=== PATIENT | female | born 1980 | race Caucasian/White ===

== ENCOUNTER 2017-08-16 12:07 | Emergency (ER) | payer BC, SELFPAY ==
[2017-08-16 12:08] VITALS: BP 121/74; PULSE 84; RESP 16; TEMP 36.6; O2SAT 98; BMI 29.9
--- NOTE | 2017-08-16 12:51 | CT_ITS ---
STUDY: CT BRAIN WITHOUT CONTRAST REASON FOR EXAM: Female, 37 years old. Recent head injury. Nausea. RADIATION DOSAGE (If Supplied By Facility): CTDIvol = ( 44.99 ) mGy, DLP = ( 745.49 ) mGycm TECHNIQUE: Transaxial CT imaging of the brain was performed without administration of intravenous contrast material. Individualized dose optimization techniques were used for this CT. COMPARISON: Comparison is made with prior examination dated February 23, 2008. FINDINGS: Normal soft tissue structures. Normal calvarium. Normal size ventricles and extra-axial spaces for the patient's age. Normal white matter tracts of the cerebral hemispheres. Normal basal ganglia and thalami. Normal brainstem. Normal cerebellum. There is no intracranial hemorrhage. There are no findings of an acute ischemic infarction. Normal visualized paranasal sinuses. CT/Brain/Head without Contrast IMPRESSION: Normal unenhanced CT scan of the brain. Electronically Signed: Liang Lucas MD at 13:16 EDT Tel [phone], Service support ,
--- NOTE | 2017-08-16 14:42 | ED.VISSUMM ---
- ER Visit Summary Date of Service: 08/16/17 Chief Complaint: Head injury History of Present Illness: The patient is a 37 F who presents with a closed head injury that occurred yesterday. Patient was at home and was hit in the head with a seat of her mower. Patient denies any loss of consciousness. Patient denies any paresthesias or weakness. Patient did feel nauseated today but denies any vomiting. Patient also admits to some blurred vision. Patient states her pain is over the left frontal area. Patient states she has a history of migraine headaches but states this headache is different. Physical Examination: Vital signs are stable. Patient is afebrile. Patient is in no acute distress. Cranial nerves II through XII are intact. Strength is 5/5 bilateral in the upper and lower extremities. There are no sensory deficits noted. Pupils are equal, round, and reactive to light bilateral. Extraocular muscles are intact. Heart was regular rate and rhythm. Lungs are clear and equal bilaterally. There is good respiratory effort noted. The remaining physical exam is within normal limits. Test Results: CT scan of the brain was obtained. There is no acute intracranial abnormality noted. Emergency Department Course and Treatment: Patient was instructed to rest in a dark quiet room. Patient was instructed to follow-up with her primary care physician in 5-7 days. Patient understood and was agreeable with the plan. All questions were answered. Disposition: Discharged home Impression: Head contusion This note was generated with [employer] dictation software. It may contain incorrect words, spelling, and punctuation that were not noted in review of the chart prior to signing ED Disposition - Plan for ED Patient: Disposition: Home or Assisted Living Chief Complaint: Head Injury Diagnosis: Contusion of head Instructions: ED Head Injury Closed Referrals: Xochilt Cortes MD [Primary Care Provider] -
--- NOTE | 2017-08-16 14:45 | ED.DCSUM_ITS ---
- ER Visit Summary Date of Service: 08/16/17 Chief Complaint: Head injury History of Present Illness: The patient is a 37 F who presents with a closed head injury that occurred yesterday. Patient was at home and was hit in the head with a seat of her mower. Patient denies any loss of consciousness. Patient denies any paresthesias or weakness. Patient did feel nauseated today but denies any vomiting. Patient also admits to some blurred vision. Patient states her pain is over the left frontal area. Patient states she has a history of migraine headaches but states this headache is different. Physical Examination: Vital signs are stable. Patient is afebrile. Patient is in no acute distress. Cranial nerves II through XII are intact. Strength is 5/ 5 bilateral in the upper and lower extremities. There are no sensory deficits noted. Pupils are equal, round, and reactive to light bilateral. Extraocular muscles are intact. Heart was regular rate and rhythm. Lungs are clear and equal bilaterally. There is good respiratory effort noted. The remaining physical exam is within normal limits. Test Results: CT scan of the brain was obtained. There is no acute intracranial abnormality noted. Emergency Department Course and Treatment: Patient was instructed to rest in a dark quiet room. Patient was instructed to follow-up with her primary care physician in 5-7 days. Patient understood and was agreeable with the plan. All questions were answered. Disposition: Discharged home Impression: Head contusion This note was generated with [employer] dictation software. It may contain incorrect words, spelling, and punctuation that were not noted in review of the chart prior to signing ED Disposition - Plan for ED Patient: Disposition: Home or Assisted Living Chief Complaint: Head Injury Diagnosis: Contusion of head Instructions: ED Head Injury Closed Referrals: Xochilt Cortes MD [Primary Care Provider] -
[2017-08-16 14:48] VITALS: BP 115/70; PULSE 80; RESP 14; O2SAT 99
== END 2017-08-16 14:52 | disposition home or self-care (01) ==
PROVIDERS: Emergency Provider Emergency Medicine; Family Provider Internal Medicine; PCP Internal Medicine
DX: S00.93XA Contusion of unspecified part of head, initial encounter (principal); W22.8XXA Striking against or struck by other objects, initial encounter; Y93.89 Activity, other specified; Y92.009 Unspecified place in unspecified non-institutional (private) residence as the place of occurrence of the external cause; Z72.0 Tobacco use
CPT/HCPCS: 70450; 99282

== ENCOUNTER 2020-02-05 18:08 | Emergency (ER) | payer MEDICAID, SELFPAY ==
[2020-02-05 18:10] VITALS: BP 133/78; PULSE 100; RESP 17; TEMP 36.3; O2SAT 97; BMI 21.4
--- NOTE | 2020-02-05 18:25 | ED.VIS.GEN ---
History of Present Illness Chief Complaint: Flank Pain Informant: Patient Narrative: 39-year-old female states that on Juany Carmelita (5 days ago) developed urinary frequency and dysuria. She developed pain across her low back. No fevers chills vomiting or diarrhea. No rashes. No obvious blood in the urine. She tried some Azo over the weekend which did help but her pain worsened today. Past Medical History - Allergies and Home Meds Allergies/Adverse Reactions: Allergies Penicillins Allergy (Verified 02/05/20 18:09) Rash cefuroxime axetil [From Ceftin] Adverse Reaction (Verified 02/05/20 18:09) Nausea/Vom/Diarrhea hydrocodone bitartrate [From Vicodin] Adverse Reaction (Verified 02/05/20 18:09) Nausea/Vom/Diarrhea meperidine HCl [From Demerol] Adverse Reaction (Verified 02/05/20 18:09) Swelling tramadol Adverse Reaction (Verified 02/05/20 18:09) Vomiting Primary Care Physician: Xochilt Cortes MD [Primary Care Provider] - As Needed Surgical History: noncontributory Smoking Status: Heavy Smoker (>10/day) Drugs: None Review of Systems General: Denies: Chills, Fever, Sweats Eyes: Denies: Visual changes - bilaterally, Diplopia ENT: Denies: Rhinorrhea, Sore throat Cardiovascular: Denies: Chest pain, Palpitations Respiratory: Denies: Dyspnea, Cough, Dyspnea on exertion Gastrointestinal: Denies: Abdominal pain, Nausea, Vomiting, Diarrhea, Melena, Hematochezia Genitourinary: Reports: Dysuria, Frequency - .. Denies: Hematuria Musculoskeletal: Reports: Back pain - Frequent. Denies: Extremity Pain Skin: Denies: Rash, Wounds Neurological: Denies: Headache, Weakness, Numbness Physical Exam Vital Signs/Narrative: Vital Signs Temp Pulse Resp BP Pulse Ox 02/05/20 18:10 97.3 F L 100 17 133/78 H 97 Inital Vital Signs reviewed: Yes General: Well nourished, Well developed, No Acute Distress Head: Normocephalic, Atraumatic Eyes: Perrl, EOMI ENT: Moist mucous membranes, No rhinorrhea Neck: Supple, Nontender Cardiovascular: Regular rate, Regular rhythm, No murmurs Respiratory: No distress, CTA bilaterally, Chest nontender Abdomen: Soft, Nontender, Nondistended, Normal bowel sounds Back: CVA tenderness, - - Diffuse pain in the low back keep with the ordering Extremities: Nontender, No edema Skin: Normal color, No rash Neurological: Alert, Oriented x3, Cranial nerves II-XII grossly intact, Normal Strength, Normal Sensation Psychological: Normal affect, Normal Mood Diagnostic/Tx/Re-eval Laboratory Last Values Urine Color Yellow (Yellow) 02/05/20 18:36 Urine Clarity Cloudy (Clear) 02/05/20 18:36 Urine pH 5.0 (5.0 - 8.0) 02/05/20 18:36 Ur Specific [place] 1.025 (1.002-1.030) 02/05/20 18:36 Urine Protein 100 mg/dl (Negative) H 02/05/20 18:36 Urine Glucose (UA) Normal mg/dl (Normal) 02/05/20 18:36 Urine Ketones 5 mg/dl (Negative) H 02/05/20 18:36 Urine Occult Blood 250 /ul (Negative) H 02/05/20 18:36 Urine Nitrite Positive (Negative) H 02/05/20 18:36 Urine Bilirubin Negative mg/dL (Negative) 02/05/20 18:36 Urine Urobilinogen 1 mg/dl (Normal) H 02/05/20 18:36 Ur Leukocyte Esterase 500 /ul (Negative) H 02/05/20 18:36 Urine RBC 0 SEEN /hpf (0-5) 02/05/20 18:36 Urine WBC >100 SEEN /hpf (0-5) 02/05/20 18:36 Ur Squamous Epith Cells 0-5 SEEN /hpf (5-10) 02/05/20 18:36 Urine Bacteria 1+ /hpf (None Seen) 02/05/20 18:36 Urine Mucus 0 SEEN /hpf (<or=2+) 02/05/20 18:36 Urine Test Negative Negative 02/05/20 18:36 - Medical Decision Making Urine shows obvious infection. Patient not . Urine culture will be sent. Patient will be started on Bactrim. As she has pain in the back we will treat her pyelonephritis. We will also write some Percocet for pain and Zofran for nausea. Patient understands return instructions. At discharge the patient states she does not wish the Percocet prescription as she is had a history of opioid abuse. Prescription was shredded. ED Disposition - Plan for ED Patient: Disposition: Home or Assisted Living Diagnosis: Pyelonephritis Instructions: ED Pyelonephritis, Female (Adult) Prescriptions: Smz/Tmp Ds [Bactrim Ds] 1 tab PO BID #28 tab Prescription Printed Ondansetron [Zofran Odt] 4 mg PO Q8H PRN PRN #10 tab PRN Reason: Nausea Prescription Printed Referrals: Xochilt Cortes MD [Primary Care Provider] - As Needed
[2020-02-05 18:54] LABS: Internal QC Validated? YES +Cl - CLEAR BKGD; Pregnancy, Urine Negative Negative
[2020-02-05 19:05] LABS: Mucous, Urine 0 SEEN /hpf (<or=2+); Red Blood Cells-Urine 0 SEEN /hpf (0-5)
[2020-02-05 19:31] LABS: Color, Urine Yellow (Yellow); Glucose, Dipstick Normal (Normal); Ketone-Dipstick 5 mg/dl (Negative); Leukocyte Esterase-Dipstick 500 /ul (Negative); Nitrite-Dipstick Positive (Negative); Occult Blood-Urine 250 /ul (Negative); Protein-Dipstick 100 mg/dl (Negative); Specific Gravity, Urine 1.025 (1.002-1.030); Urine Bilirubin Dipstick Negative (Negative); Urine Clarity Cloudy (Clear); Urine Urobilinogen 1 mg/dl (Normal)
[2020-02-05 19:32] LABS: Bacteria 1+ /hpf (None Seen); Squamous Epithelial Cells - UA 0-5 SEEN /hpf (5-10); White Blood Cells >100 SEEN /hpf (0-5)
[2020-02-05 20:04] VITALS: BP 135/71; PULSE 87; PULSE 90; RESP 17; TEMP 36.4; O2SAT 98
--- NOTE | 2020-02-05 20:07 | ED.RN ---
Pt refused prescription for pain medication. States she has a history of using pain meds and does not want the prescription in her possession. Script threw in shred box. notified. Pt state she will take tylenol and ibuprofen for pain.
== END 2020-02-05 20:09 | disposition home or self-care (01) ==
PROVIDERS: Emergency Provider Emergency Medicine; PCP Internal Medicine
DX: N12 Tubulo-interstitial nephritis, not specified as acute or chronic (principal); F17.200 Nicotine dependence, unspecified, uncomplicated
CPT/HCPCS: 81001; 81025; 87086; 87088; 87186; 99282

== ENCOUNTER 2021-11-18 19:44 | Emergency (ER) | payer BC, MEDICAID, SELFPAY ==
[2021-11-18 19:45] VITALS: PULSE 58; RESP 16; TEMP 36.8; O2SAT 99; BMI 25.3
[2021-11-18 20:02] VITALS: BP 116/62; PULSE 57; RESP 16; O2SAT 98
--- NOTE | 2021-11-18 20:36 | EKG12_ITS ---
Test Reason : DYSRHYTHMIA Blood Pressure : / mmHG Vent. Rate : 070 BPM Atrial Rate : 070 BPM P-R Int : 132 ms QRS Dur : 110 ms QT Int : 432 ms P-R-T Axes : 073 -12 -15 degrees QTc Int : 466 ms Normal sinus rhythm Incomplete right bundle branch block Nonspecific ST abnormality Abnormal ECG Reconfirmed by JORGE OLIVO, CHAVEZ ([id number]), associate entertainment editor [employer] ([id number]) on 11/20/2021 1:00:55 PM Referred By: SVITLANA Confirmed By:CHAVEZ PATEL MD
--- NOTE | 2021-11-18 20:37 | EX.ED.DYSGE1 ---
HPI History of Present Illness Chief Complaint: Back Detail of Chief Complaint: Right hip injury and near syncope Informant: patient Narrative Narrative: Patient presents secondary to right hip injury and near syncope x2. Patient states she was at work this morning and hit her right hip on a shopping cart. When she got home from work around 4:00 she had a brief near syncopal episode after getting out of the car. She states that she believes it was secondary to pain. Tonight she went to the urgent care. While there she again felt lightheaded and as if she is going to pass out. EMS was called and patient brought to the emergency room. [facility] Medical History Anxiety Depression Home Medications naproxen 500 mg tablet (Naprosyn) 500 mg PO BID PRN pain #20 tabs 11/18/21 [Rx Last Taken Unknown] Allergy/AdvReac Type Severity Reaction Status Date / Time Penicillins Allergy Rash Verified 11/18/21 19:49 cefuroxime axetil AdvReac Nausea/Vom/ Verified 11/18/21 19:49 [From Ceftin] Diarrhea hydrocodone bitartrate AdvReac Nausea/Vom/ Verified 11/18/21 19:49 [From Vicodin] Diarrhea meperidine HCl [From Demerol] AdvReac Swelling Verified 11/18/21 19:49 tramadol AdvReac Vomiting Verified 11/18/21 19:49 Social History Smoking Status: Current every day smoker tobacco type: cigarettes ROS ROS ED Constitutional Constitutional ED: Denies chills or fever(s) Eyes Eyes: Denies change in vision or discharge from eye(s) ENT ENT ED: Denies discharge from eye(s), rhinorrhea or sore throat Cardiovascular Cardiovascular: Denies chest pain or palpitations Respiratory/Chest Respiratory/Chest: Denies cough or dyspnea Gastrointestinal Gastrointestinal: Denies abdominal pain, diarrhea, nausea or vomiting Genitourinary Genitourinary ED: Denies difficulty urinating or dysuria Musculoskeletal Musculoskeletal: Reports extremity pain; Denies back pain Integumentary Denies Abrasions or rash Neurologic Neurologic: Denies headache(s) or weakness Psychiatric Psychiatric: Denies anxiety or depression Allergic/Immunologic Allergic/Immunologic ED: Denies lip swelling or urticaria EXAM Physical Exam Const Vital Signs: 11/18/21 19:45 11/18/21 19:53 11/18/21 20:02 Temperature 98.2 F Temperature Source Oral Pulse Rate 58 L 57 L Respiratory Rate 16 16 Respiratory Effort Normal Non-Labored Respiratory Pattern Normal Blood Pressure 116/62 Blood Pressure Mean 80 Pulse Ox 99 98 Oxygen Delivery Method Room Air Room Air 11/18/21 21:21 Temperature Temperature Source Pulse Rate 68 Respiratory Rate 16 Respiratory Effort Respiratory Pattern Blood Pressure Blood Pressure Mean Pulse Ox 98 Oxygen Delivery Method Room Air Positive well nourished and well developed General Appearance ED: well developed HEENT Reports normocephalic and head/scalp atraumatic Eyes PERRL and EOMs intact bilaterally Neck supple Chest Wall inspection of chest normal and palpation of chest normal Resp normal respiratory effort and clear to auscultation bilaterally Cardio regular rate and regular rhythm GI normal to inspection, nondistended, normoactive bowel sounds Palpation: soft Back/Spine no CVA tenderness Extremity Extremity Narrative: Reproducible tenderness of the right iliac crest. No overlying skin changes. Neuro oriented x3 and no sensory deficits noted Neuro Narrative: Decreased range of motion right lower extremity secondary to pain. Sensorium / Orientation: alert Psych mental status grossly normal Skin no rashes or lesions noted MDM MDM MDM Narrative Medical decision making narrative: Patient was given Toradol and IV fluids. EKG obtained along with lab work. Pelvis and right hip x-rays ordered. Lab Data Attestation: I reviewed the patient's lab results. Labs: Laboratory Results - last 24 hr 11/18/21 11/18/21 20:49 20:49 WBC 10.3 RBC 4.12 L Hgb 12.7 Hct 38.5 MCV 93.4 MCH 30.8 MCHC 33.0 RDW Std Deviation 44.1 H RDW Coeff of Dalila 12.8 Plt Count 160 MPV 10.1 Immature Gran % (Auto) 0.500 Neut % (Auto) 74.7 H Lymph % (Auto) 17.3 L [place] % (Auto) 6.0 Eos % (Auto) 1.2 Baso % (Auto) 0.3 Absolute Neuts (auto) 7.7 Absolute Lymphs (auto) 1.78 Nucleated RBC % 0 Sodium 140 Potassium 3.5 Chloride 107 Carbon Dioxide 26.0 Anion Gap 7 BUN 10 Creatinine 0.82 Estim Creat Clear Calc 86.23 Est GFR (MDRD) Af Amer 99 Est GFR (MDRD) Non-Af 82 BUN/Creatinine Ratio 12.2 Glucose 128 H Calcium 8.8 Radiography Diagnostic Testing: Clinical Impression(s) from Imaging Studies Hip/Pelvis X-Ray 11/18/21 21:07 IMPRESSION: No acute findings. Electronically Signed: Jony Spivey MD at 21:26 EDT Reading Location ID and State: [facility] / [place] , Service support , EKG Initial EKG: Attestation: I personally reviewed and interpreted this EKG as follows: Interpretation: Sinus Rhythm (Sinus at 70. No acute ischemia.) Treatment and Re-Evaluation Narrative: Repeat evaluation patient resting more comfortably. She was able to get up and ambulate to the restroom and back without difficulty. I will write a prescription for naproxen. Return instructions are provided. Discharge Plan Triage Chief Complaint: Back ED Provider: Kayla Fu Dx/Rx/DC Orders Clinical Impression: Contusion of hip, Vasovagal episode, Near syncope Instructions: ED Hip Contusion, ED Near-Fainting- Vagal Reaction Prescriptions: New naproxen [Naprosyn] 500 mg tablet 500 mg PO BID PRN (Reason: pain) Qty: 20 0RF Primary Care Provider: Xochilt Cortes Referrals: Xochilt Cortes MD [Primary Care Provider] - 1 Week if not improving Disposition Disposition: Home, Self Care
[2021-11-18] MEDS: Ketorolac 30 MG/ML Syringe IV (20:55)
[2021-11-18] MEDS: 0.9% Normal Saline 1,000 ML 1000 ML IV (20:56)
[2021-11-18 20:57] LABS: Absolute Lymphocyte Count 1.78 X10^3/uL (0.83-4.51); Absolute Neutrophil Count 7.7 X10^3/uL (2.0-7.7); Basophil# 0.03 X10^3/uL; Basophil% 0.3 % (0-1); Eosinophil# 0.12 X10^3/uL; Eosinophils% 1.2 % (0-5); Hematocrit 38.5 % (37-47); Hemoglobin 12.7 g/dL (12.0-15.0); Lymphocyte # 1.78 X10^3/ul (0.83-4.51); Lymphocyte % 17.3 % (19-41); Mean Corpuscular Hgb 30.8 pg (27.0-32.0); Mean Corpuscular Volume 93.4 fL (81-99); Mean Platelet Vol. 10.1 fl (6.2-12.0); Monocyte# 0.62 X10^3/uL; NRBC Flagged by Analyzer 0 % (0-5); Neutrophil # 7.69 X10^3/uL (2.7-7.7); Neutrophil % 74.7 % (47-70); Platelet Count 160 K/mm3 (150-450); RBC Distribution Width CV 12.8 % (11.6-14.6); RBC Distribution Width SD 44.1 fl (35.1-43.9); Red Blood Count 4.12 M/mm3 (4.2-5.4); White Blood Count 10.3 K/mm3 (4.4-11.0)
--- NOTE | 2021-11-18 21:07 | RAD_ITS ---
STUDY: X-RAY - PELVIS AND RIGHT HIP REASON FOR EXAM: Female, 41 years old. injury TECHNIQUE: XR Hip Unilateral with Pelvis when performed; 2-3 Views COMPARISON: None. FINDINGS: There is a non-specific bowel gas pattern. Normal visualized soft tissue structures. Normal bilateral iliac wings, sacroiliac joints and visualized sacrum. Normal bilateral superior and inferior pubic rami. Normal pubic symphysis. Normal bilateral ischial tuberosities. Normal visualized femoral head. Normal acetabulum. Normal hip joint. RAD/HIP, UNI W/ Pelvis 2-3 Views IMPRESSION: No acute findings. Electronically Signed: Jony Spivey MD at 21:26 EDT ,
[2021-11-18 21:21] VITALS: PULSE 68; RESP 16; O2SAT 98
[2021-11-18 21:22] LABS: Anion Gap 7 (5-15); BUN 10 mg/dL (7-18); BUN/Creat Ratio 12.2 RATIO (10-20); Calcium,Total 8.8 mg/dL (8.5-10.1); Chloride 107 mmol/L (98-107); Creatinine, Serum 0.82 mg/dL (0.55-1.02); EST Glomerular Filtration Rate 82 mL/min (>60); Est Glom Filt Rate - Afr Amer 99 mL/min (>60); Estimated Creatinine Clearance 86.23 ml/min; Glucose 128 mg/dL (74-106); Potassium 3.5 mmol/L (3.5-5.1); Sodium Level 140 mmol/L (136-145)
[2021-11-18 22:30] VITALS: BP 112/70; PULSE 82; RESP 16; O2SAT 98
== END 2021-11-18 22:32 | disposition home or self-care (01) ==
PROVIDERS: Emergency Provider Emergency Medicine; PCP Internal Medicine; Visit Provider Emergency Medicine
DX: R55 Syncope and collapse (principal); S70.00XA Contusion of unspecified hip, initial encounter; F17.210 Nicotine dependence, cigarettes, uncomplicated; W22.09XA Striking against other stationary object, initial encounter; Y99.0 Civilian activity done for income or pay
CPT/HCPCS: 73502; 80048; 85025; 93005; 96361; 96374; 99285; J7030

== ENCOUNTER 2023-05-30 15:31 | Emergency (ER) | payer MEDICAID, SELFPAY ==
[2023-05-30 15:32] VITALS: BP 128/86; PULSE 66; RESP 18; TEMP 35.8; O2SAT 100; BMI 31.4
[2023-05-30] MEDS: 0.9% Normal Saline (1000mL) 1,000 ML 999 ML IV (16:11)
[2023-05-30] MEDS: Metoclopramide 10 MG/2 ML Vial IV (16:11)
[2023-05-30] MEDS: SUMAtriptan 6 MG/0.5 ML Vial SC (16:11)
[2023-05-30] MEDS: DiphenhydrAMINE 50 MG/ML Syringe 25 MG IV (16:12)
--- NOTE | 2023-05-30 16:18 | EDS_ITS ---
HPI History of Present Illness Chief Complaint: Headache Informant: patient and spouse/S.O. Onset/Context/Timing Onset: Today Context: Activity (Woke up with headache earlier this morning) Timing: Continuous Quality -Headache: Positive for Similar Prior Headaches Location: Generalized Worsened by: Nothing Relieved by: Nothing Associated Symptoms/Injury Associated Symptoms: Positive for Nausea, Vomiting, Visual Changes, Blurred Vision and Photophobia; Negative for Fever, Sore Throat, Sinus Pressure, Numbness, Tingling, Preceding Aura or Visual Loss Narrative Narrative: Patient presents with a headache that began today. Patient woke up earlier this morning with a headache. Patient took a dose of Imitrex and then vomited immediately. Patient has been unable to keep anything down. Patient states her headaches feel similar to prior migraine headaches. Patient denies any sore throat or sinus pressure. Patient denies any fevers or chills. Patient admits to some blurry vision as well as some scotoma. Patient states the light makes her headache worse. Patient states nothing seems to help with it. Patient denies any paresthesias or weakness. [facility] Medical History (Updated 05/30/23 @ 17:[address] Dex Cohen DO) Anxiety Depression Migraine Home Medications naproxen 500 mg tablet (Naprosyn) 500 mg PO BID PRN pain #20 tabs 11/18/21 [Rx Last Taken Unknown] Allergy/AdvReac Type Severity Reaction Status Date / Time Penicillins Allergy Rash Verified 05/30/23 15:32 cefuroxime axetil AdvReac Nausea/Vom/ Verified 05/30/23 15:32 [From Ceftin] Diarrhea hydrocodone bitartrate AdvReac Nausea/Vom/ Verified 05/30/23 15:32 [From Vicodin] Diarrhea meperidine HCl [From Demerol] AdvReac Swelling Verified 05/30/23 15:32 tramadol AdvReac Vomiting Verified 05/30/23 15:32 Surgical History (Updated 05/30/23 @ 16:[address] Dex Cohen DO) History of surgical removal of ganglion cyst Social History Smoking Status: Current every day smoker tobacco type: e-cigarettes ROS ROS ED Constitutional Constitutional ED: Denies chills or fever(s) Eyes Eyes: Reports blurry vision; Denies diplopia ENT ENT ED: Denies rhinorrhea or sore throat Cardiovascular Cardiovascular: Denies chest pain or palpitations Respiratory/Chest Respiratory/Chest: Denies cough or dyspnea Gastrointestinal Gastrointestinal: Reports nausea and vomiting Genitourinary Genitourinary ED: Denies dysuria or hematuria Musculoskeletal Musculoskeletal: Denies back pain or neck pain Integumentary Denies abscess or rash Neurologic Neurologic: Reports headache(s); Denies weakness Allergic/Immunologic Allergic/Immunologic ED: Denies mouth swelling or urticaria EXAM Physical Exam Const Vital Signs: 05/30/23 15:32 Temperature 96.4 F L Temperature Source Temporal Pulse Rate 66 Respiratory Rate 18 Blood Pressure 128/86 H Blood Pressure Mean 100 Pulse Ox 100 Oxygen Delivery Method Room Air Positive well nourished and well developed General Appearance ED: well developed and NAD HEENT Reports moist mucous membranes atraumatic Neck supple, no meningeal signs and no JVD Resp normal respiratory effort and clear to auscultation bilaterally Cardio regular rate and regular rhythm GI non-tender and non-distended Palpation: soft Neuro oriented x3, CN's II-XII intact bilaterally and no sensory deficits noted Owen Coma Scale: document GCS findings Spontaneous Obeys Commands Oriented 15 Sensorium / Orientation: awake and alert Motor Exam: strength 5/5 throughout Psych mental status grossly normal MDM MDM MDM Narrative Medical decision making narrative: Differential diagnosis includes migraine headache, tension headache, and cluster headache. Patient was given IV fluids, Reglan, and Benadryl. Patient was also given a dose of Imitrex. Treatment and Re-Evaluation Narrative: Patient is feeling better on reevaluation. Patient was instructed to rest in a dark quiet room. Patient was instructed to drink plenty of fluids. Patient was instructed to follow-up with her primary care physician in 5 to 7 days. Patient was instructed return if worse in any way. Patient understood and was agreeable with the plan. All questions were answered. Discharge Plan Triage Chief Complaint: Headache ED Provider: Dex Cohen Dx/Rx/DC Orders Clinical Impression: Nicotine-filled electronic cigarette user, Migraine headache Instructions: ED, Migraine (Classical) Prescriptions: No Action naproxen [Naprosyn] 500 mg tablet 500 mg PO BID PRN (Reason: pain) Qty: 20 0RF Primary Care Provider: Xochilt Cortes Referrals: Xochilt Cortes MD [Primary Care Provider] - 5-7 Days Disposition Disposition: Home, Self Care
[2023-05-30 17:32] VITALS: BP 104/59; PULSE 55; RESP 18; O2SAT 98
[2023-05-30 17:42] VITALS: BP 119/68; PULSE 78; RESP 16; TEMP 36.9; O2SAT 98
== END 2023-05-30 17:43 | disposition home or self-care (01) ==
PROVIDERS: Emergency Provider Emergency Medicine; PCP Internal Medicine; Visit Provider Emergency Medicine
DX: G43.909 Migraine, unspecified, not intractable, without status migrainosus (principal); F17.290 Nicotine dependence, other tobacco product, uncomplicated
CPT/HCPCS: 96361; 96372; 96374; 96375; 99283; J7030; J3030

== ENCOUNTER 2023-11-04 14:54 | Emergency (ER) | payer OTHER, SELFPAY ==
[2023-11-04 14:54] VITALS: BP 122/83; PULSE 63; RESP 14; TEMP 36.3; O2SAT 98; BMI 32.5
--- NOTE | 2023-11-04 15:29 | EX.ED.DYSGE1 ---
HPI <WHITNEY Coello - Last Filed: 11/04/23 16:30> History of Present Illness Chief Complaint: Headache Narrative Narrative: Patient is a 43-year-old female with history of migraine headaches, fibromyalgia presents to the [facility] from with 2 days of worsening migraine headache. Patient states she does use Imitrex, she currently does not see a neurologist because they never find anything wrong with me. Patient states that this headache is more to the right side, causing her to have some nausea. She does state to have some photophobia. PFSH <WHITNEY Coello - Last Filed: 11/04/23 16:30> [facility] Medical History (Updated 11/04/23 @ 16:29 by WHITNEY Coello) Anxiety Depression Migraine Home Medications ?Medication ?Instructions ?Recorded ?Last Taken ?Type naproxen 500 mg tablet (Naprosyn) 500 mg PO BID PRN pain #20 tabs 11/18/21 Unknown Rx Allergy/AdvReac Type Severity Reaction Status Date / Time Penicillins Allergy Rash Verified 11/04/23 14:55 cefuroxime axetil (From AdvReac Nausea/Vom/ Verified 11/04/23 14:55 Ceftin) Diarrhea hydrocodone bitartrate (From AdvReac Nausea/Vom/ Verified 11/04/23 14:55 Vicodin) Diarrhea meperidine HCl (From Demerol) AdvReac Swelling Verified 11/04/23 14:55 tramadol AdvReac Vomiting Verified 11/04/23 14:55 Surgical History (Updated 05/30/23 @ 16:[address] Dex Cohen, ) History of surgical removal of ganglion cyst Social History Smoking Status: Current every day smoker tobacco type: e-cigarettes ROS <WHITNEY Coello - Last Filed: 11/04/23 16:30> ROS ED ROS Narrative Constitutional: Negative for fever, chills, weight loss, weakness Eyes: Negative for vision loss, vision change, double vision ENT: Negative for any sore throat, ear pain, congestion Cardiovascular: Negative for any chest pain, tightness, palpitations Respiratory: Negative for any cough, sputum production, hemoptysis, dyspnea, dyspnea on exertion, orthopnea Gastrointestinal: Negative for any abdominal pain, vomiting, diarrhea, constipation, blood in stool, blood in vomit. Positive for nausea : Negative for any urinary frequency, dysuria, retention, blood in urine Muscle skeletal: Negative for any neck pain, back pain Neurological: Negative for any syncope, dizziness. Positive for headache Skin: Negative for any rashes, itching, abrasions, lacerations Psychiatric: Negative for any depression, anxiety, stress, suicidal ideation, homicidal ideation Hematologic: Negative for any excessive bruising, easy bleeding EXAM <WHITNEY Coello - Last Filed: 11/04/23 16:30> Physical Exam Narrative Exam Narrative: Vital signs reviewed. HEET: Head normocephalic atraumatic, TMs clear bilaterally. Posterior pharynx is clear, moist mucous membranes. Nares clear bilaterally. Pupils are equal round reactive to light. Negative for any photophobia Neck: Supple with no lymphadenopathy or tenderness. No signs of meningismus. Cardiac: Regular rate and rhythm no murmurs gallops or rubs, equal peripheral pulses bilaterally. Respiratory: Lungs clear to auscultation bilaterally. No chest tenderness. Abdomen: Soft, nontender, nondistended. No abdominal bruit or pulsatile masses. No hepatosplenomegaly Extremities: No peripheral edema, no signs of gross trauma or deformity. Active full range of motion of all extremities. Neuro: Cranial nerves II through XII intact, no focal neurological deficits. NIH stroke scale 0. Skin: Clean dry and intact with no rash, purpura, petechiae, vesicles or pustules. Backs/flank: No CVA tenderness, no midline spinal tenderness, no deformity. Psych: Normal mood and affect. No SI, HI or acute psychosis. Const Vital Signs: 11/04/23 14:54 Temperature 97.3 F L Temperature Source Temporal Pulse Rate 63 Respiratory Rate 14 Blood Pressure 122/83 H Blood Pressure Mean 96 Pulse Ox 98 Oxygen Delivery Method Room Air <Dr. Lon Solares DO - Last Filed: 11/04/23 16:48> Physical Exam Const Vital Signs: 11/04/23 14:54 Temperature 97.3 F L Temperature Source Temporal Pulse Rate 63 Respiratory Rate 14 Blood Pressure 122/83 H Blood Pressure Mean 96 Pulse Ox 98 Oxygen Delivery Method Room Air MDM <WHITNEY Coello - Last Filed: 11/04/23 16:30> MDM Treatment and Re-Evaluation :: Differential diagnosis includes however is not limited to: Thunderclap headache, sequelae of migraine headache, electrode abnormality, viral syndrome Patient appears generally well, vital signs are stable, patient is nontoxic-appearing. Presenting to the emergency department with complaints of headache for 2 days. Patient's physical examination is consistent with a migraine-like headache. Patient's physical examination yields no red flag signs, no neurological focal deficit. Patient will receive IV fluids, Toradol, Benadryl, Reglan. Patient will need to be reevaluated. On reevaluation, the patient was feeling better, the patient's headache is now 4 out of 10. Patient that she has slight epigastric pain, however she states that she does get this and would like a Bentyl for this. Patient at this time will go home, she will continue take her medications as prescribed. She will follow-up with her PCP. Patient is agreeable with the plan, instructed return for any worsening symptoms. Stable for discharge <Dr. Lon Solares, DO - Last Filed: 11/04/23 16:48> [facility] Treatment and Re-Evaluation :: Differential diagnosis includes however is not limited to: Thunderclap headache, sequelae of migraine headache, electrode abnormality, viral syndrome Patient appears generally well, vital signs are stable, patient is nontoxic-appearing. Presenting to the emergency department with complaints of headache for 2 days. Patient's physical examination is consistent with a migraine-like headache. Patient's physical examination yields no red flag signs, no neurological focal deficit. Patient will receive IV fluids, Toradol, Benadryl, Reglan. Patient will need to be reevaluated. On reevaluation, the patient was feeling better, the patient's headache is now 4 out of 10. Patient that she has slight epigastric pain, however she states that she does get this and would like a Bentyl for this. Patient at this time will go home, she will continue take her medications as prescribed. She will follow-up with her PCP. Patient is agreeable with the plan, instructed return for any worsening symptoms. Stable for discharge I have personally performed a face to face assessment of the patient and have reviewed the ESSIE Note. I performed a substantive portion of the visit including all aspects of the following. My [place] findings include: History is 43-year-old female presenting to the emergency room with migraine headache. Patient states she has a history of migraines typically will get relief when she takes home Imitrex. States she woke yesterday with retro-orbital headache on the right with associated nausea and light sensitivity. She states she has seen neurology in the past for this. She states that it has been several months since she has had a migraine this severe. She denies any arm leg or speech symptoms. No recent fevers illnesses or insect/animal bites. Exam is patient lying in a darkened room. She has normal neurologic exam. No meningeal signs. ANO x 3 Medical Decison Making patient received migraine cocktail and is feeling improvement. She will be discharged home with supportive care follow-up primary care as needed return if worsening Discharge Plan Triage Chief Complaint: Headache ED Midlevel Provider: Pablito Garnett ED Provider: Lon Solares Dx/Rx/DC Orders Clinical Impression: Migraine Instructions: ED, Migraine (Classical) Prescriptions: No Action naproxen [Naprosyn] 500 mg tablet 500 mg PO BID PRN (Reason: pain) Qty: 20 0RF Primary Care Provider: Xochilt Cortes Referrals: Xochilt Cortes MD [Primary Care Provider] - Activity Restrictions/Additional Instructions: Please continue your daily medications. Follow-up out patient. Print Language: Czech Disposition Disposition: Home, Self Care
[2023-11-04] MEDS: Metoclopramide 10 MG/2 ML Vial IV (15:37)
[2023-11-04] MEDS: Ketorolac 15 MG/ML Vial IV (15:38)
[2023-11-04] MEDS: DiphenhydrAMINE 50 MG/ML Syringe 25 MG IV (15:38)
[2023-11-04] MEDS: 0.9% Normal Saline (1000mL) 1,000 ML 999 ML IV (15:38)
[2023-11-04 16:57] VITALS: BP 119/71; PULSE 81; RESP 14; TEMP 36.6; O2SAT 98
== END 2023-11-04 16:59 | disposition home or self-care (01) ==
PROVIDERS: Emergency Provider Emergency Medicine; PCP Internal Medicine; Visit Provider Emergency Medicine
DX: G43.909 Migraine, unspecified, not intractable, without status migrainosus (principal); F17.210 Nicotine dependence, cigarettes, uncomplicated
CPT/HCPCS: 96361; 96374; 96375; 99283; J7030; A4216

== ENCOUNTER 2023-12-04 15:32 | Emergency (ER) | payer OTHER, SELFPAY ==
[2023-12-04 15:33] VITALS: BP 133/84; PULSE 74; RESP 18; TEMP 36.4; O2SAT 100; BMI 34.3
--- NOTE | 2023-12-04 15:50 | EDS_ITS ---
HPI <WHITNEY Coello - Last Filed: 12/04/23 17:01> History of Present Illness Chief Complaint: Headache Narrative Narrative: Patient is a 43-year-old female with history of migraine headaches, patient states she has had these for several years. Last time she was in the emergency department was at the end of October 2023. She currently takes Imitrex, took it this morning however did not help. Patient states the pain is most on the right side, some photophobia, nausea and vomiting. She has not seen a neurologist in some time, she states she sees them they do not find what is wrong and then she stops going. Here for evaluation. Denies any fever or chills. PFSH <WHITNEY Coello - Last Filed: 12/04/23 17:01> PFSH Medical History (Updated 12/04/23 @ 17:01 by WHITNEY Coello) Anxiety Depression Migraine Home Medications ?Medication ?Instructions ?Recorded ?Last Taken ?Type naproxen 500 mg tablet (Naprosyn) 500 mg PO BID PRN pain #20 tabs 11/18/21 Unknown Rx Allergy/AdvReac Type Severity Reaction Status Date / Time Penicillins Allergy Rash Verified 12/04/23 15:33 cefuroxime axetil (From AdvReac Nausea/Vom/ Verified 12/04/23 15:33 Ceftin) Diarrhea hydrocodone bitartrate (From AdvReac Nausea/Vom/ Verified 12/04/23 15:33 Vicodin) Diarrhea meperidine HCl (From Demerol) AdvReac Swelling Verified 12/04/23 15:33 tramadol AdvReac Vomiting Verified 12/04/23 15:33 Surgical History (Updated 05/30/23 @ 16:[address] Dex Cohen, ) History of surgical removal of ganglion cyst Social History Smoking Status: Current every day smoker tobacco type: e-cigarettes ROS <WHITNEY Coello - Last Filed: 12/04/23 17:01> ROS ED ROS Narrative Constitutional: Negative for fever, chills, weight loss, weakness Eyes: Negative for vision loss, vision change, double vision ENT: Negative for any sore throat, ear pain, congestion Cardiovascular: Negative for any chest pain, tightness, palpitations Respiratory: Negative for any cough, sputum production, hemoptysis, dyspnea, dyspnea on exertion, orthopnea Gastrointestinal: Negative for any abdominal pain, diarrhea, constipation, blood in stool, blood in vomit. Positive for nausea and vomiting : Negative for any urinary frequency, dysuria, retention, blood in urine Muscle skeletal: Negative for any neck pain, back pain Neurological: Negative for any syncope, dizziness. Positive for headache Skin: Negative for any rashes, itching, abrasions, lacerations Psychiatric: Negative for any depression, anxiety, stress, suicidal ideation, homicidal ideation Hematologic: Negative for any excessive bruising, easy bleeding EXAM <WHITNEY Coello - Last Filed: 12/04/23 17:01> Physical Exam Const Vital Signs: 12/04/23 15:33 Temperature 97.5 F L Temperature Source Temporal Pulse Rate 74 Respiratory Rate 18 Blood Pressure 133/84 H Blood Pressure Mean 100 Pulse Ox 100 Oxygen Delivery Method Room Air <Dr. Dex Cohen DO - Last Filed: 12/04/23 17:05> Physical Exam Const Vital Signs: 12/04/23 15:33 Temperature 97.5 F L Temperature Source Temporal Pulse Rate 74 Respiratory Rate 18 Blood Pressure 133/84 H Blood Pressure Mean 100 Pulse Ox 100 Oxygen Delivery Method Room Air MDM <WHITNEY Coello - Last Filed: 12/04/23 17:01> [facility] Treatment and Re-Evaluation :: Differential diagnosis includes however is not limited to: Migraine headache, tension headache, cluster headache, acute on chronic migraines, thunderclap headache Patient appears generally well, vital signs are stable, patient is nontoxic- appearing. Patient on my initial evaluation was in a dark room, patient complains of headache, nausea and vomiting. Patient will receive a migraine cocktail she has had in the past. She states last time the Reglan gave her epigastric pain. Patient received IV fluids, Toradol Compazine and Benadryl. Patient will be reevaluated. Patient has had history of these migraines, do not believe that any imaging is necessary at this time. Patient will be reevaluated. On reevaluation, the patient was improved. Pay states that her pain is now a 3. At this time, I do believe the patient is stable for discharge. She will continue following up outpatient with her PCP. All questions were answered, patient stable for discharge. <Dr. Dex Cohen, DO - Last Filed: 12/04/23 17:05> [facility] Narrative Medical decision making narrative: I have personally performed a face to face assessment of the patient and have reviewed the ESSIE Note. I performed a substantive portion of the visit including all aspects of the following. My [place] findings include: History: Patient presents with migraine headache that began today. Patient states this feels similar to prior migraine headaches. Patient describes her pain as sharp and stabbing. Patient states it is mainly over the right side of her head. Patient states it is worse with light and sound. Patient admits to some nausea and vomiting. Patient denies any fevers or chills. Patient admits to some photophobia and phonophobia. Patient also admits to some floaters but denies any other visual changes. Exam: Vital signs are stable. Patient is afebrile. Patient is in no acute distress. Oral mucosa is pink and moist. Neck is supple. Trachea is midline. There is no JVD. Heart with regular rate and rhythm. Lungs are clear and equal bilaterally. Abdomen is soft and nontender. Cranial nerves II through XII are grossly intact. There are no focal motor or sensory deficits. Medical Decision Making: Since the patient states this is similar to prior migraine headaches, patient will be given IV fluids, Compazine, Benadryl, and Toradol. Since the patient does not have any new neurologic deficits, I do not feel CT scan is necessary at this time. Patient is feeling better on reevaluation. Patient was instructed to rest in a dark quiet room. Patient was instructed to follow-up with her primary care physician in 5 to 7 days. Patient understood and was agreeable with plan. All questions were answered. Discharge Plan Triage Chief Complaint: Headache ED Midlevel Provider: Pablito Garnett ED Provider: Dex Cohen Dx/Rx/DC Orders Clinical Impression: Headache, migraine Instructions: ED, Migraine (Classical) Prescriptions: No Action naproxen [Naprosyn] 500 mg tablet 500 mg PO BID PRN (Reason: pain) Qty: 20 0RF Primary Care Provider: Xochilt Cortes Referrals: Xochilt Cortes MD [Primary Care Provider] - Activity Restrictions/Additional Instructions: Please follow-up outpatient. Print Language: Citizen Of [place] Disposition Disposition: Home, Self Care
[2023-12-04] MEDS: DiphenhydrAMINE 50 MG/ML Syringe 25 MG IV (15:57)
[2023-12-04] MEDS: Ketorolac 15 MG/ML Vial IV (15:58)
--- OUTSIDE RECORDS SUMMARY | 2023-12-04 15:58 | XMS RPT_ITS | CCD ---
Author Organization [facility] Care Team Providers Care Platform Inspector Name Role Phone Sebastian OLIVO, Saúl Primary Care Provider MATTHIAS OLIVO, DR CHAVEZ Sharma Primary Care Unavailsam RANDHAWA MD, DR SILVIA Orozco Attending Unavailable Saúl Andrade MD Primary Care Provider Saúl Andrade MD Primary Care Provider GANTA, SAÚL Primary Care Unavailable KALA VILLEGAS Referring Unavailab le GANTA, SAÚL Primary Care Unavailable CULLEN DRUMMOND Attending Unavailable CULLEN DRUMMOND Admitting Unavailable Sebsatian OLIVO, Saúl Primary Care Provider [phone] GANTA, SAÚL Primary Care Unavailable KALA VILLEGAS Attending Unavailab le GANTA, SAÚL Primary Care Unavailable GANTA, SAÚL Primary Care Unavailable KALA VILLEGAS Referring Unavailab le GANTA, SAÚL Primary Care Unavailable OLDER, DONA Referring Unavailable GANTA, SAÚL Primary Care Unavailable GANTA, SAÚL Primary Care Unavailable GANTA, SAÚL Primary Care Unavailable GANTA, SAÚL Primary Care Unavailable GANTA, SAÚL Primary Care Unavailable GANTA, SAÚL Primary Care Unavailable OLDER, DONA Referring Unavailable GANTA, SAÚL Primary Care Unavailable GANTA, SAÚL Primary Care Unavailable GANTA, SAÚL Primary Care Unavailable LORETTA HARRIS R Referring Unavailable GANTA, SAÚL Primary Care Unavailable CULLEN DRUMMOND Attending Unavailable GANTA, SAÚL Primary Care Unavailable GANTA, SAÚL Primary Care Unavailable GANTA, SAÚL Primary Care Unavailable MICHELLE STERN Attending Unavailable GANTA, SAÚL Primary Care Unavailable GANTA, SAÚL Primary Care Unavailable GANTA, SAÚL Primary Care Unavailable GANTA, SAÚL Attending Unavailable GANTA, SAÚL Primary Care Unavailable KALA VILLEGAS Referring Unavailab belkis [facility] Primary Care Unavailable [facility] SAÚL Primary [facility] Unavailable [facility] [place] Unavailable Allergies Allergy Classification Reported Allergen(s) Allergy Type Date of Onset Reaction(s) Facility (20 sources) Acetaminophen / HYDROcodone; Translations: [HYDROCODONE-ACETA MINOPHEN] Drug Allergy 8 [facility] (20 sources) Adhesive agent; Translations: [ADHESIVE] Propensity to adverse reactions to drug 9 [facility] Work Phone: (20 sources) Meperidine; Translations: [MEPERIDINE (PF)] Drug Allergy 8 [facility] (20 sources) Penicillins; Translations: [PENICILLINS] Propensity to adverse reactions 5 [facility] Work Phone: Medications Current Medications Medication Drug Class(es) Dates Sig (Normalized) Sig (Original) acetaminophen 500 mg oral tablet (13 sources) acetaminophen (TYLENOL 8 HOUR ORAL) Take 500 mg by mouth as needed. Active Comment on above: Take 500 mg by mouth as needed. [id number] 200 actuat albuterol 0.09 mg/actuat metered dose inhaler (20 sources) beta2-Adrenergic Agonist Start: 01-27-2022 End: 02-26-2022 take 2 puff(s) by inhalation every four hours as needed albuterol HFA (PROAIR HFA) 90 mcg/actuation inhaler Inhale 2 Puffs as instructed every 4 hours as needed. 1 Each 02/26/2022 Active Start: 09-08-2018 take 2 puff(s) by in halation every four hours as needed albuterol HFA (PROAIR HFA) 90 mcg/actuation inhaler Indications: Asthmatic bronchitis without complication, unspecified asthma severity, unspecified whether persistent Inhale 2 Puffs as instructed every 4 hours as needed. 1 Inhaler 1 09/08/2018 Active Comment on above: Inhale 2 Puffs as in structed every 4 hours as needed. dicyclomine hydrochloride 10 mg oral capsule (20 sources) Anticholinergic Start: 023 take 1 capsule by mouth three times daily as needed for pain dicyclomine (BENTYL) 10 mg capsule Indications: Altered bowel habits , Lower abdominal pain Take 1 capsule by mouth three times daily as needed (for abdominal pain). 60 capsule 2 04/02/2022 Active Comment on above: Take 1 capsule by mo [facility] three times daily as needed (for abdominal pain). ondansetron 4 mg disintegrating oral tablet (20 sources) Serotonin-3 Receptor Antagonist Start: End: take 1 tablet by mouth every six hours as needed ondansetron orally disintegrating (ZOFRAN ODT) 4 mg disintegrating tablet Take 1 tablet by mouth every 6 hours as needed for nausea/vomiting. 8 tablet 3 12/09/2022 Active Comment on above: Take [facility] 6 hours as needed for nausea/vomiting. polyethylene glycol 3350 88841 mg powder for oral solution (20 sources) Osmotic Laxative Start: polyethylene glycol 3350 (MIRALAX) 17 gram/dose powder Indications: Altered bowel habits Take 17 g by mouth once daily. Dissolve dose in 4 - 8 ounces of liquid and take as directed. 595 g 2 04/02/2022 Active Comment on above: Take 17 g by mouth o nce daily. Dissolve dose in 4 - 8 ounces of liquid and take as directed. predniSONE 20 mg oral tablet (2 sources) Start: End: take 2 tablets by mouth once daily predniSONE (DELTASONE) 20 mg tablet Indications: Sore throat Take 2 tablets by mouth once daily for 5 days. 10 tablet 0 12/22/2022 12/27/2022 Active Start: 12-01-2022 End: 12-06-2022 take 2 tablets by mouth once daily predniSONE (DELTASONE) 20 mg tablet Take 2 tablets by mouth once daily for 5 days. 10 tablet 0 12/01/2022 12/06/2022 Active Comment on above: Take 2 tablets by mo [facility] once daily for 5 days. SUMAtriptan 50 mg oral tablet (20 sources) Serotonin-1b and Serotonin-1d Receptor Agonist Start: 01-27-2022 End: 10-26-2023 SUMAtriptan (IMITREX) 50 mg tablet Indications: Migraine with aura and without status migrainosus, not intractable Take one tablet by mouth at the onset of the headache. If no improvement in 2 hours take one more tablet. No more than 2 tablets in 24 hours 8 tablet 5 10/26/2023 Active Comment on above: Take one tablet by m outh at the onset of the headache. If no improvement in 2 hours take one more tablet. No more than 2 tablets in 24 hours 1 ml triamcinolone acetonide 40 mg/ml injection (2 sources) Corticosteroid Start: 10-26-2023 End: 10-27-2023 triamcinolone acetonide 40 mg injection (KeNALog 40) Start: 03-09-2022 End: 03-10-2022 triamcinolone acetonide 40 m g injection (KeNALog 40) vitamin b12 1 mg/ml injectable solution (20 sources) Vitamin B12 Start: 03-02-2023 End: 01-31-2024 1,000 mcg, INTRAMUSCULAR, EVERY 4 WEEKS, 12 doses, First dose on 03/02/23 at 0000, Last dose on 01/04/24 at 0000 Start: 03-02-2023 End: 01-31-2024 cyanocobalamin 1,000 mcg inj ection Start: 03-09-2022 End: 02-08-2023 cyanocobalamin 1,000 mcg inj ection Start: 05-03-2019 cyanocobalamin 1,000 mcg/mL Inject 1mL once weekly for 3 weeks then inject 1mL once monthly 4 mL 3 05/03/2019 Active Comment on above: Inject 1mL once week ly for 3 weeks then inject 1mL once monthly Completed/Discontinued Medications Medication Drug Class(es) Dates Sig (Normalized) Sig (Original) aspirin 81 mg chewable tablet (2 sources) Platelet Aggregation Inhibitor, Nonsteroidal Anti-inflammatory Drug Start: 11-18-2021 End: 11-18-2021 aspirin 81 mg chewable tab(s) Start: 11-18-2021 End: 11-18-2021 aspirin 162 mg chewable tab( s) cholecalciferol 1.25 mg oral capsule (1 source) Vitamin D Start: 05-04-2019 take 1 capsule by mouth every week cholecalciferol, Vitamin D3, (VITAMIN D3) 1,250 mcg (50,000 unit) cap capsule Take 1 capsule by mouth one time a week. 12 capsule 0 05/04/2019 Active Comment on above: Take 1 capsule by mo ut one time a week. cyclobenzaprine hydrochloride 10 mg oral tablet (1 source) Muscle Relaxant Start: 09-20-2019 take 1 tablet by mouth once daily at bedtime cyclobenzaprine (FLEXERIL) 10 mg tablet Take 1 tablet by mouth daily at bedtime. 30 tablet 2 09/20/2019 Active Comment on above: Take 1 tablet by [facility] daily at bedtime. diphenhydrAMINE hydrochloride 50 mg oral capsule (1 source) Histamine-1 Receptor Antagonist Start: 10-18-2022 End: 10-18-2022 diphenhydrAMINE 50 mg (BENADRYL) Start: 10-18-2022 End: 10-18-2022 diphenhydrAMINE 50 mg (BENAD RYL) 21 day ethinyl estradiol 0.996268 mg/hr / etonogestrel 0.005 mg/hr vaginal system (1 source) Progestin, Estrogen Start: 09-08-2016 NUVARING 0.12-0.015 mg/24 hr vaginal ring ibuprofen 200 mg oral tablet (20 sources) Nonsteroidal Anti-inflammatory Drug Start: 08-05-2016 End: 04-02-2022 take 200-400 mg by mouth every six hours as needed ibuprofen (MOTRIN) 200 mg tablet Take 1-2 tablets by mouth every 6 hours as needed for Pain (Take with food.). 0 08/05/2016 04/02/2022 Discontinued IBUPROFEN ORAL T [place] by mouth. Active IBUPROFEN ORAL T [place] by mouth. 0 Active Comment on above: Take 1-2 tablets by mouth every 6 hours as needed for Pain (Take with food.). Take by mouth. 2 ml ketorolac tromethamine 30 mg/ml injection (2 sources) Nonsteroidal Anti-inflammatory Drug, Cyclooxygenase Inhibitor Start: 12-09-2022 End: 12-09-2022 keTORolac 60 mg injection (Toradol) Start: 10-18-2022 End: 10-18-2022 keTORolac 60 mg injection (T oradol) omeprazole 20 mg delayed release oral capsule (1 source) Proton Pump Inhibitor Start: 03-08-2019 take 1 capsule by mouth once daily before breakfast omeprazole (PRILOSEC) 20 mg capsule Indications: gastroesophageal reflux disease , heartburn Take 1 capsule by mouth daily before breakfast. 30 capsule 2 03/08/2019 Active Comment on above: Take 1 capsule by mo uth daily before breakfast. pantoprazole 20 mg delayed release oral tablet (20 sources) Proton Pump Inhibitor Start: 02-26-2022 End: 12-09-2022 take 1 tablet by mouth once daily before breakfast pantoprazole DR (PROTONIX) 20 mg tablet Take 1 tablet by mouth daily before breakfast. Take on empty stomach, 1/2 hr before meal. 30 tablet 2 02/26/2022 12/09/2022 Discontinued (Course of therapy completed) Comment on above: Take 1 tablet by john th daily before breakfast. Take on empty stomach, 1/2 hr before meal. topiramate 25 mg oral tablet (20 sources) Start: 02-26-2022 End: 03-19-2023 topiramate (TOPAMAX) 25 mg tablet Take one pill daily for seven days and then increase to one pill two times a day. 60 tablet 3 02/26/2022 12/09/2022 Discontinued (Course of therapy completed) Comment on above: Take one pill daily for seven days and then increase to one pill two times a day. Take 1 tablet by john th daily at bedtime. Problems Active Problems Problem Classification Problem Date Documented Da te Episodic/Chronic Abdominal pain (2 sources) Lower abdominal pain; Translations: [Lower abdominal pain, unspecified] Episodic Asthma (20 sources) Mild intermittent asthma; Translations: [Mild intermittent asthma, uncomplicated] Onset: 03-19-2023 03-19-2023 Chronic Headache; including migraine (20 sources) Migraine with aura; Translations: [Migraine with aura, not intractable, without status migrainosus] Onset: 09-12-2019 09-12-2019 Chronic Headache; including migraine (1 source) Headache; Translations: [Headache, unspecified headache type] 10-18-2022 Episodic Immunizations and screening for infectious disease (1 source) Viral screening status; Translations: [Encounter for screening for other viral diseases] Episodic Nausea and vomiting (1 source) Nausea; Translations: [Nausea] 10-18-2022 Episodic Nutritional deficiencies (1 source) Vitamin D deficiency; Translations: [Vitamin D deficiency, unspecified] Chronic Nutritional deficiencies (14 sources) Cobalamin deficiency; Translations: [Deficiency of other specified B group vitamins] Episodic Other connective tissue disease (2 sources) Trochanteric bursitis of left hip; Translations: [Trochanteric bursitis, left hip] Episodic Other connective tissue disease (2 sources) Ganglion, unspecified site; Translations: [Ganglion cyst] Onset: 10-15-2022 Episodic Other connective tissue disease (1 source) Lateral epicondylitis of left humerus; Translations: [Lateral epicondylitis, left elbow] 12-09-2022 Episodic Other connective tissue disease (1 source) Ganglion cyst; Translations: [Ganglion, unspecified site] 05-17-2023 Episodic Other gastrointestinal disorders (3 sources) Altered bowel function; Translations: [Other specified symptoms and signs involving the digestive system and abdomen] Episodic Other gastrointestinal disorders (1 source) Abdominal bloating; Translations: [Abdominal distension (gaseous)] Episodic Other gastrointestinal disorders (2 sources) Heartburn; Translations: [Heartburn] Episodic Other nervous system disorders (2 sources) Carpal tunnel syndrome of right wrist; Translations: [Carpal tunnel syndrome, right upper limb] 11-06-2022 Chronic Other nervous system disorders (1 source) Carpal tunnel syndrome, right upper limb; Translations: [Carpal tunnel syndrome of right wrist] Onset: 11-20-2022 Chronic Other nervous system disorders (1 source) Paresthesia; Translations: [Paresthesia of skin] 11-20-2022 Episodic Other non-traumatic joint disorders (2 sources) Pain of right wrist; Translations: [Pain in right wrist] 08-17-2022 Episodic Other non-traumatic joint disorders (1 source) Pain in right wrist; Translations: [Right wrist pain] Onset: 10-15-2022 Episodic Other non-traumatic joint disorders (2 sources) Pain in elbow; Translations: [Pain in left elbow] 12-01-2022 Episodic Other upper respiratory infections (1 source) Sore throat symptom; Translations: [Acute pharyngitis, unspecified] 12-22-2022 Episodic Residual codes; unclassified (1 source) Procedure not done; Translations: [Procedure and treatment not carried out, unspecified reason] 11-04-2023 Episodic Spondylosis; intervertebral disc disorders; other back problems (1 source) Backache; Translations: [Dorsalgia, unspecified] Episodic Past or Other Problems Problem Classification Problem Date Documented Date Episodic/Chronic Biliary tract disease (13 sources) Calculus of gallbladder and bile duct with acute cholecystitis; Translations: [Calculus of gallbladder and bile duct with acute cholecystitis without obstruction] Onset: 11-22-2007 Resolved: 09-08-2018 09-08-2018 Episodic Other connective tissue disease (20 sources) Fibromyalgia; Translations: [Fibromyalgia] Onset: 09-20-2019 09-20-2019 Episodic Other connective tissue disease (1 source) Fibromyalgia; Translations: [Fibromyalgia] Onset: 09-20-2019 Episodic Other non-traumatic joint disorders (5 sources) Hip pain; Translations: [Pain in unspecified hip] Onset: 08-05-2016 Episodic Other non-traumatic joint disorders (20 sources) Pain in right hip joint; Translations: [Pain in right hip] Onset: 08-05-2016 08-05-2016 Episodic Other non-traumatic joint disorders (1 source) Pain in left elbow; Translations: [Elbow pain, left] Onset: 12-01-2022 Episodic Other screening for suspected conditions (not mental disorders or infectious disease) (12 sources) Patient encounter status; Translations: [Encounter for screening mammogram for malignant neoplasm of breast] Onset: 03-24-2023 Episodic Residual codes; unclassified (20 sources) Total body pain syndrome; Translations: [Pain, unspecified] Onset: 08-05-2016 08-05-2016 Episodic Residual codes; unclassified (20 sources) Tobacco user; Translations: [Tobacco use] Onset: 08-05-2016 08-05-2016 Episodic Residual codes; unclassified (1 source) Tobacco use; Translations: [Tobacco abuse disorder] Onset: 08-05-2016 Episodic Results Test Name Value Interpretation Reference Range Facility [facility] 11-09-2023 CNNURSE Nurse Visit (FAMPWS) LEOLA ISABEL ([id number]) 1980 F Date Time Provider Department 11/09/23 3:00 PM [place] NURSE FAMPWS During your visit today, we recorded the following information about you: Rosie Chapman LPN 11/09/2023 3:14 PM Signed Patient presents for B-12 injection. Denies any problems at this time. Patient instructed on any SE of medication, verbalized understanding and agreed to proceed with treatment. Tolerated injection well. Rosie Chapman LPN Allergies As of Date: 11/09/2023 Noted Allergy Reaction ADHESIVE 09/11/2008 2 - Rash DEMEROL (MEPERIDINE (PF)) 11/22/2007 2 - Rash PENICILLINS 05/20/2004 2 - Rash VICODIN (HYDROCODONE-ACETAMIN OPHE*11/22/2007 4 - Hives Date Reviewed: 11/04/2023 Reviewed by: Pedrito Glasgow APRN.[employer]ICER [employer] - Fully Assessed Reason for Visit: B-12 Injection [247] Primary Visit Diagnosis:Vitamin B 12 deficiency [E53.8] Prescriptions as of 11/09/2023 - SUMAtriptan (IMITREX) 50 mg tablet Take one tablet by mouth at the onset of the headache. If no improvement in 2 hours take one more tablet. No more than 2 tablets in 24 hours - acetaminophen (TYLENOL 8 HOUR ORAL) Take 500 mg by mouth as needed. - IBUPROFEN ORAL Take by mouth. - ondansetron orally disintegrating (ZOFRAN ODT) 4 mg disintegrating tablet Take 1 tablet by mouth every 6 hours as needed for nausea/vomiting. - polyethylene glycol 3350 (MIRALAX) 17 gram/dose powder Take 17 g by mouth once daily. Dissolve dose in 4 - 8 ounces of liquid and take as directed. - dicyclomine (BENTYL) 10 mg capsule Take 1 capsule by mouth three times daily as needed (for abdominal pain). - albuterol HFA (PROAIR HFA) 90 mcg/actuation inhaler Inhale 2 Puffs as instructed every 4 hours as needed. Facility-Administered Medications as of 11/09/2023 - cyanocobalamin 1,000 mcg injection Problem List As Of Date 11/09/2023 Noted Resolved CHOLECYSTITIS SEE ALSO GALLBLADDER ACUTE,GB S*11/22/2007 09/08/2018 Whole body pain [R52] 08/05/2016 Right hip pain [M25.551] 08/05/2016 Tobacco abuse disorder [Z72.0] 08/05/2016 Migraine with aura and without status migrainos*09/12/2019 Fibromyalgia [M79.7] 09/20/2019 Asthma [J45.909] 03/19/2023 Encounter Status:Closed by ROSIE CHAPMAN on 11/09/23 Normal [facility] CNOVon 11-04-2023 CNOV Office Visit (UCWSTR ) LEOLA ISABEL ([id number]) 1980 F Date Time Provider Department 11/04/23 2:45 PM PEDRITO GLASGOW UCTR During your visit today, we recorded the following information about you: Temperature Pulse Respiration Blood pressure 97.5 degrees 63/minute 18/minute 116/79 Weight 88.8 kg Pedrito Glasgow APRN.CNP 11/04/2023 3:08 PM Signed Nontoxic-appearing female presents urgent care accompanied by family member. Chief complaint headache. Duration of symptoms 2 days. Associated symptoms send 8 out of 10 headache. States history of migraines. Was unable to break this cycle. Has taken Imitrex 3 times. Has tried Aleve Motrin Tylenol Benadryl. This has not helped. Headache is worsening. With presenting symptoms recommend patient be seen ED for IV medications to break headache cycle. Will be seen at [facility]. Pedrito Glasgow APRN.CNP Allergies As of Date: 11/04/2023 Noted Allergy Reaction ADHESIVE 09/11/2008 2 - Rash DEMEROL (MEPERIDINE (PF)) 11/22/2007 2 - Rash PENICILLINS 05/20/2004 2 - Rash VICODIN (HYDROCODONE-ACETAMIN OPHE*11/22/2007 4 - Hives Date Reviewed: 11/04/2023 Reviewed by: Pedrito Glsagow APRN.CNP - Fully Assessed Reason for Visit: Headache [52] Cmt: Nausea x2 days, no relief with Sumatriptan Primary Visit Diagnosis:Procedure not carried out [Z53.9] Prescriptions as of 11/04/2023 - SUMAtriptan (IMITREX) 50 mg tablet Take one tablet by mouth at the onset of the headache. If no improvement in 2 hours take one more tablet. No more than 2 tablets in 24 hours - acetaminophen (TYLENOL 8 HOUR ORAL) Take 500 mg by mouth as needed. - IBUPROFEN ORAL Take by mouth. - ondansetron orally disintegrating (ZOFRAN ODT) 4 mg disintegrating tablet Take 1 tablet by mouth every 6 hours as needed for nausea/vomiting. - polyethylene glycol 3350 (MIRALAX) 17 gram/dose powder Take 17 g by mouth once daily. Dissolve dose in 4 - 8 ounces of liquid and take as directed. - dicyclomine (BENTYL) 10 mg capsule Take 1 capsule by mouth three times daily as needed (for abdominal pain). - albuterol HFA (PROAIR HFA) 90 mcg/actuation inhaler Inhale 2 Puffs as instructed every 4 hours as needed. Facility-Administered Medications as of 11/04/2023 - cyanocobalamin 1,000 mcg injection Problem List As Of Date 11/04/2023 Noted Resolved CHOLECYSTITIS SEE ALSO GALLBLADDER ACUTE,GB S*11/22/2007 09/08/2018 Whole body pain [R52] 08/05/2016 Right hip pain [M25.551] 08/05/2016 Tobacco abuse disorder [Z72.0] 08/05/2016 Migraine with aura and without status migrainos*09/12/2019 Fibromyalgia [M79.7] 09/20/2019 Asthma [J45.909] 03/19/2023 Encounter Status:Closed by PEDRITO GLASGOW on 11/04/23 [facility] CNOVflorinda 10-26-2023 CNOV Office Visit (INTMWS ) LEOLA ISABEL ([id number]) 1980 F Date Time Provider Department 10/26/23 1:20 PM SAÚL ANDRADE INTJERROD During your visit today, we recorded the following information about you: Pulse Respiration Blood pressure Weight 78/minute 16/minute 116/74 90 kg Height 1.651 m Saúl Andrade MD 10/26/2023 6:39 PM Signed Reason for Visit Patient presents with: bilateral hip pain Leola Isabel is a 43 year old female who presents here today for Above Complaints.. Health Maintenance Spirometry Depression Screening Anxiety Screening Hepatitis B Vaccine(1 of 19+ 3-dose series) Mammogram Screening Covid-19 Vaccine( season) Influenza Vaccine(1) HPI Has been having b/l hip pain for the past 2/3 months. Started gradually over the past couple months. They are stiff anytime she rests and when she has to get up there is stiffness and pain, and takes a while to lumber up, these symptoms are progressively getting worse. 6/10 pain, sharp stabbing, pulling pain b/l , no injuries. It hurts her to lie down on the left side. Today she notes mostly has issues with pain in the left side hip. She would also like a refill of imitrex. Gets migraines once or twice a month. Takes motrin first but if that does not work then she takes the imitrex which does help her each time she takes the medication. Procedure note: The risk, benefits and alternatives of injection and no injection therapy were discussed. The patient consented for an injection. Time out was conducted. The injection site was prepped with a Chlorhexadine swab. The right trochanteric bursa a the tenderest Point was injected with a 22 gauge needle with 1 cc (40 mg) kenalog, 1 cc of lidocaine . The injection site was then dressed with a bandaid. The patient tolerated the injection well. The patient was instructed to call the office if any adverse local effects occurred or any if any questions or concerns arise. No problem-specific Assessment AND Plan notes found for this encounter. PAST MEDICAL HISTORY Diagnosis Date Abnormal glandular Papanicolaou smear of cervix 04/09/2003 Abn. Pap smear (cervix) Adjustment disorder with depressed mood Asthma Esophageal reflux Migraine with aura, without mention of intractable migraine without mention of status migrainosus Unspecified asthma, with status asthmaticus PAST SURGICAL HISTORY Procedure Laterality Date BILIARY NDSC INTRAOPERATIVE 11/12/2007 COLONOSCOPY 05/12/2022 EGD W/O BRSH SPEC VARICIES INJ 05/12/2022 IANDD OF BARTHOLINS GLAND ABSCESS 09/07/2008 LAPS SURG CHOLECSTC W/EXPL COMMON DUCT 11/12/2007 FAMILY HISTORY Problem Relation Age of Onset Alcohol/Drug Mother other (lupus) Mother Alcohol/Drug Father Asthma Sister Seizures Sister other (diverticulosis) Maternal Grandmother Social History Tobacco Use Smoking status: Former Current packs/day: 1.00 Types: Cigarettes Smokeless tobacco: Never Vaping Use Vaping status: current everyday user Substances: Nicotine, THC Devices: Disposable Substance Use Topics Alcohol use: No Drug use: No Past medical history, appointments, medications, allergies reviewed. Pertinent Lab/Diagnostic Studies are reviewed and discussed today Current Outpatient Medications: IBUPROFEN ORAL SUMAtriptan (IMITREX) 50 mg tablet dicyclomine (BENTYL) 10 mg capsule acetaminophen (TYLENOL 8 HOUR ORAL) ondansetron orally disintegrating (ZOFRAN ODT) 4 mg disintegrating tablet polyethylene glycol 3350 (MIRALAX) 17 gram/dose powder albuterol HFA (PROAIR HFA) 90 mcg/actuation inhaler Current Facility-Administered Medications: cyanocobalamin 1,000 mcg injection Facility-Administered Medications Ordered in Other Visits: lidocaine (PF) 10 mg/mL (1 %) 1-2 mg injection (XYLOCAINE) lactated ringers iv infusion Review of Systems CONSTITUTIONAL: No fevers, chills night sweats, unintended weight loss CARDIOVASCULAR: No chest pain, dyspnea, palpitations, orthopnea, PND, ankle edema. PULM: No dyspnea, unexplained cough. GI: No dysphagia/odynophagia , problematic reflux, constipation, diarrhea, changes in stool habits, hematochezia, melena. : No new urinary complaints, including dysuria, gross hematuria or pyuria. NEURO: No new balance problems, peripheral weakness/paresthesias or numbness of concern. Physical Exam BP 116/74 Pulse 78 Resp 16 Ht 165.1 cm (5' 5 ) Wt 90 kg (198 lb 6.6 oz) LMP 08/13/2008 BMI 33.02 kg/m? General appearance: Well appearing, alert, in no acute distress, well nourished. Skin: Skin color, texture, turgor normal, no suspicious rashes or lesions Head: Normocephalic, no masses, lesions, tenderness or abnormalities Eyes: Anicteric sclera. Pupils are equally round and reactive to light. Extraocular movements are intact. Lungs: Lungs clear to auscultation. No wheezing (more content not included)... Normal [facility] CNNURSEon 10-12-2023 [facility] Nurse Visit (FAMPWS) LEOLA ISABEL ([id number]) 1980 F Date Time Provider Department 10/12/23 3:00 PM [place] [facility] During your visit today, we recorded the following information about you: Rosie Chapman LPN 10/12/2023 3:29 PM Signed Patient presents for B-12 injection. Denies any problems at this time. Patient instructed on any SE of medication, verbalized understanding and agreed to proceed with treatment. Tolerated injection well. Rosie Chapman LPN Allergies As of Date: 10/12/2023 Noted Allergy Reaction ADHESIVE 09/11/2008 2 - Rash DEMEROL (MEPERIDINE (PF)) 11/22/2007 2 - Rash PENICILLINS 05/20/2004 2 - Rash VICODIN (HYDROCODONE-ACETAMIN OPHE*11/22/2007 4 - Hives Date Reviewed: 04/23/2023 Reviewed by: Breanna Roque OCCA - Fully Assessed Reason for Visit: B-12 Injection [247] Primary Visit Diagnosis:Vitamin B 12 deficiency [E53.8] Prescriptions as of 10/12/2023 - acetaminophen (TYLENOL 8 HOUR ORAL) Take 500 mg by mouth as needed. - IBUPROFEN ORAL Take by mouth. - SUMAtriptan (IMITREX) 50 mg tablet Take one tablet by mouth at the onset of the headache. If no improvement in 2 hours take one more tablet. No more than 2 tablets in 24 hours - ondansetron orally disintegrating (ZOFRAN ODT) 4 mg disintegrating tablet Take 1 tablet by mouth every 6 hours as needed for nausea/vomiting. - polyethylene glycol 3350 (MIRALAX) 17 gram/dose powder Take 17 g by mouth once daily. Dissolve dose in 4 - 8 ounces of liquid and take as directed. - dicyclomine (BENTYL) 10 mg capsule Take 1 capsule by mouth three times daily as needed (for abdominal pain). - albuterol HFA (PROAIR HFA) 90 mcg/actuation inhaler Inhale 2 Puffs as instructed every 4 hours as needed. Facility-Administered Medications as of 10/12/2023 - cyanocobalamin 1,000 mcg injection - lidocaine (PF) 10 mg/mL (1 %) 1-2 mg injection (XYLOCAINE) - lactated ringers iv infusion Problem List As Of Date 10/12/2023 Noted Resolved CHOLECYSTITIS SEE ALSO GALLBLADDER ACUTE,GB S*11/22/2007 09/08/2018 Whole body pain [R52] 08/05/2016 Right hip pain [M25.551] 08/05/2016 Tobacco abuse disorder [Z72.0] 08/05/2016 Migraine with aura and without status migrainos*09/12/2019 Fibromyalgia [M79.7] 09/20/2019 Asthma [J45.909] 03/19/2023 Encounter Status:Closed by ROSIE CHAPMAN on 10/12/23 [facility] 09-14-2023 [facility] Nurse Visit (FAMPWS) LEOLA ISABEL ([id number]) 1980 F Date Time Provider Department 09/14/23 3:00 PM [place] [facility] During your visit today, we recorded the following information about you: Rosie Chapman LPN 09/14/2023 3:24 PM Signed Patient presents for B-12 injection. Denies any problems at this time. Patient instructed on any SE of medication, verbalized understanding and agreed to proceed with treatment. Tolerated injection well. Rosie Chapman LPN Allergies As of Date: 09/14/2023 Noted Allergy Reaction ADHESIVE 09/11/2008 2 - Rash DEMEROL (MEPERIDINE (PF)) 11/22/2007 2 - Rash PENICILLINS 05/20/2004 2 - Rash VICODIN (HYDROCODONE-ACETAMIN OPHE*11/22/2007 4 - Hives Date Reviewed: 04/23/2023 Reviewed by: Breanna Roque OCCA - Fully Assessed Reason for Visit: B-12 Injection [247] Primary Visit Diagnosis:Vitamin B 12 deficiency [E53.8] Prescriptions as of 09/14/2023 - acetaminophen (TYLENOL 8 HOUR ORAL) Take 500 mg by mouth as needed. - IBUPROFEN ORAL Take by mouth. - SUMAtriptan (IMITREX) 50 mg tablet Take one tablet by mouth at the onset of the headache. If no improvement in 2 hours take one more tablet. No more than 2 tablets in 24 hours - ondansetron orally disintegrating (ZOFRAN ODT) 4 mg disintegrating tablet Take 1 tablet by mouth every 6 hours as needed for nausea/vomiting. - polyethylene glycol 3350 (MIRALAX) 17 gram/dose powder Take 17 g by mouth once daily. Dissolve dose in 4 - 8 ounces of liquid and take as directed. - dicyclomine (BENTYL) 10 mg capsule Take 1 capsule by mouth three times daily as needed (for abdominal pain). - albuterol HFA (PROAIR HFA) 90 mcg/actuation inhaler Inhale 2 Puffs as instructed every 4 hours as needed. Facility-Administered Medications as of 09/14/2023 - cyanocobalamin 1,000 mcg injection - lidocaine (PF) 10 mg/mL (1 %) 1-2 mg injection (XYLOCAINE) - lactated ringers iv infusion Problem List As Of Date 09/14/2023 Noted Resolved CHOLECYSTITIS SEE ALSO GALLBLADDER ACUTE,GB S*11/22/2007 09/08/2018 Whole body pain [R52] 08/05/2016 Right hip pain [M25.551] 08/05/2016 Tobacco abuse disorder [Z72.0] 08/05/2016 Migraine with aura and without status migrainos*09/12/2019 Fibromyalgia [M79.7] 09/20/2019 Asthma [J45.909] 03/19/2023 Encounter Status:Closed by [facility]IE [facility]APMAN [facility]14[facility]ON[facility] (RDXWS) CHALOLEOLA ([id number]) 1980 F Date Time Provider Department 08/25/23 DONA RANDHAWA During your visit today, we recorded the following information about you: Patience Garcia, Mammo Tech 08/25/2023 4:[address] bilateral diagnostic MG orders. (6 month follow up for right side, but due for bilat). Thank you. Dona Randhawa APRN.CNP 08/25/2023 5:55 PM Signed Order placed. Dona Randhawa APRN.[facility] Allergies As of Date: 08/25/2023 Noted Allergy Reaction ADHESIVE 09/11/2008 2 - Rash DEMEROL (MEPERIDINE (PF)) 11/22/2007 2 - Rash PENICILLINS 05/20/2004 2 - Rash VICODIN (HYDROCODONE-ACETAMIN OPHE*11/22/2007 4 - Hives Date Reviewed: 04/23/2023 Reviewed by: Breanna Roque OCCA - Fully Assessed Reason for Visit: Orders [681] Primary Visit Diagnosis:Abnormal mammogram [R92.8] Other Visit Diagnosis:Breast cancer screening by mammogram [Z12.31] Order(s):[facility] DIAGNOSTIC BILATERAL [[id number]] Order #: [id number] FUTURE Prescriptions as of 09/27/2023 - acetaminophen (TYLENOL 8 HOUR ORAL) Take 500 mg by mouth as needed. - IBUPROFEN ORAL Take by mouth. - SUMAtriptan (IMITREX) 50 mg tablet Take one tablet by mouth at the onset of the headache. If no improvement in 2 hours take one more tablet. No more than 2 tablets in 24 hours - ondansetron orally disintegrating (ZOFRAN ODT) 4 mg disintegrating tablet Take 1 tablet by mouth every 6 hours as needed for nausea/vomiting. - polyethylene glycol 3350 (MIRALAX) 17 gram/dose powder Take 17 g by mouth once daily. Dissolve dose in 4 - 8 ounces of liquid and take as directed. - dicyclomine (BENTYL) 10 mg capsule Take 1 capsule by mouth three times daily as needed (for abdominal pain). - albuterol HFA (PROAIR HFA) 90 mcg/actuation inhaler Inhale 2 Puffs as instructed every 4 hours as needed. Facility-Administered Medications as of 09/27/2023 - cyanocobalamin 1,000 mcg injection - lidocaine (PF) 10 mg/mL (1 %) 1-2 mg injection (XYLOCAINE) - lactated ringers iv infusion Problem List As Of Date 08/25/2023 Noted Resolved CHOLECYSTITIS SEE ALSO GALLBLADDER ACUTE,GB S*11/22/2007 09/08/2018 Whole body pain [R52] 08/05/2016 Right hip pain [M25.551] 08/05/2016 Tobacco abuse disorder [Z72.0] 08/05/2016 Migraine with aura and without status migrainos*09/12/2019 Fibromyalgia [M79.7] 09/20/2019 Asthma [J45.909] 03/19/2023 Encounter Status:Closed by PATIENCE GARCIA on 09/27/23 [facility] 08-17-2023 [facility] Nurse Visit (FAMPWS) LEOLA ISABEL ([id number]) 1980 F Date Time Provider Department 08/17/23 3:00 PM [place] NURSE [facility]AMP[facility] During your visit today, we recorded the following information about you: Rosie Chapman LPN 08/17/2023 3:04 PM Signed Patient presents for B-12 injection. Denies any problems at this time. Patient instructed on any SE of medication, verbalized understanding and agreed to proceed with treatment. Tolerated injection well. Rosie Chapman LPN Allergies As of Date: 08/17/2023 Noted Allergy Reaction ADHESIVE 09/11/2008 2 - Rash DEMEROL (MEPERIDINE (PF)) 11/22/2007 2 - Rash PENICILLINS 05/20/2004 2 - Rash VICODIN (HYDROCODONE-ACETAMIN OPHE*11/22/2007 4 - Hives Date Reviewed: 04/23/2023 Reviewed by: Breanna Roque OCCA - Fully Assessed Reason for Visit: B-12 Injection [247] Primary Visit Diagnosis:Vitamin B 12 deficiency [E53.8] Prescriptions as of 08/17/2023 - acetaminophen (TYLENOL 8 HOUR ORAL) Take 500 mg by mouth as needed. - IBUPROFEN ORAL Take by mouth. - SUMAtriptan (IMITREX) 50 mg tablet Take one tablet by mouth at the onset of the headache. If no improvement in 2 hours take one more tablet. No more than 2 tablets in 24 hours - ondansetron orally disintegrating (ZOFRAN ODT) 4 mg disintegrating tablet Take 1 tablet by mouth every 6 hours as needed for nausea/vomiting. - polyethylene glycol 3350 (MIRALAX) 17 gram/dose powder Take 17 g by mouth once daily. Dissolve dose in 4 - 8 ounces of liquid and take as directed. - dicyclomine (BENTYL) 10 mg capsule Take 1 capsule by mouth three times daily as needed (for abdominal pain). - albuterol HFA (PROAIR HFA) 90 mcg/actuation inhaler Inhale 2 Puffs as instructed every 4 hours as needed. Facility-Administered Medications as of 08/17/2023 - cyanocobalamin 1,000 mcg injection - lidocaine (PF) 10 mg/mL (1 %) 1-2 mg injection (XYLOCAINE) - lactated ringers iv infusion Problem List As Of Date 08/17/2023 Noted Resolved CHOLECYSTITIS SEE ALSO GALLBLADDER ACUTE,GB S*11/22/2007 09/08/2018 Whole body pain [R52] 08/05/2016 Right hip pain [M25.551] 08/05/2016 Tobacco abuse disorder [Z72.0] 08/05/2016 Migraine with aura and without status migrainos*09/12/2019 Fibromyalgia [M79.7] 09/20/2019 Asthma [J45.909] 03/19/2023 Encounter Status:Closed by ROSIE [facility]MAN on [facility]17[facility] Nurse Visit (FAMPWS) LEOLA ISABEL ([id number]) 1980 F Date Time Provider Department 06/02/23 2:15 PM [place] [facility] During your visit today, we recorded the following information about you: Rosie Chapman LPN 06/02/2023 2:35 PM Signed Patient presents for B-12 injection. Denies any problems at this time. Patient instructed on any SE of medication, verbalized understanding and agreed to proceed with treatment. Tolerated injection well. Rosie Chapman LPN Allergies As of Date: 06/02/2023 Noted Allergy Reaction ADHESIVE 09/11/2008 2 - Rash DEMEROL (MEPERIDINE (PF)) 11/22/2007 2 - Rash PENICILLINS 05/20/2004 2 - Rash VICODIN (HYDROCODONE-ACETAMIN OPHE*11/22/2007 4 - Hives Date Reviewed: 04/23/2023 Reviewed by: Breanna Roque OCCA - Fully Assessed Reason for Visit: B-12 Injection [247] Primary Visit Diagnosis:Vitamin B 12 deficiency [E53.8] Prescriptions as of 06/02/2023 - acetaminophen (TYLENOL 8 HOUR ORAL) Take 500 mg by mouth as needed. - IBUPROFEN ORAL Take by mouth. - SUMAtriptan (IMITREX) 50 mg tablet Take one tablet by mouth at the onset of the headache. If no improvement in 2 hours take one more tablet. No more than 2 tablets in 24 hours - ondansetron orally disintegrating (ZOFRAN ODT) 4 mg disintegrating tablet Take 1 tablet by mouth every 6 hours as needed for nausea/vomiting. - polyethylene glycol 3350 (MIRALAX) 17 gram/dose powder Take 17 g by mouth once daily. Dissolve dose in 4 - 8 ounces of liquid and take as directed. - dicyclomine (BENTYL) 10 mg capsule Take 1 capsule by mouth three times daily as needed (for abdominal pain). - albuterol HFA (PROAIR HFA) 90 mcg/actuation inhaler Inhale 2 Puffs as instructed every 4 hours as needed. Facility-Administered Medications as of 06/02/2023 - cyanocobalamin 1,000 mcg injection - lidocaine (PF) 10 mg/mL (1 %) 1-2 mg injection (XYLOCAINE) - lactated ringers iv infusion Problem List As Of Date 06/02/2023 Noted Resolved CHOLECYSTITIS SEE ALSO GALLBLADDER ACUTE,GB S*11/22/2007 09/08/2018 Whole body pain [R52] 08/05/2016 Right hip pain [M25.551] 08/05/2016 Tobacco abuse disorder [Z72.0] 08/05/2016 Migraine with aura and without status migrainos*09/12/2019 Fibromyalgia [M79.7] 09/20/2019 Asthma [J45.909] 03/19/2023 Encounter Status:Closed by ROSIE CHAPMAN on 06/02/23 [facility] (UCWSTR ) LEOLA ISABEL ([id number]) 1980 F Date Time Provider Department 05/30/23 3:15 PM ANGELA CHAUDHARI [facility] During your visit today, we recorded the following information about you: Angela Chaudhari APRN.CNP 05/30/2023 3:28 PM Signed Requested to triage patient by [facility] staff She presents with ice on her head Hunched over as she walks She attempted Imitrex, but no relief She is not tolerating PO fluids per her significant other. Patient referred to ED ASSESSMENT/PLAN: 1. Migraine headaches - ICD9: 346.90, ICD10: G43.909 Given no relief with home meds And not tolerating PO fluids, Referred to ED Angela Chaudhari APRN.[employer] Allergies As of Date: 05/30/2023 Noted Allergy Reaction ADHESIVE 09/11/2008 2 - Rash DEMEROL (MEPERIDINE (PF)) 11/22/2007 2 - Rash PENICILLINS 05/20/2004 2 - Rash VICODIN (HYDROCODONE-ACETAMIN OPHE*11/22/2007 4 - Hives Date Reviewed: 04/23/2023 Reviewed by: Breanna Roque OCCA - Fully Assessed Reason for Visit: Headache [52] Primary Visit Diagnosis:Migraine headaches [G43.909] Prescriptions as of 05/30/2023 - acetaminophen (TYLENOL 8 HOUR ORAL) Take 500 mg by mouth as needed. - IBUPROFEN ORAL Take by mouth. - SUMAtriptan (IMITREX) 50 mg tablet Take one tablet by mouth at the onset of the headache. If no improvement in 2 hours take one more tablet. No more than 2 tablets in 24 hours - ondansetron orally disintegrating (ZOFRAN ODT) 4 mg disintegrating tablet Take 1 tablet by mouth every 6 hours as needed for nausea/vomiting. - polyethylene glycol 3350 (MIRALAX) 17 gram/dose powder Take 17 g by mouth once daily. Dissolve dose in 4 - 8 ounces of liquid and take as directed. - dicyclomine (BENTYL) 10 mg capsule Take 1 capsule by mouth three times daily as needed (for abdominal pain). - albuterol HFA (PROAIR HFA) 90 mcg/actuation inhaler Inhale 2 Puffs as instructed every 4 hours as needed. Facility-Administered Medications as of 05/30/2023 - cyanocobalamin 1,000 mcg injection - lidocaine (PF) 10 mg/mL (1 %) 1-2 mg injection (XYLOCAINE) - lactated ringers iv infusion Problem List As Of Date 05/30/2023 Noted Resolved CHOLECYSTITIS SEE ALSO GALLBLADDER ACUTE,GB S*11/22/2007 09/08/2018 Whole body pain [R52] 08/05/2016 Right hip pain [M25.551] 08/05/2016 Tobacco abuse disorder [Z72.0] 08/05/2016 Migraine with aura and without status migrainos*09/12/2019 Fibromyalgia [M79.7] 09/20/2019 Asthma [J45.909] 03/19/2023 Encounter Status:Closed by ANGELA CHAUDHARI on 05/30/23 [facility] Nurse Visit (FAMPWS) LEOLA ISABEL ([id number]) 1980 F Date Time Provider Department 04/30/23 3:00 PM [place] [facility] During your visit today, we recorded the following information about you: Rosie Chapman LPN 04/30/2023 2:56 PM Signed Patient presents for B-12 injection. Denies any problems at this time. Patient instructed on any SE of medication, verbalized understanding and agreed to proceed with treatment. Tolerated injection well. Rosie Chapman LPN Allergies As of Date: 04/30/2023 Noted Allergy Reaction ADHESIVE 09/11/2008 2 - Rash DEMEROL (MEPERIDINE (PF)) 11/22/2007 2 - Rash PENICILLINS 05/20/2004 2 - Rash VICODIN (HYDROCODONE-ACETAMIN OPHE*11/22/2007 4 - Hives Date Reviewed: 04/23/2023 Reviewed by: Breanna Roque - Fully Assessed Reason for Visit: B-12 Injection [247] Primary Visit Diagnosis:Vitamin B 12 deficiency [E53.8] Prescriptions as of 04/30/2023 - acetaminophen (TYLENOL 8 HOUR ORAL) Take 500 mg by mouth as needed. - IBUPROFEN ORAL Take by mouth. - SUMAtriptan (IMITREX) 50 mg tablet Take one tablet by mouth at the onset of the headache. If no improvement in 2 hours take one more tablet. No more than 2 tablets in 24 hours - ondansetron orally disintegrating (ZOFRAN ODT) 4 mg disintegrating tablet Take 1 tablet by mouth every 6 hours as needed for nausea/vomiting. - polyethylene glycol 3350 (MIRALAX) 17 gram/dose powder Take 17 g by mouth once daily. Dissolve dose in 4 - 8 ounces of liquid and take as directed. - dicyclomine (BENTYL) 10 mg capsule Take 1 capsule by mouth three times daily as needed (for abdominal pain). - albuterol HFA (PROAIR HFA) 90 mcg/actuation inhaler Inhale 2 Puffs as instructed every 4 hours as needed. Facility-Administered Medications as of 04/30/2023 - cyanocobalamin 1,000 mcg injection - lidocaine (PF) 10 mg/mL (1 %) 1-2 mg injection (XYLOCAINE) - lactated ringers iv infusion Problem List As Of Date 04/30/2023 Noted Resolved CHOLECYSTITIS SEE ALSO GALLBLADDER ACUTE,GB S*11/22/2007 09/08/2018 Whole body pain [R52] 08/05/2016 Right hip pain [M25.551] 08/05/2016 Tobacco abuse disorder [Z72.0] 08/05/2016 Migraine with aura and without status migrainos*09/12/2019 Fibromyalgia [M79.7] 09/20/2019 Asthma [J45.909] 03/19/2023 Encounter Status:Closed by ROSIE CHAPMAN on 04/30/23 [facility] CNOVon 04-23-2023 CNOV Office Visit (ORMDNA ) LEOLA ISABEL ([id number]) 1980 F Date Time Provider Department 04/23/23 10:00 AM CULLEN DRUMMOND During your visit today, we recorded the following information about you: Cullen Drummond MD 05/17/2023 11:30 AM Signed POST OP Ms. Isabel presents today for her 7-10 day visit from: Post Op of the Right Wrist (Ganglion excision) Patient reports no difficulty with the wrist. History: PAIN EVALUATION 04/23/2023 1017 Pain Level: 5 Pain Location: Wrist-Right Description: Burning;Stabbing Duration Amount of Time: -- ongoing Frequency: Continuous Intervention/Comfort measure: Splinting;Positioning ;Medication The patient denies swelling, warmth, discharge, drainage, fevers, chills, sweats. She reports compliance splint She reports no change in past medical AND surgical history, medications, allergies, social history, family history and review of systems since last visit, with the exception of the following: None Review of Systems Constitutional: Negative for fever. Respiratory: Negative for cough and shortness of breath. Cardiovascular: Negative for chest pain. Radiographs: Not applicable Pathology report confirms the mass was a ganglion cyst Physical Examination: Appropriate postop appearance Incision intact Incision well healed mild tenderness about the dorsum of the wrist 45-45 WF/WE Positive axillary, musculocutaneous, median, ulna, and radial nerve function Positive distal pulses PROCEDURE: Not applicable Assessment: 1. Stable wrist status post excision of ganglion cyst Plan: 1. Continue range of motion/strengthening exercises 2. Resume normal activities as tolerated 3. Follow-up as needed Cullen Drummond MD Allergies As of Date: 04/23/2023 Noted Allergy Reaction ADHESIVE 09/11/2008 2 - Rash DEMEROL (MEPERIDINE (PF)) 11/22/2007 2 - Rash PENICILLINS 05/20/2004 2 - Rash VICODIN (HYDROCODONE-ACETAMIN OPHE*11/22/2007 4 - Hives Date Reviewed: 04/23/2023 Reviewed by: Breanna Roque OCCA - Fully Assessed Reason for Visit: Post Op [174] Cmt: Ganglion excision Primary Visit Diagnosis:Ganglion cyst [M67.40] Prescriptions as of 05/17/2023 - acetaminophen (TYLENOL 8 HOUR ORAL) Take 500 mg by mouth as needed. - IBUPROFEN ORAL Take by mouth. - SUMAtriptan (IMITREX) 50 mg tablet Take one tablet by mouth at the onset of the headache. If no improvement in 2 hours take one more tablet. No more than 2 tablets in 24 hours - ondansetron orally disintegrating (ZOFRAN ODT) 4 mg disintegrating tablet Take 1 tablet by mouth every 6 hours as needed for nausea/vomiting. - polyethylene glycol 3350 (MIRALAX) 17 gram/dose powder Take 17 g by mouth once daily. Dissolve dose in 4 - 8 ounces of liquid and take as directed. - dicyclomine (BENTYL) 10 mg capsule Take 1 capsule by mouth three times daily as needed (for abdominal pain). - albuterol HFA (PROAIR HFA) 90 mcg/actuation inhaler Inhale 2 Puffs as instructed every 4 hours as needed. Facility-Administered Medications as of 05/17/2023 - cyanocobalamin 1,000 mcg injection - lidocaine (PF) 10 mg/mL (1 %) 1-2 mg injection (XYLOCAINE) - lactated ringers iv infusion Problem List As Of Date 04/23/2023 Noted Resolved CHOLECYSTITIS SEE ALSO GALLBLADDER ACUTE,GB S*11/22/2007 09/08/2018 Whole body pain [R52] 08/05/2016 Right hip pain [M25.551] 08/05/2016 Tobacco abuse disorder [Z72.0] 08/05/2016 Migraine with aura and without status migrainos*09/12/2019 Fibromyalgia [M79.7] 09/20/2019 Asthma [J45.909] 03/19/2023 Disposition: Return if symptoms worsen or fail to improve. Follow-up and Disposition History for Encounter Date Provider Department Center 04/23/2023 [id number] DRUMMOND [facility] Letter Text Encounter Status:Closed by CULLEN DRUMMOND on 05/17/23 Normal [facility] OPERATIVE NOon 04-16-2023 OPERATIVE NO HNO ID: [id number] Author: CULLEN DRUMMOND MD Service: Orthopaedic Surgery Author Type: Physician Type: Operative Report Filed: 04/16/2023 23:55 Note Text: [facility] - Operative Report LEOLA ISABEL : 1980 AGE: 42. SEX: F PATIENT TYPE: A HOSP SVC: ORTS LOCATION: [facility] ATTENDING PHYSICIAN: Cullen Drummond M.D. CSN NUMBER: [id number] DATE OF SURGERY/PROCEDURE: 04/15/2023 INCISION/PROCEDURE START TIME: 1531. INCISION CLOSE/PROCEDURE END TIME: 1552. PREOPERATIVE DIAGNOSIS: Ganglion cyst, right wrist. POSTOPERATIVE DIAGNOSIS: Ganglion cyst, right wrist. SURGEON: Cullen Drummond M.D. SILK SCREEN PRINTER MACHINE: 1st rocky Tam. No qualified resident was available for the case. The PA was utilized for soft tissue retraction including tendons of the extensor compartment to allow for clear visualization of the cyst and cyst excision. SURGERY/PROCEDURE: Excision of ganglion cyst, right wrist. ANESTHESIA: IV sedation. LOG ID: [id number]. INTRAOPERATIVE FINDINGS: Ganglion cyst deep to the extensor retinaculum in the interval between the 3rd and 4th extensor compartments. ESTIMATED BLOOD LOSS: Zero. SPECIMENS: Ganglion cyst wall. COMPLICATIONS: None. CLOSURE TECHNIQUE: Primary. CLINICAL HISTORY: This is a 42-year-old lady with longstanding dorsal wrist pain that was variable in intensity but always present, particularly with activities. There was an expanding mass noted on the dorsum of the wrist on exam. Conservative measures failed to provide relief. As it was interfering with her ability to perform daily activities, she was offered a ganglion cyst excision. Risks, goals, complications of the procedure including anesthetic complications, infection, tendon/nerve/arterial injury, and the possibility of recurrence were all explained. The patient understood and wished to proceed. DESCRIPTION OF PROCEDURE: The patient was taken to the operating room, underwent a sign-in procedure, and then underwent an IV sedation by the Department of Anesthesia. The right arm was then prepped and draped in usual sterile fashion. At that point, a time-out was performed confirming that the arm had been marked appropriately preop, the sharlene was visible in the surgical field, and the antibiotics had been infused within 1 hour of surgical incision. The arm was then held in an elevated position to allow for exsanguination. An Esmarch bandage was not used for exsanguination to avoid rupturing the ganglion cyst. After verifying adequate anesthesia, a linear incision over the palpable mass on the dorsum of the wrist was performed through the skin only. The subcutaneous tissue was bluntly dissected until the extensor retinaculum was identified. There was noted to be a prominence of the retinaculum. This was incised and the interval between the 3rd and 4th dorsal compartments was identified. The tendons were retracted to reveal an underlying prominence in the wrist joint which by careful dissection confirmed the diagnosis of a ganglion cyst that did extend into the radiocarpal joint. The cyst was dissected around its periphery in entirety and then removed from its insertion on the dorsal capsule wall. The cyst wall was sent to the lab for identification. However, it was ruptured as part of the removal. The opening of the cyst where it was entering the joint was debrided and a stitch over the capsule was then performed to close the above-mentioned opening. This was done after the wound had been irrigated copiously. The extensor retinaculum was then repaired over the 3rd and 4th compartments with a Vicryl suture. Interrupted Vicryl sutures were used to close the subcutaneous tissue and a running 4-0 monofilament absorbable stitch was used to close the skin. Skin adhesive completed the closure. The tourniquet was deflated prior to closure. Hemostasis had been obtained with minimal use of the electrocautery. The patient was then placed into a well-padded volar splint and was allowed to spontaneously reverse from her anesthetic. She was taken to recovery upon arrival and was found to be awake with vital signs stable. She tolerated the procedure well. There were no intraoperative complications. Cullen Drummond M.D. PES:[id number] /[id number] [facility] ANES POSTPROC EVALon 024 ANES POSTPROC EVAL HNO ID: [id number] Author: KAYLA CHAVARRIA MD Service: Anesthesiology Author Type: Anesthesiologist Type: Anesthesia Postprocedure Evaluation Filed: 04/15/2023 16:22 Note Text: POST ANESTHESIA EVALUATION NOTE : 1980 Procedure Summary Date: 04/15/23 Room / Location: [place] OR / [place] OR Anesthesia Start: 1453 Anesthesia Stop: 1558 Procedure: EXCISION GANGLION WRIST (Right: Wrist) Diagnosis: Ganglion cyst (Ganglion cyst [M67.40]) Surgeons: Cullen Drummond MD Responsible Provider: Kayla Chavarria MD Anesthesia Type: MAC ASA Status: 2 Anesthesia Type: MAC Last Vitals Vitals Value Taken Time BP 144/80 04/15/23 1615 Temp 36.1 ?C (97 ?F) 04/15/23 1600 Pulse 58 04/15/23 1620 Resp 18 04/15/23 1620 SpO2 99 % 04/15/23 1620 Vitals shown include unfiled device data. Post Anesthesia Patient Status Patient Evaluation: PACU. PACU/ICU Patient Condition: stable. Anticipated Disposition: phase 2 then home. Neurological Status: aware and responsive. Pulmonary Status: breathing comfortably on room air Airway Control: returned to baseline unsupported. Cardiovascular Status: stable. Pain Management: clinically adequate - multimodal analgesia pain management approach Postoperative Hydration: acceptable. Intraoperative Events: no significant anesthesia events Post Operative Nausea/Vomiting Status: no significant post operative nausea or vomiting Recommendation: continue current plan of care. Anesthesia Observations No Documentation SIGNATURE: Kayla Chavarria MD PATIENT NAME: Leola Isabel DATE: April 15, 2023 TIME: 4:21 PM CSN: [id number] [facility] ANES PRE-OPon 04-15-2023 ANES PRE-OP HNO ID: [id number] Author: BENJA PABLO MD Service: Anesthesiology Author Type: Anesthesiologist Type: Anesthesia Preprocedure Evaluation Filed: 04/15/2023 13:56 Note Text: ANESTHESIOLOGY DAY OF SURGERY NOTE : 1980 Procedure Information Date/Time: 04/15/23 1415 Procedure: EXCISION GANGLION WRIST (Right: Wrist) Location: [place] OR01 / [place] Surgeons: Cullen Drummond MD Estimated body mass index is 28.62 kg/m? as calculated from the following: Height as of 03/19/23: 165.1 cm (5' 5 ). Weight as of 03/19/23: 78 kg (172 lb). Most recent hematocrit and potassium results: Hematocrit 43.8 02/26/2022 Potassium 4.4 02/26/2022 Relevant Problems CARDIO (+) Migraine with aura and without status migrainosus, not intractable NEURO-PSYCH (+) Migraine with aura and without status migrainosus, not intractable PULMONARY (+) Asthma I - PHYSICAL EVALUATION AIRWAY Patient intubated: No. Tracheostomy tube not present Mallampati: II. TM distance: >3 FB. Neck ROM: full ROM without neurological symptoms. Mouth opening: adequate. Short neck: no. Thick neck: no DENTAL Dental findings: poor dentition and broken tooth. II - ANESTHESIA PLAN ASA Score: 2 Anesthetic Plan: MAC The patient is a current smoker. NPO Status: adequate Beta Beatrice Monitoring Plan Monitoring plan: standard ASA. Post Procedure Analgesic Plan Postoperative analgesic plan: parenteral or oral opioids and multimodal analgesia. Informed Consent Anesthetic risks, benefits, alternatives, personnel and consent discussed: yes. Patient / Responsible Constitution Party agrees to proceed: yes Patient / Surrogate agrees to blood products: blood products not planned DNR status not reviewed with patient and/or family prior to surgery. Significant changes in the patient condition since the History and Physical, not otherwise documented in primary service progress note: no. Potential Anesthesia issues that may suggest increased risk of complications or contraindication to planned procedure: none. Discussed the possibility of lip / dental damage: yes Vitals Value Taken Time BP 113/61 04/15/23 1304 Pulse Resp 16 04/15/23 1304 Temp 36.8 ?C (98.2 ?F) 04/15/23 1304 SpO2 99 % 04/15/23 1304 Facility-Administered Medications as of 04/15/2023 Medication Dose Route Frequency - lidocaine (PF) 10 mg/mL (1 %) 1-2 mg injection (XYLOCAINE) 0.1-0.2 mL INTRADERMAL PRN - lactated ringers iv infusion 5-30 mL/hr INTRAVENOUS CONTINUOUS - NaCl 0.9% iv flush bag 20 mL INTRAVENOUS PRN - ceFAZolin iv piggyback 2 g in D5W (iso-osmotic) 100 mL (ANCEF) 2 g INTRAVENOUS Pre-Op Once - lidocaine (PF) 10 mg/mL (1 %) 1-2 mg injection (XYLOCAINE) 0.1-0.2 mL INTRADERMAL PRN - lactated ringers iv infusion 30 mL/hr INTRAVENOUS CONTINUOUS Outpatient Medications as of 04/15/2023 Medication Sig - acetaminophen (TYLENOL 8 HOUR ORAL) Take 500 mg by mouth as needed. - SUMAtriptan (IMITREX) 50 mg tablet Take one tablet by mouth at the onset of the headache. If no improvement in 2 hours take one more tablet. No more than 2 tablets in 24 hours - ondansetron orally disintegrating (ZOFRAN ODT) 4 mg disintegrating tablet Take 1 tablet by mouth every 6 hours as needed for nausea/vomiting. - polyethylene glycol 3350 (MIRALAX) 17 gram/dose powder Take 17 g by mouth once daily. Dissolve dose in 4 - 8 ounces of liquid and take as directed. - dicyclomine (BENTYL) 10 mg capsule Take 1 capsule by mouth three times daily as needed (for abdominal pain). - albuterol HFA (PROAIR HFA) 90 mcg/actuation inhaler Inhale 2 Puffs as instructed every 4 hours as needed. I have interviewed and examined the patient. I have reviewed the medical record and/or the pre-anesthesia evaluation, pertinent labs, and test results. This contains updated information obtained within 48 hours of Surgery/Procedure. SIGNATURE: Benja Pablo MD PATIENT NAME: Leola Isabel DATE: April 15, 2023 TIME: 1:56 PM CSN: [id number] [facility] BRIEF OP NOTon 04-15-2023 BRIEF OP NOT HNO ID: [id number] Author: CULLEN DRUMMOND MD Service: Orthopaedic Surgery Author Type: Physician Type: Brief Op Note Filed: 04/15/2023 16:12 Note Text: BRIEF OPERATIVE / PROCEDURE NOTE LOG ID: [id number] SURGERY/PROCEDURE DATE: 04/15/2023 INCISION/PROCEDURE START TIME: 3:11 PM INCISION CLOSE/PROCEDURE END TIME: 3:52 PM SURGEON(S)/PROCEDURAL IST(S) AND SILK SCREEN PRINTER MACHINE(S): Surgeon(s) and Role: * Cullen Drummond MD - Primary Physician Health And Safety Tech: Nara Templeton PA-C SURGERY/PROCEDURE(S): Excision ganglion cyst right wrist ANESTHESIA: Monitored Anesthesia Care FINDINGS: Ganglion cyst beneath the extensor retinaculum dorsum right wrist the interval between the third and fourth compartment ESTIMATED BLOOD LOSS: 0 ml SPECIMENS: Ganglion cyst COMPLICATIONS: None CLOSURE TECHNIQUE: Primary PRE-OP/PRE-PROCEDURE DIAGNOSIS: Ganglion cyst right wrist POST-OP/POST-PROCEDUR E DIAGNOSIS: Same as Preop SIGNATURE: Cullen Drummond MD PATIENT NAME: Leola Isabel DATE: April 15, 2023 TIME: 4:11 PM [facility] SURGICAL PATHOLOGYon 024 CASE REPORT Normal [facility] Comment on above: Order Comment: Speci men Type: TISSUE SPECIMEN Ordering Facility: [facility] Address: [address] [place] [address] Result Comment: Surg ica Pathology Report Case: [id number] Authorizing Provider: Cullen Drummond MD Collected: 04/15/2023 03:27 PM Ordering Location: [facility] Surgery Received: 04/16/2023 08:19 AM Pathologist: Shana Rodrigez MD Specimen: GANGLION CYST, right wrist ganglion cyst Performed By: #### S #### [facility] CLIA [id number] [address] [place] [address] [place] CLINICAL HISTORY Normal [facility] Comment on above: Order Comment: Speci men Type: TISSUE SPECIMEN Ordering Facility: [facility] Address: [address] [place] [address] Result Comment: Pre- op diagnosis: Ganglion cyst [M67.40] Performed By: #### S #### [facility] CLIA [id number] [address] [place] [address] [place] FINAL DIAGNOSIS Normal [facility] Comment on above: Order Comment: Speci men Type: TISSUE SPECIMEN Ordering Facility: [facility] Address: [address] [place] [address] Result Comment: Soft tissue, right wrist, excision: - Ganglion cyst. Performed By: #### S #### [facility] CLIA [id number] [address] [place] [address] [place] FINAL PERFORMING LAB Normal [facility] Comment on above: Order Comment: Speci men Type: TISSUE SPECIMEN Ordering Facility: [facility] Address: [address] [place] [address] Result Comment: Diag nostic interpretation performed at [facility], [address] [place] [address] CLIA# [id number] Sewer: Dwight Mathew M.D. Performed By: #### S #### [facility] CLIA [id number] [address] [place] [address] [place] GROSS DESCRIPTION Normal [facility] Comment on above: Order Comment: Speci men Type: TISSUE SPECIMEN Ordering Facility: [facility] Address: [address] [place] [address] Result Comment: Lb MARINELLION CYST Received in formalin labeled as right wrist ganglion cyst are 2 pieces of haile-pink tissue aggregating to 1.4 x 0.8 x 0.5 cm. Totally submitted in 1 cassette. ML April 16, 2023 11:05 AM Gross examination performed at [facility], [address] [place] [address] Performed By: #### S #### [facility] CLIA [id number] [address] [place] [address] [place] CNNURSEon 04-02-2023 [facility] Nurse Visit (FAMPWS) LEOLA ISABEL ([id number]) 1980 F Date Time Provider Department 04/02/23 2:45 PM [place] NURSE FAMPWS During your visit today, we recorded the following information about you: Rosie Chapman LPN 04/02/2023 2:48 PM Signed Patient presents for B-12 injection. Denies any problems at this time. Patient instructed on any SE of medication, verbalized understanding and agreed to proceed with treatment. Tolerated injection well. Rosie Chapman LPN Allergies As of Date: 04/02/2023 Noted Allergy Reaction ADHESIVE 09/11/2008 2 - Rash DEMEROL (MEPERIDINE (PF)) 11/22/2007 2 - Rash PENICILLINS 05/20/2004 2 - Rash VICODIN (HYDROCODONE-ACETAMIN OPHE*11/22/2007 4 - Hives Date Reviewed: 03/19/2023 Reviewed by: Chetan Dior APRN.SERVICER TRAVEL TRAILERS - Fully Assessed Reason for Visit: B-12 Injection [247] Primary Visit Diagnosis:Vitamin B 12 deficiency [E53.8] Prescriptions as of 04/02/2023 - IBUPROFEN ORAL Take by mouth. - SUMAtriptan (IMITREX) 50 mg tablet Take one tablet by mouth at the onset of the headache. If no improvement in 2 hours take one more tablet. No more than 2 tablets in 24 hours - ondansetron orally disintegrating (ZOFRAN ODT) 4 mg disintegrating tablet Take 1 tablet by mouth every 6 hours as needed for nausea/vomiting. - polyethylene glycol 3350 (MIRALAX) 17 gram/dose powder Take 17 g by mouth once daily. Dissolve dose in 4 - 8 ounces of liquid and take as directed. - dicyclomine (BENTYL) 10 mg capsule Take 1 capsule by mouth three times daily as needed (for abdominal pain). - albuterol HFA (PROAIR HFA) 90 mcg/actuation inhaler Inhale 2 Puffs as instructed every 4 hours as needed. Facility-Administered Medications as of 04/02/2023 - cyanocobalamin 1,000 mcg injection - lidocaine (PF) 10 mg/mL (1 %) 1-2 mg injection (XYLOCAINE) - lactated ringers iv infusion Problem List As Of Date 04/02/2023 Noted Resolved CHOLECYSTITIS SEE ALSO GALLBLADDER ACUTE,GB S*11/22/2007 09/08/2018 Whole body pain [R52] 08/05/2016 Right hip pain [M25.551] 08/05/2016 Tobacco abuse disorder [Z72.0] 08/05/2016 Migraine with aura and without status migrainos*09/12/2019 Fibromyalgia [M79.7] 09/20/2019 Asthma [J45.909] 03/19/2023 Encounter Status:Closed by ROSIE CHAPMAN on 04/02/23 [facility] Titus 04-01-2023 TONEN Telephone (ORMDNA) CHALOLEOLA ([id number]) 1980 F Date Time Provider Department 04/01/23 KALA VILLEGAS During your visit today, we recorded the following information about you: Riddhi Gar 04/01/2023 11:01 AM Signed Please call patient at [phone] her phone is shut off. [facility] 04/02/[facility]23 11:00 AM Signed Surgery rescheduled. Allergies As of Date: 04/01/2023 Noted Allergy Reaction ADHESIVE 09/11/2008 2 - Rash DEMEROL (MEPERIDINE (PF)) 11/22/2007 2 - Rash PENICILLINS 05/20/2004 2 - Rash VICODIN (HYDROCODONE-ACETAMIN OPHE*11/22/2007 4 - Hives Date Reviewed: 03/19/2023 Reviewed by: Chetan Dior APRN.SERVICER TRAVEL TRAILERS - Fully Assessed Reason for Visit: Surgery Cancelled [3943] Prescriptions as of 04/02/2023 - IBUPROFEN ORAL Take by mouth. - SUMAtriptan (IMITREX) 50 mg tablet Take one tablet by mouth at the onset of the headache. If no improvement in 2 hours take one more tablet. No more than 2 tablets in 24 hours - ondansetron orally disintegrating (ZOFRAN ODT) 4 mg disintegrating tablet Take 1 tablet by mouth every 6 hours as needed for nausea/vomiting. - polyethylene glycol 3350 (MIRALAX) 17 gram/dose powder Take 17 g by mouth once daily. Dissolve dose in 4 - 8 ounces of liquid and take as directed. - dicyclomine (BENTYL) 10 mg capsule Take 1 capsule by mouth three times daily as needed (for abdominal pain). - albuterol HFA (PROAIR HFA) 90 mcg/actuation inhaler Inhale 2 Puffs as instructed every 4 hours as needed. Facility-Administered Medications as of 04/02/2023 - cyanocobalamin 1,000 mcg injection - lidocaine (PF) 10 mg/mL (1 %) 1-2 mg injection (XYLOCAINE) - lactated ringers iv infusion Problem List As Of Date 04/01/2023 Noted Resolved CHOLECYSTITIS SEE ALSO GALLBLADDER ACUTE,GB S*11/22/2007 09/08/2018 Whole body pain [R52] 08/05/2016 Right hip pain [M25.551] 08/05/2016 Tobacco abuse disorder [Z72.0] 08/05/2016 Migraine with aura and without status migrainos*09/12/2019 Fibromyalgia [M79.7] 09/20/2019 Asthma [J45.909] 03/19/2023 Encounter Status:[facility] [place] [facility] (INTMWS[facility] LEOLA ISABEL ([id number]) 1980 F Date Time Provider Department 03/24/23 DONA RANDHAWA During your visit today, we recorded the following information about you: Dona Randhawa APRN.SERVICER TRAVEL TRAILERS 03/24/2023 6:24 PM Signed Mammogram showing probable benign calcification. Recommended to repeat in 6 months. Orders are placed. Thank you Dona Randhawa APRN.SERVICER TRAVEL TRAILERS Greer Fermin Ma 03/24/2023 6:44 PM Signed Patient notified, please assist in scheduling. Angela Saenz 03/25/2023 9:04 AM Signed Scheduled patient for Diagnostic Mammogram and US Breast 09/22/2023. Angela Saenz, PSS Allergies As of Date: 03/24/2023 Noted Allergy Reaction ADHESIVE 09/11/2008 2 - Rash DEMEROL (MEPERIDINE (PF)) 11/22/2007 2 - Rash PENICILLINS 05/20/2004 2 - Rash VICODIN (HYDROCODONE-ACETAMIN OPHE*11/22/2007 4 - Hives Date Reviewed: 03/19/2023 Reviewed by: Chetan Dior APRN.SERVICER TRAVEL TRAILERS - Fully Assessed Reason for Visit: Results [95] Primary Visit Diagnosis:Abnormal mammogram [R92.8] Order(s):[facility] DIAGNOSTIC RIGHT [[id number]] Order #: [id number] FUTURE BREAST LTD RIGHT [[id number]] Order #: [id number] FUTURE Prescriptions as of 03/25/2023 - IBUPROFEN ORAL Take by mouth. - SUMAtriptan (IMITREX) 50 mg tablet Take one tablet by mouth at the onset of the headache. If no improvement in 2 hours take one more tablet. No more than 2 tablets in 24 hours - ondansetron orally disintegrating (ZOFRAN ODT) 4 mg disintegrating tablet Take 1 tablet by mouth every 6 hours as needed for nausea/vomiting. - polyethylene glycol 3350 (MIRALAX) 17 gram/dose powder Take 17 g by mouth once daily. Dissolve dose in 4 - 8 ounces of liquid and take as directed. - dicyclomine (BENTYL) 10 mg capsule Take 1 capsule by mouth three times daily as needed (for abdominal pain). - albuterol HFA (PROAIR HFA) 90 mcg/actuation inhaler Inhale 2 Puffs as instructed every 4 hours as needed. Facility-Administered Medications as of 03/25/2023 - cyanocobalamin 1,000 mcg injection - lidocaine (PF) 10 mg/mL (1 %) 1-2 mg injection (XYLOCAINE) - lactated ringers iv infusion Problem List As Of Date 03/24/2023 Noted Resolved CHOLECYSTITIS SEE ALSO GALLBLADDER ACUTE,GB S*11/22/2007 09/08/2018 Whole body pain [R52] 08/05/2016 Right hip pain [M25.551] 08/05/2016 Tobacco abuse disorder [Z72.0] 08/05/2016 Migraine with aura and without status migrainos*09/12/2019 Fibromyalgia [M79.7] 09/20/2019 Asthma [J45.909] 03/19/2023 Encounter Status:Closed by GREER FERMIN MA on 03/24/23 Normal [facility] DIAGNOSTIC RTon 03-24-19 [facility] DIAGNOSTIC RT * * *Final Report* * * DATE OF EXAM: Mar 24 2023 3:18PM WRW 0626 - [facility] DIAGNOSTIC RT / PROCEDURE REASON: Abnormal mammogram * * * * Physician Interpretation * * * * RESULT: #[id number] - [facility] DIAGNOSTIC RT UNILATERAL RIGHT DIGITAL DIAGNOSTIC MAMMOGRAM WITH CAD: 03/24/2023 HISTORY: Abnormal Mammogram / Short term follow up right breast.-Abnormal Mammogram/ Calcifications inside fibroadenoma /priors available for comparison. RESULT: TECHNIQUE: The study was acquired using full field digital technology and interpreted from soft copy. Current study was also evaluated with a Computer Aided Detection (CAD). Comparison is made to exams dated: 09/16/2022 mammogram and 07/07/2022 mammogram - [facility]. The right breast is heterogeneously dense, which may obscure small masses. There are grouped coarse calcifications in the right breast at 12 o'clock middle depth. These are not significantly changed. No other significant masses or calcifications are seen in the breast. IMPRESSION: PROBABLY BENIGN - SHORT TERM INTERVAL FOLLOW-UP RECOMMENDED The grouped coarse calcifications in the right breast resemble a degenerating fibroadenoma and are probably benign. A follow-up mammogram in 6 months is recommended to demonstrate stability. Jacinda juarez/eliseo:03/24/2023 15:35:59 Pill Maker(s): Noelle Mishra, [facility] Mammogram BI-RADS: 3 Probably benign finding - short term interval follow-up recommended Multiple national specialty organizations have released breast cancer screening guidelines for women at average risk for developing breast cancer - guidelines that are based on both evidence and opinion, yet differ on when to start and how often to screen for breast cancer. With representation from Breast Imaging, Internal Medicine, Women's Health, Family Medicine, and Medical/Surgical Oncology, the [facility] has carefully reviewed the data and reached the following consensus: 1) All women should engage in shared decision-making with their providers to decide when to start and how often to screen; 2) All women should have the opportunity to start screening mammography at age 40; 3) For women ages 45-55, we recommend annual screening mammograms; 4) For women ages 55 and over, we support both the transition from an annual to a biennial interval if this aligns more with patient's values and preferences, or continuation with annual screening; 5) All women should discuss with their providers when to stop screening mammograms. Battery Parts Assembler: Eliseo Transcribe Date/Time: Mar 24 2023 3:18P Dictated by: JACINDA PETERSON MD This examination was interpreted and the report reviewed and electronically signed by: JACINDA PETERSON MD on Mar 24 2023 3:35PM EST [id number] Normal [facility] MG Breast - right Diagnostic for implanton 03-24-2023 [facility] HISTORY PHYSICALon HISTORY PHYSICAL HNO ID: [id number] Author: CHETAN DIOR APRN.SERVICER TRAVEL TRAILERS Service: ? Author Type: Nurse Practitioner Type: H&P Filed: 03/19/2023 15:23 Note Text: HISTORY AND PHYSICAL EXAMINATION SERVICE DATE: 03/19/2023 SERVICE TIME: 3:22 PM PRIMARY CARE PHYSICIAN: Saúl Andrade MD Assessment Patient has the following medical conditions which may affect clara-operative course: Fibromyalgia Assessment: otc analgesics as needed Migraine with aura and without status migrainosus, not intractable Assessment: rx as needed Tobacco abuse disorder Assessment: former 1ppd, now currently vapes Asthma Assessment: rx as needed Mondragon Activity Status Index: METS: Climb a flight of stairs or walk up a hill (5.50 METs) DASI Score: 5.5 Patient denies any chest pain or undue shortness of breath with the above physical activity. Clinical Frailty Scale: 1. Very fit STOP-Bang Score: Denies snoring loudly Denies feeling tired, fatigued, or sleepy during the daytime Has not been observed to stop breathing or choking/gasping during sleep Denies having high blood pressure BMI less than or equal to 35 kg/m2 Patient 50 years old or younger Does not have a large neck Non-male patient STOP-Bang Score: 0 [id number] Score: Age: <65 Sex: female CHF history: No Hypertension history: No Stroke/TIA/thromboemb olism history: No Vascular disease history: No Diabetes history: No [id number] Score: 1 ARISCAT Score: Age: <=50 Preoperative SpO2: >=96% Respiratory infection in the last month: No Preoperative anemia: Yes Surgical incision: peripheral Duration of surgery: <2 hrs Emergency procedure: No ARISCAT Score: 11 ANESTHESIA FINDINGS: Intubation History: No history of difficult intubation Significant Anesthesia Considerations: none Airway History: No history of difficult airway I - PHYSICAL EVALUATION AIRWAY Patient intubated: No. Tracheostomy tube not present Mallampati: II. TM distance: >3 FB. Neck ROM: full ROM without neurological symptoms. Mouth opening: adequate. Short neck: no. Thick neck: no Ortiz present: no Lip Bite Test: I Microretrognathia/Carlos ronagthia/Recessed Chin: No DENTAL Dental findings: teeth intact. II - ANESTHESIA PLAN Anesthetic Plan: other Beta Beatrice Monitoring Plan Post Procedure Analgesic Plan Informed Consent Anesthetic risks, benefits, alternatives, personnel and consent discussed: yes. Patient / Responsible Constitution Party agrees to proceed: yes Patient / Surrogate agrees to blood products: blood products not planned Discussed the possibility of lip / dental damage: yes Prepared for Surgery: optimally prepared for surgery. CONSULTS: Patient does not require consults for optimization at this time Planned Anesthetic: other anesthesia choice The Following Tests/Procedures Have Been Initiated: Orders Placed This Encounter IBUPROFEN ORAL Sig: Take by mouth. REASON FOR VISIT: Leola Isabel is a 42 year old female who is scheduled for Procedure(s): EXCISION GANGLION WRIST (Right) at the request of Dr. Kala Villegas for consultation. My final recommendation will be communicated back to the requesting physician by way of shared medical record or letter. Subjective The patient has the following: ACTIVE PROBLEM LIST Whole Body Pain Right Hip Pain Tobacco Abuse Disorder Migraine With Aura and Without Status Migrainosus, Not Intractable Fibromyalgia Asthma COVID-19 Immunization Status Overdue - Covid-19 Vaccine (1) Never done No completion, postpone, frequency change, or communication history exists for this topic. CHIEF COMPLAINT: Pre-op exam HPI: Leola Isabel is a 42 year old seen for PAC due to scheduled above surgery because of a ganglion cyst. 02/19/2023, Dr. Kala Villegas Chief Complaint Leola Isabel is a 42 year old female who presents today for follow up office visit. Patient presents with: Right Wrist - Follow Up, Pain History of Present Illness PAIN EVALUATION 02/16/2023 1211 Pain Level: 7 Pain Location: Wrist-Right Description: Aching;Burning;Numbne ss;Sharp;Throbbing;Ti ngling Frequency: Continuous Intervention/Comfort measure: Medication;Relaxation HPI: Leola Isabel is a 42 year old female for a follow up visit right wrist pain. Patient continues to complain of numbness and pain in her hand and fingers. She states she is still dropping things. Had EMG completed and is here to go over the results. Pain history is noted as above. Patient vapes and states fingertips numb, here and there. Just right hand. Is there any overall improvement in your condition? No Any new injury, since being seen last: No REVIEW OF SYSTEMS: General: No weight loss, malaise or fevers. Neurological: Positive for: headaches (+migraines, rx as needed). Negative for: cerebral palsy, POTATO CHIP SORTER tumor, dementia, hemiplegia, multiple sclerosis, Parkinson's disease, peripheral neuropathy (more content not included)... [facility] Nurse Visit (FAMPWS) LEOLA ISABEL ([id number]) 1980 F Date Time Provider Department 03/05/23 1:15 PM [place] [facility] During your visit today, we recorded the following information about you: Rosie Chapman LPN 03/05/2023 1:21 PM Signed Patient presents for B-12 injection. Denies any problems at this time. Patient instructed on any SE of medication, verbalized understanding and agreed to proceed with treatment. Tolerated injection well. Rosie Chapman LPN Allergies As of Date: 03/05/2023 Noted Allergy Reaction ADHESIVE 09/11/2008 2 - Rash DEMEROL (MEPERIDINE (PF)) 11/22/2007 2 - Rash PENICILLINS 05/20/2004 2 - Rash VICODIN (HYDROCODONE-ACETAMIN OPHE*11/22/2007 4 - Hives Date Reviewed: 02/19/2023 Reviewed by: Kala Villegas DO - Fully Assessed Reason for Visit: B-12 Injection [247] Primary Visit Diagnosis:Vitamin B 12 deficiency [E53.8] Prescriptions as of 03/05/2023 - SUMAtriptan (IMITREX) 50 mg tablet Take one tablet by mouth at the onset of the headache. If no improvement in 2 hours take one more tablet. No more than 2 tablets in 24 hours - ondansetron orally disintegrating (ZOFRAN ODT) 4 mg disintegrating tablet Take 1 tablet by mouth every 6 hours as needed for nausea/vomiting. - topiramate (TOPAMAX) 25 mg tablet Take 1 tablet by mouth daily at bedtime. - polyethylene glycol 3350 (MIRALAX) 17 gram/dose powder Take 17 g by mouth once daily. Dissolve dose in 4 - 8 ounces of liquid and take as directed. - dicyclomine (BENTYL) 10 mg capsule Take 1 capsule by mouth three times daily as needed (for abdominal pain). - albuterol HFA (PROAIR HFA) 90 mcg/actuation inhaler Inhale 2 Puffs as instructed every 4 hours as needed. Facility-Administered Medications as of 03/05/2023 - cyanocobalamin 1,000 mcg injection - lidocaine (PF) 10 mg/mL (1 %) 1-2 mg injection (XYLOCAINE) - lactated ringers iv infusion Problem List As Of Date 03/05/2023 Noted Resolved CHOLECYSTITIS SEE ALSO GALLBLADDER ACUTE,GB S*11/22/2007 09/08/2018 Whole body pain [R52] 08/05/2016 Right hip pain [M25.551] 08/05/2016 Tobacco abuse disorder [Z72.0] 08/05/2016 Migraine with aura and without status migrainos*09/12/2019 Fibromyalgia [M79.7] 09/20/2019 Encounter Status:Closed by ROSIE CHAPMAN on 03/05/23 [facility] [place] 02-26-2023 [facility] (INTMWS) LEOLA ISABEL ([id number]) 1980 F Date Time Provider Department 02/26/23 DONA RANDHAWA During your visit today, we recorded the following information about you: Rosie Chapman LPN 02/26/2023 8:08 AM Signed Patient scheduled for nurse visit 03/02/23 to receive B-[address] order at this time. Rosie Chapman LPN Allergies As of Date: 02/26/2023 Noted Allergy Reaction ADHESIVE 09/11/2008 2 - Rash DEMEROL (MEPERIDINE (PF)) 11/22/2007 2 - Rash PENICILLINS 05/20/2004 2 - Rash VICODIN (HYDROCODONE-ACETAMIN OPHE*11/22/2007 4 - Hives Date Reviewed: 02/19/2023 Reviewed by: Kala Villegas DO - Fully Assessed Reason for Visit: Orders [681] Primary Visit Diagnosis:Vitamin B12 deficiency [E53.8] Order(s):[START ON 03/02/2023] cyanocobalamin 1,000 mcg injectionDisp: Rfl: Prescriptions as of 02/26/2023 - SUMAtriptan (IMITREX) 50 mg tablet Take one tablet by mouth at the onset of the headache. If no improvement in 2 hours take one more tablet. No more than 2 tablets in 24 hours - ondansetron orally disintegrating (ZOFRAN ODT) 4 mg disintegrating tablet Take 1 tablet by mouth every 6 hours as needed for nausea/vomiting. - topiramate (TOPAMAX) 25 mg tablet Take 1 tablet by mouth daily at bedtime. - polyethylene glycol 3350 (MIRALAX) 17 gram/dose powder Take 17 g by mouth once daily. Dissolve dose in 4 - 8 ounces of liquid and take as directed. - dicyclomine (BENTYL) 10 mg capsule Take 1 capsule by mouth three times daily as needed (for abdominal pain). - albuterol HFA (PROAIR HFA) 90 mcg/actuation inhaler Inhale 2 Puffs as instructed every 4 hours as needed. Facility-Administered Medications as of 02/26/2023 - cyanocobalamin 1,000 mcg injection - lidocaine (PF) 10 mg/mL (1 %) 1-2 mg injection (XYLOCAINE) - lactated ringers iv infusion Problem List As Of Date 02/26/2023 Noted Resolved CHOLECYSTITIS SEE ALSO GALLBLADDER ACUTE,GB S*11/22/2007 09/08/2018 Whole body pain [R52] 08/05/2016 Right hip pain [M25.551] 08/05/2016 Tobacco abuse disorder [Z72.0] 08/05/2016 Migraine with aura and without status migrainos*09/12/2019 Fibromyalgia [M79.7] 09/20/2019 Prescriptions ordered this encounter Disp Refills Start End CYANOCOBALAMIN (VIT B-12) 1,000 MCG/* 03/02/2023 01/31/2024 Route: INTRAMUSCULA Encounter Status:Closed by ROSIE CHAPMAN on 02/26/23 [facility] CNOVon 02-19-2023 CNOV Office Visit (KELBY ) LEOLA ISABEL ([id number]) 1980 F Date Time Provider Department 02/19/23 9:30 AM KALA VILLEGAS During your visit today, we recorded the following information about you: Kala Villegas DO 02/19/2023 10:03 AM Signed Follow Up Visit Chief Complaint Leola Isabel is a 42 year old female who presents today for follow up office visit. Patient presents with: Right Wrist - Follow Up, Pain History of Present Illness PAIN EVALUATION 02/16/2023 1211 Pain Level: 7 Pain Location: Wrist-Right Description: Aching;Burning;Numbne ss;Sharp;Throbbing;Ti ngling Frequency: Continuous Intervention/Comfort measure: Medication;Relaxation HPI: Leola Isabel is a 42 year old female for a follow up visit right wrist pain. Patient continues to complain of numbness and pain in her hand and fingers. She states she is still dropping things. Had EMG completed and is here to go over the results. Pain history is noted as above. Patient vapes and states fingertips numb, here and there. Just right hand. Is there any overall improvement in your condition? No Any new injury, since being seen last: No REVIEW OF SYMPTOMS: Patient did not have, and does not currently have, any weight loss, malaise, fever, chills, headache, chest pain, chest pressure, palpitations, cough, shortness of breath, orthopnea, paroxsymal nocturnal dyspnea, nausea, vomiting, diarrhea, constipation, melena, hematochezia, urinary difficulties, prolonged bleeding, easily bruising, heat or cold intolerance, new onset joint pain or swelling, new onset extremity weakness or numbness, new onset auditory or visual disturbances, lightheadedness, dizziness, partial loss of consciousness or full loss of consciousness. Current Outpatient Medications Medication Sig SUMAtriptan (IMITREX) 50 mg tablet Take one tablet by mouth at the onset of the headache. If no improvement in 2 hours take one more tablet. No more than 2 tablets in 24 hours ondansetron orally disintegrating (ZOFRAN ODT) 4 mg disintegrating tablet Take 1 tablet by mouth every 6 hours as needed for nausea/vomiting. topiramate (TOPAMAX) 25 mg tablet Take 1 tablet by mouth daily at bedtime. polyethylene glycol 3350 (MIRALAX) 17 gram/dose powder Take 17 g by mouth once daily. Dissolve dose in 4 - 8 ounces of liquid and take as directed. dicyclomine (BENTYL) 10 mg capsule Take 1 capsule by mouth three times daily as needed (for abdominal pain). albuterol HFA (PROAIR HFA) 90 mcg/actuation inhaler Inhale 2 Puffs as instructed every 4 hours as needed. No current facility-administered medications for this visit. Facility-Administered Medications Ordered in Other Visits Medication Dose Route Frequency lidocaine (PF) 10 mg/mL (1 %) 1-2 mg injection (XYLOCAINE) 0.1-0.2 mL INTRADERMAL PRN lactated ringers iv infusion 30 mL/hr INTRAVENOUS CONTINUOUS Physical Exam Vitals: [facility] 08/13/2008 Psych: Pleasant, good affect and mood General Appearance: Well appearing, alert, in no acute distress, well-hydrated, well nourished.. Skin: Skin color, texture, turgor normal, no suspicious rashes or lesions. Peripheral Pulses: Normal. Neurologic: Gait normal. Reflexes normal and symmetric. Sensation grossly intact.. Lymph Nodes: No cervical lymphadenopathy, No supraclavicular lymphadenopathy, No axillary lymphadenopathy., and No inguinal lymphadenopathy.. Respiratory: No recent pulmonary infection, hemoptysis, chronic cough, or shortness of breath at rest Rheumatologic: Joint deformities: right wrist pain Right Hand Exam Tenderness The patient is experiencing tenderness in the dorsal area. Range of Motion The patient has normal right wrist ROM. Wrist Extension: normal Flexion: normal Pronation: normal Supination: normal Muscle Strength The patient has normal right wrist strength. Tests Phalen?s Sign: negative Tinel's sign (median nerve): negative Miles's test: negative Other Erythema: absent Sensation: normal Pulse: present Comments: B/l med/uln/rad/ax nerves intact Left Hand Exam Left hand exam is normal. Tenderness The patient is experiencing no tenderness. Range of Motion The patient has normal left wrist ROM. Wrist Extension: normal Flexion: normal Pronation: normal Supination: normal Muscle Strength The patient has normal left wrist strength. Tests Phalen?s Sign: negative Tinel's sign (median nerve): negative Miles's test: negative Other Erythema: absent Sensation: normal Pulse: present Comments: Ttp lat epicondyle/ pain w wrist extension Assessment and Plan Radiographs: I have independently reviewed films and my findings are the same. and I have reviewed the images with the patient and family. Impression: Encounter Diagnosis ICD-10-CM 1. Ganglion cyst M67.40 2. Left (more content not included)... [facility] Nurse Visit (FAMPWS) LEOLA ISABEL ([id number]) 1980 F Date Time Provider Department 02/02/23 1:15 PM [place] NURSE [facility] During your visit today, we recorded the following information about you: Rosie Chapman LPN 02/02/2023 1:13 PM Signed Patient presents for B-12 injection. Denies any problems at this time. Patient instructed on any SE of medication, verbalized understanding and agreed to proceed with treatment. Tolerated injection well. Rosie Chapman LPN Allergies As of Date: 02/02/2023 Noted Allergy Reaction ADHESIVE 09/11/2008 2 - Rash DEMEROL (MEPERIDINE (PF)) 11/22/2007 2 - Rash PENICILLINS 05/20/2004 2 - Rash VICODIN (HYDROCODONE-ACETAMIN OPHE*11/22/2007 4 - Hives Date Reviewed: 12/22/2022 Reviewed by: Miriam Shine APRN.[employer] - Fully Assessed Reason for Visit: B-12 Injection [247] Primary Visit Diagnosis:Vitamin B 12 deficiency [E53.8] Prescriptions as of 02/02/2023 - SUMAtriptan (IMITREX) 50 mg tablet Take one tablet by mouth at the onset of the headache. If no improvement in 2 hours take one more tablet. No more than 2 tablets in 24 hours - ondansetron orally disintegrating (ZOFRAN ODT) 4 mg disintegrating tablet Take 1 tablet by mouth every 6 hours as needed for nausea/vomiting. - topiramate (TOPAMAX) 25 mg tablet Take 1 tablet by mouth daily at bedtime. - polyethylene glycol 3350 (MIRALAX) 17 gram/dose powder Take 17 g by mouth once daily. Dissolve dose in 4 - 8 ounces of liquid and take as directed. - dicyclomine (BENTYL) 10 mg capsule Take 1 capsule by mouth three times daily as needed (for abdominal pain). - albuterol HFA (PROAIR HFA) 90 mcg/actuation inhaler Inhale 2 Puffs as instructed every 4 hours as needed. Facility-Administered Medications as of 02/02/2023 - lidocaine (PF) 10 mg/mL (1 %) 1-2 mg injection (XYLOCAINE) - lactated ringers iv infusion - cyanocobalamin 1,000 mcg injection Problem List As Of Date 02/02/2023 Noted Resolved CHOLECYSTITIS SEE ALSO GALLBLADDER ACUTE,GB S*11/22/2007 09/08/2018 Whole body pain [R52] 08/05/2016 Right hip pain [M25.551] 08/05/2016 Tobacco abuse disorder [Z72.0] 08/05/2016 Migraine with aura and without status migrainos*09/12/2019 Fibromyalgia [M79.7] 09/20/2019 Encounter Status:Closed by ROSIE CHAPMAN on 02/02/23 [facility] CNN[facility]SEon 01-05-2023 [facility] Nurse Visit (FAMPWS) LEOLA ISABEL ([id number]) 1980 F Date Time Provider Department 01/05/23 3:45 PM [place] [facility] During your visit today, we recorded the following information about you: Rosie Chapman LPN 01/05/2023 3:47 PM Signed Patient presents for B-12 injection. Denies any problems at this time. Patient instructed on any SE of medication, verbalized understanding and agreed to proceed with treatment. Tolerated injection well. Rosie Chapman LPN Allergies As of Date: 01/05/2023 Noted Allergy Reaction ADHESIVE 09/11/2008 2 - Rash DEMEROL (MEPERIDINE (PF)) 11/22/2007 2 - Rash PENICILLINS 05/20/2004 2 - Rash VICODIN (HYDROCODONE-ACETAMIN OPHE*11/22/2007 4 - Hives Date Reviewed: 12/22/2022 Reviewed by: Miriam Shine APRN.[employer] - Fully Assessed Reason for Visit: B-12 Injection [247] Primary Visit Diagnosis:Vitamin B 12 deficiency [E53.8] Prescriptions as of 01/05/2023 - SUMAtriptan (IMITREX) 50 mg tablet Take one tablet by mouth at the onset of the headache. If no improvement in 2 hours take one more tablet. No more than 2 tablets in 24 hours - ondansetron orally disintegrating (ZOFRAN ODT) 4 mg disintegrating tablet Take 1 tablet by mouth every 6 hours as needed for nausea/vomiting. - topiramate (TOPAMAX) 25 mg tablet Take 1 tablet by mouth daily at bedtime. - polyethylene glycol 3350 (MIRALAX) 17 gram/dose powder Take 17 g by mouth once daily. Dissolve dose in 4 - 8 ounces of liquid and take as directed. - dicyclomine (BENTYL) 10 mg capsule Take 1 capsule by mouth three times daily as needed (for abdominal pain). - albuterol HFA (PROAIR HFA) 90 mcg/actuation inhaler Inhale 2 Puffs as instructed every 4 hours as needed. Facility-Administered Medications as of 01/05/2023 - lidocaine (PF) 10 mg/mL (1 %) 1-2 mg injection (XYLOCAINE) - lactated ringers iv infusion - cyanocobalamin 1,000 mcg injection Problem List As Of Date 01/05/2023 Noted Resolved CHOLECYSTITIS SEE ALSO GALLBLADDER ACUTE,GB S*11/22/2007 09/08/2018 Whole body pain [R52] 08/05/2016 Right hip pain [M25.551] 08/05/2016 Tobacco abuse disorder [Z72.0] 08/05/2016 Migraine with aura and without status migrainos*09/12/2019 Fibromyalgia [M79.7] 09/20/2019 Encounter Status:Closed by ROSIE CHAPMAN LPN on 01/05/23 [facility]ATOVflorinda 12-22-2022 CNOV Office Visit (UCWSTR ) LEOLA ISABEL ([id number]) 1980 F Date Time Provider Department 12/22/22 5:45 PM MIRIAM SHINE [facility] During your visit today, we recorded the following information about you: Temperature Pulse Respiration Blood pressure 98.1 degrees 82/minute 18/minute 119/78 Weight 71.7 kg Miriam Shine APRN.[employer] 12/22/2022 5:51 PM Signed Subjective HPI HPI Leola Destiny Isabel is a 42 year old female who presents today for CC of st, congestion, ear pressure. This started 3 days ago. Has tried otc medication for relief. Symptoms are worsened by nothing. Risk factors smoker, sick exposures at work. Denies possibility of being . .Patient presents with: Sore Throat: Clogged ears x 3 days PAST MEDICAL HISTORY Diagnosis Date Abnormal glandular Papanicolaou smear of cervix 04/09/2003 Abn. Pap smear (cervix) Adjustment disorder with depressed mood Asthma Esophageal reflux Migraine with aura, without mention of intractable migraine without mention of status migrainosus Unspecified asthma, with status asthmaticus PAST SURGICAL HISTORY Procedure Laterality Date BILIARY NDSC INTRAOPERATIVE 11/12/2007 COLONOSCOPY 05/12/2022 EGD W/O BRSH SPEC VARICIES INJ 05/12/2022 IANDD OF BARTHOLINS GLAND ABSCESS 09/07/2008 LAPS SURG CHOLECSTC W/EXPL COMMON DUCT 11/12/2007 ALLERGIES Adhesive, Demerol [Meperidine (Pf)], Penicillins, and Vicodin [Hydrocodone-Acetamin ophen] MEDICATIONS SUMAtriptan (IMITREX) 50 mg tabletTake one tablet by mouth at the onset of the headache. If no improvement in 2 hours take one more tablet. No more than 2 tablets in 24 hoursDisp: 8 tabletRfl: 5 ondansetron orally disintegrating (ZOFRAN ODT) 4 mg disintegrating tabletTake 1 tablet by mouth every 6 hours as needed for nausea/vomiting.Disp: 8 tabletRfl: 3 topiramate (TOPAMAX) 25 mg tabletTake 1 tablet by mouth daily at bedtime.Disp: 30 tabletRfl: 2 polyethylene glycol 3350 (MIRALAX) 17 gram/dose powderTake 17 g by mouth once daily. Dissolve dose in 4 - 8 ounces of liquid and take as directed.Disp: 595 gRfl: 2 dicyclomine (BENTYL) 10 mg capsuleTake 1 capsule by mouth three times daily as needed (for abdominal pain).Disp: 60 capsuleRfl: 2 albuterol HFA (PROAIR HFA) 90 mcg/actuation inhalerInhale 2 Puffs as instructed every 4 hours as needed.Disp: 1 EachRfl: 0 FAMILY HISTORY Problem Relation Age of Onset Alcohol/Drug Mother other (lupus) Mother Alcohol/Drug Father Asthma Sister Seizures Sister other (diverticulosis) Maternal Grandmother Social History Tobacco Use Smoking status: Former Packs/day: 1 Types: Cigarettes Smokeless tobacco: Current Tobacco comments: Vapes Vaping Use Vaping Use: current everyday user Substances: Nicotine, THC Devices: Disposable Substance Use Topics Alcohol use: No Drug use: No Review of Systems Constitutional: Negative for fever. HENT: Positive for congestion, ear pain and sore throat. Negative for ear discharge and nosebleeds. Respiratory: Negative for cough, shortness of breath and wheezing. Gastrointestinal: Negative for diarrhea and vomiting. Musculoskeletal: Negative for neck pain. Skin: Negative for itching and rash. Objective Blood pressure 119/78, pulse 82, temperature 36.7 ?C (98.1 ?F), resp. rate 18, weight 71.7 kg (158 lb), last menstrual period 08/13/2008, SpO2 99 %. Physical Exam Constitutional: General: She is not in acute distress. Appearance: She is not toxic-appearing or diaphoretic. HENT: Head: Normocephalic and atraumatic. Right Ear: Hearing, tympanic membrane, ear canal and external ear normal. Left Ear: Hearing, tympanic membrane, ear canal and external ear normal. Nose: Nose normal. Mouth/Throat: Pharynx: Uvula midline. Posterior oropharyngeal erythema present. No pharyngeal swelling, oropharyngeal exudate or uvula swelling. Eyes: General: Lids are normal. No scleral icterus. Right eye: No discharge. Left eye: No discharge. Conjunctiva/sclera: Conjunctivae normal. Pupils: Pupils are equal, round, and reactive to light. Neck: Trachea: Trachea normal. Cardiovascular: Rate and Rhythm: Normal rate and regular rhythm. Heart sounds: Normal heart sounds. Pulmonary: Effort: Pulmonary effort is normal. Breath sounds: Normal breath sounds. Musculoskeletal: Cervical back: Normal range of motion and neck supple. Lymphadenopathy: Cervical: No cervical adenopathy. Right cervical: No superficial cervical adenopathy. Left cervical: No superficial cervical adenopathy. Skin: Findings: No rash. Neurological: Mental Status: She is alert and oriented to person, place, and time. ASSESSMENT/PLAN: 1. Sore throat - ICD9: 462, ICD10: J02.9 - suspect viral - Group A strep molecular testing negative - Discussed supportive care treatment with fluids, rest and analgesia. - The patient shoul (more content not included)... Normal [facility] STREP A MOLECULAR (POC)on Procedural Control Valid [facility] Strep A (POCT) Negative Negative [facility] CNNURSEon 12-10-2022 CNNURSE Nurse Visit (FAMPWS) CHALOLEOLA M ([id number]) 1980 F Date Time Provider Department 12/10/22 3:30 PM [place] NURSE FAMPWS During your visit today, we recorded the following information about you: Rosie Chapman LPN 12/10/2022 3:55 PM Signed Patient presents for B-12 injection. Denies any problems at this time. Patient instructed on any SE of medication, verbalized understanding and agreed to proceed with treatment. Tolerated injection well. Rosie Chapman LPN Allergies As of Date: 12/10/2022 Noted Allergy Reaction ADHESIVE 09/11/2008 2 - Rash DEMEROL (MEPERIDINE (PF)) 11/22/2007 2 - Rash PENICILLINS 05/20/2004 2 - Rash VICODIN (HYDROCODONE-ACETAMIN OPHE*11/22/2007 4 - Hives Date Reviewed: 12/09/2022 Reviewed by: Boy Tafoya Ma - Fully Assessed Reason for Visit: B-12 Injection [247] Primary Visit Diagnosis:Vitamin B 12 deficiency [E53.8] Prescriptions as of 12/10/2022 - SUMAtriptan (IMITREX) 50 mg tablet Take one tablet by mouth at the onset of the headache. If no improvement in 2 hours take one more tablet. No more than 2 tablets in 24 hours - ondansetron orally disintegrating (ZOFRAN ODT) 4 mg disintegrating tablet Take 1 tablet by mouth every 6 hours as needed for nausea/vomiting. - topiramate (TOPAMAX) 25 mg tablet Take 1 tablet by mouth daily at bedtime. - polyethylene glycol 3350 (MIRALAX) 17 gram/dose powder Take 17 g by mouth once daily. Dissolve dose in 4 - 8 ounces of liquid and take as directed. - dicyclomine (BENTYL) 10 mg capsule Take 1 capsule by mouth three times daily as needed (for abdominal pain). - albuterol HFA (PROAIR HFA) 90 mcg/actuation inhaler Inhale 2 Puffs as instructed every 4 hours as needed. Facility-Administered Medications as of 12/10/2022 - lidocaine (PF) 10 mg/mL (1 %) 1-2 mg injection (XYLOCAINE) - lactated ringers iv infusion - cyanocobalamin 1,000 mcg injection Problem List As Of Date 12/10/2022 Noted Resolved CHOLECYSTITIS SEE ALSO GALLBLADDER ACUTE,GB S*11/22/2007 09/08/2018 Whole body pain [R52] 08/05/2016 Right hip pain [M25.551] 08/05/2016 Tobacco abuse disorder [Z72.0] 08/05/2016 Migraine with aura and without status migrainos*09/12/2019 Fibromyalgia [M79.7] 09/20/2019 Encounter Status:Closed by ROSIE CHAPMAN LPN on 12/10/22 [facility] CNOVon 12-09-2022 CNOV Office Visit (INTMWS ) ISABEL,LEOLA Dixon ([id number]) 1980 F Date Time Provider Department 12/09/22 12:20 PM MICHELLE RANDHAWA INTMWS During your visit today, we recorded the following information about you: Pulse Respiration Blood pressure Weight 86/minute 16/minute 132/86 70.3 kg Michelle Randhawa APRN.TONE 12/09/2022 12:50 PM Signed CC: Patient presents with: Headache and left elbow pain HPI Leola Dixon Chalo is a 42 year old female who presents today for above. Migraine headache x 2 days. Eased up some yesterday for a short time. History of migraines, no new or worsening symptoms. She ran out of Imitrex which typically relieves migraine quickly. She was prescribed Topamax in August for frequent migraines but she never started taking. Would like a new prescription for this. Left elbow pain- seen for this in express care about one week ago. X-ray was negative. Pain attributed to tennis elbow, prescribed prednisone. Patient reports this has eased the pain somewhat but still bothersome. Review of Systems See HPI PAST MEDICAL HISTORY Diagnosis Date Abnormal glandular Papanicolaou smear of cervix 04/09/2003 Abn. Pap smear (cervix) Adjustment disorder with depressed mood Asthma Esophageal reflux Migraine with aura, without mention of intractable migraine without mention of status migrainosus Unspecified asthma, with status asthmaticus PAST SURGICAL HISTORY Procedure Laterality Date BILIARY NDSC INTRAOPERATIVE 11/12/2007 COLONOSCOPY 05/12/2022 EGD W/O BRSH SPEC VARICIES INJ 05/12/2022 IANDD OF BARTHOLINS GLAND ABSCESS 09/07/2008 LAPS SURG CHOLECSTC W/EXPL COMMON DUCT 11/12/2007 ALLERGIES Adhesive, Demerol [Meperidine (Pf)], Penicillins, and Vicodin [Hydrocodone-Acetamin ophen] MEDICATIONS SUMAtriptan (IMITREX) 50 mg tabletTake one tablet by mouth at the onset of the headache. If no improvement in 2 hours take one more tablet. No more than 2 tablets in 24 hoursDisp: 8 tabletRfl: 0 polyethylene glycol 3350 (MIRALAX) 17 gram/dose powderTake 17 g by mouth once daily. Dissolve dose in 4 - 8 ounces of liquid and take as directed.Disp: 595 gRfl: 2 (Patient not taking: Reported on 10/15/2022) dicyclomine (BENTYL) 10 mg capsuleTake 1 capsule by mouth three times daily as needed (for abdominal pain).Disp: 60 capsuleRfl: 2 albuterol HFA (PROAIR HFA) 90 mcg/actuation inhalerInhale 2 Puffs as instructed every 4 hours as needed.Disp: 1 EachRfl: 0 ondansetron orally disintegrating (ZOFRAN ODT) 4 mg disintegrating tabletTake 1 tablet by mouth every 6 hours as needed for nausea/vomiting.Disp: 8 tabletRfl: 3 topiramate (TOPAMAX) 25 mg tabletTake one pill daily for seven days and then increase to one pill two times a day.Disp: 60 tabletRfl: 3 (Patient not taking: Reported on 08/17/2022) pantoprazole DR (PROTONIX) 20 mg tabletTake 1 tablet by mouth daily before breakfast. Take on empty stomach, 1/2 hr before meal.Disp: 30 tabletRfl: 2 (Patient not taking: Reported on 10/15/2022) FAMILY HISTORY Problem Relation Age of Onset Alcohol/Drug Mother other (lupus) Mother Alcohol/Drug Father Asthma Sister Seizures Sister other (diverticulosis) Maternal Grandmother Social History Tobacco Use Smoking status: Former Packs/day: 1 Types: Cigarettes Smokeless tobacco: Current Tobacco comments: Vapes Vaping Use Vaping Use: current everyday user Substances: Nicotine, THC Devices: Disposable Substance Use Topics Alcohol use: No Drug use: No BP 132/86 Pulse 86 Resp 16 Wt 70.3 kg (155 lb) LMP 08/13/2008 SpO2 97% BMI 26.61 kg/m? Physical Exam Vitals reviewed. Constitutional: Appearance: Normal appearance. Neurological: Mental Status: She is alert. DATA REVIEWED: Most recent imaging ASSESSMENT/PLAN: 1. Migraine with aura and without status migrainosus, not intractable - ICD9: 346.00, ICD10: G43.109 (primary diagnosis) Persistent migraine x 2 days. No new or worsening symptoms - SUMATRIPTAN 50 MG TABLET refilled - KETOROLAC 60 MG/2 ML INTRAMUSCULAR SOLUTION today in the office - patient continues to have frequent migraines, she is willing to try Topamax now. New prescription sent. Instructed to let me know in 3-4 weeks if no improvement or sooner if any intolerable side effects 2. Lateral epicondylitis of left elbow - ICD9: 726.32, ICD10: M77.12 Continue with current treatment. Recommend tennis elbow bracing. Given exercises from [email or web address]. Follow-up in 3-4 weeks if no improvement. Prescription instructions reviewed with patient as applicable. Potential red flag symptoms discussed with the patient. Reviewed appropriate action plan to take if red flag symptoms occur. Patient agreeable to treatment plan. During this patient visit I have spent approximately 30 minutes in counseling regarding treatment options, medications, test results, and coordinating care. Mcihelle Lakhani (more content not included)... Normal [facility] CNOVon 12-01-2022 CNOV Office Visit (UCWSTR ) LEOLA ISABEL ([id number]) 1980 F Date Time Provider Department 12/01/22 5:00 PM LORETTA HARRIS [facility] During your visit today, we recorded the following information about you: Temperature Pulse Respiration Blood pressure 98.3 degrees 90/minute 16/minute 128/84 Weight 70.3 kg Loretta Harris PA-C 12/01/2022 5:40 PM Signed This note was created using Tarenariter. Subjective Leola Isabel is a 42 year old female. HPI Patient presents with a chief complaint of left elbow pain for a month. Denies any injury or trauma. 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 She states she is uses her arms all day long. It is very painful to flex and extend the elbow. She has been using ibuprofen for pain. Review of Systems Constitutional: Negative. HENT: Negative. Respiratory: Negative. Cardiovascular: Negative. Gastrointestinal: Negative. Genitourinary: Negative. Musculoskeletal: Left elbow pain All other systems reviewed and are negative. PAST MEDICAL HISTORY Diagnosis Date Abnormal glandular Papanicolaou smear of cervix 04/09/2003 Abn. Pap smear (cervix) Adjustment disorder with depressed mood Asthma Esophageal reflux Migraine with aura, without mention of intractable migraine without mention of status migrainosus Unspecified asthma, with status asthmaticus Current Outpatient Medications Medication Sig Dispense Refill SUMAtriptan (IMITREX) 50 mg tablet Take one tablet by mouth at the onset of the headache. If no improvement in 2 hours take one more tablet. No more than 2 tablets in 24 hours 8 tablet 0 dicyclomine (BENTYL) 10 mg capsule Take 1 capsule by mouth three times daily as needed (for abdominal pain). 60 capsule 2 albuterol HFA (PROAIR HFA) 90 mcg/actuation inhaler Inhale 2 Puffs as instructed every 4 hours as needed. 1 Each 0 ondansetron orally disintegrating (ZOFRAN ODT) 4 mg disintegrating tablet Take 1 tablet by mouth every 6 hours as needed for nausea/vomiting. 8 tablet 3 predniSONE (DELTASONE) 20 mg tablet Take 2 tablets by mouth once daily for 5 days. 10 tablet 0 polyethylene glycol 3350 (MIRALAX) 17 gram/dose powder Take 17 g by mouth once daily. Dissolve dose in 4 - 8 ounces of liquid and take as directed. (Patient not taking: Reported on 10/15/2022) 595 g 2 topiramate (TOPAMAX) 25 mg tablet Take one pill daily for seven days and then increase to one pill two times a day. (Patient not taking: Reported on 08/17/2022) [address] (PROTONIX) 20 mg tablet Take 1 tablet by mouth daily before breakfast. Take on empty stomach, 1/2 hr before meal. (Patient not taking: Reported on 10/15/2022) 30 tablet 2 Current Facility-Administered Medications Medication Dose Route Frequency Provider Last Rate Last Admin cyanocobalamin 1,000 mcg injection 1,000 mcg INTRAMUSCULAR q 4 WEEKS Saúl Andrade MD 1,000 mcg at 10/15/22 1254 Facility-Administered Medications Ordered in Other Visits Medication Dose Route Frequency Provider Last Rate Last Admin lidocaine (PF) 10 mg/mL (1 %) 1-2 mg injection (XYLOCAINE) 0.1-0.2 mL INTRADERMAL PRN Jose F Teresa MD lactated ringers iv infusion 30 mL/hr INTRAVENOUS CONTINUOUS Jose F Teresa MD PAST SURGICAL HISTORY Procedure Laterality Date BILIARY NDSC INTRAOPERATIVE 11/12/2007 COLONOSCOPY 05/12/2022 [facility]IC[facility] INJ 05/12/2022 IANDD OF BARTHOLINS GLAND ABSCESS 09/07/2008 LAPS SURG CHOLECSTC W/EXPL COMMON DUCT 11/12/2007 FAMILY HISTORY Problem Relation Age of Onset Alcohol/Drug Mother other (lupus) Mother Alcohol/Drug Father Asthma Sister Seizures Sister other (diverticulosis) Maternal Grandmother Social History Tobacco Use Smoking status: Former Packs/day: 1 Types: Cigarettes Smokeless tobacco: Current Tobacco comments: Vapes Vaping Use Vaping Use: current everyday user Substances: Nicotine, THC Devices: Disposable Substance Use Topics Alcohol use: No Drug use: No Objective BP 128/84 Pulse 90 Temp 36.8 ?C (98.3 ?F) Resp 16 Wt 70.3 kg (155 lb) LMP 08/13/2008 SpO2 99% BMI 26.61 kg/m? Physical Exam Vitals reviewed. Constitutional: Appearance: Normal appearance. HENT: Head: Normocephalic and atraumatic. Musculoskeletal: Comments: Exam of the left elbow reveals tenderness to palpation to the lateral epicondyle. Some mild swelling noted. No erythema. She does have pain with flexion and extension of the elbow. Mild pain on pronation and supination. No tenderness to the medial epicondyle or olecranon. Radial pulse 2+. Normal hand grasp strength. Skin: General: Skin is warm and dry. Neurological: Mental Status: She is alert. Assessment and Plan ASSESSMENT/PLAN: 1. Elbow pain, left - ICD9: 719.42, ICD10: M25.522 X-rays are negative. Likely lateral epicondylitis. Given prescription for prednisone. Didier wrap appli (more content not included)... Normal [facility] XR ELBOW 3V AP/LAT/OTHER LTo n 12-01-2022 XR ELBOW 3V AP/LAT/OTHER LT * * *Final Report* * * DATE OF EXAM: Dec 01 2022 5:26PM WOX 5324 - XR ELBOW 3V AP/LAT/OTHER LT / PROCEDURE REASON: Elbow pain, left * * * * Physician Interpretation * * * * LEFT ELBOW 3 VIEWS, 12/01/2022 HISTORY: Elbow pain, left COMPARISON: None TECHNIQUE: AP, lateral, and oblique views. RESULTS: The bones are intact and normally aligned. There are no underlying bone lesions. The joint spaces appear normal. There is no appreciable joint effusion. There are no periarticular calcifications. IMPRESSION: Normal left elbow. Battery Parts Assembler: PSCB Transcribe Date/Time: Dec 01 2022 5:27P Dictated by : HEATHER BROOKS MD This examination was interpreted and the report reviewed and electronically signed by: HEATHER BROOKS MD on Dec 01 2022 5:28PM EST [id number] Normal [facility] XR ELBOW SPECIAL VIEWS AP/LA T/OTHER LEFTon 12-01-2022 [facility] XR Elbow - left AP and Later al and obliqueon 12-01-2022 IMPRESSION: Normal left elbow. Battery Parts Assembler: ALLEN Transcribe Date/Time: Dec 01 2022 5:27P Dictated by : HEATHER BROOKS MD This examination was interpreted and the report reviewed and electronically signed by: HEATHER BROOKS MD on Dec 01 2022 5:28PM [facility] DIVISION OF RADIOLOGY * * *Final Report* * * DATE OF EXAM: Dec 01 2022 5:26PM WOX 5324 - XR ELBOW 3V AP/LAT/OTHER LT / PROCEDURE REASON: Elbow pain, left * * * * Physician Interpretation * * * * LEFT ELBOW 3 VIEWS, 12/01/2022 HISTORY: Elbow pain, left COMPARISON: None TECHNIQUE: AP, lateral, and oblique views. RESULTS: The bones are intact and normally aligned. There are no underlying bone lesions. The joint spaces appear normal. There is no appreciable joint effusion. There are no periarticular calcifications. DIVISION OF RADIOLOGY Provider, [facility] - 12/01/2022 * * *Final Report* * * DATE OF EXAM: Dec 01 2022 5:26PM WOX 5324 - XR ELBOW 3V AP/LAT/OTHER LT / PROCEDURE REASON: Elbow pain, left * * * * Physician Interpretation * * * * LEFT ELBOW 3 VIEWS, 12/01/2022 HISTORY: Elbow pain, left COMPARISON: None TECHNIQUE: AP, lateral, and oblique views. RESULTS: The bones are intact and normally aligned. There are no underlying bone lesions. The joint spaces appear normal. There is no appreciable joint effusion. There are no periarticular calcifications. IMPRESSION IMPRESSION: Normal left elbow. Battery Parts Assembler: ALLEN Transcribe Date/Time: Dec 01 2022 5:27P Dictated by : HEATHER BROOKS MD This examination was interpreted and the report reviewed and electronically signed by: HEATHER BROOKS MD on Dec 01 2022 5:28PM EST [facility] Radiology Study observation (narrative) [facility] XR Elbow - left AP and Later al and obliqueOrdered By: Ccf Provider on 12-01-2022 [facility] EMG(NEURO/NI)on 11-20-2022 [facility] US EXT MASS/FLUID COLLECTION RTon 10-15-2022 US EXT MASS/FLUID COLLECTION RT * * *Final Report* * * DATE OF EXAM: Oct 15 2022 4:56PM LDU 1025 - US EXT MASS/FLUID COLLECTION RT / PROCEDURE REASON: multiple diagnoses * * * * Physician Interpretation * * * * EXAM TITLE: US EXT MASS/FLUID COLLECTION RT DATE: 10/15/2022 COMPARISON: None. CLINICAL INDICATION/HISTORY: Palpable abnormality right wrist TECHNIQUE: Sonographic interrogation of the right wrist in the area of palpable concern. FINDINGS: Within the subcutaneous fat, there is a 12 x 6 x 11 mm oval-shaped anechoic structure without internal blood flow, septations or calcification. IMPRESSION: 12 mm cystic structure at the right wrist in the area of palpable concern, most likely a ganglion. Battery Parts Assembler: ALLEN Transcribe Date/Time: Oct 18 2022 8:12A Dictated by : TESHA BARRON MD This examination was interpreted and the report reviewed and electronically signed by: TESHA BARRON MD on Oct 18 2022 8:13AM EST [id number] N Normal [facility] DAVID DIAG W MADDY RIGHTon 08-0 [facility] XR WRIST INJURY 4V PA/LAT/OB L/SCAPH RIGHTon 08-17-2022 [facility] XR Wrist - right 4 Viewson 0 08-17-2022 Radiology Study observation (narrative) [facility] IMPRESSION: Unremarkable examination with no acute findings as above. Battery Parts Assembler: [facility] Transcribe Date/Time: Aug 17 2022 5:23P Dictated by : RINA PARK MD This examination was interpreted and the report reviewed and electronically signed by: RINA PARK MD on Aug 17 2022 5:24PM EST DIVISION OF RADIOLOGY * * *Final Report* * * DATE OF EXAM: Aug 17 2022 5:20PM WOX 5273 - XR WRIST 4V PA/LAT/OBL/SCAPH RT / PROCEDURE REASON: Right wrist pain * * * * Physician Interpretation * * * * RIGHT WRIST: CLINICAL INDICATION: Right wrist pain FINDINGS: 4 radiographs of the right wrist demonstrate: Normally aligned intact osseous structures. No fracture or dislocation is identified. Lateral imaging demonstrates normal alignment of the lunate, capitate, and radius. Surrounding soft tissue structures are unremarkable without significant edema, obscuration of muscular planes, or radiopaque foreign body. DIVISION OF RADIOLOGY Provider, [facility] - 08/17/2022 * * *Final Report* * * DATE OF EXAM: Aug 17 2022 5:20PM WOX 5273 - XR WRIST 4V PA/LAT/OBL/SCAPH RT / PROCEDURE REASON: Right wrist pain * * * * Physician Interpretation * * * * RIGHT WRIST: CLINICAL INDICATION: Right wrist pain FINDINGS: 4 radiographs of the right wrist demonstrate: Normally aligned intact osseous structures. No fracture or dislocation is identified. Lateral imaging demonstrates normal alignment of the lunate, capitate, and radius. Surrounding soft tissue structures are unremarkable without significant edema, obscuration of muscular planes, or radiopaque foreign body. IMPRESSION IMPRESSION: Unremarkable examination with no acute findings as above. Battery Parts Assembler: ALLEN Transcribe Date/Time: Aug 17 2022 5:23P Dictated by : RINA PARK MD This examination was interpreted and the report reviewed and electronically signed by: RINA PARK MD on Aug 17 2022 5:24PM EST [facility] XR Wrist - right 4 ViewsOrde red By: Ccf Provider on 08-17-2022 [facility] DAVID SCREENINGon 07-07-2022 [facility] .Auto Diffon 06-20-2022 Basophil, Absolute 0.0 10 3/mcL Normal 0.0-0.2 [facility] (MD) Comment on above: Performed By: #### B MALIK ROWAN MDW, ADIFF, GFR, CK, CBC #### [address] [address] Basophils/100 WBC (Bld) 0.4 % Normal 0.0-2.5 [facility] (MD) Comment on above: Performed By: #### B MALIK ROWAN MDW, ADIFF, GFR, CK, CBC #### [address] [address] Eosinophil, Absolute 0.0 10 3/mcL Normal 0.0-0.4 [facility] (MD) Comment on above: Performed By: #### B MALIK ROWAN MDW, ADIFF, GFR, CK, CBC #### [address] [address] Eosinophils/100 WBC (Bld) 0.0 % Normal 0.0-7.0 [facility] (MD) Comment on above: Performed By: #### B ANUM, MARCELO GAN, ADIFF, GFR, CK, CBC #### [address] [address] Lymphocyte, Absolute 0.5 10 3/mcL Low 0.8-3.9 [facility] (MD) Comment on above: Performed By: #### B ANUM, MALIK, W, ADIFF, GFR, CK, CBC #### [address] [address] Lymphocytes/100 WBC (Bld) 14.6 % Normal 10.0-50.0 [facility] (MD) Comment on above: Performed By: #### B ANUM, MALIK, W, ADIFF, GFR, CK, CBC #### [address] [address] Monocyte, Absolute 0.2 10 3/mcL Normal 0.2-1.0 [facility] (MD) Comment on above: Performed By: #### B ANUM, MALIK, W, ADIFF, GFR, CK, CBC #### [address] [address] Monocytes/100 WBC (Bld) 6.7 % Normal 1.7-13.0 [facility] (MD) Comment on above: Performed By: #### B ANUM, MD MALIKW, ADIFF, GFR, CK, CBC #### [address] [address] Neutrophils/100 WBC (Bld) 78.3 % Normal 37.0-80.0 [facility] (MD) Comment on above: Performed By: #### B ANUM, MD MALIKW, ADIFF, GFR, CK, CBC #### [address] [address] .GFRon 06-20-2022 GFR 94 ml/min/1.73sqm Normal [facility] (MD) Comment on above: Result Comment: GFR Population mean for , Non- Americans Ages 20-29 = 116 mL/min/1.73 sq.m. Ages 30-39 = 107 mL/min/1.73 sq.m. Ages 40-49 = 99 mL/min/1.73 sq.m. Ages 50-59 = 93 mL/min/1.73 sq.m. Ages 60-69 = 85 mL/min/1.73 sq.m. Ages 70+ = 75 mL/min/1.73 sq.m. Chronic Kidney Disease: Less than 60 mL/min/1.73 square meters End Stage Renal Disease: Less than 15 mL/min/1.73 square meters Performed By: #### B MALIK ROWAN MDW, ADIFF, GFR, CK, CBC #### [address] [address] GFR Non- 77 ml/min/1.73sqm Normal [facility] (MD) Comment on above: Result Comment: GFR Population mean for , Non- Americans Ages 20-29 = 116 mL/min/1.73 sq.m. Ages 30-39 = 107 mL/min/1.73 sq.m. Ages 40-49 = 99 mL/min/1.73 sq.m. Ages 50-59 = 93 mL/min/1.73 sq.m. Ages 60-69 = 85 mL/min/1.73 sq.m. Ages 70+ = 75 mL/min/1.73 sq.m. Chronic Kidney Disease: Less than 60 mL/min/1.73 square meters End Stage Renal Disease: Less than 15 mL/min/1.73 square meters Performed By: #### B MALIK ROWAN MDW, ADIFF, GFR, CK, CBC #### [address] [address] .MDWon 06-20-2022 Monocyte Distribution Width 28.47 High 0.00-20.00 [facility] (MD) Comment on above: Result Comment: For adults in ED, MDW>20.0 may be associated with a higher risk of sepsis during the first 12hrs of hospital admission Performed By: #### B MALIK ROWAN MDW, ADIFF, GFR, CK, CBC #### [address] [address] .NEUABSon 06-20-2022 Neutrophil, Absolute 2.9 10 3/mcL Normal 2.9-6.2 [facility] (MD) Comment on above: Performed By: #### B ANUM, MARCELO GAN, ADIFF, GFR, CK, CBC #### [address] [address] BMPon 06-20-2022 BUN/Creatinine Ratio 11 ratio Normal 7-27 [facility] (MD) Comment on above: Performed By: #### B ANUM, MARCELO GAN, ADIFF, GFR, CK, CBC #### [address] [address] Calcium [Mass/Vol] 8.6 mg/dL Normal 8.4-10.2 [facility] (MD) Comment on above: Performed By: #### B MALIK ROWAN MDW, ADIFF, GFR, CK, CBC #### [address] [address] Chloride [Moles/Vol] 103 mmol/L Normal 98-107 [facility] (MD) Comment on above: Performed By: #### B MALIK ROWAN MDW, ADIFF, GFR, CK, CBC #### [address] [address] CO2 [Moles/Vol] 24 mmol/L Normal 22-29 [facility] (MD) Comment on above: Performed By: #### B MALIK ROWAN MDW, ADIFF, GFR, CK, CBC #### [address] [address] Creatinine [Mass/Vol] 0.82 mg/dL Normal 0.55-1.02 [facility] (MD) Comment on above: Performed By: #### B MALIK ROWAN MDW, ADIFF, GFR, CK, CBC #### [address] [address] Electrolyte Balance 10.0 mEq/L Normal 4.0-15.0 [facility] (MD) Comment on above: Performed By: #### B ANUM, MD MALIKW, ADIFF, GFR, CK, CBC #### [address] [address] Glucose [Mass/Vol] 140 mg/dL High 70-105 [facility] (MD) Comment on above: Performed By: #### B ANUM, MALIK, W, ADIFF, GFR, CK, CBC #### [address] [address] Potassium [Moles/Vol] 3.7 mmol/L Normal 3.5-5.1 [facility] (MD) Comment on above: Performed By: #### B ANUM, MD MALIKW, ADIFF, GFR, CK, CBC #### [place] [address] Sodium [Moles/Vol] 137 mmol/L Normal 136-145 [facility] (MD) Comment on above: Performed By: #### B ANUM, MALIK, W, ADIFF, GFR, CK, CBC #### [address] [address] Urea nitrogen [Mass/Vol] 9 mg/dL Normal 7-18 [facility] (MD) Comment on above: Performed By: #### B ANUM, MD MALIKW, ADIFF, GFR, CK, CBC #### [place] [id number] CBCon 06-20-2022 Erythrocyte distribution width (RBC) [Ratio] 12.8 % Normal 11.5-14.5 [facility]) Comment on above: Performed By: #### B ANUM, MD MALIKW, ADIFF, GFR, CK, CBC #### [place] [id number] Hematocrit (Bld) [Volume fraction] 38.2 % Normal 37.0-47.0 [facility] (MD) Comment on above: Performed By: #### B ANUM, MALIK, W, ADIFF, GFR, CK, CBC #### [place] [address] Hgb 13.2 G/dL Normal 12.0-16.0 [facility] (MD) Comment on above: Performed By: #### B ANUM, MARCELO GAN, ADIFF, GFR, CK, CBC #### [place] [id number] MCH (RBC) [Entitic mass] 31.1 pg Normal 27.0-31.2 [facility] (MD) Comment on above: Performed By: #### B ANUM, MARCELO GAN, ADIFF, GFR, CK, CBC #### [place] [address] MCHC 34.6 G/dL Normal 33.0-37.0 [facility] (MD) Comment on above: Performed By: #### B ANUM, MARCELO GAN, ADIFF, GFR, CK, CBC #### [place] [address] MCV (RBC) [Entitic vol] 89.7 fL Normal 80.0-94.0 [facility] (MD) Comment on above: Performed By: #### B MALIK ROWAN MDW, ADIFF, GFR, CK, CBC #### [place] [address] Platelet 127 10 3/mcL Low 130-400 [facility] (MD) Comment on above: Performed By: #### B ANUM, MARCELO GAN, ADIFF, GFR, CK, CBC #### [place] [address] Platelet mean volume (Bld) [Entitic vol] 7.8 fL Normal 7.4-10.4 [facility] (MD) Comment on above: Performed By: #### B MALIK ROWAN MDW, ADIFF, GFR, CK, CBC #### [place] [id number] RBC 4.26 10 6/mcL Normal 4.20-5.40 [facility] (MD) Comment on above: Performed By: #### B ANUM, MD MALIKW, ADIFF, GFR, CK, CBC #### [place] [id number] [place], [place] [address] WBC 3.7 10 3/mcL Low 4.6-10.8 [facility] (MD) Comment on above: Performed By: #### B ANUM, MALIK, MARCELO, ADIFF, GFR, CK, CBC #### [place] [id number] [place], [place] [address] CKon 06-20-2022 CK [Catalytic activity/Vol] 53 U/L Normal 26-192 [facility] (MD) Comment on above: Performed By: #### B ANUM, MALIK, MARCELO, ADIFF, GFR, CK, CBC #### [address] [address] SURGICAL PATHOLOGYOrdered By : Sofía Navarro on 05-14-2022 Case Report Surgical Pathology Report Case: [id number] Authorizing Provider: Jose F Teresa MD Collected: 05/12/2022 10:01 AM Ordering Location: Ambulatory Surgery Received: 05/12/2022 10:10 PM Pathologist: Sofía Navarro MD Specimens: A) - DUODENUM BIOPSY, 2nd portion B) - ANTRUM (STOMACH) BIOPSY C) - ESOPHAGOGASTRIC JUNCTION BIOPSY D) - COLON BIOPSY, random [facility] Work Phone: FINAL DIAGNOSIS m4uqzBPqHILqxZVdRKAx N XacksSdFZNzuNPtV5Csoa yzLKokBU0xIN3pfJcmvNW fmZPiBLAaNuWjb2thq729 uJQag0klUMGEwngveEi5n ZpxJ34mj8R0UtksM35vjT YlNVL9MHKoRFRujJZbEUK dDIG1ZDIrvYAkL1leBUNb LI6ylytvWXhiGKlyITPko WV4QKUbhCEkM2WnVIMiZL epBMZjzzr5GrEiAx9qqUV yeTcyMFxwYXJkXHBsYWlu NJGxDsDpPD5xUIZhEUXxo O4nSDPaL69qEREvh2N6lA 6gRORliS9yx8d6QDbxjqQ pYYYKzC8oYR3fqYInlDTf m5Bpg3k6bWUolqMuxWvrs OQyD5FrgWJgHLUif5hvM5 wkEMWxGN1oLJ6nvBkmADy koE6tZRXjUWO2f55zY3dj EJJegYP1fLzaMevduTS6X uqijL7eQE9qKjAxC4Cxxo GzO3KsuZPxpTV3uSrtzJu cXAAgQN8kWEavgMVhpIaz ZJlcwWA7JNHlDTEfMLXcw sSqg5FawW6jb5liIuDzrs htCO0rSELaHeCdpLMGRNe yE94zEJO2RVTtdOonz3Fi XGkwICBvcmdhbmlzbXMuX GxpbmVcbGluZSBDLiBHYX H4ev8ss61oeZVuMWYhDYn 9yrY8cD9cFUJybR7ds4a9 WDquivAaWOEVrZLpxS27n cPsp87alEVgJFBsKC19C1 7kHSP4oDQdLFSjavGcsV9 0qiFifAi8kTPgdHGbGGMz p0jgx0RiiBtyKPbop4Xkj Ej2ZXZtQQFrBWWbRF0epX 5jgIejmQNeyNCsZQbtS9l fjK29EOHgAtaifTCsSVQd TFUnsuKqNP5oPVUcNQD8n vqyRRMhzdAmVJ37jDKjDI 91S97uQLB2bQIqBRKePPE 0aXZlIGVwaXRoZWxpYWwg Z7mxjtrmcitnoxMsCAYzk iKoVe9jXHcjmNZkyHjwIJ lwrEY3BFGxGLZtRO4exHr aKFcqkM4lIHLwYQNgdZ0q AYDxXD3mz11yZQThq8Gcw SocdVywYULdILJdbY1meI PmsVBsb0TgMXwdgLkerg7 sv5bucspjkEIlilKufCT3 oT9hd5wuBnCxmPBsD7PfL HBhcn0= [facility] Work Phone: Gross Description g1qzjARgASItsULDTMDw M FFpII0kzBporJu1nNymMG NxdiH4yRShNOglj1idMMJ 6m4lhfeZJWvrgMYQqPKbi JFJtpfxbMcO3PJsxUXSry vhgQFx3NMipPQHquTW3LS JafAVoB5ZhSNKsSG1jbfm 1DFT2RWwiUZYgCjG2OTQt NzFyYcrsGMu7LXUzlsA6X gx9IGQvOIGmiYYyy0D5IX sznpsnAWLyaNEeK219OEr ih9ObpVNlPLezjRScBGRI NkefWbfusVhph2GkiCPcS GlkIDUxMDAwIFxcbmggXF g4NQDqQEfbbKNzTJ8qtVs dIxuebDvxh6YckJKxJPwk NRLjURWtEFjgLVYtYA3IE dVrSBZ8PDc4WDN3LlK3JY n6WQIXHiMuOqKiHgniWDY 9EGBjZTo6NWv9RWzDXzSz BPA6HvF9CjG8OzM2CMr2S yBcXHQgMiBcXGYgQXJpYW yuXCnrbGBhVN2vuUrhcMI uvtKGNmSPNH1QQG0TAAFO WM4QE4arbYWhJZ0BRRUxo GVYRVD5OW0rXTGEGycmeA PjACJioRcpNZhjcC2rRS8 VWJg5yaSgNVQzQvQtVkQc OSs1SEZyiY3jIr5diAUqn Q3rPIQhHLP3wsOpdRLvAK Wsl6VciWRsWPIis1B4MZL sc6U3RURkT6byRPagwMiv SdX6ccUvHrOzqRAlMsRlw IXrZaEwZ08nPHKniQAwhS qcl5NeoSf7bHYmMWcjFO0 wOOYnOROuECO6BW2PYzgp pYpwIuMucUZiJpNfjwZ9R ZIbpMYbFYU5EU0hMUMqas vyUTKnCFVcMGY7USghnM4 1bHQwXGZzMTZccGFyfVxw bGFpbiANCntcKlxlcGljc 2VjdCBcXGlkIDUxMDAyIF rcSKYjSI3JXeCeJDU2NOm 2RIX4MtC0AIk1FKSRFeUz CcRrJitrPLW3EGGtEFk3I Jr2DXqJYkBlECR4UhP7Ft YsNcD2IPb6PcJkYVAcRkQ cXGYgQXJpYWwgXFxmbCBc FJ7yiHhsvIDiakdrksN6Z HBsYWluIEIuIEFOVFJVTS WdJ0TCAXQNMYmdJhgSOYY ZXHBhciANClxlcGljTmVz dERvYzEgDQpcbHRycGFyX GxpbjBccmluMCANClxsdH PncJcixoJmFQLpZ1XvsbH tCEzxCZSefs9alZeyEGak VX9iTYYplDThNSSzPtW6B K4wRETqMcExsKdch2ObQY 5cDBE3wxeqStSpKrXwfGA zPmHytFAjStSrU13aJVEi yHVcdRcfy4NvpVn5sTFhY GozIK9dHUYiUCQcZPV3FB 4NClxlcGljTmVzdERvYzB yofF4TYAmdGQvYBA3WE6c ENUwthreXPBlTLSsJSO7X ScfeG97oXWoYFNhXVUhkI FyfVxwbGFpbiANCntcKlx qpMfro1XybXHfJJimUTXr QUUiCApqYSCaRZ0NUsIvD WS1SRp2UTV4EhM3HQd4CW TAKwUjDfRcDxbrUBA3VCU lTOr3RDc0XNvDCwDnQWD3 UoD1LnYwYZD5VEp4GiKrG HQgMiBcXGYgQXJpYWwgXF isuRJgVL0cgSbdxFWfjvl qdgH6QFKoGPzfIQRhLUID M1OGCDeTL2UMVBWNWdEVW K4LHRyTQqTLIT6BG4itoY EzPA6UMXGciOXIENE5AP4 jMSANClxsdHJwYXJcbGlu SAvidI8iAK4JIYe6krThQ DNqYgAbFgUzZCa5VYEchF 5pEk3voITdtF6ciBMee15 tFZXuODHyYZ9iKYAhoigj t95rwOI4jEQxsMNdyBHkb 2IxuB8fGPCvATH6JYMtXw T2VVPeGbVvjX3tAV34TWn vsSYonFXeyOS1KJOouS4d v37eLUFho3AppAHmRk6ZM HBneBHUQLI5PV4jWWt9WR flPYLtJ5LkP5EdnzDkdQQ zBPDjylXim1wzATQ7FLRx xLQwkMLiArCpAvyzBJP7M MEkNEbxUS8Sm8qqHZYwsX PgQUX0BGgyeOShLLDiTBV jVBorLqHuA3RFMCVvTcs6 VGY5ZGXkPLn4KZe5GH9ZG yAiICAyOTMwNDUwNiIgOT g8SOrlBZ3ZFBTeRLszTKH mGfm3IGP2JGNcVLxdlITn IFxcZiBBcmlhbCBcXGZsI FczwlD2SGLnGRpoKUWyAS TnwCfwnL8zHS3kI69RH17 gQklPUFNZXHBhciANClxl cGljTmVzdERvYzEgDQpcb HRycGFyXGxpbjBccmluMC ANClxsdHJjaFxmczIwIFJ wE0CfwoNnIIdbFWYesx5d fGhzCOOqCMXqhVa8eKVwP MUbsMJoXRGzk0WqcELlAI Zdb7S4QNDhy8K4KVTgF5s jFWtoyTwjKwG0wvExYeTz qTLmIdDzeRGeDqBaR25nC IFrfTCzkNpfu8YqxQh1sM IfLSkkFQT7zaIgTQWhBAU 0ZXMuIFxwYXIgDQpccGFy RG3PJZwZVGOszwqqMZBxK DIwMjMgNjozOSBBTVxwYX JsRDudbYOwIT4KN7Rfw0D rXXkvlOorJKSmj88nkXSp Mf3ssCBgIQD7SXMvYGTcv LTvHPCNdItdoJPaOBn1XY KlMNCqzQqiUHQ3ZU8lIBD aOKCaxURpKOijY6aaTMSr NFIloXAcJX0UQDChkSEQH XZ3OG9jLCk1NArcUSBhF5 YoD8ExvnIdjRRrVBCbqjB eu8izMSF6VKLrwKKxlYWk NtPzKhhtCGL8BZLtXRgcZ C4UJIYhWNT9IKxcsK14sE SkKM8FRJBqFYozOOZbHKS ezqR4UZXwjBLdRZC7CK6h vBkfoIIaaitxkwH5SK0Kr Q== [facility] Work Phone: Performing Lab r7yzrPVsXIYfpYXnQzNy M SOqYEYyf4qrKCGutETpMz EwMzNcZnRuYmpcdWMxXGR rVwRat3flo061gGMuh7oe FVYcLqK3oJHvJHQxhUIxY 444QRHnNDbww7oht8AwGC ScaTYpu1H5TAFYltiaeSd 5qOurO98uf3Z3RoibO4gu WYLbOKPzA2LfWF1cAOWlU yk7KRT3HWW0DGHtWWYkB8 ZoRQ7wTGLrmIIuXRq1q8e unZufYVQrRHQ4t7mvQYuy daTkWZ6lpv8kbZk2q4npe zEgRGVmYXVsdCBQYXJhZ3 CraHmlKl1wkAb4bMoeJqh eQUI6Icy2YX3zwo02qff8 gAyiWMDighhlWaU3TLsiS YWdajblCWe0FEkfHJPrrF X7LPCwySGrF7BcDBjpTI7 niya8KWO8XCkwLCAsUdS4 NDBcaGVhZGVyeTcyMFxmb 865MKO5RcSfIL4fT2Ego0 A3hX8dsQMuYKHqpXLgIdM eFYYuwl4jyYUzSLicx2Bf JZY3eiY8yKKkmPUlJUCoM P73Skhmc3QwDcbby9DoZ9 2gyBV4OOaqk7vyNT9jXgW 5lfClIAtky6binZ8cFjW9 XIiwZI8lQJ7mWPVksB7hs mxjXHBnYnJkcmhlYWRccG hjdsFiRw7ifKtgGOO3ZWc nS7uzjG9xUkN3SJnyI4ea sJ3eOYm7GJowcMQ6NFQmh T3hEL2lufmlx4ghKUizTR owRTMfvdT6igQyGATtlCE uD2KtyJ3nULQoIK4aawpw e3jiINN3JUeuEPNzHEE1W dBtODSze4Ensiw7BjXqm9 NndFIjUNvwV48vn383BRO xegKyB2ezbFLqmhlwdJIk kkhvJWbdacH8MNQnNVCwX WluXGYxXGZzMjJcbGFuZz EwMzNcaGljaFxmMVxkYmN qQFWdGNtbE5ufHgUqYeRq XkBLtWXuvm3reToxKBxpl LJgxCNntJE5xL8cVAPexv Ffcx1qGJNwlHXBjQE8QEp qjwVbW2zddqstWLA3ZLOe NDC6Z5seCDMWsnHeQXXnU UTrcAGwUTKKRDD1CFE8CX LmTRAHVQViQXV3QQT4MEG wOTRccGFyXHBhclxwYXJk XHBsYWluXGYwXGZzMjRcc XptwB7zNbZkZaAwTdmdFH 9zCECtC2bkhSZqYYIzGZY fL1nmOhTsrT8kzYqdWKfb ZjJcZnMyMlxsdHJjaCBMY CPcikE0s6U3NPksaDOowy xmMVxmczIyXGxhbmcxMDM yBSqjF3tnLnQcURLpwFmr MPbkw7BwNJSzNXTkYhZyP VzdJCM5d9Y0RNlydZLemw FENzJCZN5wlIMepxazNN9 ELlxwYXJ9 [facility] Work Phone: [facility] Work Phone: EGD Study observation Soraida navarro 05-12-2022 [facility] G[facility] Patient Name: Leola Isabel Procedure Date: 05/12/2022 9:42 AM Date of : 1980 Admit Type: Outpatient Age: 42 Room: [place] [address] Gender: Female Note Status: Finalized Attending MD: Jose F Teersa MD Procedure: Upper GI endoscopy Indications: Gastro-esophageal reflux disease Providers: Jose F Teresa MD Patient Profile: Refer to note in patient chart for documentation of history and physical. Referring Physician: Noelle Sandoval (pa) (Referring MD) Medicines: Monitored Anesthesia Care Complications: No immediate complications. Requesting Provider: Procedure: Pre-Anesthesia Assessment: - Prior to the procedure, a History and Physical was performed, and patient medications and allergies were reviewed. The patient's tolerance of previous anesthesia was also reviewed. The risks and benefits of the procedure and the sedation options and risks were discussed with the patient. All questions were answered, and informed consent was obtained. Prior Anticoagulants: The patient has taken no anticoagulant or antiplatelet agents. ASA Grade Assessment: II - A patient with mild systemic disease. After reviewing the risks and benefits, the patient was deemed in satisfactory condition to undergo the procedure. After obtaining informed consent, the endoscope was passed under direct vision. Throughout the procedure, the patient's blood pressure, pulse, and oxygen saturations were monitored continuously. The Endoscope was introduced through the mouth, and advanced to the second part of duodenum. I was present and participated during the entire procedure, including non-madison portions, and during the administration and monitoring of Moderate Sedation. The upper GI endoscopy was accomplished without difficulty. The patient tolerated the procedure well. Moderate Sedation: MAC anesthesia was administered by the anesthesia team. Findings: The Z-line was irregular and was found 37 cm from the incisors. Biopsies were taken with a cold forceps for histology. Verification of patient identification for the specimen was done. Estimated blood loss was minimal. A small hiatal hernia was present. Normal mucosa was found in the entire examined stomach. Biopsies were taken with a cold forceps for Helicobacter pylori testing. Verification of patient identification for the specimen was done. Estimated blood loss was minimal. The examined duodenum was normal. Biopsies were taken with a cold forceps for histology. Verification of patient identification for the specimen was done. Estimated blood loss was minimal. Impression: - Z-line irregular, 37 cm from the incisors. Biopsied. - Small hiatal hernia. - Normal mucosa was found in the entire stomach. Biopsied. - Normal examined duodenum. Biopsied. Recommendation: - Patient has a contact number available for emergencies. The signs and symptoms of potential delayed complications were discussed with the patient. Return to normal activities tomorrow. Written discharge instructions were provided to the patient. - Resume previous diet. - Continue present medications. - Await pathology results. - Return to GI clinic as previously scheduled. Procedure Code(s): --- Professional --- 74545, Esophagogastroduodeno scopy, flexible, transoral; with biopsy, single or multiple CPT copyright 2020 [employer]. All rights reserved. The codes documented in this report are preliminary and upon third steel pourer review may be revised to meet current compliance requirements. Attending Participation: I personally performed the entire procedure. Scope In: 10:00:58 AM Scope (more content not included)... PROVATION [facility] Radiology Study observation (narrative) [facility] Flexible sigmoidoscopy study on 05-12-2022 [facility] Patient Name: Leola Isabel Procedure Date: 05/12/2022 9:41 AM Date of : 1980 Admit Type: Outpatient Age: 42 Room: [place] [address] Gender: Female Note Status: Finalized Attending MD: Jose F Teresa MD Procedure: Colonoscopy Indications: Change in bowel habits Providers: Jose F Teresa MD Patient Profile: Last Colonoscopy: none. The patient's first colonoscopy is today. Referring Physician: Noelle Anne (pa)Referring ) Medicines: Monitored Anesthesia Care Complications: No immediate complications. Requesting Provider: Procedure: Pre-Anesthesia Assessment: - Prior to the procedure, a History and Physical was performed, and patient medications and allergies were reviewed. The patient's tolerance of previous anesthesia was also reviewed. The risks and benefits of the procedure and the sedation options and risks were discussed with the patient. All questions were answered, and informed consent was obtained. Prior Anticoagulants: The patient has taken no anticoagulant or antiplatelet agents. ASA Grade Assessment: II - A patient with mild systemic disease. After reviewing the risks and benefits, the patient was deemed in satisfactory condition to undergo the procedure. After I obtained informed consent, the scope was passed under direct vision. Throughout the procedure, the patient's blood pressure, pulse, and oxygen saturations were monitored continuously. The Colonoscope was introduced through the anus and advanced to the terminal ileum. I was present and participated during the entire procedure, including non-madison portions, and during the administration and monitoring of Moderate Sedation. The colonoscopy was performed without difficulty. The patient tolerated the procedure well. The quality of the bowel preparation was good. The terminal ileum, ileocecal valve, appendiceal orifice, and rectum were photographed. Moderate Sedation: MAC anesthesia was administered by the anesthesia team. Findings: The terminal ileum appeared normal. Normal mucosa was found in the entire colon. Biopsies were taken with a cold forceps for histology. Verification of patient identification for the specimen was done. Estimated blood loss was minimal. Impression: - The examined portion of the ileum was normal. - Normal mucosa in the entire examined colon. Biopsied. Recommendation: - Patient has a contact number available for emergencies. The signs and symptoms of potential delayed complications were discussed with the patient. Return to normal activities tomorrow. Written discharge instructions were provided to the patient. - Resume previous diet. - Continue present medications. - Await pathology results. - Repeat colonoscopy in 10 years for screening purposes. - Return to GI clinic as previously scheduled. - The patient is not currently taking anticoagulant or antiplatelet agents. Procedure Code(s): --- Professional --- 22222, Colonoscopy, flexible; with biopsy, single or multiple CPT copyright 2020 [employer]. All rights reserved. The codes documented in this report are preliminary and upon third steel pourer review may be revised to meet current compliance requirements. Attending Participation: I personally performed the entire procedure. Scope In: 10:09:12 AM Scope Out: 10:18:41 AM MD Jose F Bruno MD 05/12/2022 10:31:33 AM This report has been signed electronically by Jose F Teresa MD Number of Addenda: 0 Note Initiated On: 05/12/2022 9:41 AM Estimated Blood Loss: Estimated bloo (more content not included)... PROVATION [facility] Radiology Study observation (narrative) [facility] Vital Signs Date Time Vital Sign Value Performing Clinician Shakai hanny 11-04-2023 14:34-0400 Body mass index (BMI) [Ratio] 32.58 kg/m2 Pedrito Glasgow APRN.[employer]ICER [employer] Work Phone: [facility] 11-04-2023 14:34-0400 Body temperature 97.5 [degF] Pedrito Glasgow SERVOMECHANISM ASSEMBLER.[employer] Work Phone: [facility] 11-04-2023 14:34-0400 Body weight 88.8 kg Pedrito Glasgow SERVOMECHANISM ASSEMBLER.[employer] Work Phone: [facility] 11-04-2023 14:34-0400 Diastolic blood pressure 79 mm[Hg] Pedrito Glasgow SERVOMECHANISM ASSEMBLER.[employer] Work Phone: [facility] 11-04-2023 14:34-0400 Heart rate 63 /min Pedrito Glasgow SERVOMECHANISM ASSEMBLER.[employer] Work Phone: [facility] 11-04-2023 14:34-0400 Respiratory rate 18 /min Pedrito Glasgow SERVOMECHANISM ASSEMBLER.[employer] Work Phone: [facility] 11-04-2023 14:34-0400 SaO2% (BldA) [Mass fraction] 99 % Pedrito Arteagakacie SERVOMECHANISM ASSEMBLER.[employer]ICER [employer] TRAIL[employer] Work Phone: [facility] 11-04-2023 14:34-0400 Systolic blood pressure 116 mm[Hg] Pedrito Pee SERVOMECHANISM ASSEMBLER.[employer] Work Phone: [facility] 10-26-2023 13:25-0400 Body height 165.1 cm Saúl Andrade MD Work Phone: [facility] 10-26-2023 13:25-0400 Body mass index (BMI) [Ratio] 33.02 kg/m2 Saúl Andrade MD Work Phone: [facility] 10-26-2023 13:25-0400 Body weight 90 kg Saúl Andrade MD Work Phone: [facility] 10-26-2023 13:25-0400 Diastolic blood pressure 74 mm[Hg] Saúl Andrade MD Work Phone: [facility] 10-26-2023 13:25-0400 Heart rate 78 /min Saúl Andrade MD Work Phone: [facility] 10-26-2023 13:25-0400 Respiratory rate 16 /min Saúl Andrade MD Work Phone: [facility] 10-26-2023 13:25-0400 Systolic blood pressure 116 mm[Hg] Saúl Andrade MD Work Phone: [facility] 03-19-2023 14:28-0500 Body height 165.1 cm Pacc 1 Work Phone: [facility] 03-19-2023 14:28-0500 Body temperature 98.91 [degF] Pacc 1 Work Phone: [facility] 03-19-2023 14:28-0500 Body weight 78.02 kg Pacc 1 Work Phone: [facility] 03-19-2023 14:28-0500 Diastolic blood pressure 82 mm[Hg] Pacc 1 Work Phone: [facility] 03-19-2023 14:28-0500 Heart rate 89 /min Pacc 1 Work Phone: [facility] 03-19-2023 14:28-0500 Respiratory rate 14 /min Pacc 1 Work Phone: [facility] 03-19-2023 14:28-0500 SaO2% (BldA) [Mass fraction] 100 % Pacc 1 Work Phone: [facility] 03-19-2023 14:28-0500 Systolic blood pressure 122 mm[Hg] Pacc 1 Work Phone: [facility] 12-22-2022 17:35-0500 Body temperature 98.1 [degF] Miriam Rl SERVOMECHANISM ASSEMBLER.[employer]ER [employer] Work Phone: [facility] 12-22-2022 17:35-0500 Body weight 71.67 kg Miriam Rl SERVOMECHANISM ASSEMBLER.[employer] Work Phone: [facility] 12-22-2022 17:35-0500 Diastolic blood pressure 78 mm[Hg] Miriam Rl SERVOMECHANISM ASSEMBLER.[employer] Work Phone: [facility] 12-22-2022 17:35-0500 Heart rate 82 /min Miriam Rl SERVOMECHANISM ASSEMBLER.[employer] Work Phone: [facility] 12-22-2022 17:35-0500 Respiratory rate 18 /min Miriam Rl SERVOMECHANISM ASSEMBLER.[employer] Work Phone: [facility] 12-22-2022 17:35-0500 SaO2% (BldA) [Mass fraction] 99 % Miriam Rl SERVOMECHANISM ASSEMBLER.[employer] Work Phone: [facility] 12-22-2022 17:35-0500 Systolic blood pressure 119 mm[Hg] Miriam Rl SERVOMECHANISM ASSEMBLER.[employer] Work Phone: [facility] 12-09-2022 12:15-0400 Body weight 70.31 kg [facility] SERVOMECHANISM ASSEMBLER.[employer] Work Phone: [facility] 12-09-2022 12:15-0400 Diastolic blood pressure 86 mm[Hg] Michelle Older SERVOMECHANISM ASSEMBLER.[employer] Work Phone: [facility] 12-09-2022 12:15-0400 Heart rate 86 /min Michelle Older SERVOMECHANISM ASSEMBLER.[employer] Work Phone: [facility] 12-09-2022 12:15-0400 Respiratory rate 16 /min Michelle Older SERVOMECHANISM ASSEMBLER.[employer] Work Phone: [facility] 12-09-2022 12:15-0400 SaO2% (BldA) [Mass fraction] 97 % Michelle Older SERVOMECHANISM ASSEMBLER.[employer] Work Phone: [facility] 12-09-2022 12:15-0400 Systolic blood pressure 132 mm[Hg] Michelle Older SERVOMECHANISM ASSEMBLER.[employer] Work Phone: [facility] 12-01-2022 17:05-0400 Body temperature 98.29 [degF] Loretta Athy PA-C Work Phone: [facility] 12-01-2022 17:05-0400 Body weight 70.31 kg Loretta Athy PA-C Work Phone: [facility] 12-01-2022 17:05-0400 Diastolic blood pressure 84 mm[Hg] Loretta Athy PA-C Work Phone: [facility] 12-01-2022 17:05-0400 Heart rate 90 /min Loretta Athy PA-C Work Phone: [facility] 12-01-2022 17:05-0400 Respiratory rate 16 /min Loretta Athy PA-C Work Phone: [facility] 12-01-2022 17:05-0400 SaO2% (BldA) [Mass fraction] 99 % Loretta Athy PA-C Work Phone: [facility] 12-01-2022 17:05-0400 Systolic blood pressure 128 mm[Hg] Loretta Athy PA-C Work Phone: [facility] 10-18-2022 08:36-0400 Body temperature 97 [degF] Yeni Praisler-Wood SERVOMECHANISM ASSEMBLER.[employer]ICER [employer] Work Phone: [facility] 10-18-2022 08:36-0400 Body weight 63.5 kg Yeni Praisler-Wood SERVOMECHANISM ASSEMBLER.[employer] Work Phone: [facility] 10-18-2022 08:36-0400 Diastolic blood pressure 68 mm[Hg] Yeni Praisler-Wood SERVOMECHANISM ASSEMBLER.[employer]ER [employer] Work Phone: [facility] 10-18-2022 08:36-0400 Heart rate 66 /min Yeni Praisler-Wood SERVOMECHANISM ASSEMBLER.[employer] Work Phone: [facility] 10-18-2022 08:36-0400 Respiratory rate 16 /min Yeni Praisler-Wood SERVOMECHANISM ASSEMBLER.[employer] Work Phone: [facility] 10-18-2022 08:36-0400 SaO2% (BldA) [Mass fraction] 99 % Yeni Praisler-Wood SERVOMECHANISM ASSEMBLER.[employer] Work Phone: [facility] 10-18-2022 08:36-0400 Systolic blood pressure 108 mm[Hg] Yeni Praisler-Wood SERVOMECHANISM ASSEMBLER.[employer] Work Phone: [facility] 08-17-2022 16:55-0400 Body temperature 97.81 [degF] Loretta Athy PA-C Work Phone: [facility] 08-17-2022 16:55-0400 Body weight 66.68 kg Loretta Athy PA-C Work Phone: [facility] 08-17-2022 16:55-0400 Diastolic blood pressure 80 mm[Hg] Loretta Athy PA-C Work Phone: [facility] 08-17-2022 16:55-0400 Heart rate 86 /min Loretta Athy PA-C Work Phone: [facility] 08-17-2022 16:55-0400 Respiratory rate 16 /min Loretta Athy PA-C Work Phone: [facility] 08-17-2022 16:55-0400 SaO2% (BldA) [Mass fraction] 99 % Loretta Harris PA-C Work Phone: [facility] 08-17-2022 16:55-0400 Systolic blood pressure 122 mm[Hg] Loretta HANSEN-C Work Phone: [facility] 05-12-2022 10:36-0400 Diastolic blood pressure 77 mm[Hg] Jose F Teresa MD Work Phone: [facility] 05-12-2022 10:36-0400 Heart rate 51 /min Jose F Teresa MD Work Phone: [facility] 05-12-2022 10:36-0400 Respiratory rate 16 /min Jose F Teresa MD Work Phone: [facility] 05-12-2022 10:36-0400 SaO2% (BldA) [Mass fraction] 98 % Jose F Teresa MD Work Phone: [facility] 05-12-2022 10:36-0400 Systolic blood pressure 131 mm[Hg] Jose F Teresa MD Work Phone: [facility] 05-12-2022 10:22-0400 Body temperature 97.2 [degF] Jose F Teresa MD Work Phone: [facility] 05-12-2022 09:42-0400 Body height 162.6 cm Jose F Teresa MD Work Phone: [facility] 05-12-2022 09:42-0400 Body mass index (BMI) [Ratio] 24.2 kg/m2 Jose F Teresa MD Work Phone: [facility] 05-12-2022 09:42-0400 Body weight 63.96 kg Jose F Teresa MD Work Phone: [facility] 04-02-2022 12:59-0500 Body height 162.6 cm Noelle Sandoval PA-C Work Phone: [facility] 04-02-2022 12:59-0500 Body weight 63.96 kg Noelle Kalka PA-C Work Phone: [facility] 04-02-2022 12:59-0500 Diastolic blood pressure 72 mm[Hg] Noelle Kalka PA-C Work Phone: [facility] 04-02-2022 12:59-0500 Heart rate 92 /min Noelle Kalka PA-C Work Phone: [facility] 04-02-2022 12:59-0500 Systolic blood pressure 118 mm[Hg] Noelle Kalka PA-C Work Phone: [facility] 03-09-2022 12:01-0500 Body height 162.6 cm Saúl Andrade MD Work Phone: [facility] 03-09-2022 12:01-0500 Body temperature 99.3 [degF] Saúl Andrade MD Work Phone: [facility] 03-09-2022 12:01-0500 Body weight 65.32 kg Saúl Andrade MD Work Phone: [facility] 03-09-2022 12:01-0500 Diastolic blood pressure 52 mm[Hg] Saúl Andrade MD Work Phone: [facility] 03-09-2022 12:01-0500 Heart rate 75 /min Saúl Andrade MD Work Phone: [facility] 03-09-2022 12:01-0500 Respiratory rate 12 /min Saúl Andrade MD Work Phone: [facility] 03-09-2022 12:01-0500 SaO2% (BldA) [Mass fraction] 99 % Saúl Andrade MD Work Phone: [facility] 03-09-2022 12:01-0500 Systolic blood pressure 132 mm[Hg] Saúl Andrade MD Work Phone: [facility] 02-26-2022 08:03-0500 Body temperature 98.6 [degF] Saúl Andrade MD Work Phone: [facility] 02-26-2022 08:03-0500 Body weight 66.68 kg Saúl Andrade MD Work Phone: [facility] 02-26-2022 08:03-0500 Diastolic blood pressure 80 mm[Hg] Saúl Andrade MD Work Phone: [facility] 02-26-2022 08:03-0500 Heart rate 90 /min Saúl Andrade MD Work Phone: [facility] 02-26-2022 08:03-0500 Respiratory rate 16 /min Saúl Andrade MD Work Phone: [facility] 02-26-2022 08:03-0500 SaO2% (BldA) [Mass fraction] 100 % Saúl Andrade MD Work Phone: [facility] 02-26-2022 08:03-0500 Systolic blood pressure 124 mm[Hg] Saúl Andrade MD Work Phone: [facility] 11-18-2021 19:25-0400 Diastolic blood pressure 60 mm[Hg] Yeni Praisler-Wood SERVOMECHANISM ASSEMBLER.[employer]ER [employer] Work Phone: [facility] 11-18-2021 19:25-0400 Heart rate 54 /min Yeni Praisler-Wood SERVOMECHANISM ASSEMBLER.[employer] Work Phone: [facility] 11-18-2021 19:25-0400 SaO2% (BldA) [Mass fraction] 98 % Yeni Praisler-Wood SERVOMECHANISM ASSEMBLER.[employer]ICER [employer]IL[employer] Work Phone: [facility] 11-18-2021 19:25-0400 Systolic blood pressure 90 mm[Hg] Yeni Praisler-Wood SERVOMECHANISM ASSEMBLER.[employer]ICER [employer] Work Phone: [facility] Encounters Encounter Date Encounter Type Care Provider Facility Start: 11-09-2023 End: 11-09-2023 ambulatory SAÚL ANDRADE Facility:[facility] Start: 11-09-2023 End: 11-09-2023 Nursing evaluation of patient and report Mi Nurse Work Phone: [facility] Comment on above: Vitamin B 12 deficie ncy (Primary Dx) Start: 11-04-2023 End: 11-04-2023 [facility] Facility:[facility] Start: 11-04-2023 End: 11-04-2023 Patient encounter procedure Pedrito Glasgow APRN.SERVICER [employer] TRAIL[employer] Work Phone: [facility] Comment on above: Procedure not meenakshi d out (Primary Dx) Start: 10-26-2023 End: 10-[facility]23 [facility] [facility] Facility:[facility] Start: 10-26-2023 End: 10-26-2023 Patient encounter procedure Saúl Andrade MD Work Phone: Internal Medicine [place] Comment on above: Trochanteric bursiti s of left hip (Primary Dx); Migraine with aura and without status migrainosus, not intractable Start: 10-12-2023 End: 10-12-2023 [facility] Facility:[facility] Start: 10-12-2023 End: 10-12-2023 Nursing evaluation of patient and report Mi Nurse Work Phone: Family Medicine [place] Comment on above: Vitamin B 12 deficie ncy (Primary Dx) Start: 09-14-2023 End: 09-14-2023 [facility] Facility:[facility] Start: 09-14-2023 End: 09-14-2023 Nursing evaluation of patient and report Mi Nurse Work Phone: Family Medicine [place] Comment on above: Vitamin B 12 deficie ncy (Primary Dx) Start: 08-27-2023 ambulatory Saúl Dixon D Work Phone: Internal Medicine [place] Comment on above: results Start: 08-27-2023 E-mail encounter fro m caregiver Saúl Andrade MD Work Phone: Internal Medicine [place] Start: 08-25-2023 End: 09-27-2023 Telephone encounter Dona Randhawa APRN.[employer]ICER [employer] Work Phone: Mammogram Comment on above: Orders Start: 08-17-2023 End: 08-17-2023 [facility] Facility:[facility] Start: 08-17-2023 End: 08-17-2023 Nursing evaluation of patient and report Mi Nurse Work Phone: [facility] [place] Comment on above: Vitamin B 12 deficie ncy (Primary Dx) Start: 08-11-2023 ambulatory [facility] M D Work Phone: Internal Medicine [facility] [place] Start: 06-02-2023 End: 06-02-2023 [facility] Facility:[facility] Start: 06-02-2023 End: 06-02-2023 Nursing evaluation of patient and report Mi Nurse Work Phone: [facility] [place] Comment on above: Vitamin B 12 deficie ncy (Primary Dx) Start: 05-30-2023 End: 05-30-2023 [facility] Facility:[facility] Start: 05-30-2023 End: 05-30-2023 Patient encounter procedure Angela Chaudhari APRN.CNP Work Phone: [facility] Comment on above: Migraine headaches ( Primary Dx) Start: 04-30-2023 End: 04-30-2023 Nursing evaluation of patient and report Mi Nurse Work Phone: [facility] [place] Comment on above: Vitamin B 12 deficie ncy (Primary Dx) Start: 04-30-2023 End: 04-30-2023 [facility] Facility:[facility] Start: 04-23-2023 End: 04-23-2023 ambulatory CULLEN DRUMMOND Facility:[facility] Start: 04-23-2023 End: 04-23-2023 Patient encounter procedure Cullen Drummond MD Work Phone: Orthopaedics Comment on above: Ganglion cyst (Prima ry Dx) Start: 04-15-2023 End: 04-15-2023 [facility] Facility:[facility] Start: 04-02-2023 End: 04-02-2023 [facility] Facility:[facility] Start: 04-02-2023 End: 04-02-2023 Nursing evaluation of patient and report Mi Nurse Work Phone: Family Medicine [place] Comment on above: Vitamin B 12 deficie ncy (Primary Dx) Start: 04-01-2023 Telephone encounter Kala Villegas DO Work Phone: Orthopaedics Comment on above: Surgery Cancelled Start: 03-24-2023 End: 03-24-2023 ambulatory DONA RANDHAWA Facility:[facility] Start: 03-24-2023 End: 03-24-2023 Subsequent hospital visit by physician [facility] Work Phone: Radiology Comment on above: Abnormal mammogram [ R92.8] Start: 03-24-2023 Telephone encounter Dona Randhawa APRN.CNP Work Phone: Internal Medicine [place] Comment on above: Results Start: 03-19-2023 Encounter for other preprocedural examination [facility] Start: 03-19-2023 End: 03-19-2023 PAT [facility] [place] 1 Work Phone: Pre Anesthesia Comment on above: Pre-operative examin ation (Primary Dx); Fibromyalgia; Migraine with aura and without status migrainosus, not intractable; Tobacco abuse disorder; Mild intermittent asthma without complication Start: 03-19-2023 End: 03-19-2023 Preprocedural examination done [facility] [place] 1 Work Phone: [facility] Work Phone: Start: 03-05-2023 End: 03-05-2023 ambulatory [facility] Facility:[facility] Start: 02-19-2023 End: 02-19-2023 ambulatory KALA VILLEGAS Facility:[facility] Start: 02-02-2023 End: 02-02-2023 [facility] Facility:[facility] Start: 01-05-2023 End: 01-05-2023 ambulatory [facility] Facility:[facility] Start: 12-22-2022 End: 12-22-2022 ambulatory [facility] Facility:[facility] Start: 12-22-2022 End: 12-22-2022 Patient encounter procedure Miriam Shine SERVOMECHANISM ASSEMBLER.[employer] Work Phone: [facility] Comment on above: Sore throat (Primary Dx) Start: 12-10-2022 End: 12-10-2022 ambulatory [facility] Facility:[facility] Start: 12-09-2022 End: 12-09-2022 [facility] Start: 12-09-2022 End: 12-09-2022 Patient encounter procedure Michelle Randhawa SERVOMECHANISM ASSEMBLER.[employer] Work Phone: Internal Medicine [place] Comment on above: Migraine with aura a nd without status migrainosus, not intractable (Primary Dx); Lateral epicondylitis of left elbow Start: 12-01-2022 End: 12-01-2022 Subsequent hospital visit by physician Nael [facility] [place] Work Phone: Radiology Comment on above: Elbow pain, left [M2 5.522] Start: 12-01-2022 End: 12-01-2022 [facility] Facility:[facility] Start: 12-01-2022 End: 12-01-2022 Patient encounter procedure Loretta Harris PA-C Work Phone: [facility] Comment on above: Elbow pain, left (Pr imary Dx) Start: 11-20-2022 End: 11-20-2022 ambulatory EVEGuera VILLEGAS Neurology Comment on above: EMG Start: 11-20-2022 End: 11-20-2022 Patient encounter procedure Emg 1 Neur Maricel (Max Weight: 850) MARICEL Start: 11-06-2022 End: 11-06-2022 ambulatory Eveguera Villegas DO Work Phone: Orthopaedics Comment on above: Carpal tunnel syndro me of right wrist (Primary Dx) Start: 11-06-2022 End: 11-06-2022 Telemedicine consultation with patient Kala Baileysimeon DO Work Phone: [facility] Start: 11-06-2022 Telephone encounter Kala Khan Nelly DO Work Phone: Orthopaedics Comment on above: Appointment change Start: 10-18-2022 End: 10-18-2022 Patient encounter procedure Yeni [place] APRN.CNP Work Phone: [facility] Comment on above: Headache, unspecifie d headache type (Primary Dx); Nausea; Migraine with aura and without status migrainosus, not intractable Start: 10-15-2022 ambulatory [facility] Facility:[facility] Start: 10-15-2022 End: 10-15-2022 Nursing evaluation of patient and report Mi Nurse Work Phone: Family Medicine [place] Comment on above: Vitamin B 12 deficie ncy (Primary Dx) Start: 09-21-2022 Telephone encounter Dona Randhawa APRN.[employer] Work Phone: Internal Medicine [place] Comment on above: Results Start: 09-16-2022 End: 09-16-2022 Subsequent hospital visit by physician Diagnostic Mammo [facility] Start: 08-17-2022 End: 08-17-2022 Subsequent hospital visit by physician Xr [facility] [place] Work Phone: Radiology Comment on above: Right wrist pain [M2 5.531] Start: 08-17-2022 End: 08-17-2022 Patient encounter procedure Loretta Harris PA-C Work Phone: [facility] Comment on above: Right wrist pain (Pr imary Dx) Start: 08-13-2022 End: 08-13-2022 Nursing evaluation of patient and report Mi Nurse Work Phone: Family [facility] [place] Comment on above: Vitamin B 12 deficie ncy (Primary Dx) Start: 07-27-2022 Telephone encounter Giovanna ayala MD Work Phone: Mammography Comment on above: Mammogram Result Samantha l Back Start: 07-24-2022 Telephone encounter Dona Randhawa APRN.CNP Work Phone: Internal Medicine [place] Comment on above: Results Start: 07-08-2022 Documentation procedure Mammography Coordinator [facility] Start: 07-08-2022 Letter encounter Mammography Coordinator [facility] Start: 07-07-2022 End: 07-07-2022 Subsequent hospital visit by physician Screen Mammo [facility] Mammogram Comment on above: Encounter for screen ing mammogram for breast cancer [Z12.31] Start: 06-20-2022 End: 06-20-2022 Emergency department patient visit DR CHAVEZ RIZZO MD Facility:[facility] Start: 06-05-2022 End: 06-05-2022 Nursing evaluation of patient and report Mi Nurse Work Phone: Family [facility] [place] Comment on above: Vitamin B 12 deficie ncy (Primary Dx) Start: 06-03-2022 ambulatory Saúl Vilchis Work Phone: Internal Medicine [facility] [place] Start: 05-12-2022 End: 05-12-2022 Subsequent hospital visit by physician Jose F Teresa MD Work Phone: Ambulatory Surgery Comment on above: Altered bowel habits [R19.4] Start: 05-08-2022 ambulatory Jose F Teresa MD Work Phone: Ambulatory Surgery Start: 05-05-2022 End: 05-05-2022 Nursing evaluation of patient and report Mi Nurse Work Phone: [facility] [place] Comment on above: Vitamin B 12 deficie ncy (Primary Dx) Start: 04-08-2022 End: 04-08-2022 Nursing evaluation of patient and report Mi Nurse Work Phone: [facility] [place] Comment on above: Vitamin B 12 deficie ncy (Primary Dx) Start: 04-02-2022 End: 04-02-2022 Patient encounter procedure Noelle Sandoval PA-C Work Phone: Gastroenterology [place] Comment on above: Heartburn (Primary D x); Altered bowel habits; Lower abdominal pain Start: 03-09-2022 End: 03-09-2022 Patient encounter procedure Saúl Andrade MD Work Phone: Internal Medicine [place] Comment on above: Trochanteric bursiti s of left hip (Primary Dx); Vitamin B12 deficiency Start: 03-01-2022 Telephone encounter Saúl cunha MD Work Phone: Internal Medicine [place] Comment on above: Results Start: 02-26-2022 End: 02-26-2022 Patient encounter procedure Saúl Andrade MD Work Phone: Internal Medicine [place] Comment on above: Annual physical exam (Primary Dx); Change in bowel movement; Bloating; Tobacco abuse disorder; Migraine with aura and without status migrainosus, not intractable; Hip pain; Special screening examination for viral disease; Vitamin B12 deficiency; Vitamin D deficiency Start: 11-18-2021 End: 11-18-2021 Patient encounter procedure Yeni [place] APRN.CNP Work Phone: [facility] Comment on above: Upper back pain (Esperanza gunnar Dx); Hip pain Procedures Date Procedure Procedure Detail Performing Clinician Start: 03-24-2023 Diagnostic mammography computer-aided detcj uni Dona Randhawa APRN.[employer] Work Phone: Start: 12-22-2022 STREP A MOLECULAR (POC) Miriam Shine APRN.[employer] Work Phone: Start: 12-01-2022 Radex elbow complete minimum 3 views Loretta HANSEN-C Work Phone: Start: 11-20-2022 Nerve conduction studies 5-6 studies Kala Villegas DO Work Phone: Start: 09-16-2022 Digital breast tomosynthesis unilateral Dona Randhawa APRN.[employer] Work Phone: Start: 08-17-2022 Radex wrist complete minimum 3 views Loretta Harris PA-C Work Phone: Start: 07-07-2022 End: 07-07-2022 Mammography Bulk Order Provider Start: 05-12-2022 Level iv surg pathology gross&microscopic exam Jose F Teresa MD Work Phone: Start: 05-12-2022 Esophagogastroduodenoscopy transoral diagnostic Noelle Sandoval PA-C Work Phone: Start: 05-12-2022 Colonoscopy flx dx w/collj spec when pfrmd Noelel Sandoval PA-C Work Phone: Plan of Treatment Date Care Activity Detail Author Start: 07-10-2029 Urine microalbumin profile [facility] Start: 01-22-2027 HPV TESTING HPV TESTING [facility] Start: 01-22-2027 PAP TESTING PAP TESTING [facility] Start: 01-22-2027 Screening for malign ant neoplasm of cervix [facility] Start: 10-25-2024 Annual PCP Team Biostatistician peggy Disease Visit Annual PCP Team Chronic Disease Visit [facility] Start: 02-25-2024 End: 02-25-2024 Patient encounter procedure 02/25/2024 10:00 AM EST Office Visit [facility] [place] [address] [place] [address] Saúl nAdrade MD [address] [facility] [place] [address] physical Internal Medicine [place] Comment on above: physical Start: 12-10-2023 Annual PCP Team Biostatistician peggy Disease Visit Annual PCP Team Chronic Disease Visit [facility] Start: 12-07-2023 End: 12-07-2023 Nursing evaluation of patient and report 12/07/2023 3:00 PM EDT Nurse Visit [facility] [place] [address] [place] [address] Nurse, Brianna [address] [place] [address] B-12 injection [facility] [place] Comment on above: B-12 injection Start: 11-16-2023 End: 11-16-2023 Patient encounter procedure 11/16/2023 2:30 PM EDT Appointment Mammogram [address] [place] [address] Comp- 6 month fu CALCS BL due Mammogram Comment on above: Comp- 6 month fu SAMANTHA CS BL due Start: 11-09-2023 End: 11-09-2023 Nursing evaluation of patient and report 11/09/2023 3:00 PM EDT Nurse Visit [facility] [place] [address] [place] [address] Nurse, Brianna [address] [place] [address] B-12 injection [facility] [place] Comment on above: B-12 injection Start: 10-26-2023 End: 10-26-2023 Patient encounter procedure 10/26/2023 1:20 PM EDT Office Visit [facility] Medicine [place] [address] [facility] [place] [address] Saúl Andrade MD [address] [facility] [place] [address] Hip pain [facility] [place] Comment on above: Hip pain Start: 10-20-2023 End: 10-20-2023 Patient encounter procedure Mammogram Comment on above: 6 mo fuMAM DIAGNOSTI C RIGHT/due for bilateral Comp- 6 month fu, BL due Abnormal mammogram [ R92.8] Start: 10-12-2023 End: 10-12-2023 Nursing evaluation of patient and report 10/12/2023 3:00 PM EDT Nurse Visit [facility] [place] [address] [facility] [place] [address] Nurse, Ne [address] [facility] [place] [address] B-12 injection Family [facility] Comment on above: B-12 injection Start: 10-10-2023 Covid-19 Vaccine ( season) Covid-19 Vaccine ( season) [facility] Start: 10-10-2023 Covid-19 Vaccine ( season) Covid-19 Vaccine ( season) [facility] Start: 10-10-2023 Influenza vaccination [facility] Start: 09-22-2023 End: 09-22-2023 Patient encounter procedure Mammogram Comment on above: Abnormal mammogram [ R92.8] Comp- f/u right CALC S, due for bilat (requested bilat orders) Start: 09-22-2023 End: 04-22-2024 MG Breast - right Diagnostic for implant DAVID DIAGNOSTIC RIGHT Radiology Routine Abnormal mammogram Expected: 09/22/2023 (Approximate), Expires: 04/22/2024 [facility] Work Phone: Comment on above: Expected: 09/22/2023 (Approximate), Expires: 04/22/2024 Start: 09-22-2023 End: 04-22-2024 US Breast - right limited US BREAST LTD RIGHT Radiology Routine Abnormal mammogram Expected: 09/22/2023 (Approximate), Expires: 04/22/2024 [facility] Work Phone: Comment on above: Expected: 09/22/2023 (Approximate), Expires: 04/22/2024 Start: 09-14-2023 End: 09-14-2023 Nursing evaluation of patient and report 09/14/2023 3:00 PM EDT Nurse Visit [facility] [place] [address] [place], [place] [address] Nurse, Ne [address] [place], [place] [address] B-12 injection [facility] [place] Comment on above: B-12 injection Start: 08-17-2023 End: 08-17-2023 Nursing evaluation of patient and report 08/17/2023 3:00 PM EDT Nurse Visit [facility] [place] [address] [place], [place] [address] Nurse, Ne [address] [place], [place] [address] B-12 injection [facility] [place] Comment on above: B-12 injection Start: 07-08-2023 Mammography [facility] Start: 07-08-2023 Screening for malign ant neoplasm of breast Mammogram Screening [facility] Start: 02-26-2023 PNEUMOCOCCAL (1 - PCV) PNEUMOCOCCAL (1 - PCV) [facility] Comment on above: Postponed from 04/27 (Declined at this time) Start: 02-08-2023 Behavioral Health Screening Behavioral Health Screening [facility] Start: 02-08-2023 Depression Assessment Depression Ass essment [facility] Start: 10-09-2022 Covid-19 Vaccine ( season) Covid-19 Vaccine () [facility] Start: 10-09-2022 Influenza vaccination [facility] Start: 08-07-2022 Influenza vaccination INFLUENZA (#1) [facility] Comment on above: Postponed from 10/09 (Declined at this time) Start: 2022 Mammography MAMMOGRAM [facility] Start: 02-26-2022 End: 04-28-2022 25-hydroxyvitamin D3 [Mass/volume] in Serum or Plasma [facility] Work Phone: Comment on above: Expected: 02/26/2022 , Expires: 04/28/2022 Start: 02-26-2022 End: 04-28-2022 CBC W Auto Differential panel - Blood [facility] Work Phone: Comment on above: Expected: 02/26/2022 , Expires: 04/28/2022 Start: 02-26-2022 End: 04-28-2022 Cobalamin (Vitamin B12) [Mass/volume] in Serum or Plasma [facility] Work Phone: Comment on above: Expected: 02/26/2022 , Expires: 04/28/2022 Start: 02-26-2022 End: 04-28-2022 Comprehensive metabolic 2000 panel - Serum or Plasma [facility] Work Phone: Comment on above: Expected: 02/26/2022 , Expires: 04/28/2022 Start: 02-26-2022 End: 04-28-2022 Hepatitis C virus Ab [Presence] in Serum [facility] Work Phone: Comment on above: Expected: 02/26/2022 , Expires: 04/28/2022 Start: 02-26-2022 End: 04-28-2022 Thyrotropin [Units/volume] in Serum or Plasma [facility] Work Phone: Comment on above: Expected: 02/26/2022 , Expires: 04/28/2022 Start: 02-08-2022 DEPRESSION ASSESSMENT DEPRESSION ASS ESSMENT [facility] Start: 10-09-2021 Influenza vaccination INFLUENZA (#1) [facility] Start: 02-08-2021 DEPRESSION ASSESSMENT DEPRESSION ASS ESSMENT [facility] Start: 2012 HPV TESTING HPV TESTING [facility] Start: 02-11-2010 PAP TESTING PAP TESTING [facility] Start: 2001 Hepatitis B Vaccine (1 of 3 - 19+ 3-dose series) Hepatitis B Vaccine (1 of 3 - 19+ 3-dose series) [facility] Start: 2000 Anxiety Screening Anxiety Screening [facility] Start: 2000 Depression Screening Depression Scre ening [facility] Start: 2000 HEPATITIS C SCREENING HEPATITIS C SC REENING [facility] Start: 2000 Spirometry Spirometry [facility] Start: 1988 PNEUMOCOCCAL (1 - PCV) PNEUMOCOCCAL (1 - PCV) [facility] Start: 1988 Pneumococcal vaccination Pneum ococcal Vaccine (1 of 2 - PCV) [facility] Start: 1982 COVID-19 VACCINE (#1) COVID-19 VACCI NE (#1) [facility] Start: 1982 HEPATITIS B (1 of 3 - 3-dose series) HEPATITIS B (1 of 3 - 3-dose series) [facility] Start: 1982 Hepatitis B Vaccine (1 of 3 - 3-dose series) Hepatitis B Vaccine (1 of 3 - 3-dose series) [facility] End: 04-02-2023 COLONOSCOPY DIAGNOSTIC COLONOSCOPY DIAGNOSTIC Endoscopy Routine Altered bowel habits Lower abdominal pain 1 Occurrences starting 04/02/2022 until 04/02/2023 [facility] Work Phone: Comment on above: 1 Occurrences starti ng 04/02/2022 until 04/02/2023 End: 09-09-2024 DBT Breast - bilateral screening DAVID SCREENING W MADDY Radiology Routine Encounter for screening mammogram for breast cancer 1 Occurrences starting 08/11/2023 until 09/09/2024 [facility] Work Phone: Comment on above: 1 Occurrences starti ng 08/11/2023 until 09/09/2024 End: 04-02-2023 EGD DIAGNOSTIC EGD DIAGNOSTIC Endoscopy Routine Heartburn 1 Occurrences starting 04/02/2022 until 04/02/2023 [facility] Work Phone: Comment on above: 1 Occurrences starti ng 04/02/2022 until 04/02/2023 End: 11-07-2023 EMG(NEURO/NI) EMG(NEURO/NI) EMG Routine Carpal tunnel syndrome of right wrist 1 Occurrences starting 11/06/2022 until 11/07/2023 [facility] Work Phone: Comment on above: 1 Occurrences starti ng 11/06/2022 until 11/07/2023 End: 08-23-2023 DAVID DIAGNOSTIC RIGHT DAVID DIAGNOSTIC RIGHT Radiology Routine Abnormal mammogram 1 Occurrences starting 07/24/2022 until 08/23/2023 [facility] Work Phone: Comment on above: 1 Occurrences starti ng 07/24/2022 until 08/23/2023 End: 07-03-2023 DAVID SCREENING DAVID SCREENING Radiology Routine Encounter for screening mammogram for breast cancer 1 Occurrences starting 06/03/2022 until 07/03/2023 [facility] Work Phone: Comment on above: 1 Occurrences starti ng 06/03/2022 until 07/03/2023 End: 09-23-2024 MG Breast - bilateral Diagnostic DAVID DIAGNOSTIC BILATERAL Radiology Routine Abnormal mammogram Breast cancer screening by mammogram 1 Occurrences starting 08/25/2023 until 09/23/2024 [facility] Work Phone: Comment on above: 1 Occurrences starti ng 08/25/2023 until 09/23/2024 End: 08-23-2023 US BREAST LTD RIGHT US BREAST LTD RIGHT Radiology Routine Abnormal mammogram 1 Occurrences starting 07/24/2022 until 08/23/2023 [facility] Work Phone: Comment on above: 1 Occurrences starti ng 07/24/2022 until 08/23/2023 [facility] Immunizations Immunization Date Immunization Notes Care Provider Fa ric 07-11-2019 tetanus toxoid, redu benjie diphtheria toxoid, and acellular pertussis vaccine, adsorbed Yeni Black[place] APRN.CNP Work Phone: [facility] Payers Date Payer Category Payer Unknown [id number] 2021 Unknown [id number] 2018 Medicaid [id number] 2018 Private Health Insurance [id number] 2018 Unknown [id number] 1980 Unknown [id number] Social History Date Type Detail Facility Start: 04-22-2017 End: 01-27-2022 Tobacco smoking status PAIS Smokes tobacco daily [facility] History of tobacco use Cigarette Smoker [facility] Start: 04-22-2017 End: 06-22-2022 Cigarettes smoked current (pack per day) - Reported 1 [facility] Start: 04-22-2017 End: 10-26-2023 Tobacco use and exposure Smokeless tobacco non-user [facility] Start: 07-11-2019 End: 11-04-2023 Alcohol intake Current non-drinker of alcohol (finding) [facility] Start: 03-07-2019 End: 01-27-2022 History SDOH Alcohol Frequency 1 [facility] Start: 03-07-2019 End: 01-27-2022 History SDOH Social Connections Phone 3 [facility] Start: 03-07-2019 End: 01-27-2022 History SDOH Social Connections Get Together 2 [facility] Start: 03-07-2019 End: 01-27-2022 History SDOH Social Connections Living 5 [facility] Start: 03-07-2019 Education 12 [facility] Start: 1980 Sex Assigned At Not on file [facility] Start: 11-08-2021 End: 11-18-2021 Exposure to SARS-CoV-2 (event) Not sure [facility] Work Phone: Start: 01-27-2022 History SDOH Alcohol Std Drinks 0 [facility] Start: 01-27-2022 History SDOH Physical Activity DPW 6 [facility] Start: 1980 Sex Assigned At Female [facility] Start: 04-02-2022 End: 10-26-2023 Tobacco smoking status NHIS Ex-smoker [facility] History of tobacco use Current smoker [facility] Start: 01-27-2022 End: 06-22-2022 Social connection and isolation panel [facility] Do you belong to any clubs or organizations such as latter day groups, unions, fraternal or athletic groups, or school groups? Yes [facility] Are you now , , , , never or living with a partner? [facility] How often to you hav e a drink containing alcohol? Never [facility] How many standard dr inks containing alcohol do you have on a typical day? Patient does not drink [facility] How hard is it for y ou to pay for the very basics like food, housing, medical care, and heating Somewhat hard [facility] Do you feel stress - tense, restless, nervous, or anxious, or unable to sleep at night because your mind is troubled all the time - these days [OSQ] Only a little [facility] (I/We) worried wheth er (my/our) food would run out before (I/we) got money to buy more. Never true [facility] In the past 12 month s, was there a time when you were not able to pay the mortgage or rent on time? No [facility] Start: 01-27-2022 Gender identity Identifies as female gender (finding) [facility] Start: 01-27-2022 Sexual orientation Heterosexual (finding) [facility] Start: 10-15-2022 Tobacco use and exposure User of smokeless tobacco [facility] Start: 10-15-2022 Tobacco Comment Vapes [facility] (I/We) worried wheth er (my/our) food would run out before (I/we) got money to buy more. Sometimes true [facility] Medical Equipment Procedure Code Equipment Code Equipment Origin al Text Equipment Identifier Dates 1 Each one time a week. Start: 05-03-2019 Comment on above: 1 Each one time a we ek. Clinical Notes 11-22-2007 to 11-09-2023 Rosie Chapman LPN - 11/09/2023 3:11 PM Pedrito Osborn APRN.TONE - 11/04/2023 2:47 PM EDSaúl Osborne MD - 10/26/2023 1:45 PM EDTRosie Chapman LPN - 10/12/2023 3:07 PM EDT Note Date & Type Note Facility 11-09-2023 Note HNO ID: [id number] Author: ROSIE CHAPMAN LPN Service: ? Author Type: LICENSED NURSE Type: Progress Notes Filed: 11/09/2023 15:14 Note Text: Patient presents for B-12 injection. Denies any problems at this time. Patient instructed on any SE of medication, verbalized understanding and agreed to proceed with treatment. Tolerated injection well. Rosie Chapman LPN [facility] 11-09-2023 History of Presen t illness Narrative Patient presents for B-12 injection. Denies any problems at this time. Patient instructed on any SE of medication, verbalized understanding and agreed to proceed with treatment. Tolerated injection well. Rosie Chapman LPN documented in this encounter [facility] 11-04-2023 Note HNO ID: [id number] Author: PEDRITO GLASGOW APRN.[employer] Service: ? Author Type: Nurse Practitioner Type: Progress Notes Filed: 11/04/2023 15:08 Note Text: Nontoxic-appearing female presents urgent care accompanied by family member. Chief complaint headache. Duration of symptoms 2 days. Associated symptoms send 8 out of 10 headache. States history of migraines. Was unable to break this cycle. Has taken Imitrex 3 times. Has tried Aleve Motrin Tylenol Benadryl. This has not helped. Headache is worsening. With presenting symptoms recommend patient be seen ED for IV medications to break headache cycle. Will be seen at [facility]. Pedrito Glasgow APRN.[employer] [facility] 11-04-2023 History of Presen t illness Narrative Nontoxic-appearing female presents urgent care accompanied by family member. Chief complaint headache. Duration of symptoms 2 days. Associated symptoms send 8 out of 10 headache. States history of migraines. Was unable to break this cycle. Has taken Imitrex 3 times. Has tried Aleve Motrin Tylenol Benadryl. This has not helped. Headache is worsening. With presenting symptoms recommend patient be seen ED for IV medications to break headache cycle. Will be seen at [facility]. Pedrito Glasgow APRN.[employer] documented in this encounter [facility] 10-26-2023 Note HNO ID: [id number] Author: SAÚL ANDRADE MD Service: ? Author Type: Physician Type: Progress Notes Filed: 10/26/2023 18:39 Note Text: Reason for Visit Patient presents with: bilateral hip pain Leola Isabel is a 43 year old female who presents here today for Above Complaints.. Health Maintenance Spirometry Depression Screening Anxiety Screening Hepatitis B Vaccine(1 of + 3-dose series) Mammogram Screening Covid-19 Vaccine( season) Influenza Vaccine(1) HPI Has been having b/l hip pain for the past 2/3 months. Started gradually over the past couple months. They are stiff anytime she rests and when she has to get up there is stiffness and pain, and takes a while to lumber up, these symptoms are progressively getting worse. 6/10 pain, sharp stabbing, pulling pain b/l , no injuries. It hurts her to lie down on the left side. Today she notes mostly has issues with pain in the left side hip. She would also like a refill of imitrex. Gets migraines once or twice a month. Takes motrin first but if that does not work then she takes the imitrex which does help her each time she takes the medication. Procedure note: The risk, benefits and alternatives of injection and no injection therapy were discussed. The patient consented for an injection. Time out was conducted. The injection site was prepped with a Chlorhexadine swab. The right trochanteric bursa a the tenderest Point was injected with a 22 gauge needle with 1 cc (40 mg) kenalog, 1 cc of lidocaine . The injection site was then dressed with a bandaid. The patient tolerated the injection well. The patient was instructed to call the office if any adverse local effects occurred or any if any questions or concerns arise. No problem-specific Assessment AND Plan notes found for this encounter. PAST MEDICAL HISTORY Diagnosis Date Abnormal glandular Papanicolaou smear of cervix 04/09/2003 Abn. Pap smear (cervix) Adjustment disorder with depressed mood Asthma Esophageal reflux Migraine with aura, without mention of intractable migraine without mention of status migrainosus Unspecified asthma, with status asthmaticus PAST SURGICAL HISTORY Procedure Laterality Date BILIARY NDSC INTRAOPERATIVE 11/12/2007 COLONOSCOPY 05/12/2022 EGD W/O BRSH SPEC VARICIES INJ 05/12/2022 IANDD OF BARTHOLINS GLAND ABSCESS 09/07/2008 LAPS SURG CHOLECSTC W/EXPL COMMON DUCT 11/12/2007 FAMILY HISTORY Problem Relation Age of Onset Alcohol/Drug Mother other (lupus) Mother Alcohol/Drug Father Asthma Sister Seizures Sister other (diverticulosis) Maternal Grandmother Social History Tobacco Use Smoking status: Former Current packs/day: 1.00 Types: Cigarettes Smokeless tobacco: Never Vaping Use Vaping status: current everyday user Substances: Nicotine, THC Devices: Disposable Substance Use Topics Alcohol use: No Drug use: No Past medical history, appointments, medications, allergies reviewed. Pertinent Lab/Diagnostic Studies are reviewed and discussed today Current Outpatient Medications: IBUPROFEN ORAL SUMAtriptan (IMITREX) 50 mg tablet dicyclomine (BENTYL) 10 mg capsule acetaminophen (TYLENOL 8 HOUR ORAL) ondansetron orally disintegrating (ZOFRAN ODT) 4 mg disintegrating tablet polyethylene glycol 3350 (MIRALAX) 17 gram/dose powder albuterol HFA (PROAIR HFA) 90 mcg/actuation inhaler Current Facility-Administered Medications: cyanocobalamin 1,000 mcg injection Facility-Administered Medications Ordered in Other Visits: lidocaine (PF) 10 mg/mL (1 %) 1-2 mg injection (XYLOCAINE) lactated ringers iv infusion Review of Systems CONSTITUTIONAL: No fevers, chills night sweats, unintended weight loss CARDIOVASCULAR: No chest pain, dyspnea, palpitations, orthopnea, PND, ankle edema. PULM: No dyspnea, unexplained cough. GI: No dysphagia/odynophagia, problematic reflux, constipation, diarrhea, changes in stool habits, hematochezia, melena. : No new urinary complaints, including dysuria, gross hematuria or pyuria. NEURO: No new balance problems, peripheral weakness/paresthesias or numbness of concern. Physical Exam BP 116/74 Pulse 78 Resp 16 Ht 165.1 cm (5' 5 ) Wt 90 kg (198 lb 6.6 oz) LMP 08/13/2008 BMI 33.02 kg/m? General appearance: Well appearing, alert, in no acute distress, well nourished. Skin: Skin color, texture, turgor normal, no suspicious rashes or lesions Head: Normocephalic, no masses, lesions, tenderness or abnormalities Eyes: Anicteric sclera. Pupils are equally round and reactive to light. Extraocular movements are intact. Lungs: Lungs clear to auscultation. No wheezing, rhonchi, rales Heart: RRR without murmur, gallop, or rubs. ASSESSMENT/PLAN: 1. Trochanteric bursitis of left hip - ICD9: 726.5, ICD10: M70.62 (primary diagnosis) Patient had no trouble during the procedure. To report back to us if there is no improvement of symptoms. - T (more content not included)... [facility] 10-26-2023 History of Presen t illness Narrative Reason for Visit Patient presents with: bilateral hip pain Leola Isabel is a 43 year old female who presents here today for Above Complaints.. Health Maintenance Spirometry Depression Screening Anxiety Screening Hepatitis B Vaccine(1 of - 19+ 3-dose series) Mammogram Screening Covid-19 Vaccine( season) Influenza Vaccine(1) HPI Has been having b/l hip pain for the past 2/3 months. Started gradually over the past couple months. They are stiff anytime she rests and when she has to get up there is stiffness and pain, and takes a while to lumber up, these symptoms are progressively getting worse. 6/10 pain, sharp stabbing, pulling pain b/l , no injuries. It hurts her to lie down on the left side. Today she notes mostly has issues with pain in the left side hip. She would also like a refill of imitrex. Gets migraines once or twice a month. Takes motrin first but if that does not work then she takes the imitrex which does help her each time she takes the medication. Procedure note: The risk, benefits and alternatives of injection and no injection therapy were discussed. The patient consented for an injection. Time out was conducted. The injection site was prepped with a Chlorhexadine swab. The right trochanteric bursa a the tenderest Point was injected with a 22 gauge needle with 1 cc (40 mg) kenalog, 1 cc of lidocaine . The injection site was then dressed with a bandaid. The patient tolerated the injection well. The patient was instructed to call the office if any adverse local effects occurred or any if any questions or concerns arise. No problem-specific Assessment & Plan notes found for this encounter. PAST MEDICAL HISTORY Diagnosis Date Abnormal glandular Papanicolaou smear of cervix 04/09/2003 Abn. Pap smear (cervix) Adjustment disorder with depressed mood Asthma Esophageal reflux Migraine with aura, without mention of intractable migraine without mention of status migrainosus Unspecified asthma, with status asthmaticus PAST SURGICAL HISTORY Procedure Laterality Date BILIARY NDSC INTRAOPERATIVE 11/12/2007 COLONOSCOPY 05/12/2022 EGD W/O BRSH SPEC VARICIES INJ 05/12/2022 I&D OF BARTHOLINS GLAND ABSCESS 09/07/2008 LAPS SURG CHOLECSTC W/EXPL COMMON DUCT 11/12/2007 FAMILY HISTORY Problem Relation Age of Onset Alcohol/Drug Mother other (lupus) Mother Alcohol/Drug Father Asthma Sister Seizures Sister other (diverticulosis) Maternal Grandmother Social History Tobacco Use Smoking status: Former Current packs/day: 1.00 Types: Cigarettes Smokeless tobacco: Never Vaping Use Vaping status: current everyday user Substances: Nicotine, THC Devices: Disposable Substance Use Topics Alcohol use: No Drug use: No Past medical history, appointments, medications, allergies reviewed. Pertinent Lab/Diagnostic Studies are reviewed and discussed today Current Outpatient Medications: IBUPROFEN ORAL SUMAtriptan (IMITREX) 50 mg tablet dicyclomine (BENTYL) 10 mg capsule acetaminophen (TYLENOL 8 HOUR ORAL) ondansetron orally disintegrating (ZOFRAN ODT) 4 mg disintegrating tablet polyethylene glycol 3350 (MIRALAX) 17 gram/dose powder albuterol HFA (PROAIR HFA) 90 mcg/actuation inhaler Current Facility-Administered Medications: cyanocobalamin 1,000 mcg injection Facility-Administered Medications Ordered in Other Visits: lidocaine (PF) 10 mg/mL (1 %) 1-2 mg injection (XYLOCAINE) lactated ringers iv infusion Review of Systems CONSTITUTIONAL: No fevers, chills night sweats, unintended weight loss CARDIOVASCULAR: No chest pain, dyspnea, palpitations, orthopnea, PND, ankle edema. PULM: No dyspnea, unexplained cough. GI: No dysphagia/odynophagia, problematic reflux, constipation, diarrhea, changes in stool habits, hematochezia, melena. : No new urinary complaints, including dysuria, gross hematuria or pyuria. NEURO: No new balance problems, peripheral weakness/paresthesias or numbness of concern. Physical Exam BP 116/74 Pulse 78 Resp 16 Ht 165.1 cm (5' 5 ) Wt 90 kg (198 lb 6.6 oz) LMP 08/13/2008 BMI 33.02 kg/m General appearance: Well appearing, alert, in no acute distress, well nourished. Skin: Skin color, texture, turgor normal, no suspicious rashes or lesions Head: Normocephalic, no masses, lesions, tenderness or abnormalities Eyes: Anicteric sclera. Pupils are equally round and reactive to light. Extraocular movements are intact. Lungs: Lungs clear to auscultation. No wheezing, rhonchi, rales Heart: RRR without murmur, gallop, or rubs. ASSESSMENT/PLAN: 1. Trochanteric bursitis of left hip - ICD9: 726.5, ICD10: M70.62 (primary diagnosis) Patient had no trouble during the procedure. To report back to us if there is no improvement of symptoms. - TRIAMCINOLONE ACETONIDE 40 MG/ML SUSPENSION FOR INJECTION 2. Migraines: Refilled - SUMATRIPTAN 50 MG TABLET Saúl Andrade MD documented in this encounter [facility] 10-12-2023 Note HNO ID: [id number] Author: ROSIE CHAPMAN LPN Service: ? Author Type: LICENSED NURSE Type: Progress Notes Filed: 10/12/2023 15:29 Note Text: Patient presents for B-12 injection. Denies any problems at this time. Patient instructed on any SE of medication, verbalized understanding and agreed to proceed with treatment. Tolerated injection well. Rosie Chapman LPN [facility] 10-12-2023 History of Presen t illness Narrative Patient presents for B-12 injection. Denies any problems at this time. Patient instructed on any SE of medication, verbalized understanding and agreed to proceed with treatment. Tolerated injection well. Rosie Chapman LPN documented in this encounter [facility] 09-14-2023 Note HNO ID: [id number] Author: ROSIE CHAPMAN LPN Service: ? Author Type: LICENSED NURSE Type: Progress Notes Filed: 09/14/2023 15:24 Note Text: Patient presents for B-12 injection. Denies any problems at this time. Patient instructed on any SE of medication, verbalized understanding and agreed to proceed with treatment. Tolerated injection well. Rosie Chapman LPN [facility] 09-14-2023 History of Presen t illness Narrative Patient presents for B-12 injection. Denies any problems at this time. Patient instructed on any SE of medication, verbalized understanding and agreed to proceed with treatment. Tolerated injection well. Rosie Chapman LPN documented in this encounter [facility] 08-25-2023 Telephone encount er Note Order placed. Dona Randhawa APRN.TONE [facility] 08-25-2023 Miscellaneous Notes Formattin g of this note might be different from the original. Order placed. Dona Randhawa APRN.[employer] Please place bilateral diagnostic MG orders. (6 month follow up for right side, but due for bilat). Thank you. documented in this encounter [facility] 08-25-2023 Telephone encount er Note Please place bilateral diagnostic MG orders. (6 month follow up for right side, but due for bilat). Thank you. [facility] 08-17-2023 Note HNO ID: [id number] Author: ROSIE CHAPMAN LPN Service: ? Author Type: LICENSED NURSE Type: Progress Notes Filed: 08/17/2023 15:04 Note Text: Patient presents for B-12 injection. Denies any problems at this time. Patient instructed on any SE of medication, verbalized understanding and agreed to proceed with treatment. Tolerated injection well. Rosie Chapman LPN [facility] 08-17-2023 History of Presen t illness Narrative Patient presents for B-12 injection. Denies any problems at this time. Patient instructed on any SE of medication, verbalized understanding and agreed to proceed with treatment. Tolerated injection well. Rosie Chapman LPN documented in this encounter [facility] 08-11-2023 Note Patient Outreach (IN TMMN) LEOLA ISABEL ([id number]) 1980 F Date Time Provider Department 08/11/23 SAÚL ANDRADE During your visit today, we recorded the following information about you: Allergies As of Date: 08/11/2023 Noted Allergy Reaction ADHESIVE 09/11/2008 2 - Rash DEMEROL (MEPERIDINE (PF)) 11/22/2007 2 - Rash PENICILLINS 05/20/2004 2 - Rash VICODIN (HYDROCODONE-ACETAMINOPHE*11/21 4 - Hives Date Reviewed: 04/23/2023 Reviewed by: Breanna Roque OCCA - Fully Assessed Visit Diagnosis:Encounter for screening mammogram for breast cancer [Z12.31] Order(s):DAVID SCREENING W MADDY [[id number]] Order #: [id number] FUTURE Prescriptions as of 08/16/2023 - acetaminophen (TYLENOL 8 HOUR ORAL) Take 500 mg by mouth as needed. - IBUPROFEN ORAL Take by mouth. - SUMAtriptan (IMITREX) 50 mg tablet Take one tablet by mouth at the onset of the headache. If no improvement in 2 hours take one more tablet. No more than 2 tablets in 24 hours - ondansetron orally disintegrating (ZOFRAN ODT) 4 mg disintegrating tablet Take 1 tablet by mouth every 6 hours as needed for nausea/vomiting. - polyethylene glycol 3350 (MIRALAX) 17 gram/dose powder Take 17 g by mouth once daily. Dissolve dose in 4 - 8 ounces of liquid and take as directed. - dicyclomine (BENTYL) 10 mg capsule Take 1 capsule by mouth three times daily as needed (for abdominal pain). - albuterol HFA (PROAIR HFA) 90 mcg/actuation inhaler Inhale 2 Puffs as instructed every 4 hours as needed. Facility-Administered Medications as of 08/16/2023 - cyanocobalamin 1,000 mcg injection - lidocaine (PF) 10 mg/mL (1 %) 1-2 mg injection (XYLOCAINE) - lactated ringers iv infusion Problem List As Of Date 08/11/2023 Noted Resolved CHOLECYSTITIS SEE ALSO GALLBLADDER ACUTE,GB S*11/22/2007 09/08/2018 Whole body pain [R52] 08/05/2016 Right hip pain [M25.551] 08/05/2016 Tobacco abuse disorder [Z72.0] 08/05/2016 Migraine with aura and without status migrainos*09/12/2019 Fibromyalgia [M79.7] 09/20/2019 Asthma [J45.909] 03/19/2023 Encounter Status:Closed by TIANA PRODUSER on 08/16/23 [facility] 06-02-2023 Note HNO ID: [id number] Author: ROSIE CHAPMAN LPN Service: ? Author Type: LICENSED NURSE Type: Progress Notes Filed: 06/02/2023 14:35 Note Text: Patient presents for B-12 injection. Denies any problems at this time. Patient instructed on any SE of medication, verbalized understanding and agreed to proceed with treatment. Tolerated injection well. Rosie Chapman LPN [facility] 06-02-2023 History of Presen t illness Narrative Patient presents for B-12 injection. Denies any problems at this time. Patient instructed on any SE of medication, verbalized understanding and agreed to proceed with treatment. Tolerated injection well. Rosie Chapman LPN documented in this encounter [facility] 05-30-2023 Note HNO ID: [id number] Author: ANGELA HCAUDHARI APRN.TONE Service: ? Author Type: Nurse Practitioner Type: Progress Notes Filed: 05/30/2023 15:28 Note Text: Requested to triage patient by PSS staff She presents with ice on her head Hunched over as she walks She attempted Imitrex, but no relief She is not tolerating PO fluids per her significant other. Patient referred to ED ASSESSMENT/PLAN: 1. Migraine headaches - ICD9: 346.90, ICD10: G43.909 Given no relief with home meds And not tolerating PO fluids, Referred to ED Angela Chaudhari APRN.[employer] [facility] 05-30-2023 History of Presen t illness Narrative Requested to triage patient by PSS staff She presents with ice on her head Hunched over as she walks She attempted Imitrex, but no relief She is not tolerating PO fluids per her significant other. Patient referred to ED ASSESSMENT/PLAN: 1. Migraine headaches - ICD9: 346.90, ICD10: G43.909 Given no relief with home meds And not tolerating PO fluids, Referred to ED Angela Chaudhari APRN.[employer] documented in this encounter [facility] 05-17-2023 Note HNO ID: [id number] Author: CULLEN DRUMMOND MD Service: ? Author Type: Physician Type: Progress Notes Filed: 05/17/2023 11:30 Note Text: POST OP Ms. Isabel presents today for her 7-10 day visit from: Post Op of the Right Wrist (Ganglion excision) Patient reports no difficulty with the wrist. History: PAIN EVALUATION 04/23/2023 1017 Pain Level: 5 Pain Location: Wrist-Right Description: Burning;Stabbing Duration Amount of Time: -- ongoing Frequency: Continuous Intervention/Comfort measure: Splinting;Positioning;Medicatio n The patient denies swelling, warmth, discharge, drainage, fevers, chills, sweats. She reports compliance splint She reports no change in past medical AND surgical history, medications, allergies, social history, family history and review of systems since last visit, with the exception of the following: None Review of Systems Constitutional: Negative for fever. Respiratory: Negative for cough and shortness of breath. Cardiovascular: Negative for chest pain. Radiographs: Not applicable Pathology report confirms the mass was a ganglion cyst Physical Examination: Appropriate postop appearance Incision intact Incision well healed mild tenderness about the dorsum of the wrist 45-45 WF/WE Positive axillary, musculocutaneous, median, ulna, and radial nerve function Positive distal pulses PROCEDURE: Not applicable Assessment: 1. Stable wrist status post excision of ganglion cyst Plan: 1. Continue range of motion/strengthening exercises 2. Resume normal activities as tolerated 3. Follow-up as needed Cullen Drummond MD [facility] 05-17-2023 History of Presen t illness Narrative Images from the original note were not included. POST OP Ms. Isabel presents today for her 7-10 day visit from: Post Op of the Right Wrist (Ganglion excision) Patient reports no difficulty with the wrist. History: PAIN EVALUATION 04/23/2023 1017 Pain Level: 5 Pain Location: Wrist-Right Description: Burning;Stabbing Duration Amount of Time: -- ongoing Frequency: Continuous Intervention/Comfort measure: Splinting;Positioning;Medicatio n The patient denies swelling, warmth, discharge, drainage, fevers, chills, sweats. She reports compliance splint She reports no change in past medical & surgical history, medications, allergies, social history, family history and review of systems since last visit, with the exception of the following: None Review of Systems Constitutional: Negative for fever. Respiratory: Negative for cough and shortness of breath. Cardiovascular: Negative for chest pain. Radiographs: Not applicable Pathology report confirms the mass was a ganglion cyst Physical Examination: Appropriate postop appearance Incision intact Incision well healed mild tenderness about the dorsum of the wrist 45-45 WF/WE Positive axillary, musculocutaneous, median, ulna, and radial nerve function Positive distal pulses PROCEDURE: Not applicable Assessment: 1. Stable wrist status post excision of ganglion cyst Plan: 1. Continue range of motion/strengthening exercises 2. Resume normal activities as tolerated 3. Follow-up as needed Cullen Drummond MD documented in this encounter [facility] 04-30-2023 Note HNO ID: [id number] Author: ROSIE CHAPMAN LPN Service: ? Author Type: LICENSED NURSE Type: Progress Notes Filed: 04/30/2023 14:56 Note Text: Patient presents for B-12 injection. Denies any problems at this time. Patient instructed on any SE of medication, verbalized understanding and agreed to proceed with treatment. Tolerated injection well. Rosie Chapman LPN [facility] 04-30-2023 History of Presen t illness Narrative Patient presents for B-12 injection. Denies any problems at this time. Patient instructed on any SE of medication, verbalized understanding and agreed to proceed with treatment. Tolerated injection well. Rosie Chapman LPN documented in this encounter [facility] 04-02-2023 Note HNO ID: [id number] Author: ROSIE CHAPMAN LPN Service: ? Author Type: LICENSED NURSE Type: Progress Notes Filed: 04/02/2023 14:48 Note Text: Patient presents for B-12 injection. Denies any problems at this time. Patient instructed on any SE of medication, verbalized understanding and agreed to proceed with treatment. Tolerated injection well. Rosie Chapman LPN [facility] 04-02-2023 History of Presen t illness Narrative Patient presents for B-12 injection. Denies any problems at this time. Patient instructed on any SE of medication, verbalized understanding and agreed to proceed with treatment. Tolerated injection well. Rosie Chapman LPN documented in this encounter [facility] 04-02-2023 Miscellaneous Notes Formattin g of this note might be different from the original. Surgery rescheduled. Please call patient at [phone] her phone is shut off. documented in this encounter [facility] 03-24-2023 Miscellaneous Notes Formattin g of this note might be different from the original. Patient notified, please assist in scheduling. Mammogram showing probable benign calcification. Recommended to repeat in 6 months. Orders are placed. Thank you Dona Randhawa APRN.SERVICER TRAVEL TRAILERS documented in this encounter [facility] 03-24-2023 History of Presen t illness Narrative Radiology Service Progress Note PATIENT NAME: Leola Isabel DATE OF SERVICE: March 24, 2023 TIME: 3:17 PM PATIENT IDENTITY VERIFICATION COMPLETED USING TWO (2) IDENTIFIERS: Name and Date of confirmed by patient verbally. FALL SCREENING: Has the patient had 2 falls in the last year or 1 fall with injury or currently using an Ambulatory Assistive Device (Walker, Cane, Wheelchair, Crutches, etc.)? No PATIENT GENDER DATA: Female. status: : No status: NO. PATIENT RELEVANT IMPLANT DATA REVIEWED: Not Applicable PATIENT PRESENTS WITH AN IMPLANTABLE OR ATTACHED REGULATORY AFFAIRS DIRECTOR: No RADIOLOGY DEPARTMENT: Mammography PERIPHERAL IV DATA: Not applicable SIGNED BY: RT Shanta(R) March 24, 2023 3:17 PM documented in this encounter [facility] 03-24-2023 Note HNO ID: [id number] Author: NOELLE MISHRA RT(R) Service: ? Author Type: Technologist Type: Progress Notes Filed: 03/24/2023 15:17 Note Text: Radiology Service Progress Note PATIENT NAME: Leola Isabel DATE OF SERVICE: March 24, 2023 TIME: 3:17 PM PATIENT IDENTITY VERIFICATION COMPLETED USING TWO (2) IDENTIFIERS: Name and Date of confirmed by patient verbally. FALL SCREENING: Has the patient had 2 falls in the last year or 1 fall with injury or currently using an Ambulatory Assistive Device (Walker, Cane, Wheelchair, Crutches, etc.)? No PATIENT GENDER DATA: Female. status: : No status: NO. PATIENT RELEVANT IMPLANT DATA REVIEWED: Not Applicable PATIENT PRESENTS WITH AN IMPLANTABLE OR ATTACHED REGULATORY AFFAIRS DIRECTOR: No RADIOLOGY DEPARTMENT: Mammography PERIPHERAL IV DATA: Not applicable SIGNED BY: RT Shanta(R) March 24, 2023 3:17 PM [facility] 03-19-2023 History and physical note HISTORY AND PHYSICAL EXAMINATION SERVICE DATE: 03/19/2023 SERVICE TIME: 3:22 PM PRIMARY CARE PHYSICIAN: Saúl Andrade MD Assessment Patient has the following medical conditions which may affect clara-operative course: Fibromyalgia Assessment: otc analgesics as needed Migraine with aura and without status migrainosus, not intractable Assessment: rx as needed Tobacco abuse disorder Assessment: former 1ppd, now currently vapes Asthma Assessment: rx as needed Mondragon Activity Status Index: METS: Climb a flight of stairs or walk up a hill (5.50 METs) DASI Score: 5.5 Patient denies any chest pain or undue shortness of breath with the above physical activity. Clinical Frailty Scale: 1. Very fit STOP-Bang Score: Denies snoring loudly Denies feeling tired, fatigued, or sleepy during the daytime Has not been observed to stop breathing or choking/gasping during sleep Denies having high blood pressure BMI less than or equal to 35 kg/m^2 Patient 50 years old or younger Does not have a large neck Non-male patient STOP-Bang Score: 0 [id number] Score: Age: <65 Sex: female CHF history: No Hypertension history: No Stroke/TIA/thromboembolism history: No Vascular disease history: No Diabetes history: No [id number] Score: 1 ARISCAT Score: Age: <=50 Preoperative SpO2: >=96% Respiratory infection in the last month: No Preoperative anemia: Yes Surgical incision: peripheral Duration of surgery: <2 hrs Emergency procedure: No ARISCAT Score: 11 ANESTHESIA FINDINGS: Intubation History: No history of difficult intubation Significant Anesthesia Considerations: none Airway History: No history of difficult airway I - PHYSICAL EVALUATION AIRWAY Patient intubated: No. Tracheostomy tube not present Mallampati: II. TM distance: >3 FB. Neck ROM: full ROM without neurological symptoms. Mouth opening: adequate. Short neck: no. Thick neck: no Ortiz present: no Lip Bite Test: I Microretrognathia/Micronagthia/ Recessed Chin: No DENTAL Dental findings: teeth intact. II - ANESTHESIA PLAN Anesthetic Plan: other Beta Beatrice Monitoring Plan Post Procedure Analgesic Plan Informed Consent Anesthetic risks, benefits, alternatives, personnel and consent discussed: yes. Patient / Responsible Constitution Party agrees to proceed: yes Patient / Surrogate agrees to blood products: blood products not planned Discussed the possibility of lip / dental damage: yes Prepared for Surgery: optimally prepared for surgery. CONSULTS: Patient does not require consults for optimization at this time Planned Anesthetic: other anesthesia choice The Following Tests/Procedures Have Been Initiated: Orders Placed This Encounter IBUPROFEN ORAL Sig: Take by mouth. REASON FOR VISIT: Leola Isabel is a 42 year old female who is scheduled for Procedure(s): EXCISION GANGLION WRIST (Right) at the request of Dr. Kala Villegas for consultation. My final recommendation will be communicated back to the requesting physician by way of shared medical record or letter. Subjective The patient has the following: ACTIVE PROBLEM LIST Whole Body Pain Right Hip Pain Tobacco Abuse Disorder Migraine With Aura and Without Status Migrainosus, Not Intractable Fibromyalgia Asthma COVID-19 Immunization Status Overdue - Covid-19 Vaccine (1) Never done No completion, postpone, frequency change, or communication history exists for this topic. CHIEF COMPLAINT: Pre-op exam HPI: Leola Isabel is a 42 year old seen for PAC due to scheduled above surgery because of a ganglion cyst. 02/19/2023, Dr. Kala Villegas Chief Complaint Leola Isabel is a 42 year old female who presents today for follow up office visit. Patient presents with: Right Wrist - Follow Up, Pain History of Present Illness PAIN EVALUATION 02/16/2023 1211 Pain Level: 7 Pain Location: Wrist-Right Description: Aching;Burning;Numbness;Sharp;T hrobbing;Tingling Frequency: Continuous Intervention/Comfort measure: Medication;Relaxation HPI: Leola Isabel is a 42 year old female for a follow up visit right wrist pain. Patient continues to complain of numbness and pain in her hand and fingers. She states she is still dropping things. Had EMG completed and is here to go over the results. Pain history is noted as above. Patient vapes and states fingertips numb, here and there. Just right hand. Is there any overall improvement in your condition? No Any new injury, since being seen last: No REVIEW OF SYSTEMS: General: No weight loss, malaise or fevers. Neurological: Positive for: headaches (+migraines, rx as needed). Negative for: cerebral palsy, POTATO CHIP SORTER tumor, dementia, hemiplegia, multiple sclerosis, Parkinson's disease, peripheral neuropathy, seizures, TIA and strokes. Respiratory: Positive for: asthma (rx as needed) and tobacco use. Negative for: COPD, pneumonia within 6 weeks, URI < 2 weeks and obstructive sleep apnea. Cardiovascular: No history of HTN requiring medication, no history of angina, CHF, [place], cardiac surgery or stents. Denies rest pain, gangrene or revascularization/amputation for PVD. No history of cardiovascular symptoms or problems. GI: No history of GI symptoms or problems. No history of esophageal varices, recent ascites, or ETOH greater than 2 drinks per day. : No history of dysuria, frequency or incontinence, stones or chronic kidney disease. No difficulty urinating, nocturia > 1 time per night or hematuria. MAIL READER: Negative for abnormal vaginal bleeding, abnormal vaginal discharge. Endocrine: No history of diabetes. Has not taken steroids within the past 30 days. No history of endocrinological symptoms or problems. Hematology: No history of bleeding or clotting disorder. Patient is not taking anti-coagulation or platelet medications. No history of hematological symptoms or problems. Oncology: No history of CA metastasis, chemo within 30 days, or radiotherapy within 90 days. No history of oncological symptoms or problems. Psych: No history of psychiatric symptoms or problems. Musculoskeletal: See HPI. +fibromyalgia Skin: Negative for lesions, rash and itching. PAST MEDICAL HISTORY Diagnosis Date Abnormal glandular Papanicolaou smear of cervix 04/09/2003 Abn. Pap smear (cervix) Adjustment disorder with depressed mood Asthma Esophageal reflux Migraine with aura, without mention of intractable migraine without mention of status migrainosus Unspecified asthma, with status asthmaticus PAST SURGICAL HISTORY Procedure Laterality Date BILIARY NDSC INTRAOPERATIVE 11/12/2007 COLONOSCOPY 05/12/2022 EGD W/O BRSH SPEC VARICIES INJ 05/12/2022 I&D OF BARTHOLINS GLAND ABSCESS 09/07/2008 LAPS SURG CHOLECSTC W/EXPL COMMON DUCT 11/12/2007 FAMILY HISTORY Problem Relation Age of Onset Alcohol/Drug Mother other (lupus) Mother Alcohol/Drug Father Asthma Sister Seizures Sister other (diverticulosis) Maternal Grandmother Social History Tobacco Use Smoking status: Former Packs/day: 1 Types: Cigarettes Smokeless tobacco: Never Vaping Use Vaping Use: current everyday user Substances: Nicotine, THC Devices: Disposable Substance Use Topics Alcohol use: No Drug use: No Prior to Admission medications as of 03/19/23 1436 Medication Sig Last Dose Taking IBUPROFEN ORAL Take by mouth. Taking Yes SUMAtriptan (IMITREX) 50 mg tablet Take one tablet by mouth at the onset of the headache. If no improvement in 2 hours take one more tablet. No more than 2 tablets in 24 hours Taking Yes ondansetron orally disintegrating (ZOFRAN ODT) 4 mg disintegrating tablet Take 1 tablet by mouth every 6 hours as needed for nausea/vomiting. Taking Yes polyethylene glycol 3350 (MIRALAX) 17 gram/dose powder Take 17 g by mouth once daily. Dissolve dose in 4 - 8 ounces of liquid and take as directed. Taking Yes dicyclomine (BENTYL) 10 mg capsule Take 1 capsule by mouth three times daily as needed (for abdominal pain). Taking Yes albuterol HFA (PROAIR HFA) 90 mcg/actuation inhaler Inhale 2 Puffs as instructed every 4 hours as needed. Taking Yes No medication comments found. ALLERGIES Allergen Reactions Adhesive Rash Demerol [Meperidine* Rash Penicillins Rash Vicodin [Hydrocodon* Hives Objective PHYSICAL EXAM: General: alert and oriented (x3) and healthy appearance. Pertinent negatives noted - not distressed. Skin: normal color, no rash or lesions. HEENT: EOM intact and pupils equal round. Pertinent negatives noted - no carotid bruit. Cardiovascular: regular rate and rhythm, normal S1 and S2, no rub, murmurs, or gallop. Respiratory: normal breath sounds, no wheezes or crackles. No chest wall deformity or tenderness. Abdomen: soft. Pertinent negatives noted - not tender. Extremities: no deformity, no edema or tenderness, no joint swelling or clubbing. Neurological: normal cognition and motor skills. Gait normal. No weakness or sensory deficit. PAIN ASSESSMENT: Pain Pain Level: 5 Pain Location: Wrist-Right Description: Sharp, Stabbing, Radiating Duration Amount of Time: 6 Duration Units: Months Frequency: Continuous Intervention/Comfort measure: Medication VITALS: BP 122/82 Pulse 89 Temp (Src) 98.9 (Temporal) Resp 14 Ht 5' 5 (1.65m) Wt 172 lb (78.0kg) SpO2 100% LMP 08/13/2008 BMI 28.62 kg/(m^2). Diagnostic tests reviewed for today's visit: Lab Value Units Date High Low HB No results within date range. HCT No results within date range. WBC No results within date range. PLT No results within date range. NA No results within date range. K No results within date range. GLUC No results within date range. BUN No results within date range. CREAT No results within date range. PTSEC No results within date range. INR No results within date range. APTT No results within date range. ALT No results within date range. AST No results within date range. TBILI No results within date range. TSH No results within date range. Lab Value Units Date High Low HCGQT No results within date range. UHCG No results within date range. HCG, BODY* No results within date range. Lab Value Units Date High Low ABORHD No results within date range. ABSCREEN No results within date range. No results found for: HBA1C No results found for this or any previous visit (from the past 8760 hour(s)). No results found for this or any previous visit (from the past 26263 hour(s)). Instructions Given to Patient: Instructions located in the after visit summary. Patient given verbal and written preop instructions and voices comprehension and compliance. SIGNATURE: Chetan Dior APRN.CNP PATIENT NAME: Leola Isabel DATE: March 19, 2023 TIME: 2:40 PM PAGER/CONTACT #: documented in this encounter [facility] 03-19-2023 Instructions Chetan Dior APRN.CNP - 03/19/2023 2:36 PM EST PATIENT PREOPERATIVE INSTRUCTIONS Kala Villegas,* has scheduled you for your procedure at this surgery center: [facility]: [phone] -- [address] [address]. Please read below carefully for your personalized instructions. Dietary Restrictions: - No solid food after midnight. - You may have 12 ounces of clear liquids (water, clear juices such as apple juice or gatorade, carbonated beverages, clear tea, black coffee, jello) until 2 hours before scheduled arrival at facility. No red/purple coloring and no creamer/sugar Medications: Unless instructed differently below, stay on all of your medications until your surgery. If you start any new medications after today's visit, please contact your surgeon. Pre-Surgery Med Instructions Medication Instructions IBUPROFEN ORAL Stop 7 days before surgery SUMAtriptan (IMITREX) 50 mg tablet If needed ondansetron orally disintegrating (ZOFRAN ODT) 4 mg disintegrating tablet If needed polyethylene glycol 3350 (MIRALAX) 17 gram/dose powder Take the day of surgery with a small sip of water dicyclomine (BENTYL) 10 mg capsule IF needed albuterol HFA (PROAIR HFA) 90 mcg/actuation inhaler Take the day of surgery with a small sip of water If you start any new medications after today's visit, please contact the surgeon's office. Blood Thinning Medications: - Stop NSAIDS (Ibuprofen, Advil, Aleve, Motrin, Celebrex, Mobic, etc.) 7 days before surgery, as directed by your surgeon. - Stop Aspirin 7 days before surgery, as directed by your surgeon. - Stop Vitamin E, ALL multi-vitamins, herbals and dietary supplements 7 days before surgery. - You may take Tylenol (Acetaminophen) or any of your pain medications that do not contain aspirin or NSAIDS as needed. Important Reminders: - Candy, mints, and tobacco products are NOT permitted the morning of surgery. - Hearing aids, dentures and glasses may be worn the morning of surgery. - NO jewelry, body piercings, makeup, hairpins or contacts are to be worn the day of surgery. If you develop symptoms such as a fever, cold, or flu, or have other changes to your health within TWO DAYS of scheduled surgery or the morning of surgery, please contact the surgery center above. Personal Belongings: -Please have photo ID and insurance cards. -If you do not have a copy of advance directives on file with us, please bring a copy with you on the day of surgery. - Leave ALL valuables and money at home or with family members. For Outpatient Procedures: - YOU MUST HAVE A RESPONSIBLE FOOD SERVICE COORDINATOR TAKE YOU HOME. A RANGE OPERATOR OR REPAIRER SCREEN CRUSHER CANNOT BE MADE A RESPONSIBLE FOOD SERVICE COORDINATOR. - We recommend that a responsible person stays with you overnight to take care of you. - You cannot stay in a hotel alone after outpatient surgery. You will not be permitted to have your surgery, if you do not have someone to take care of you. Arrival Time for Surgery: - The Surgery Center or hospital where you are having surgery will call the afternoon before surgery (or Wednesday for Wednesday surgery) with a scheduled arrival time. - If you have not heard by 4 pm, please contact the surgery center above. Please be aware that emergency situations arise, which may delay or change your surgical time. If this happens, we will notify you as soon as possible and regret any inconvenience. If you already have an Advance Directive, please fax a copy to [phone] or email to for it to be added to your chart. If you do not have an Advance Directive, you can find the appropriate form and more information at [email or web address]. We recommend that you complete the Advance Directive form found on the website and bring it with you the day of your surgery. It can be witnessed and scanned into your chart that day. Chetan Dior APRN.SERVICER TRAVEL TRAILERS documented in this encounter [facility] 03-05-2023 Note HNO ID: [id number] Author: ROSIE CHAPMAN LPN Service: ? Author Type: LICENSED NURSE Type: Progress Notes Filed: 03/05/2023 13:21 Note Text: Patient presents for B-12 injection. Denies any problems at this time. Patient instructed on any SE of medication, verbalized understanding and agreed to proceed with treatment. Tolerated injection well. Rosie Chapman LPN [facility] 02-19-2023 Note HNO ID: [id number] Author: KALA VILLEGAS DO Service: ? Author Type: Physician Type: Progress Notes Filed: 02/19/2023 10:03 Note Text: Follow Up Visit Chief Complaint Leola Isabel is a 42 year old female who presents today for follow up office visit. Patient presents with: Right Wrist - Follow Up, Pain History of Present Illness PAIN EVALUATION 02/16/2023 1211 Pain Level: 7 Pain Location: Wrist-Right Description: Aching;Burning;Numbness;Sharp;T hrobbing;Tingling Frequency: Continuous Intervention/Comfort measure: Medication;Relaxation HPI: Leola Isabel is a 42 year old female for a follow up visit right wrist pain. Patient continues to complain of numbness and pain in her hand and fingers. She states she is still dropping things. Had EMG completed and is here to go over the results. Pain history is noted as above. Patient vapes and states fingertips numb, here and there. Just right hand. Is there any overall improvement in your condition? No Any new injury, since being seen last: No REVIEW OF SYMPTOMS: Patient did not have, and does not currently have, any weight loss, malaise, fever, chills, headache, chest pain, chest pressure, palpitations, cough, shortness of breath, orthopnea, paroxsymal nocturnal dyspnea, nausea, vomiting, diarrhea, constipation, melena, hematochezia, urinary difficulties, prolonged bleeding, easily bruising, heat or cold intolerance, new onset joint pain or swelling, new onset extremity weakness or numbness, new onset auditory or visual disturbances, lightheadedness, dizziness, partial loss of consciousness or full loss of consciousness. Current Outpatient Medications Medication Sig SUMAtriptan (IMITREX) 50 mg tablet Take one tablet by mouth at the onset of the headache. If no improvement in 2 hours take one more tablet. No more than 2 tablets in 24 hours ondansetron orally disintegrating (ZOFRAN ODT) 4 mg disintegrating tablet Take 1 tablet by mouth every 6 hours as needed for nausea/vomiting. topiramate (TOPAMAX) 25 mg tablet Take 1 tablet by mouth daily at bedtime. polyethylene glycol 3350 (MIRALAX) 17 gram/dose powder Take 17 g by mouth once daily. Dissolve dose in 4 - 8 ounces of liquid and take as directed. dicyclomine (BENTYL) 10 mg capsule Take 1 capsule by mouth three times daily as needed (for abdominal pain). albuterol HFA (PROAIR HFA) 90 mcg/actuation inhaler Inhale 2 Puffs as instructed every 4 hours as needed. No current facility-administered medications for this visit. Facility-Administered Medications Ordered in Other Visits Medication Dose Route Frequency lidocaine (PF) 10 mg/mL (1 %) 1-2 mg injection (XYLOCAINE) 0.1-0.2 mL INTRADERMAL PRN lactated ringers iv infusion 30 mL/hr INTRAVENOUS CONTINUOUS Physical Exam Vitals: LMP 08/13/2008 Psych: Pleasant, good affect and mood General Appearance: Well appearing, alert, in no acute distress, well-hydrated, well nourished.. Skin: Skin color, texture, turgor normal, no suspicious rashes or lesions. Peripheral Pulses: Normal. Neurologic: Gait normal. Reflexes normal and symmetric. Sensation grossly intact.. Lymph Nodes: No cervical lymphadenopathy, No supraclavicular lymphadenopathy, No axillary lymphadenopathy., and No inguinal lymphadenopathy.. Respiratory: No recent pulmonary infection, hemoptysis, chronic cough, or shortness of breath at rest Rheumatologic: Joint deformities: right wrist pain Right Hand Exam Tenderness The patient is experiencing tenderness in the dorsal area. Range of Motion The patient has normal right wrist ROM. Wrist Extension: normal Flexion: normal Pronation: normal Supination: normal Muscle Strength The patient has normal right wrist strength. Tests Phalen?s Sign: negative Tinel's sign (median nerve): negative Miles's test: negative Other Erythema: absent Sensation: normal Pulse: present Comments: B/l med/uln/rad/ax nerves intact Left Hand Exam Left hand exam is normal. Tenderness The patient is experiencing no tenderness. Range of Motion The patient has normal left wrist ROM. Wrist Extension: normal Flexion: normal Pronation: normal Supination: normal Muscle Strength The patient has normal left wrist strength. Tests Phalen?s Sign: negative Tinel's sign (median nerve): negative Miles's test: negative Other Erythema: absent Sensation: normal Pulse: present Comments: Ttp lat epicondyle/ pain w wrist extension Assessment and Plan Radiographs: I have independently reviewed films and my findings are the same. and I have reviewed the images with the patient and family. Impression: Encounter Diagnosis ICD-10-CM 1. Ganglion cyst M67.40 2. Left tennis elbow M77.12 Today, in detail, through a thorough evaluation, we discussed possible etiologies of pain and our plans for further diagnostic and therapeutic interventions. We discussed strategies (more content not included)... [facility] 02-02-2023 Note HNO ID: [id number] Author: Rosie Chapman LPN Service: ? Author Type: LICENSED NURSE Type: Progress Notes Filed: 02/02/2023 1:13 PM Note Text: Patient presents for B-12 injection. Denies any problems at this time. Patient instructed on any SE of medication, verbalized understanding and agreed to proceed with treatment. Tolerated injection well. Rosie Chapman LPN [facility] 01-05-2023 Note HNO ID: [id number] Author: Rosie Chapman LPN Service: ? Author Type: ? Type: Progress Notes Filed: 01/05/2023 3:47 PM Note Text: Patient presents for B-12 injection. Denies any problems at this time. Patient instructed on any SE of medication, verbalized understanding and agreed to proceed with treatment. Tolerated injection well. Rosie Chapman LPN [facility] 12-22-2022 Note HNO ID: [id number] Author: Miriam Shine APRN.SERVICER TRAVEL TRAILERS Service: ? Author Type: Nurse Practitioner Type: Progress Notes Filed: 12/22/2022 5:51 PM Note Text: Subjective HPI HPI Leola Isabel is a 42 year old female who presents today for CC of st, congestion, ear pressure. This started 3 days ago. Has tried otc medication for relief. Symptoms are worsened by nothing. Risk factors smoker, sick exposures at work. Denies possibility of being . .Patient presents with: Sore Throat: Clogged ears x 3 days PAST MEDICAL HISTORY Diagnosis Date Abnormal glandular Papanicolaou smear of cervix 04/09/2003 Abn. Pap smear (cervix) Adjustment disorder with depressed mood Asthma Esophageal reflux Migraine with aura, without mention of intractable migraine without mention of status migrainosus Unspecified asthma, with status asthmaticus PAST SURGICAL HISTORY Procedure Laterality Date BILIARY NDSC INTRAOPERATIVE 11/12/2007 COLONOSCOPY 05/12/2022 EGD W/O BRSH SPEC VARICIES INJ 05/12/2022 IANDD OF BARTHOLINS GLAND ABSCESS 09/07/2008 LAPS SURG CHOLECSTC W/EXPL COMMON DUCT 11/12/2007 ALLERGIES Adhesive, Demerol [Meperidine (Pf)], Penicillins, and Vicodin [Hydrocodone-Acetaminophen] MEDICATIONS SUMAtriptan (IMITREX) 50 mg tabletTake one tablet by mouth at the onset of the headache. If no improvement in 2 hours take one more tablet. No more than 2 tablets in 24 hoursDisp: 8 tabletRfl: 5 ondansetron orally disintegrating (ZOFRAN ODT) 4 mg disintegrating tabletTake 1 tablet by mouth every 6 hours as needed for nausea/vomiting.Disp: 8 tabletRfl: 3 topiramate (TOPAMAX) 25 mg tabletTake 1 tablet by mouth daily at bedtime.Disp: 30 tabletRfl: 2 polyethylene glycol 3350 (MIRALAX) 17 gram/dose powderTake 17 g by mouth once daily. Dissolve dose in 4 - 8 ounces of liquid and take as directed.Disp: 595 gRfl: 2 dicyclomine (BENTYL) 10 mg capsuleTake 1 capsule by mouth three times daily as needed (for abdominal pain).Disp: 60 capsuleRfl: 2 albuterol HFA (PROAIR HFA) 90 mcg/actuation inhalerInhale 2 Puffs as instructed every 4 hours as needed.Disp: 1 EachRfl: 0 FAMILY HISTORY Problem Relation Age of Onset Alcohol/Drug Mother other (lupus) Mother Alcohol/Drug Father Asthma Sister Seizures Sister other (diverticulosis) Maternal Grandmother Social History Tobacco Use Smoking status: Former Packs/day: 1 Types: Cigarettes Smokeless tobacco: Current Tobacco comments: Vapes Vaping Use Vaping Use: current everyday user Substances: Nicotine, THC Devices: Disposable Substance Use Topics Alcohol use: No Drug use: No Review of Systems Constitutional: Negative for fever. HENT: Positive for congestion, ear pain and sore throat. Negative for ear discharge and nosebleeds. Respiratory: Negative for cough, shortness of breath and wheezing. Gastrointestinal: Negative for diarrhea and vomiting. Musculoskeletal: Negative for neck pain. Skin: Negative for itching and rash. Objective Blood pressure 119/78, pulse 82, temperature 36.7 ?C (98.1 ?F), resp. rate 18, weight 71.7 kg (158 lb), last menstrual period 08/13/2008, SpO2 99 %. Physical Exam Constitutional: General: She is not in acute distress. Appearance: She is not toxic-appearing or diaphoretic. HENT: Head: Normocephalic and atraumatic. Right Ear: Hearing, tympanic membrane, ear canal and external ear normal. Left Ear: Hearing, tympanic membrane, ear canal and external ear normal. Nose: Nose normal. Mouth/Throat: Pharynx: Uvula midline. Posterior oropharyngeal erythema present. No pharyngeal swelling, oropharyngeal exudate or uvula swelling. Eyes: General: Lids are normal. No scleral icterus. Right eye: No discharge. Left eye: No discharge. Conjunctiva/sclera: Conjunctivae normal. Pupils: Pupils are equal, round, and reactive to light. Neck: Trachea: Trachea normal. Cardiovascular: Rate and Rhythm: Normal rate and regular rhythm. Heart sounds: Normal heart sounds. Pulmonary: Effort: Pulmonary effort is normal. Breath sounds: Normal breath sounds. Musculoskeletal: Cervical back: Normal range of motion and neck supple. Lymphadenopathy: Cervical: No cervical adenopathy. Right cervical: No superficial cervical adenopathy. Left cervical: No superficial cervical adenopathy. Skin: Findings: No rash. Neurological: Mental Status: She is alert and oriented to person, place, and time. ASSESSMENT/PLAN: 1. Sore throat - ICD9: 462, ICD10: J02.9 - suspect viral - Group A strep molecular testing negative - Discussed supportive care treatment with fluids, rest and analgesia. - The patient should follow up in 3-5 days if symptoms persist or worsen -declines covid testing. - STREP A MOLECULAR (POC) - PREDNISONE 20 MG TABLET Miriam Shine APRN.[employer] [facility] 12-22-2022 History of Presen t illness Narrative Subjective HPI HPI Leola Isabel is a 42 year old female who presents today for CC of st, congestion, ear pressure. This started 3 days ago. Has tried otc medication for relief. Symptoms are worsened by nothing. Risk factors smoker, sick exposures at work. Denies possibility of being . .Patient presents with: Sore Throat: Clogged ears x 3 days PAST MEDICAL HISTORY Diagnosis Date Abnormal glandular Papanicolaou smear of cervix 04/09/2003 Abn. Pap smear (cervix) Adjustment disorder with depressed mood Asthma Esophageal reflux Migraine with aura, without mention of intractable migraine without mention of status migrainosus Unspecified asthma, with status asthmaticus PAST SURGICAL HISTORY Procedure Laterality Date BILIARY NDSC INTRAOPERATIVE 11/12/2007 COLONOSCOPY 05/12/2022 EGD W/O BRSH SPEC VARICIES INJ 05/12/2022 I&D OF BARTHOLINS GLAND ABSCESS 09/07/2008 LAPS SURG CHOLECSTC W/EXPL COMMON DUCT 11/12/2007 ALLERGIES Adhesive, Demerol [Meperidine (Pf)], Penicillins, and Vicodin [Hydrocodone-Acetaminophen] MEDICATIONS SUMAtriptan (IMITREX) 50 mg tablet^Take one tablet by mouth at the onset of the headache. If no improvement in 2 hours take one more tablet. No more than 2 tablets in 24 hours^Disp: 8 tablet^Rfl: 5 ondansetron orally disintegrating (ZOFRAN ODT) 4 mg disintegrating tablet^Take 1 tablet by mouth every 6 hours as needed for nausea/vomiting.^Disp: 8 tablet^Rfl: 3 topiramate (TOPAMAX) 25 mg tablet^Take 1 tablet by mouth daily at bedtime.^Disp: 30 tablet^Rfl: 2 polyethylene glycol 3350 (MIRALAX) 17 gram/dose powder^Take 17 g by mouth once daily. Dissolve dose in 4 - 8 ounces of liquid and take as directed.^Disp: 595 g^Rfl: 2 dicyclomine (BENTYL) 10 mg capsule^Take 1 capsule by mouth three times daily as needed (for abdominal pain).^Disp: 60 capsule^Rfl: 2 albuterol HFA (PROAIR HFA) 90 mcg/actuation inhaler^Inhale 2 Puffs as instructed every 4 hours as needed.^Disp: 1 Each^Rfl: 0 FAMILY HISTORY Problem Relation Age of Onset Alcohol/Drug Mother other (lupus) Mother Alcohol/Drug Father Asthma Sister Seizures Sister other (diverticulosis) Maternal Grandmother Social History Tobacco Use Smoking status: Former Packs/day: 1 Types: Cigarettes Smokeless tobacco: Current Tobacco comments: Vapes Vaping Use Vaping Use: current everyday user Substances: Nicotine, THC Devices: Disposable Substance Use Topics Alcohol use: No Drug use: No Review of Systems Constitutional: Negative for fever. HENT: Positive for congestion, ear pain and sore throat. Negative for ear discharge and nosebleeds. Respiratory: Negative for cough, shortness of breath and wheezing. Gastrointestinal: Negative for diarrhea and vomiting. Musculoskeletal: Negative for neck pain. Skin: Negative for itching and rash. Objective Blood pressure 119/78, pulse 82, temperature 36.7 C (98.1 F), resp. rate 18, weight 71.7 kg (158 lb), last menstrual period 08/13/2008, SpO2 99 %. Physical Exam Constitutional: General: She is not in acute distress. Appearance: She is not toxic-appearing or diaphoretic. HENT: Head: Normocephalic and atraumatic. Right Ear: Hearing, tympanic membrane, ear canal and external ear normal. Left Ear: Hearing, tympanic membrane, ear canal and external ear normal. Nose: Nose normal. Mouth/Throat: Pharynx: Uvula midline. Posterior oropharyngeal erythema present. No pharyngeal swelling, oropharyngeal exudate or uvula swelling. Eyes: General: Lids are normal. No scleral icterus. Right eye: No discharge. Left eye: No discharge. Conjunctiva/sclera: Conjunctivae normal. Pupils: Pupils are equal, round, and reactive to light. Neck: Trachea: Trachea normal. Cardiovascular: Rate and Rhythm: Normal rate and regular rhythm. Heart sounds: Normal heart sounds. Pulmonary: Effort: Pulmonary effort is normal. Breath sounds: Normal breath sounds. Musculoskeletal: Cervical back: Normal range of motion and neck supple. Lymphadenopathy: Cervical: No cervical adenopathy. Right cervical: No superficial cervical adenopathy. Left cervical: No superficial cervical adenopathy. Skin: Findings: No rash. Neurological: Mental Status: She is alert and oriented to person, place, and time. ASSESSMENT/PLAN: 1. Sore throat - ICD9: 462, ICD10: J02.9 - suspect viral - Group A strep molecular testing negative - Discussed supportive care treatment with fluids, rest and analgesia. - The patient should follow up in 3-5 days if symptoms persist or worsen -declines covid testing. - STREP A MOLECULAR (POC) - PREDNISONE 20 MG TABLET Miriam Shine APRN.TONE documented in this encounter [facility] 12-10-2022 Note HNO ID: [id number] Author: Rosie Chapman LPN Service: ? Author Type: ? Type: Progress Notes Filed: 12/10/2022 3:55 PM Note Text: Patient presents for B-12 injection. Denies any problems at this time. Patient instructed on any SE of medication, verbalized understanding and agreed to proceed with treatment. Tolerated injection well. Rosie Chapman LPN [facility] 12-09-2022 Instructions Michelle Randhawa APRN.CNP - 12/09/2022 12:27 PM EDT Start Topamax, let me know in 3 to 4 weeks if there is no improvement in migraine headaches or if you are experiencing any side effects For elbow pain: wear tennis elbow brace/sleeve. Let me know in 3 to 4 weeks if no improvement documented in this encounter [facility] 12-09-2022 Note HNO ID: [id number] Author: Michelle Randhawa APRN.CNP Service: ? Author Type: Nurse Practitioner Type: Progress Notes Filed: 12/09/2022 12:50 PM Note Text: CC: Patient presents with: Headache and left elbow pain HPI Leola Isabel is a 42 year old female who presents today for above. Migraine headache x 2 days. Eased up some yesterday for a short time. History of migraines, no new or worsening symptoms. She ran out of Imitrex which typically relieves migraine quickly. She was prescribed Topamax in August for frequent migraines but she never started taking. Would like a new prescription for this. Left elbow pain- seen for this in express care about one week ago. X-ray was negative. Pain attributed to tennis elbow, prescribed prednisone. Patient reports this has eased the pain somewhat but still bothersome. Review of Systems See HPI PAST MEDICAL HISTORY Diagnosis Date Abnormal glandular Papanicolaou smear of cervix 04/09/2003 Abn. Pap smear (cervix) Adjustment disorder with depressed mood Asthma Esophageal reflux Migraine with aura, without mention of intractable migraine without mention of status migrainosus Unspecified asthma, with status asthmaticus PAST SURGICAL HISTORY Procedure Laterality Date BILIARY NDSC INTRAOPERATIVE 11/12/2007 COLONOSCOPY 05/12/2022 EGD W/O BRSH SPEC VARICIES INJ 05/12/2022 IANDD OF BARTHOL[place] GLAND ABSCESS 09/07/2008 LAPS SURG CHOLECSTC W/EXPL COMMON DUCT 11/12/2007 ALLERGIES Adhesive, Demerol [Meperidine (Pf)], Penicillins, and Vicodin [Hydrocodone-Acetaminophen] MEDICATIONS SUMAtriptan (IMITREX) 50 mg tabletTake one tablet by mouth at the onset of the headache. If no improvement in 2 hours take one more tablet. No more than 2 tablets in 24 hoursDisp: 8 tabletRfl: 0 polyethylene glycol 3350 (MIRALAX) 17 gram/dose powderTake 17 g by mouth once daily. Dissolve dose in 4 - 8 ounces of liquid and take as directed.Disp: 595 gRfl: 2 (Patient not taking: Reported on 10/15/2022) dicyclomine (BENTYL) 10 mg capsuleTake 1 capsule by mouth three times daily as needed (for abdominal pain).Disp: 60 capsuleRfl: 2 albuterol HFA (PROAIR HFA) 90 mcg/actuation inhalerInhale 2 Puffs as instructed every 4 hours as needed.Disp: 1 EachRfl: 0 ondansetron orally disintegrating (ZOFRAN ODT) 4 mg disintegrating tabletTake 1 tablet by mouth every 6 hours as needed for nausea/vomiting.Disp: 8 tabletRfl: 3 topiramate (TOPAMAX) 25 mg tabletTake one pill daily for seven days and then increase to one pill two times a day.Disp: 60 tabletRfl: 3 (Patient not taking: Reported on 08/17/2022) pantoprazole DR (PROTONIX) 20 mg tabletTake 1 tablet by mouth daily before breakfast. Take on empty stomach, 1/2 hr before meal.Disp: 30 tabletRfl: 2 (Patient not taking: Reported on 10/15/2022) FAMILY HISTORY Problem Relation Age of Onset Alcohol/Drug Mother other (lupus) Mother Alcohol/Drug Father Asthma Sister Seizures Sister other (diverticulosis) Maternal Grandmother Social History Tobacco Use Smoking status: Former Packs/day: 1 Types: Cigarettes Smokeless tobacco: Current Tobacco comments: Vapes Vaping Use Vaping Use: current everyday user Substances: Nicotine, THC Devices: Disposable Substance Use Topics Alcohol use: No Drug use: No BP 132/86 Pulse 86 Resp 16 Wt 70.3 kg (155 lb) LMP 08/13/2008 SpO2 97% BMI 26.61 kg/m? Physical Exam Vitals reviewed. Constitutional: Appearance: Normal appearance. Neurological: Mental Status: She is alert. DATA REVIEWED: Most recent imaging ASSESSMENT/PLAN: 1. Migraine with aura and without status migrainosus, not intractable - ICD9: 346.00, ICD10: G43.109 (primary diagnosis) Persistent migraine x 2 days. No new or worsening symptoms - SUMATRIPTAN 50 MG TABLET refilled - KETOROLAC 60 MG/2 ML INTRAMUSCULAR SOLUTION today in the office - patient continues to have frequent migraines, she is willing to try Topamax now. New prescription sent. Instructed to let me know in 3-4 weeks if no improvement or sooner if any intolerable side effects 2. Lateral epicondylitis of left elbow - ICD9: 726.32, ICD10: M77.12 Continue with current treatment. Recommend tennis elbow bracing. Given exercises from [email or web address]. Follow-up in 3-4 weeks if no improvement. Prescription instructions reviewed with patient as applicable. Potential red flag symptoms discussed with the patient. Reviewed appropriate action plan to take if red flag symptoms occur. Patient agreeable to treatment plan. During this patient visit I have spent approximately 30 minutes in counseling regarding treatment options, medications, test results, and coordinating care. Michelle Randhawa APRN.[employer] [facility] 12-09-2022 History of Presen t illness Narrative CC: Patient presents with: Headache and left elbow pain HPI Leola Isabel is a 42 year old female who presents today for above. Migraine headache x 2 days. Eased up some yesterday for a short time. History of migraines, no new or worsening symptoms. She ran out of Imitrex which typically relieves migraine quickly. She was prescribed Topamax in August for frequent migraines but she never started taking. Would like a new prescription for this. Left elbow pain- seen for this in express care about one week ago. X-ray was negative. Pain attributed to tennis elbow, prescribed prednisone. Patient reports this has eased the pain somewhat but still bothersome. Review of Systems See HPI PAST MEDICAL HISTORY Diagnosis Date Abnormal glandular Papanicolaou smear of cervix 04/09/2003 Abn. Pap smear (cervix) Adjustment disorder with depressed mood Asthma Esophageal reflux Migraine with aura, without mention of intractable migraine without mention of status migrainosus Unspecified asthma, with status asthmaticus PAST SURGICAL HISTORY Procedure Laterality Date BILIARY NDSC INTRAOPERATIVE 11/12/2007 COLONOSCOPY 05/12/2022 EGD W/O BRSH SPEC VARICIES INJ 05/12/2022 I&D OF BARTHOLINS GLAND ABSCESS 09/07/2008 LAPS SURG CHOLECSTC W/EXPL COMMON DUCT 11/12/2007 ALLERGIES Adhesive, Demerol [Meperidine (Pf)], Penicillins, and Vicodin [Hydrocodone-Acetaminophen] MEDICATIONS SUMAtriptan (IMITREX) 50 mg tablet^Take one tablet by mouth at the onset of the headache. If no improvement in 2 hours take one more tablet. No more than 2 tablets in 24 hours^Disp: 8 tablet^Rfl: 0 polyethylene glycol 3350 (MIRALAX) 17 gram/dose powder^Take 17 g by mouth once daily. Dissolve dose in 4 - 8 ounces of liquid and take as directed.^Disp: 595 g^Rfl: 2 (Patient not taking: Reported on 10/15/2022) dicyclomine (BENTYL) 10 mg capsule^Take 1 capsule by mouth three times daily as needed (for abdominal pain).^Disp: 60 capsule^Rfl: 2 albuterol HFA (PROAIR HFA) 90 mcg/actuation inhaler^Inhale 2 Puffs as instructed every 4 hours as needed.^Disp: 1 Each^Rfl: 0 ondansetron orally disintegrating (ZOFRAN ODT) 4 mg disintegrating tablet^Take 1 tablet by mouth every 6 hours as needed for nausea/vomiting.^Disp: 8 tablet^Rfl: 3 topiramate (TOPAMAX) 25 mg tablet^Take one pill daily for seven days and then increase to one pill two times a day.^Disp: 60 tablet^Rfl: 3 (Patient not taking: Reported on 08/17/2022) pantoprazole DR (PROTONIX) 20 mg tablet^Take 1 tablet by mouth daily before breakfast. Take on empty stomach, 1/2 hr before meal.^Disp: 30 tablet^Rfl: 2 (Patient not taking: Reported on 10/15/2022) FAMILY HISTORY Problem Relation Age of Onset Alcohol/Drug Mother other (lupus) Mother Alcohol/Drug Father Asthma Sister Seizures Sister other (diverticulosis) Maternal Grandmother Social History Tobacco Use Smoking status: Former Packs/day: 1 Types: Cigarettes Smokeless tobacco: Current Tobacco comments: Vapes Vaping Use Vaping Use: current everyday user Substances: Nicotine, THC Devices: Disposable Substance Use Topics Alcohol use: No Drug use: No BP 132/86 Pulse 86 Resp 16 Wt 70.3 kg (155 lb) LMP 08/13/2008 SpO2 97% BMI 26.61 kg/m Physical Exam Vitals reviewed. Constitutional: Appearance: Normal appearance. Neurological: Mental Status: She is alert. DATA REVIEWED: Most recent imaging ASSESSMENT/PLAN: 1. Migraine with aura and without status migrainosus, not intractable - ICD9: 346.00, ICD10: G43.109 (primary diagnosis) Persistent migraine x 2 days. No new or worsening symptoms - SUMATRIPTAN 50 MG TABLET refilled - KETOROLAC 60 MG/2 ML INTRAMUSCULAR SOLUTION today in the office - patient continues to have frequent migraines, she is willing to try Topamax now. New prescription sent. Instructed to let me know in 3-4 weeks if no improvement or sooner if any intolerable side effects 2. Lateral epicondylitis of left elbow - ICD9: 726.32, ICD10: M77.12 Continue with current treatment. Recommend tennis elbow bracing. Given exercises from [email or web address]. Follow-up in 3-4 weeks if no improvement. Prescription instructions reviewed with patient as applicable. Potential red flag symptoms discussed with the patient. Reviewed appropriate action plan to take if red flag symptoms occur. Patient agreeable to treatment plan. During this patient visit I have spent approximately 30 minutes in counseling regarding treatment options, medications, test results, and coordinating care. Michelle Randhawa APRN.CNP documented in this encounter [facility] 12-01-2022 Note HNO ID: [id number] Author: Loretta Harris PA-C Service: ? Author Type: Physician Health And Safety Tech Type: Progress Notes Filed: 12/01/2022 5:40 PM Note Text: This note was created using [employer]. Subjective Leola Isabel is a 42 year old female. HPI Patient presents with a chief complaint of left elbow pain for a month. Denies any injury or trauma. 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 She states she is uses her arms all day long. It is very painful to flex and extend the elbow. She has been using ibuprofen for pain. Review of Systems Constitutional: Negative. HENT: Negative. Respiratory: Negative. Cardiovascular: Negative. Gastrointestinal: Negative. Genitourinary: Negative. Musculoskeletal: Left elbow pain All other systems reviewed and are negative. PAST MEDICAL HISTORY Diagnosis Date Abnormal glandular Papanicolaou smear of cervix 04/09/2003 Abn. Pap smear (cervix) Adjustment disorder with depressed mood Asthma Esophageal reflux Migraine with aura, without mention of intractable migraine without mention of status migrainosus Unspecified asthma, with status asthmaticus Current Outpatient Medications Medication Sig Dispense Refill SUMAtriptan (IMITREX) 50 mg tablet Take one tablet by mouth at the onset of the headache. If no improvement in 2 hours take one more tablet. No more than 2 tablets in 24 hours 8 tablet 0 dicyclomine (BENTYL) 10 mg capsule Take 1 capsule by mouth three times daily as needed (for abdominal pain). 60 capsule 2 albuterol HFA (PROAIR HFA) 90 mcg/actuation inhaler Inhale 2 Puffs as instructed every 4 hours as needed. 1 Each 0 ondansetron orally disintegrating (ZOFRAN ODT) 4 mg disintegrating tablet Take 1 tablet by mouth every 6 hours as needed for nausea/vomiting. 8 tablet 3 predniSONE (DELTASONE) 20 mg tablet Take 2 tablets by mouth once daily for 5 days. 10 tablet 0 polyethylene glycol 3350 (MIRALAX) 17 gram/dose powder Take 17 g by mouth once daily. Dissolve dose in 4 - 8 ounces of liquid and take as directed. (Patient not taking: Reported on 10/15/2022) 595 g 2 topiramate (TOPAMAX) 25 mg tablet Take one pill daily for seven days and then increase to one pill two times a day. (Patient not taking: Reported on 08/17/2022) [address] (PROTONIX) 20 mg tablet Take 1 tablet by mouth daily before breakfast. Take on empty stomach, 1/2 hr before meal. (Patient not taking: Reported on 10/15/2022) 30 tablet 2 Current Facility-Administered Medications Medication Dose Route Frequency Provider Last Rate Last Admin cyanocobalamin 1,000 mcg injection 1,000 mcg INTRAMUSCULAR q 4 WEEKS Saúl Andrade MD 1,000 mcg at 10/15/22 1254 Facility-Administered Medications Ordered in Other Visits Medication Dose Route Frequency Provider Last Rate Last Admin lidocaine (PF) 10 mg/mL (1 %) 1-2 mg injection (XYLOCAINE) 0.1-0.2 mL INTRADERMAL PRN Jose F Teresa MD lactated ringers iv infusion 30 mL/hr INTRAVENOUS CONTINUOUS Jose F Teresa MD PAST SURGICAL HISTORY Procedure Laterality Date BILIARY NDSC INTRAOPERATIVE 11/12/2007 COLONOSCOPY 05/12/2022 EGD W/O BRSH SPEC VARICIES INJ 05/12/2022 IANDD OF BARTHOL[place] GLAND ABSCESS 09/07/2008 LAPS SURG CHOLECSTC W/EXPL COMMON DUCT 11/12/2007 FAMILY HISTORY Problem Relation Age of Onset Alcohol/Drug Mother other (lupus) Mother Alcohol/Drug Father Asthma Sister Seizures Sister other (diverticulosis) Maternal Grandmother Social History Tobacco Use Smoking status: Former Packs/day: 1 Types: Cigarettes Smokeless tobacco: Current Tobacco comments: Vapes Vaping Use Vaping Use: current everyday user Substances: Nicotine, THC Devices: Disposable Substance Use Topics Alcohol use: No Drug use: No Objective BP 128/84 Pulse 90 Temp 36.8 ?C (98.3 ?F) Resp 16 Wt 70.3 kg (155 lb) LMP 08/13/2008 SpO2 99% BMI 26.61 kg/m? Physical Exam Vitals reviewed. Constitutional: Appearance: Normal appearance. HENT: Head: Normocephalic and atraumatic. Musculoskeletal: Comments: Exam of the left elbow reveals tenderness to palpation to the lateral epicondyle. Some mild swelling noted. No erythema. She does have pain with flexion and extension of the elbow. Mild pain on pronation and supination. No tenderness to the medial epicondyle or olecranon. Radial pulse 2+. Normal hand grasp strength. Skin: General: Skin is warm and dry. Neurological: Mental Status: She is alert. Assessment and Plan ASSESSMENT/PLAN: 1. Elbow pain, left - ICD9: 719.42, ICD10: M25.522 X-rays are negative. Likely lateral epicondylitis. Given prescription for prednisone. Didier wrap applied. Discussed ice, rest. If not improving over the next 1 to 2 weeks follow-up with PCP. - XR ELBOW SPECIAL VIEWS AP/LAT/OTHER LEFT Loretta Harris PA-C [facility] 12-01-2022 History of Presen t illness Narrative This note was created using [employer]. Subjective Leola Isabel is a 42 year old female. HPI Patient presents with a chief complaint of left elbow pain for a month. Denies any injury or trauma. 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 She states she is uses her arms all day long. It is very painful to flex and extend the elbow. She has been using ibuprofen for pain. Review of Systems Constitutional: Negative. HENT: Negative. Respiratory: Negative. Cardiovascular: Negative. Gastrointestinal: Negative. Genitourinary: Negative. Musculoskeletal: Left elbow pain All other systems reviewed and are negative. PAST MEDICAL HISTORY Diagnosis Date Abnormal glandular Papanicolaou smear of cervix 04/09/2003 Abn. Pap smear (cervix) Adjustment disorder with depressed mood Asthma Esophageal reflux Migraine with aura, without mention of intractable migraine without mention of status migrainosus Unspecified asthma, with status asthmaticus Current Outpatient Medications Medication Sig Dispense Refill SUMAtriptan (IMITREX) 50 mg tablet Take one tablet by mouth at the onset of the headache. If no improvement in 2 hours take one more tablet. No more than 2 tablets in 24 hours 8 tablet 0 dicyclomine (BENTYL) 10 mg capsule Take 1 capsule by mouth three times daily as needed (for abdominal pain). 60 capsule 2 albuterol HFA (PROAIR HFA) 90 mcg/actuation inhaler Inhale 2 Puffs as instructed every 4 hours as needed. 1 Each 0 ondansetron orally disintegrating (ZOFRAN ODT) 4 mg disintegrating tablet Take 1 tablet by mouth every 6 hours as needed for nausea/vomiting. 8 tablet 3 predniSONE (DELTASONE) 20 mg tablet Take 2 tablets by mouth once daily for 5 days. 10 tablet 0 polyethylene glycol 3350 (MIRALAX) 17 gram/dose powder Take 17 g by mouth once daily. Dissolve dose in 4 - 8 ounces of liquid and take as directed. (Patient not taking: Reported on 10/15/2022) 595 g 2 topiramate (TOPAMAX) 25 mg tablet Take one pill daily for seven days and then increase to one pill two times a day. (Patient not taking: Reported on 08/17/2022) [address] (PROTONIX) 20 mg tablet Take 1 tablet by mouth daily before breakfast. Take on empty stomach, 1/2 hr before meal. (Patient not taking: Reported on 10/15/2022) 30 tablet 2 Current Facility-Administered Medications Medication Dose Route Frequency Provider Last Rate Last Admin cyanocobalamin 1,000 mcg injection 1,000 mcg INTRAMUSCULAR q 4 WEEKS Saúl Andrade MD 1,000 mcg at 10/15/22 1254 Facility-Administered Medications Ordered in Other Visits Medication Dose Route Frequency Provider Last Rate Last Admin lidocaine (PF) 10 mg/mL (1 %) 1-2 mg injection (XYLOCAINE) 0.1-0.2 mL INTRADERMAL PRN Jose F Teresa MD lactated ringers iv infusion 30 mL/hr INTRAVENOUS CONTINUOUS Jose F Teresa MD PAST SURGICAL HISTORY Procedure Laterality Date BILIARY NDSC INTRAOPERATIVE 11/12/2007 COLONOSCOPY 05/12/2022 EGD W/O BRSH SPEC VARICIES INJ 05/12/2022 I&D OF BARTHOLINS GLAND ABSCESS 09/07/2008 LAPS SURG CHOLECSTC W/EXPL COMMON DUCT 11/12/2007 FAMILY HISTORY Problem Relation Age of Onset Alcohol/Drug Mother other (lupus) Mother Alcohol/Drug Father Asthma Sister Seizures Sister other (diverticulosis) Maternal Grandmother Social History Tobacco Use Smoking status: Former Packs/day: 1 Types: Cigarettes Smokeless tobacco: Current Tobacco comments: Vapes Vaping Use Vaping Use: current everyday user Substances: Nicotine, THC Devices: Disposable Substance Use Topics Alcohol use: No Drug use: No Objective BP 128/84 Pulse 90 Temp 36.8 C (98.3 F) Resp 16 Wt 70.3 kg (155 lb) LMP 08/13/2008 SpO2 99% BMI 26.61 kg/m Physical Exam Vitals reviewed. Constitutional: Appearance: Normal appearance. HENT: Head: Normocephalic and atraumatic. Musculoskeletal: Comments: Exam of the left elbow reveals tenderness to palpation to the lateral epicondyle. Some mild swelling noted. No erythema. She does have pain with flexion and extension of the elbow. Mild pain on pronation and supination. No tenderness to the medial epicondyle or olecranon. Radial pulse 2+. Normal hand grasp strength. Skin: General: Skin is warm and dry. Neurological: Mental Status: She is alert. Assessment and Plan ASSESSMENT/PLAN: 1. Elbow pain, left - ICD9: 719.42, ICD10: M25.522 X-rays are negative. Likely lateral epicondylitis. Given prescription for prednisone. Didier wrap applied. Discussed ice, rest. If not improving over the next 1 to 2 weeks follow-up with PCP. - XR ELBOW SPECIAL VIEWS AP/LAT/OTHER LEFT Loretta Harris PA-C documented in this encounter [facility] 12-01-2022 History of Presen t illness Narrative Radiology Service Progress Note PATIENT NAME: Leola Isabel DATE OF SERVICE: December 01, 2022 TIME: 5:13 PM PATIENT IDENTITY VERIFICATION COMPLETED USING TWO (2) IDENTIFIERS: Name and Date of confirmed by patient verbally. FALL SCREENING: Has the patient had 2 falls in the last year or 1 fall with injury or currently using an Ambulatory Assistive Device (Walker, Cane, Wheelchair, Crutches, etc.)? No PATIENT GENDER DATA: Female. status: : No status: NO. PATIENT RELEVANT IMPLANT DATA REVIEWED: Yes RADIOLOGY DEPARTMENT: General X-ray: Exam(s) Completed: Upper Extremity X-Ray(s): Elbow, left PERIPHERAL IV DATA: Not applicable SIGNED BY: RT Dinesh(R) December 01, 2022 5:13 PM documented in this encounter [facility] 12-01-2022 Note HNO ID: [id number] Author: Rowena Bang RT(R) Service: Radiology Author Type: Technologist Type: Progress Notes Filed: 12/01/2022 5:26 PM Note Text: Radiology Service Progress Note PATIENT NAME: Leola Isabel DATE OF SERVICE: December 01, 2022 TIME: 5:13 PM PATIENT IDENTITY VERIFICATION COMPLETED USING TWO (2) IDENTIFIERS: Name and Date of confirmed by patient verbally. FALL SCREENING: Has the patient had 2 falls in the last year or 1 fall with injury or currently using an Ambulatory Assistive Device (Walker, Cane, Wheelchair, Crutches, etc.)? No PATIENT GENDER DATA: Female. status: : No status: NO. PATIENT RELEVANT IMPLANT DATA REVIEWED: Yes RADIOLOGY DEPARTMENT: General X-ray: Exam(s) Completed: Upper Extremity X-Ray(s): Elbow, left PERIPHERAL IV DATA: Not applicable SIGNED BY: RT Dinesh(R) December 01, 2022 5:13 PM [facility] 11-20-2022 Note HNO ID: [id number] Author: Riddhi Yeboah MD Service: ? Author Type: Physician Type: Progress Notes Filed: 11/20/2022 10:31 AM Note Text: UNIVERSAL PROTOCOL / SAFETY CHECKLIST Procedure to be Performed: EMG Sign In: A Moment of CARE was completed. Personnel directly involved with the procedure wore the appropriate PPE (Personal Protective Equipment). Patient/Surrogate Stated/Verified: PATIENT VERIFIED(optional for EMERGENT procedures): Patient name, Date of , Relevant allergies, and The intended procedure Time Out Communication: Intended patient and procedure match the source documents. Correct side/site marked and visible. Sign Out: SIGN OUT (optional for EMERGENT procedures): Post-procedure follow-up management communicated and Plan of Care Visit completed when applicable. Gabi Yeboah MD Staff, [facility] [place] Electronically signed November 20, 2022 10:30 AM [facility] 11-20-2022 History of Presen t illness Narrative UNIVERSAL PROTOCOL / SAFETY CHECKLIST Procedure to be Performed: EMG Sign In: A Moment of CARE was completed. Personnel directly involved with the procedure wore the appropriate PPE (Personal Protective Equipment). Patient/Surrogate Stated/Verified: PATIENT VERIFIED(optional for EMERGENT procedures): Patient name, Date of , Relevant allergies, and The intended procedure Time Out Communication: Intended patient and procedure match the source documents. Correct side/site marked and visible. Sign Out: SIGN OUT (optional for EMERGENT procedures): Post-procedure follow-up management communicated and Plan of Care Visit completed when applicable. Gabi Yeboah MD Staff, [facility] [place] Electronically signed November 20, 2022 10:30 AM documented in this encounter [facility] 11-06-2022 History of Presen t illness Narrative VIRTUAL VISIT PROGRESS NOTE This is a virtual visit using Audio Only Visit. It required patient-provider interaction for the medical decision making as documented below. I have communicated my name and active licensure. The patient's identity and physical location were verified at the time of this visit. Either the patient or their legal food service representative has been informed of the risks and benefits of -- and alternatives to -- treatment through a remote evaluation and consents to proceed with the evaluation remotely. Leola Isabel is a 42 year old female seen for US follow up of ganglion cyst. Still complains of pain and numbness in wrist.. HISTORY REVIEWED (electronic chart updated): PAST MEDICAL HISTORY Diagnosis Date Abnormal glandular Papanicolaou smear of cervix 04/09/2003 Abn. Pap smear (cervix) Adjustment disorder with depressed mood Asthma Esophageal reflux Migraine with aura, without mention of intractable migraine without mention of status migrainosus Unspecified asthma, with status asthmaticus PAST SURGICAL HISTORY Procedure Laterality Date BILIARY NDSC INTRAOPERATIVE 11/12/2007 COLONOSCOPY 05/12/2022 EGD W/O BRSH SPEC VARICIES INJ 05/12/2022 I&D OF BARTHOLINS GLAND ABSCESS 09/07/2008 LAPS SURG CHOLECSTC W/EXPL COMMON DUCT 11/12/2007 FAMILY HISTORY Problem Relation Age of Onset Alcohol/Drug Mother other (lupus) Mother Alcohol/Drug Father Asthma Sister Seizures Sister other (diverticulosis) Maternal Grandmother Social History Tobacco Use Smoking status: Former Packs/day: 1 Types: Cigarettes Smokeless tobacco: Current Tobacco comments: Vapes Vaping Use Vaping Use: current everyday user Substances: Nicotine, THC Devices: Disposable Substance Use Topics Alcohol use: No Drug use: No Current Outpatient Medications Medication Sig SUMAtriptan (IMITREX) 50 mg tablet Take one tablet by mouth at the onset of the headache. If no improvement in 2 hours take one more tablet. No more than 2 tablets in 24 hours polyethylene glycol 3350 (MIRALAX) 17 gram/dose powder Take 17 g by mouth once daily. Dissolve dose in 4 - 8 ounces of liquid and take as directed. (Patient not taking: Reported on 10/15/2022) dicyclomine (BENTYL) 10 mg capsule Take 1 capsule by mouth three times daily as needed (for abdominal pain). albuterol HFA (PROAIR HFA) 90 mcg/actuation inhaler Inhale 2 Puffs as instructed every 4 hours as needed. ondansetron orally disintegrating (ZOFRAN ODT) 4 mg disintegrating tablet Take 1 tablet by mouth every 6 hours as needed for nausea/vomiting. topiramate (TOPAMAX) 25 mg tablet Take one pill daily for seven days and then increase to one pill two times a day. (Patient not taking: Reported on 08/17/2022) pantoprazole DR (PROTONIX) 20 mg tablet Take 1 tablet by mouth daily before breakfast. Take on empty stomach, 1/2 hr before meal. (Patient not taking: Reported on 10/15/2022) Current Facility-Administered Medications Medication Dose Route Frequency cyanocobalamin 1,000 mcg injection 1,000 mcg INTRAMUSCULAR q 4 WEEKS Facility-Administered Medications Ordered in Other Visits Medication Dose Route Frequency lidocaine (PF) 10 mg/mL (1 %) 1-2 mg injection (XYLOCAINE) 0.1-0.2 mL INTRADERMAL PRN lactated ringers iv infusion 30 mL/hr INTRAVENOUS CONTINUOUS ALLERGIES Allergen Reactions Adhesive Rash Demerol [Meperidine* Rash Penicillins Rash Vicodin [Hydrocodon* Hives REVIEW OF SYSTEMS: All other ROS: negative As noted in HPI PHYSICAL EXAMINATION: VIDEO EXAM: (if completed, performed via video enabled technology) No exam performed IMPRESSION: 12 mm cystic structure at the right wrist in the area of palpable concern, most likely a ganglion. ASSESSMENT: No diagnosis found. PLAN: Emg of right upper extremity as still having pain, numbness, weakness in med nerve distribution on top of ganglion cyst Patient will follow up in clinic after EMG to discuss possible surgical options. There are no Patient Instructions on file for this visit. I spent a total of 20 minutes on the date of the service which included preparing to see the patient, [id number] patient care, completing clinical documentation, obtaining and/or reviewing separately obtained history, counseling and educating the patient/family/caregiver, ordering medications, tests, or procedures, communicating with other HCPs (not separately reported), independently interpreting results (not separately reported), communicating results to the patient/family/caregiver, and care coordination (not separately reported) Kala Villegas DO documented in this encounter [facility] 11-06-2022 Miscellaneous Notes Formattin g of this note might be different from the original. Called and left a message for patient letting her know we switched her virtual visit appt time to 3:30PM today as Dr. Villegas had an emergency surgery added on. Asked her to call back if she had any questions or if this time didn't work. MOHIT documented in this encounter [facility] 10-18-2022 Instructions Yeni Blackwell APRN.[employer]ICER [employer] - 10/18/2022 9:28 AM EDT ASSESSMENT/PLAN: 1. Headache, unspecified headache type - ICD9: 784.0, ICD10: R51.9 (primary diagnosis) - KETOROLAC 60 MG/2 ML INTRAMUSCULAR SOLUTION - DIPHENHYDRAMINE 50 MG CAPSULE - patient given Toradol, zofran and benadryl in office. Rest with lights off provided afterwards. Patient states headache pain is much better afterwards. 2. Nausea - ICD9: 787.02, ICD10: R11.0 - ONDANSETRON 4 MG DISINTEGRATING TABLET 3. Migraine with aura and without status migrainosus, not intractable - ICD9: 346.00, ICD10: G43.109 - SUMATRIPTAN 50 MG TABLET - follow up with PCP for further refills. - Follow-up with your PCP in 3-5 days if symptoms have not improved or sooner if symptoms worsen - Discussed red flags and need for immediate medical evaluation if any occur. - Discussed supportive care treatment with fluids, rest and analgesia. - Discussed expected course of illness Yeni Blackwell APRN.[employer] documented in this encounter [facility] 10-18-2022 History of Presen t illness Narrative Subjective Headache Associated symptoms include nausea and vomiting. Pertinent negatives include no fever. Leola Isabel is a 42 year old female who presents with a headache since yesterday. She has tried Ibuprofen and sinus medication and allergy pills and nothing has helped. She has a history of migraines and typically takes Imitrex, but she ran out of the medication. She has some nausea and vomited twice yesterday morning, but since has been able to keep food and fluids down. She rates her pain 9/10 and states it is a sharp throbbing pain located on the right side of her head behind her eye. She denies any fever or associated URI symptoms. She denies any weakness or dizziness or sensory changes. Review of Systems Constitutional: Negative for chills and fever. Eyes: Positive for photophobia. Negative for blurred vision and double vision. Respiratory: Negative. Cardiovascular: Negative. Gastrointestinal: Positive for nausea and vomiting. Neurological: Positive for headaches. Negative for tingling, tremors, sensory change, speech change, focal weakness and weakness. BP 108/68 Pulse 66 Temp 36.1 C (97 F) Resp 16 Wt 63.5 kg (140 lb) LMP 08/13/2008 SpO2 99% BMI 24.03 kg/m PAST MEDICAL HISTORY Diagnosis Date Abnormal glandular Papanicolaou smear of cervix 04/09/2003 Abn. Pap smear (cervix) Adjustment disorder with depressed mood Asthma Esophageal reflux Migraine with aura, without mention of intractable migraine without mention of status migrainosus Unspecified asthma, with status asthmaticus PAST SURGICAL HISTORY Procedure Laterality Date BILIARY NDSC INTRAOPERATIVE 11/12/2007 COLONOSCOPY 05/12/2022 [facility] 05/12/2022 I&D OF BARTHOLINS GLAND ABSCESS 09/07/2008 LAPS SURG CHOLECSTC W/EXPL COMMON DUCT 11/12/2007 ALLERGIES Adhesive, Demerol [Meperidine (Pf)], Penicillins, and Vicodin [Hydrocodone-Acetaminophen] MEDICATIONS dicyclomine (BENTYL) 10 mg capsule^Take 1 capsule by mouth three times daily as needed (for abdominal pain).^Disp: 60 capsule^Rfl: 2 albuterol HFA (PROAIR HFA) 90 mcg/actuation inhaler^Inhale 2 Puffs as instructed every 4 hours as needed.^Disp: 1 Each^Rfl: 0 ondansetron orally disintegrating (ZOFRAN ODT) 4 mg disintegrating tablet^Take 1 tablet by mouth every 6 hours as needed for nausea/vomiting.^Disp: 8 tablet^Rfl: 3 SUMAtriptan (IMITREX) 50 mg tablet^Take one tablet by mouth at the onset of the headache. If no improvement in 2 hours take one more tablet. No more than 2 tablets in 24 hours^Disp: 8 tablet^Rfl: 0 polyethylene glycol 3350 (MIRALAX) 17 gram/dose powder^Take 17 g by mouth once daily. Dissolve dose in 4 - 8 ounces of liquid and take as directed.^Disp: 595 g^Rfl: 2 (Patient not taking: Reported on 10/15/2022) topiramate (TOPAMAX) 25 mg tablet^Take one pill daily for seven days and then increase to one pill two times a day.^Disp: 60 tablet^Rfl: 3 (Patient not taking: Reported on 08/17/2022) pantoprazole DR (PROTONIX) 20 mg tablet^Take 1 tablet by mouth daily before breakfast. Take on empty stomach, 1/2 hr before meal.^Disp: 30 tablet^Rfl: 2 (Patient not taking: Reported on 10/15/2022) FAMILY HISTORY Problem Relation Age of Onset Alcohol/Drug Mother other (lupus) Mother Alcohol/Drug Father Asthma Sister Seizures Sister other (diverticulosis) Maternal Grandmother Social History Tobacco Use Smoking status: Former Packs/day: 1 Types: Cigarettes Smokeless tobacco: Current Tobacco comments: Vapes Vaping Use Vaping Use: current everyday user Substances: Nicotine, THC Devices: Disposable Substance Use Topics Alcohol use: No Drug use: No Objective Physical Exam Vitals and nursing note reviewed. Constitutional: Appearance: Normal appearance. Eyes: Extraocular Movements: Extraocular movements intact. Right eye: No nystagmus. Left eye: No nystagmus. Pupils: Pupils are equal, round, and reactive to light. Cardiovascular: Rate and Rhythm: Normal rate and regular rhythm. Heart sounds: Normal heart sounds. Pulmonary: Effort: Pulmonary effort is normal. No respiratory distress. Breath sounds: Normal breath sounds. No wheezing or rales. Skin: General: Skin is warm and dry. Neurological: General: No focal deficit present. Mental Status: She is alert and oriented to person, place, and time. Motor: Motor function is intact. Coordination: Coordination is intact. Gait: Gait is intact. ASSESSMENT/PLAN: 1. Headache, unspecified headache type - ICD9: 784.0, ICD10: R51.9 (primary diagnosis) - KETOROLAC 60 MG/2 ML INTRAMUSCULAR SOLUTION - DIPHENHYDRAMINE 50 MG CAPSULE - patient given Toradol, zofran and benadryl in office. Rest with lights off provided afterwards. Patient states headache pain is much better afterwards. 2. Nausea - ICD9: 787.02, ICD10: R11.0 - ONDANSETRON 4 MG DISINTEGRATING TABLET 3. Migraine with aura and without status migrainosus, not intractable - ICD9: 346.00, ICD10: G43.109 - SUMATRIPTAN 50 MG TABLET - follow up with PCP for further refills. - Follow-up with your PCP in 3-5 days if symptoms have not improved or sooner if symptoms worsen - Discussed red flags and need for immediate medical evaluation if any occur. - Discussed supportive care treatment with fluids, rest and analgesia. - Discussed expected course of illness Yeni Blackwell APRN.[employer] documented in this encounter [facility] 10-15-2022 Note HNO ID: [id number] Author: Christen Aguirre, TECHNOLOGIST Service: ? Author Type: Technologist Type: Progress Notes Filed: 10/15/2022 4:57 PM Note Text: Radiology Service Progress Note PATIENT NAME: Leola Isabel DATE OF SERVICE: October 15, 2022 TIME: 4:57 PM PATIENT IDENTITY VERIFICATION COMPLETED USING TWO (2) IDENTIFIERS: Name and Date of confirmed by patient verbally. FALL SCREENING: Has the patient had 2 falls in the last year or 1 fall with injury or currently using an Ambulatory Assistive Device (Walker, Cane, Wheelchair, Crutches, etc.)? No PATIENT GENDER DATA: Female. status: : No status: NO. PATIENT RELEVANT IMPLANT DATA REVIEWED: Yes RADIOLOGY DEPARTMENT: Ultrasound PERIPHERAL IV DATA: Not applicable SIGNED BY: Christen Aguirre TECHNOLOGIST October 15, 2022 4:57 PM [facility] 10-15-2022 History of Presen t illness Narrative Patient presents for B-12 injection. Denies any problems at this time. Patient instructed on any SE of medication, verbalized understanding and agreed to proceed with treatment. Tolerated injection well. Rosie Chapman LPN documented in this encounter [facility] 09-21-2022 Miscellaneous Notes Formattin g of this note might be different from the original. 1st attempt left message to return call. Please assist in scheduling 6 mo call back for Dx mammography due in Mar 2023 Recent diagnostic mammogram recommending repeat in 6 months to evaluate for any changes. Patient should be aware of this and told prior to her leaving the mammogram appointment. Repeat mammogram and US ordered. Please assist with scheduling Thank you Dona Randhawa APRN.CNP documented in this encounter [facility] 09-16-2022 History of Presen t illness Narrative Radiology Service Progress Note PATIENT NAME: Leola Isabel DATE OF SERVICE: September 16, 2022 TIME: 3:51 PM PATIENT IDENTITY VERIFICATION COMPLETED USING TWO (2) IDENTIFIERS: Name and Date of confirmed by patient verbally. FALL SCREENING: Has the patient had 2 falls in the last year or 1 fall with injury or currently using an Ambulatory Assistive Device (Walker, Cane, Wheelchair, Crutches, etc.)? No PATIENT GENDER DATA: Female. status: : No status: NO. PATIENT RELEVANT IMPLANT DATA REVIEWED: Not Applicable RADIOLOGY DEPARTMENT: Mammography PERIPHERAL IV DATA: Not applicable SIGNED BY: RT Al(R) September 16, 2022 3:51 PM documented in this encounter [facility] 08-17-2022 History of Presen t illness Narrative Radiology Service Progress Note PATIENT NAME: Leola Isabel DATE OF SERVICE: August 17, 2022 TIME: 5:12 PM PATIENT IDENTITY VERIFICATION COMPLETED USING TWO (2) IDENTIFIERS: Name and Date of confirmed by patient verbally. FALL SCREENING: Has the patient had 2 falls in the last year or 1 fall with injury or currently using an Ambulatory Assistive Device (Walker, Cane, Wheelchair, Crutches, etc.)? No PATIENT GENDER DATA: Female. status: : No status: NO. PATIENT RELEVANT IMPLANT DATA REVIEWED: Not Applicable RADIOLOGY DEPARTMENT: General X-ray: Exam(s) Completed: Upper Extremity X-Ray(s): Wrist, right PERIPHERAL IV DATA: Not applicable SIGNED BY: RT Tyrone(R) August 17, 2022 5:12 PM documented in this encounter [facility] 08-17-2022 History of Presen t illness Narrative Images from the original note were not included. This note was created using [employer]aren[employer]. Subjective Leola Isabel is a 42 year old female. HPI Presents with a bump on her right wrist over the past 5 days. She states it is painful and sometimes she had some tingling up into her arm. She denies any injury. She was holding her coffee cup. She felt something pop in her wrist. She is right-handed. No other complaints today. Review of Systems Constitutional: Negative. HENT: Negative. Respiratory: Negative. Cardiovascular: Negative. Gastrointestinal: Negative. Musculoskeletal: Right wrist pain and bump All other systems reviewed and are negative. PAST MEDICAL HISTORY Diagnosis Date Abnormal glandular Papanicolaou smear of cervix 04/09/2003 Abn. Pap smear (cervix) Adjustment disorder with depressed mood Asthma Esophageal reflux Migraine with aura, without mention of intractable migraine without mention of status migrainosus Unspecified asthma, with status asthmaticus Current Outpatient Medications Medication Sig Dispense Refill polyethylene glycol 3350 (MIRALAX) 17 gram/dose powder Take 17 g by mouth once daily. Dissolve dose in 4 - 8 ounces of liquid and take as directed. 595 g 2 dicyclomine (BENTYL) 10 mg capsule Take 1 capsule by mouth three times daily as needed (for abdominal pain). 60 capsule 2 SUMAtriptan (IMITREX) 50 mg tablet Take one tablet by mouth at the onset of the headache. If no improvement in 2 hours take one more tablet. No more than 2 tablets in 24 hours 8 tablet 3 albuterol HFA (PROAIR HFA) 90 mcg/actuation inhaler Inhale 2 Puffs as instructed every 4 hours as needed. 1 Each 0 ondansetron orally disintegrating (ZOFRAN ODT) 4 mg disintegrating tablet Take 1 tablet by mouth every 6 hours as needed for nausea/vomiting. 8 tablet 3 topiramate (TOPAMAX) 25 mg tablet Take one pill daily for seven days and then increase to one pill two times a day. (Patient not taking: Reported on 08/17/2022) [address] (PROTONIX) 20 mg tablet Take 1 tablet by mouth daily before breakfast. Take on empty stomach, 1/2 hr before meal. 30 tablet 2 Current Facility-Administered Medications Medication Dose Route Frequency Provider Last Rate Last Admin cyanocobalamin 1,000 mcg injection 1,000 mcg INTRAMUSCULAR q 4 WEEKS Saúl Andrade MD 1,000 mcg at 08/13/22 1545 Facility-Administered Medications Ordered in Other Visits Medication Dose Route Frequency Provider Last Rate Last Admin lidocaine (PF) 10 mg/mL (1 %) 1-2 mg injection (XYLOCAINE) 0.1-0.2 mL INTRADERMAL PRN Jose F Teresa MD lactated ringers iv infusion 30 mL/hr INTRAVENOUS CONTINUOUS Jose F Teresa MD PAST SURGICAL HISTORY Procedure Laterality Date BILIARY NDSC INTRAOPERATIVE 11/12/2007 COLONOSCOPY 05/12/2022 EGD W/O BRSH SPEC VARICIES INJ 05/12/2022 I&D OF BARTHOLINS GLAND ABSCESS 09/07/2008 LAPS SURG CHOLECSTC W/EXPL COMMON DUCT 11/12/2007 FAMILY HISTORY Problem Relation Age of Onset Alcohol/Drug Mother other (lupus) Mother Alcohol/Drug Father Asthma Sister Seizures Sister other (diverticulosis) Maternal Grandmother Social History Tobacco Use Smoking status: Former Packs/day: 1.00 Types: Cigarettes Smokeless tobacco: Never Vaping Use Vaping Use: current everyday user Substances: Nicotine, THC Devices: Disposable Substance Use Topics Alcohol use: No Drug use: No Objective BP 122/80 Pulse 86 Temp 36.6 C (97.8 F) Resp 16 Wt 66.7 kg (147 lb) LMP 08/13/2008 SpO2 99% BMI 25.23 kg/m Physical Exam Vitals reviewed. Constitutional: Appearance: Normal appearance. HENT: Head: Normocephalic and atraumatic. Musculoskeletal: Hands: Comments: Patient has a lump palpated over the dorsal right wrist. Soft. It is tender on palpation. No erythema. Consistent with probable ganglion cyst. Skin: General: Skin is warm and dry. Neurological: Mental Status: She is alert. Assessment and Plan ASSESSMENT/PLAN: 1. Right wrist pain - ICD9: 719.43, ICD10: M25.531 Likely ganglion cyst. X-ray here unremarkable. Recommended rest, ice, may trial Didier wrap. Follow-up with orthopedics if not improving. Patient agreeable. - XR WRIST INJURY 4V PA/LAT/OBL/SCAPH RIGHT - CONSULT TO ORTHOPAEDICS Loretta Harris PA-C documented in this encounter [facility] 08-13-2022 History of Presen t illness Narrative Patient presents for B-12 injection. Denies any problems at this time. Patient instructed on any SE of medication, verbalized understanding and agreed to proceed with treatment. Tolerated injection well. Rosie Chapman LPN documented in this encounter [facility] 07-27-2022 Miscellaneous Notes Formattin g of this note might be different from the original. Patient called to schedule callback mammogram documented in this encounter [facility] 07-24-2022 Miscellaneous Notes Formattin g of this note might be different from the original. Patient notified and number given to schedule. Please let patient know that further views are needed of her right breast. Orders are placed. Thank you Dona Randhawa APRN.TONE documented in this encounter [facility] 07-08-2022 Miscellaneous Notes Formattin g of this note might be different from the original. July 08, 2022 PID: [id number] Leola Isabel [address] [place] [address] Dear Ms. Isabel, Your recent breast imaging exam on 07/07/2022 showed a possible finding that requires additional imaging studies for a complete evaluation. Most such findings are probably benign (not cancer). Your mammogram demonstrates that you have dense breast tissue, which could hide abnormalities. Dense breast tissue, in and of itself, is a relatively common condition. Therefore, this information is not provided to cause undue concern; rather, it is to raise your awareness and promote discussion with your health care provider regarding the presence of dense breast tissue in addition to other risk factors. If you have a healthcare provider who ordered/prescribed your screening mammogram: Please call [phone] or [phone]: [phone] to schedule an appointment for your additional imaging (if you have not already done so). If you DO NOT have a healthcare provider (ie you did not have an order/prescription for your screening mammogram): Please call to schedule an appointment for your additional imaging (if you have not already done so). You must have an order/prescription from your physician when calling to schedule your appointment. If your order/prescription is not electronic, you must bring the hard copy with you on the day of your exam to avoid delays. Your imaging studies and reports are kept on file at [facility] as part of your permanent medical record, and are available for your continuing care. Thank you for allowing us to help in meeting your health care needs. Sincerely, Dr. House Interpreting Radiologist [facility] (Additional imaging) documented in this encounter [facility] 07-07-2022 History of Presen t illness Narrative Radiology Service Progress Note PATIENT NAME: Leola Isabel DATE OF SERVICE: July 07, 2022 TIME: 4:01 PM PATIENT IDENTITY VERIFICATION COMPLETED USING TWO (2) IDENTIFIERS: Name and Date of confirmed by patient verbally. FALL SCREENING: Has the patient had 2 falls in the last year or 1 fall with injury or currently using an Ambulatory Assistive Device (Walker, Cane, Wheelchair, Crutches, etc.)? No PATIENT GENDER DATA: Female. status: : No status: NO. PATIENT RELEVANT IMPLANT DATA REVIEWED: Not Applicable RADIOLOGY DEPARTMENT: Mammography PERIPHERAL IV DATA: Not applicable SIGNED BY: RT Carmen(R) July 07, 2022 4:01 PM documented in this encounter [facility] 06-05-2022 History of Presen t illness Narrative Patient presents for B-12 injection. Denies any problems at this time. Patient instructed on any SE of medication, verbalized understanding and agreed to proceed with treatment. Tolerated injection well. Rosie Chapman LPN documented in this encounter [facility] 05-12-2022 Nurse Note Discharge instructions given and patient voices understanding. All questions answered. Chato Wheat RN [facility] 05-12-2022 Nurse Note Discharge instructions given and patient voices understanding. All questions answered. Chato Wheat RN Physician at bedside. documented in this encounter [facility] 05-12-2022 Nurse Note Physician at bedside. [facility] 05-12-2022 Anesthesiology Preoperative evaluation and management note HISTORY AND PHYSICAL Leoal Dixon Isabel, 42 year old female Current history and physical on file: No Is a new History and Physical required for today's visit? Yes Indication for procedure: GERD; change in bowel habitus PROCEDURE(S) SCHEDULED FOR: EGD (Esophagogastroduodenoscopy) with or without biopsies, removal of polyps or lesions, dilation ( any means), treatment of bleeding ( any means), Barrx treatment of Amadeo's Esophagus, image tube placement or cryo therapy treatment based on clinical findings. Colonoscopy with biopsy or polypectomy BASELINE BEHAVIOR: Calm BASELINE ORIENTATION: A & O x3 All medications and allergies reviewed: Yes Skin Assessment: Warm dry mucus membranes pink Airway/Respiratory Assessment: Airway: visualization of the uvula- Yes Mouth: opening greater than 2 fingerbreadths- Yes Neck: full range of motion- Yes Breath sounds clear/equal- Yes Cardiac Assessment: Regular rate and rhythm without murmur Abdominal Assessment: Abdomen soft, non-tender, no masses or organomegaly. Sedation Plan: Moderate Additional Comments: None Jose F Teresa MD [facility] Work Phone: 05-12-2022 Miscellaneous Notes Formattin g of this note might be different from the original. HISTORY AND PHYSICAL Leola Isabel, 42 year old female Current history and physical on file: No Is a new History and Physical required for today's visit? Yes Indication for procedure: GERD; change in bowel habitus PROCEDURE(S) SCHEDULED FOR: EGD (Esophagogastroduodenoscopy) with or without biopsies, removal of polyps or lesions, dilation ( any means), treatment of bleeding ( any means), Barrx treatment of Amadeo's Esophagus, image tube placement or cryo therapy treatment based on clinical findings. Colonoscopy with biopsy or polypectomy BASELINE BEHAVIOR: Calm BASELINE ORIENTATION: A & O x3 All medications and allergies reviewed: Yes Skin Assessment: Warm dry mucus membranes pink Airway/Respiratory Assessment: Airway: visualization of the uvula- Yes Mouth: opening greater than 2 fingerbreadths- Yes Neck: full range of motion- Yes Breath sounds clear/equal- Yes Cardiac Assessment: Regular rate and rhythm without murmur Abdominal Assessment: Abdomen soft, non-tender, no masses or organomegaly. Sedation Plan: Moderate Additional Comments: None Jose F Teresa MD documented in this encounter [facility] 05-05-2022 History of Presen t illness Narrative Patient presents for B-12 injection. Denies any problems at this time. Patient instructed on any SE of medication, verbalized understanding and agreed to proceed with treatment. Tolerated injection well. Rosie Chapman LPN documented in this encounter [facility] 04-08-2022 History of Presen t illness Narrative Patient presents for B-12 injection. Denies any problems at this time. Patient instructed on any SE of medication, verbalized understanding and agreed to proceed with treatment. Tolerated injection well. Rosie Chapman LPN documented in this encounter [facility] 04-02-2022 Instructions Noelle Sandoval PA-C - 04/02/2022 1:13 PM EST Images from the original note were not included. Recommend high protein, high fiber diet. Promotion of salivation through oral lozenges/chewing gum Drink plenty of water Avoid NSAIDs (such as Advil, Ibuprofen, Excedrin, Mobic), tobacco, alcohol, carbonated beverages, caffeine, chocolate, tomato based sauces, spicy/fatty foods, and peppermint Avoid eating less than 3 hours before bed. Elevate the head of the bed 6 inches, or invest in a wedge pillow. Laying on left side with head elevated may help alleviate reflux symptoms. Bowel Preparation Instructions for: Miralax-Gatorade Preparations IF YOU DO NOT FOLLOW THESE DIRECTIONS, YOUR COLONOSCOPY WILL BE CANCELLED. [place] Instructions: Your bowel must be empty so that your doctor can clearly view your colon. Follow all of the instructions in this handout EXACTLY as they are written. Do NOT eat any solid food the ENTIRE day before your colonoscopy. Buy your bowel preparation at least 5 days before your colonoscopy. Four (4) Dulcolax laxative tablets containing 5mg of bisacodyl each (NOT Dulcolax stool softener) One (1) 8.3oz. bottle Miralax (238 grams) or generic equivalent 2 x 32oz. Bottles of Gatorade (NOT RED) Diabetic Patients: Use G2 (Gatorade 2) TRANSPORTATION on the Day of Your Exam A responsible adult MUST be present with you at Check In prior to your colonoscopy and REMAIN in the endoscopy area until you are discharged. You are NOT ALLOWED to drive, take a taxi or bus, or leave the Endoscopy Center ALONE. If you do not have a responsible mobile lounge driver (family member or friend) with you to take you home, your exam cannot be done with sedation and will be cancelled. Please bring a list of all of your current medications, including any Hper-msw-Xmhzukx medications with you. Medications If you take insulin, diabetic medications or blood thinners such as Coumadin (warfarin), Plavix (clopidogrel), Ticlid (ticlopidine hydrochloride), Agrylin (anagrelide), Xarelto (Rivaroxaban), Pradaxa (Dabigatran), Eliquis (Apixaban), and Effient (Prasugrel). You MUST call the doctors who orders those medicines for instructions on altering the dosage before your colonoscopy. All other medications should be taken the day of the exam with a sip of water including ASPIRIN. Five (5) Days Before Your Colonoscopy Do NOT take medicines that stop diarrhea - such as Imodium, Kaopectate, or Pepto Bismol. Do NOT take fiber supplements - such as Metamucil, Citrucel, or Perdiem. Do NOT take products that contain iron - such as multi-vitamins (the label lists what is in the products). Three (3) Days Before Your Colonoscopy Do NOT eat high-fiber foods - such as popcorn, beans, seeds (flax, sunflower, quinoa), multigrain bread, nuts, salad/vegetables, or fresh and dried fruit. 1 Bowel Preparation Instructions for: Miralax-Gatorade Preparations One (1) Day Before Your Colonoscopy Only drink clear liquids the ENTIRE DAY before your colonoscopy. Do NOT eat any solid foods. Drink at least 8 ounces of clear liquids every hour after waking up. The clear liquids you can drink include: Clear Liquid (NO RED LIQUIDS) DO NOT DRINK Gatorade, Pedialyte or Powerade Clear broth or bouillon Coffee or tea (no milk or non-dairy creamer) Carbonated and non-carbonated soft drinks Rubin-Aid or other fruit flavored drinks Strained fruit juices (no pulp) Jell-O, popsicles, hard candy Water Alcohol Milk or non-dairy creamers Noodles or vegetables in soup Juice with pulp Liquid you cannot see through Do not use tobacco/vaping products Mix 1/2 of Miralax bottle (119 grams) in each 32 ounces of Gatorade bottle until dissolved. Keep cool in the refrigerator. DO NOT ADD ICE. The bowel preparation solution will be consumed in two parts. Part 1 5:00 PM - Evening before your colonoscopy Take 4 Dulcolax tablets. 6 PM - Evening before your colonoscopy Drink 32 oz. of the mixed solution. Drink an 8 oz. glass of bowel preparation every 15 minutes for a total of 4 glasses. Fifteen (15) minutes later, drink an 8 oz. glass of of clear liquids every 15 minutes for a total of 2 glasses. You may continue to drink clear liquids till midnight. Part 2 On the day of your colonoscopy you may drink clear liquids up to (three) 3 hours prior to procedure. 4 1/2 hours before your colonoscopy Take another 32 oz. bottle of mixed solution. Drink an 8 oz. glass of bowel prep every 15 minutes for a total of 4 glasses. Fifteen (15) minutes later, drink an 8 oz. glass of clear liquids every 15 minutes for a total of 2 glasses. You may continue to drink clear liquids up to (three) 3 hours before your exam. 2 01/2019 documented in this encounter [facility] 04-02-2022 History of Presen t illness Narrative CHIEF COMPLAINT: Patient presents with: Alternating bowel habits: Labs 02/26/22 HPI: Leola Isabel is a 41 year old female who presents for Alternating bowel habits (Labs 02/26/22). Surg hx positive for cholecystectomy. Admits to chronic GI sx of alternating bowel habits, heartburn for the past several years. Unintentional weight loss of 20-25 lbs in the past 2-3 years. Started Protonix 40 mg a few weeks ago, includes she takes this every other day. Notes some improvement with this. Bms are at least one per day, constipated/diarrhea, no blood. Tried Miralax every other day/PRN felt like it did not help much. Abd pain is in lower abd, improves partially with BM, intermittent, 10/10. Denies regular NSAID usage, family hx of GI related cancers. Cousin w/ Celiac Component Latest Ref Rng & Units 02/26/2022 WBC 3.70 - 11.00 k/uL 8.52 RBC 3.90 - 5.20 m/uL 4.65 Hemoglobin 11.5 - 15.5 g/dL 14.7 Hematocrit 36.0 - 46.0 % 43.8 MCV 80.0 - 100.0 fL 94.2 MCH 26.0 - 34.0 pg 31.6 MCHC 30.5 - 36.0 g/dL 33.6 RDW-CV 11.5 - 15.0 % 13.0 Platelet Count 150 - 400 k/uL 191 MPV 9.0 - 12.7 fL 11.0 Neut% % 59.7 Abs Neut (ANC) 1.45 - 7.50 k/uL 5.09 Lymph% % 31.1 Abs Lymph 1.00 - 4.00 k/uL 2.65 Story% % 7.4 Abs Story <0.87 k/uL 0.63 Eosin% % 1.3 Abs Eosin <0.46 k/uL 0.11 Baso% % 0.4 Abs Baso <0.11 k/uL 0.03 Immature Gran % % 0.1 IMMATURE GRANS (ABS) <0.10 k/uL <0.03 NRBC /100 WBC 0.0 Absolute nRBC <0.01 k/uL <0.01 DTYPE Auto Protein, Total 6.3 - 8.0 g/dL 7.5 Albumin 3.9 - 4.9 g/dL 4.7 Calcium 8.5 - 10.2 mg/dL 9.6 Bilirubin, Total 0.2 - 1.3 mg/dL 0.6 Alkaline Phosphatase 34 - 123 U/L 74 AST 13 - 35 U/L 17 ALT 7 - 38 U/L 12 Glucose 74 - 99 mg/dL 91 BUN 7 - 21 mg/dL 12 Creatinine 0.58 - 0.96 mg/dL 0.78 Sodium 136 - 144 mmol/L 142 Potassium 3.7 - 5.1 mmol/L 4.4 Chloride 97 - 105 mmol/L 105 CO2 22 - 30 mmol/L 26 Anion Gap 9 - 18 mmol/L 11 eGFR >=60 mL/min/1.73m 99 TSH 0.270 - 4.200 mIU/L 1.260 Hep C Antibody IA Negative Negative Vitamin B12 232 - 1,245 pg/mL 242 Vitamin D 25 Hydroxy 31.0 - 80.0 ng/mL 17.5 (L) Record Review: [facility] / Outside records reviewed. PAST MEDICAL HISTORY Diagnosis Date Abnormal glandular Papanicolaou smear of cervix - Abn. Pap smear (cervix) Adjustment disorder with depressed mood Esophageal reflux Migraine with aura, without mention of intractable migraine without mention of status migrainosus Unspecified asthma, with status asthmaticus PAST SURGICAL HISTORY Procedure Laterality Date BILIARY NDSC INTRAOPERATIVE 11-12-07 I&D OF BARTHOLINS GLAND ABSCESS 09/07/2008 LAPS SURG CHOLECSTC W/EXPL COMMON DUCT 11-12-07 Allergies: ALLERGIES Allergen Reactions Adhesive Rash Demerol [Meperidine* Rash Penicillins Rash Vicodin [Hydrocodon* Hives Medications: SUMAtriptan (IMITREX) 50 mg tablet^Take one tablet by mouth at the onset of the headache. If no improvement in 2 hours take one more tablet. No more than 2 tablets in 24 hours^Disp: 8 tablet^Rfl: 3 albuterol HFA (PROAIR HFA) 90 mcg/actuation inhaler^Inhale 2 Puffs as instructed every 4 hours as needed.^Disp: 1 Each^Rfl: 0 ondansetron orally disintegrating (ZOFRAN ODT) 4 mg disintegrating tablet^Take 1 tablet by mouth every 6 hours as needed for nausea/vomiting.^Disp: 8 tablet^Rfl: 3 topiramate (TOPAMAX) 25 mg tablet^Take one pill daily for seven days and then increase to one pill two times a day.^Disp: 60 tablet^Rfl: [address] (PROTONIX) 20 mg tablet^Take 1 tablet by mouth daily before breakfast. 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 Gas, Heartburn All other systems reviewed and are negative. Are you taking any blood thinners? No Physical Examination: BP 118/72 Pulse 92 Ht 162.6 cm (5' 4 ) Wt 64 kg (141 lb) LMP 08/13/2008 BMI 24.20 kg/m Physical Exam Constitutional: General: She is not in acute distress. Appearance: Normal appearance. She is normal weight. She is not ill-appearing, toxic-appearing or diaphoretic. HENT: Head: Normocephalic and atraumatic. Nose: Nose normal. Eyes: General: No scleral icterus. Right eye: No discharge. Left eye: No discharge. Extraocular Movements: Extraocular movements intact. Conjunctiva/sclera: Conjunctivae normal. Pupils: Pupils are equal, round, and reactive to light. Cardiovascular: Rate and Rhythm: Normal rate and regular rhythm. Pulses: Normal pulses. Heart sounds: Normal heart sounds. No murmur heard. No friction rub. No gallop. Pulmonary: Effort: No respiratory distress. Breath sounds: Normal breath sounds. No stridor. No wheezing, rhonchi or rales. Chest: Chest wall: No tenderness. Abdominal: General: Abdomen is flat. Bowel sounds are normal. There is no distension. Palpations: Abdomen is soft. There is no mass. Tenderness: There is abdominal tenderness (Mild TTP bilateral lower abd). There is no right CVA tenderness, left CVA tenderness, guarding or rebound. Hernia: No hernia is present. Musculoskeletal: General: Normal range of motion. Cervical back: Normal range of motion and neck supple. Skin: General: Skin is warm and dry. Neurological: General: No focal deficit present. Mental Status: She is alert and oriented to person, place, and time. Psychiatric: Mood and Affect: Mood normal. Behavior: Behavior normal. Assessment/Plan (R12) Heartburn (primary encounter diagnosis) (R19.4) Altered bowel habits (R10.30) Lower abdominal pain 1. Heartburn - EGD DIAGNOSTIC; Future - Continue Protonix 40 mg daily - EGD to r/o PUD, H. Pylori, Celiac - Discussed gastritis precautions Recommend high protein, high fiber diet. Promotion of salivation through oral lozenges/chewing gum Drink plenty of water Avoid NSAIDs (such as Advil, Ibuprofen, Excedrin, Mobic), tobacco, alcohol, carbonated beverages, caffeine, chocolate, tomato based sauces, spicy/fatty foods, and peppermint Avoid eating less than 3 hours before bed. Elevate the head of the bed 6 inches, or invest in a wedge pillow. Laying on left side with head elevated may help alleviate reflux symptoms. 2. Altered bowel habits - COLONOSCOPY DIAGNOSTIC; Future - polyethylene glycol 3350 (MIRALAX) 17 gram/dose powder; Take 17 g by mouth once daily. Dissolve dose in 4 - 8 ounces of liquid and take as directed. Dispense: 595 g; Refill: 2 - dicyclomine (BENTYL) 10 mg capsule; Take 1 capsule by mouth three times daily as needed (for abdominal pain). Dispense: 60 capsule; Refill: 2 - Possibly IBS related - Start Bentyl PRN - Start OTC probiotic with at least 15 billion live cultures, 10+ strains - Start Miralax full cap daily - Drink plenty of fluids daily - Colon to r/o intestinal inflammation, colorectal lesions - Consider CT abd pending results of scopes 3. Lower abdominal pain - COLONOSCOPY DIAGNOSTIC; Future - dicyclomine (BENTYL) 10 mg capsule; Take 1 capsule by mouth three times daily as needed (for abdominal pain). Dispense: 60 capsule; Refill: 2 I spent a total of 20 minutes on the date of the service which included preparing to see the patient, [id number] patient care, completing clinical documentation, obtaining and/or reviewing separately obtained history, performing a medically appropriate examination, counseling and educating the patient/family/caregiver, ordering medications, tests, or procedures, communicating with other HCPs (not separately reported), independently interpreting results (not separately reported), communicating results to the patient/family/caregiver, and care coordination (not separately reported). Noelle Sandoval PA-C April 02, 2022 1:16 PM documented in this encounter [facility] 03-09-2022 Nurse Note cyanocobalamin 1000 mcg checked by Janie VALDIVIA, lot #[id number] exp 07/09/2023 documented in this encounter [facility] 03-09-2022 History of Presen t illness Narrative Reason for Visit Patient presents with: Follow Up: left hip injection and b12 injection Leola Isabel is a 41 year old female who presents here today for Above Complaints.. Health Maintenance HEPATITIS B(1 of 3 - 3-dose series) COVID-19 VACCINE(1) DEPRESSION ASSESSMENT HPI This is a very pleasant 41-year-old who I saw a couple weeks ago for hip pain and she is scheduled today for 2 Intrabursal injection. Procedure note: left trochanteric bursa: The risk, benefits and alternatives of injection and no injection therapy were discussed. The patient consented for an injection. Time out was conducted. The injection site was prepped with povidine swab. The left trochanteric bursa a the tenderest Point was injected with a 22 gauge needle with 1 cc (40 mg) kenalog, 1 cc of lidocaine . The injection site was then dressed with a bandaid. The patient tolerated the injection well. The patient was instructed to call the office if any adverse local effects occurred or any if any questions or concerns arise. She also needs vitamin B12 injections as her vitamin B-12 levels were on the lower side and they have been ordered for her No problem-specific Assessment & Plan notes found for this encounter. PAST MEDICAL HISTORY Diagnosis Date Abnormal glandular Papanicolaou smear of cervix - Abn. Pap smear (cervix) Adjustment disorder with depressed mood Esophageal reflux Migraine with aura, without mention of intractable migraine without mention of status migrainosus Unspecified asthma, with status asthmaticus PAST SURGICAL HISTORY Procedure Laterality Date BILIARY NDSC INTRAOPERATIVE 11-12-07 I&D OF BARTHOLINS GLAND ABSCESS 09/07/2008 LAPS SURG CHOLECSTC W/EXPL COMMON DUCT 11-12-07 FAMILY HISTORY Problem Relation Age of Onset Alcohol/Drug Father Alcohol/Drug Mother other (lupus) Mother Asthma Sister Seizures Sister Social History Tobacco Use Smoking status: Every Day Packs/day: 1.00 Types: Cigarettes Smokeless tobacco: Never Substance Use Topics Alcohol use: No Drug use: No Past medical history, appointments, medications, allergies reviewed. Pertinent Lab/Diagnostic Studies are reviewed and discussed today Current Outpatient Medications: SUMAtriptan (IMITREX) 50 mg tablet albuterol HFA (PROAIR HFA) 90 mcg/actuation inhaler ondansetron orally disintegrating (ZOFRAN ODT) 4 mg disintegrating tablet topiramate (TOPAMAX) [address] (PROTONIX) 20 mg tablet ibuprofen (MOTRIN) 200 mg tablet Current Facility-Administered Medications: triamcinolone acetonide 40 mg injection (KeNALog 40) cyanocobalamin 1,000 mcg injection Review of Systems CONSTITUTIONAL: No fevers, chills night sweats, unintended weight loss CARDIOVASCULAR: No chest pain, dyspnea, palpitations, orthopnea, PND, ankle edema. PULM: No dyspnea, unexplained cough. GI: No dysphagia/odynophagia, problematic reflux, constipation, diarrhea, changes in stool habits, hematochezia, melena. : No new urinary complaints, including dysuria, gross hematuria or pyuria. NEURO: No new balance problems, peripheral weakness/paresthesias or numbness of concern. Physical Exam BP 132/52 (BP Site: Left Arm, BP Position: Sitting, BP Cuff Size: Large Adult) Pulse 75 Temp 37.4 C (99.3 F) Resp 12 Ht 162.6 cm (5' 4 ) Wt 65.3 kg (144 lb) LMP 08/13/2008 SpO2 99% BMI 24.72 kg/m General appearance: Well appearing, alert, in no acute distress, well nourished. Skin: Skin color, texture, turgor normal, no suspicious rashes or lesions Left hip.: There is exquisite tenderness at the greater trochanteric prominence. And it is specifically around to get a prominence that she has the tenderness. ASSESSMENT/PLAN: 1. Trochanteric bursitis of left hip - ICD9: 726.5, ICD10: M70.62 (primary diagnosis) Injection given to her along with the lidocaine - DEPRESSION SCREENING/ASSESSMENT - TRIAMCINOLONE ACETONIDE 40 MG/ML SUSPENSION FOR INJECTION 2. Vitamin B12 deficiency - ICD9: 266.2, ICD10: E53.8 - CYANOCOBALAMIN (VIT B-12) 1,000 MCG/ML INJECTION SOLUTION Saúl Andrade MD documented in this encounter [facility] 03-05-2022 Miscellaneous Notes Formattin g of this note might be different from the original. Yes, agree Regards, Saúl Andrade MD TC to patient who is willing to start Vit B12 injections. Pt has upcoming appointment on 03/09 and is asking if injection could be given at that time. JAE Dugan Left message to call office. 03/02/2022 9:33 AM Boy Tafoya Ma Vit d and b12 are low. Would she be willing to try vit b12 injections Regards, Saúl Andrade MD documented in this encounter [facility] 02-26-2022 History of Presen t illness Narrative Reason for Visit Patient presents with: Physical: Annual physical Leola Isabel is a 41 year old female who presents here today for CPE. Health Maintenance HEPATITIS B(1 of 3 - 3-dose series) COVID-19 VACCINE(1) HEPATITIS C SCREENING DEPRESSION ASSESSMENT HPI Hip pain: she normall get hip pain on right side but the past 2 months she has been having issues with the left hip. It is a constant pain in the side. Lateral hip near trochanter. 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 7/10 pain. Has not taken much medications before, she was taking brufen, and stopped. Migraines- she has been having migraines a lot more lately, she had to call a couple times for it. She gets sick nauseas and light bothers her. She was on imitrex. Recently been getting them around once a week, she was getting them more before when she was on the brufen regularly. When she gets her migraines, she would normally have it for a day. She would be able to get up and go to work. Every day was just a day. She had to call off once a month for the past few months. Ready to try topamax. Talked about diverticulitis in her family, and thinks she has it, Usually has regular bowel movements, some times more frequently than the other times She does not have diarrhea, no blood in stool. Does feel like she will pass out before a bowel, she bms are normal shaped and formed. Still smokes but trying to quit. Had vit d and b12 def in the past. No problem-specific Assessment & Plan notes found for this encounter. PAST MEDICAL HISTORY Diagnosis Date Abnormal glandular Papanicolaou smear of cervix 04-11 Abn. Pap smear (cervix) Adjustment disorder with depressed mood Esophageal reflux Migraine with aura, without mention of intractable migraine without mention of status migrainosus Unspecified asthma, with status asthmaticus PAST SURGICAL HISTORY Procedure Laterality Date BILIARY NDSC INTRAOPERATIVE 11-12-07 I&D OF BARTHOLINS GLAND ABSCESS 09/07/2008 LAPS SURG CHOLECSTC W/EXPL COMMON DUCT 11-12-07 FAMILY HISTORY Problem Relation Age of Onset Alcohol/Drug Father Alcohol/Drug Mother other (lupus) Mother Asthma Sister Seizures Sister Social History Tobacco Use Smoking status: Every Day Packs/day: 1.00 Types: Cigarettes Smokeless tobacco: Never Substance Use Topics Alcohol use: No Drug use: No Past medical history, appointments, medications, allergies reviewed. Pertinent Lab/Diagnostic Studies are reviewed and discussed today Current Outpatient Medications: albuterol HFA (PROAIR HFA) 90 mcg/actuation inhaler ondansetron orally disintegrating (ZOFRAN ODT) 4 mg disintegrating tablet SUMAtriptan (IMITREX) 50 mg tablet ibuprofen (MOTRIN) 200 mg tablet Review of Systems CONSTITUTIONAL: No fevers, chills, nightsweats, unintended weight loss HEENT: Denies frequent or severe heaches, nasal congestion/sinus symptoms, problematic allergy problems. EYES: No diplopia or blurry vision. CARDIOVASCULAR: No chest pain, dyspnea, palpitations, orthopnea, PND, ankle edema. PULM: No dyspnea, unexplained cough. GI: No dysphagia/odynophagia, problematic reflux, constipation, diarrhea, changes in stool habits, hematochezia, melena. : No new urinary complaints, including dysuria, gross hematuria or pyuria. NEURO: No new balance problems, peripheral weakness/paresthesias or numbness of concern. MUSC-SKEL: No new joint pain, swelling, or erythema. PSY: No concerns regarding depression, anxiety or panic. INTEGUMENTARY: No new skin changes (rash, new or changing mole, new growth) Physical Exam BP 124/80 Pulse 90 Temp 37 C (98.6 F) (Temporal) Resp 16 Wt 66.7 kg (147 lb) LMP 08/13/2008 SpO2 100% BMI 24.79 kg/m General appearance: Well appearing, alert, in no acute distress, well-hydrated, well nourished. Skin: Skin color, texture, turgor normal, no suspicious rashes or lesions Head: Normocephalic, no masses, lesions, tenderness or abnormalities Eyes: Anicteric sclera. Pupils are equally round and reactive to light. Extraocular movements are intact. Ears: External ears normal, canals clear Nose/Sinuses: Nares normal, septum midline, mucosa normal, no drainage or sinus tenderness Oropharynx: Lips, mucosa, and tongue normal, teeth and gums normal, oropharynx normal Neck: Supple, no adenopathy; thyroid symmetric, normal size, no bruits Back: Normal exam Lungs: Lungs clear to auscultation. No wheezing, rhonchi, rales Heart: RRR without murmur, gallop, or rubs. No ectopy Abdomen: tenderness in the upper abdomen, no rebound, guarding or rigidity. Bowel sounds are normal. Extremities: No deformities, edema, skin discoloration, clubbing or cyanosis. Good capillary refill. Musculoskeletal: No joint swelling, deformity, or tenderness Peripheral pulses: Normal Neuro: Gait normal. Reflexes normal and symmetric. Sensation grossly intact. ASSESSMENT/PLAN: 1. Annual physical exam - ICD9: V70.0, ICD10: Z00.00 (primary diagnosis) - Counseled on healthy diet and regular exercise - Calcium intake with supplements or by diet of 1000 mg/day for under 50, 8107-0280 mg/day for 50+ 2. Change in bowel movement - ICD9: 787.99, ICD10: R19.8 - CONSULT TO GASTROENTEROLOGY - TSH BLD 3. Bloating - ICD9: 787.3, ICD10: R14.0 - CONSULT TO GASTROENTEROLOGY - CBC + DIFF - COMP METABOLIC PANEL 4. Tobacco abuse disorder - ICD9: 305.1, ICD10: Z72.0 - Cessation encouraged. - Physiologic and physical aspects of tobacco addiction as well as strategies for quitting were discussed. - Counseling was given focusing on the harmful effects of this addiction especially given the patient's medical condition(s) which will be worsened because of the chemicals in tobacco. 5. Migraine with aura and without status migrainosus, not intractable - ICD9: 346.00, ICD10: G43.109 - SUMATRIPTAN 50 MG TABLET 6. Hip pain - ICD9: 719.45, ICD10: M25.559 7. Special screening examination for viral disease - ICD9: V73.99, ICD10: Z11.59 - HEP C AB IA W/CONF SCRN 8. Vitamin B12 deficiency - ICD9: 266.2, ICD10: E53.8 - VITAMIN B12 BLOOD 9. Vitamin D deficiency - ICD9: 268.9, ICD10: E55.9 - VITAMIN D 25 HYDROXY Saúl Andraed MD documented in this encounter [facility] 11-18-2021 History of Presen t illness Narrative Subjective HPI Leola Isabel is a 41 year old female who presents with right hip and back pain. States she was hit in the hip while trying to separate two shopping carts. This happened this morning. Since then she has been having right sided hip and lower to mid back pain. On rooming intake she is noted to be pale and diaphoretic and nauseated. She has not taken any medication for her pain today. She has not had any vomiting but is nauseas. Review of Systems Constitutional: Positive for diaphoresis and malaise/fatigue. Negative for chills and fever. Respiratory: Negative for shortness of breath. Cardiovascular: Negative for chest pain. Gastrointestinal: Positive for nausea. Negative for vomiting. Musculoskeletal: Positive for back pain. Neurological: Positive for dizziness and weakness. BP 90/60 Pulse (!) 54 LMP 08/13/2008 SpO2 98% PAST MEDICAL HISTORY Diagnosis Date Abnormal glandular Papanicolaou smear of cervix 03-04 Abn. Pap smear (cervix) Adjustment disorder with depressed mood Esophageal reflux Migraine with aura, without mention of intractable migraine without mention of status migrainosus Unspecified asthma, with status asthmaticus PAST SURGICAL HISTORY Procedure Laterality Date BILE DUCT ENDOSCOPY,INTRAOPERATIVE 11-12-07 I&D VULVA/PERINE ABSCE SHARON GLD 09/07/2008 L'SCOPE BOUCHRA W/EXPL CBD 11-12-07 ALLERGIES Adhesive, Demerol [Meperidine (Pf)], Penicillins, and Vicodin [Hydrocodone-Acetaminophen] MEDICATIONS cyclobenzaprine (FLEXERIL) 10 mg tablet Take 1 tablet by mouth daily at bedtime. cholecalciferol, Vitamin D3, (VITAMIN D3) 1,250 mcg (50,000 unit) cap capsule Take 1 capsule by mouth one time a week. cyanocobalamin 1,000 mcg/mL Inject 1mL once weekly for 3 weeks then inject 1mL once monthly (Patient not taking: Reported on 07/11/2019 ) Syringe with Needle, Disp, (BD TUBERCULIN SYRINGE) 1 mL 25 gauge x 5/8 syrg 1 Each one time a week. omeprazole (PRILOSEC) 20 mg capsule Take 1 capsule by mouth daily before breakfast. (Patient not taking: Reported on 07/11/2019 ) albuterol HFA (PROAIR HFA) 90 mcg/actuation inhaler Inhale 2 Puffs as instructed every 4 hours as needed. NUVARING 0.12-0.015 mg/24 hr vaginal ring ibuprofen (MOTRIN) 200 mg tablet Take 1-2 tablets by mouth every 6 hours as needed for Pain (Take with food.). FAMILY HISTORY Problem Relation Age of Onset Alcohol/Drug Father Alcohol/Drug Mother other (lupus) Mother Asthma Sister Seizures Sister Social History Tobacco Use Smoking status: Every Day Packs/day: 1.00 Types: Cigarettes Smokeless tobacco: Never Substance Use Topics Alcohol use: No Drug use: No Objective Physical Exam Vitals and nursing note reviewed. Constitutional: Appearance: She is ill-appearing and diaphoretic. Cardiovascular: Rate and Rhythm: Regular rhythm. Bradycardia present. Heart sounds: Normal heart sounds. Pulmonary: Effort: Pulmonary effort is normal. No respiratory distress. Breath sounds: Normal breath sounds. No wheezing or rales. Abdominal: General: Abdomen is flat. Palpations: Abdomen is soft. Tenderness: There is abdominal tenderness (RLQ). Skin: General: Skin is warm. Coloration: Skin is pale. ASSESSMENT/PLAN: 1. Upper back pain - ICD9: 724.5, ICD10: M54.9 (primary diagnosis) 2. Hip pain - ICD9: 719.45, ICD10: M25.559 - 911 was called due to patient's condition. Patient was placed in supine position and 2 L O2 applied via nasal cannula. 2 baby ASA were given. She was monitored until EMS arrived. Report given to EMS and report sent to [facility] via ER Passport. Yeni Blackwell APRN.TONE documented in this encounter [facility] 11-22-2007 History of Past i llness Narrative Problem Noted Date Resolved Date CHOLECYSTITIS SEE ALSO GALLB LADDER ACUTE,GB STONE & DUCT STONE( Without obstruction) 11/22/2007 09/08/2018 documented as of this encounter (statuses as of 11/19/2021) [facility]10[facility] History of Past illness Narrative* Problem Noted Date Resolved Date CHOLECYSTITIS SEE ALSO GALLB LADDER ACUTE,GB STONE & DUCT STONE( Without obstruction) 11/22/2007 09/08/2018 documented as of this encounter (statuses as of 02/26/2022) [facility] History of Past illness Narrative* Problem Noted Date Resolved Date CHOLECYSTITIS SEE ALSO GALLB LADDER ACUTE,GB STONE & DUCT STONE( Without obstruction) 11/22/2007 09/08/2018 documented as of this encounter (statuses as of 03/05/2022) [facility] History of Past illness Narrative* Problem Noted Date Resolved Date CHOLECYSTITIS SEE ALSO GALLB LADDER ACUTE,GB STONE & DUCT STONE( Without obstruction) 11/22/2007 09/08/2018 documented as of this encounter (statuses as of 03/09/2022) [facility] History of Past illness Narrative* Problem Noted Date Resolved Date CHOLECYSTITIS SEE ALSO GALLB LADDER ACUTE,GB STONE & DUCT STONE( Without obstruction) 11/22/2007 09/08/2018 documented as of this encounter (statuses as of 04/02/2022) [facility] History of Past illness Narrative* Problem Noted Date Resolved Date CHOLECYSTITIS SEE ALSO GALLB LADDER ACUTE,GB STONE & DUCT STONE( Without obstruction) 11/22/2007 09/08/2018 documented as of this encounter (statuses as of 04/08/2022) [facility] History of Past illness Narrative* Problem Noted Date Resolved Date CHOLECYSTITIS SEE ALSO GALLB LADDER ACUTE,GB STONE & DUCT STONE( Without obstruction) 11/22/2007 09/08/2018 documented as of this encounter (statuses as of 05/05/2022) [facility] History of Past illness Narrative* Problem Noted Date Resolved Date CHOLECYSTITIS SEE ALSO GALLB LADDER ACUTE,GB STONE & DUCT STONE( Without obstruction) 11/22/2007 09/08/2018 documented as of this encounter (statuses as of 05/08/2022) [facility] History of Past illness Narrative* Problem Noted Date Resolved Date CHOLECYSTITIS SEE ALSO GALLB LADDER ACUTE,GB STONE & DUCT STONE( Without obstruction) 11/22/2007 09/08/2018 documented as of this encounter (statuses as of 06/05/2022) [facility] History of Past illness Narrative* Problem Noted Date Resolved Date CHOLECYSTITIS SEE ALSO GALLB LADDER ACUTE,GB STONE & DUCT STONE( Without obstruction) 11/22/2007 09/08/2018 documented as of this encounter (statuses as of 06/08/2022) [facility] History of Past illness Narrative* Problem Noted Date Resolved Date CHOLECYSTITIS SEE ALSO GALLB LADDER ACUTE,GB STONE & DUCT STONE( Without obstruction) 11/22/2007 09/08/2018 documented as of this encounter (statuses as of 07/10/2022) [facility] History of Past illness Narrative* Problem Noted Date Resolved Date CHOLECYSTITIS SEE ALSO GALLB LADDER ACUTE,GB STONE & DUCT STONE( Without obstruction) 11/22/2007 09/08/2018 documented as of this encounter (statuses as of 07/24/2022) [facility] History of Past illness Narrative* Problem Noted Date Resolved Date CHOLECYSTITIS SEE ALSO GALLB LADDER ACUTE,GB STONE & DUCT STONE( Without obstruction) 11/22/2007 09/08/2018 documented as of this encounter (statuses as of 07/28/2022) [facility] History of Past illness Narrative* Problem Noted Date Resolved Date CHOLECYSTITIS SEE ALSO GALLB LADDER ACUTE,GB STONE & DUCT STONE( Without obstruction) 11/22/2007 09/08/2018 documented as of this encounter (statuses as of 08/14/2022) [facility] History of Past illness Narrative* Problem Noted Date Diagnosed Date Resolved Date CHOLECYSTITIS SEE ALSO GALLB LADDER ACUTE,GB STONE & DUCT STONE( Without obstruction) 11/22/2007 09/08/2018 documented as of this encounter (statuses as of 08/18/2022) [facility] History of Past illness Narrative* Problem Noted Date Diagnosed Date Resolved Date CHOLECYSTITIS SEE ALSO GALLB LADDER ACUTE,GB STONE & DUCT STONE( Without obstruction) 11/22/2007 09/08/2018 documented as of this encounter (statuses as of 10/15/2022) [facility] History of Past illness Narrative* Problem Noted Date Diagnosed Date Resolved Date CHOLECYSTITIS SEE ALSO GALLB LADDER ACUTE,GB STONE & DUCT STONE( Without obstruction) 11/22/2007 09/08/2018 documented as of this encounter (statuses as of 10/18/2022) [facility] History of Past illness Narrative* Problem Noted Date Diagnosed Date Resolved Date CHOLECYSTITIS SEE ALSO GALLB LADDER ACUTE,GB STONE & DUCT STONE( Without obstruction) 11/22/2007 09/08/2018 documented as of this encounter (statuses as of 11/16/2022) [facility] History of Past illness Narrative* Problem Noted Date Diagnosed Date Resolved Date CHOLECYSTITIS SEE ALSO GALLB LADDER ACUTE,GB STONE & DUCT STONE( Without obstruction) 11/22/2007 09/08/2018 documented as of this encounter (statuses as of 11/17/2022) [facility] History of Past illness Narrative* Problem Noted Date Diagnosed Date Resolved Date CHOLECYSTITIS SEE ALSO GALLB LADDER ACUTE,GB STONE & DUCT STONE( Without obstruction) 11/22/2007 09/08/2018 documented as of this encounter (statuses as of 11/20/2022) [facility] History of Past illness Narrative* Problem Noted Date Diagnosed Date Resolved Date CHOLECYSTITIS SEE ALSO GALLB LADDER ACUTE,GB STONE & DUCT STONE( Without obstruction) 11/22/2007 09/08/2018 documented as of this encounter (statuses as of 12/02/2022) [facility] History of Past illness Narrative* Problem Noted Date Diagnosed Date Resolved Date CHOLECYSTITIS SEE ALSO GALLB LADDER ACUTE,GB STONE & DUCT STONE( Without obstruction) 11/22/2007 09/08/2018 documented as of this encounter (statuses as of 12/09/2022) [facility] History of Past illness Narrative* Problem Noted Date Diagnosed Date Resolved Date CHOLECYSTITIS SEE ALSO GALLB LADDER ACUTE,GB STONE & DUCT STONE( Without obstruction) 11/22/2007 09/08/2018 documented as of this encounter (statuses as of 12/13/2022) [facility] History of Past illness Narrative* Problem Noted Date Diagnosed Date Resolved Date CHOLECYSTITIS SEE ALSO GALLB LADDER ACUTE,GB STONE & DUCT STONE( Without obstruction) 11/22/2007 09/08/2018 documented as of this encounter (statuses as of 12/13/2022) [facility] History of Past illness Narrative* Problem Noted Date Diagnosed Date Resolved Date CHOLECYSTITIS SEE ALSO GALLB LADDER ACUTE,GB STONE & DUCT STONE( Without obstruction) 11/22/2007 09/08/2018 documented as of this encounter (statuses as of 12/23/2022) [facility] History of Past illness Narrative* Problem Noted Date Diagnosed Date Resolved Date CHOLECYSTITIS SEE ALSO GALLB LADDER ACUTE,GB STONE & DUCT STONE( Without obstruction) 11/22/2007 09/08/2018 documented as of this encounter (statuses as of 03/19/2023) [facility] History of Past illness Narrative* Problem Noted Date Diagnosed Date Resolved Date CHOLECYSTITIS SEE ALSO GALLB LADDER ACUTE,GB STONE & DUCT STONE( Without obstruction) 11/22/2007 09/08/2018 documented as of this encounter (statuses as of 03/24/2023) [facility] History of Past illness Narrative* Problem Noted Date Diagnosed Date Resolved Date CHOLECYSTITIS SEE ALSO GALLB LADDER ACUTE,GB STONE & DUCT STONE( Without obstruction) 11/22/2007 09/08/2018 documented as of this encounter (statuses as of 03/25/2023) [facility] History of Past illness Narrative* Problem Noted Date Diagnosed Date Resolved Date CHOLECYSTITIS SEE ALSO GALLB LADDER ACUTE,GB STONE & DUCT STONE( Without obstruction) 11/22/2007 09/08/2018 documented as of this encounter (statuses as of 03/25/2023) [facility] History of Past illness Narrative* Problem Noted Date Diagnosed Date Resolved Date CHOLECYSTITIS SEE ALSO GALLB LADDER ACUTE,GB STONE & DUCT STONE( Without obstruction) 11/22/2007 09/08/2018 documented as of this encounter (statuses as of 04/01/2023) [facility] History of Past illness Narrative* Problem Noted Date Diagnosed Date Resolved Date CHOLECYSTITIS SEE ALSO GALLB LADDER ACUTE,GB STONE & DUCT STONE( Without obstruction) 11/22/2007 09/08/2018 documented as of this encounter (statuses as of 04/02/2023) [facility] History of Past illness Narrative* Problem Noted Date Diagnosed Date Resolved Date CHOLECYSTITIS SEE ALSO GALLB LADDER ACUTE,GB STONE & DUCT STONE( Without obstruction) 11/22/2007 09/08/2018 documented as of this encounter (statuses as of 04/02/2023) [facility] History of Past illness Narrative* Problem Noted Date Diagnosed Date Resolved Date CHOLECYSTITIS SEE ALSO GALLB LADDER ACUTE,GB STONE & DUCT STONE( Without obstruction) 11/22/2007 09/08/2018 documented as of this encounter (statuses as of 04/30/2023) [facility] History of Past illness Narrative* Problem Noted Date Diagnosed Date Resolved Date CHOLECYSTITIS SEE ALSO GALLB LADDER ACUTE,GB STONE & DUCT STONE( Without obstruction) 11/22/2007 09/08/2018 documented as of this encounter (statuses as of 05/17/2023) [facility] History of Past illness Narrative* Problem Noted Date Diagnosed Date Resolved Date CHOLECYSTITIS SEE ALSO GALLB LADDER ACUTE,GB STONE & DUCT STONE( Without obstruction) 11/22/2007 09/08/2018 documented as of this encounter (statuses as of 05/30/2023) [facility] Upper back pain- Primary Hip pain Pain in joint, pelvic region and thigh [facility] Annual physical exam- Primary Routine general medical examination at a health care facility Change in bowel movement Other symptoms involving digestive system Bloating Flatulence, eructation, and gas pain Tobacco abuse disorder Tobacco use disorder Migraine with aura and without status migrainosus, not intractable Migraine with aura, without mention of intractable migraine without mention of status migrainosus Hip pain Pain in joint, pelvic region and thigh Special screening examination for viral disease Special screening examination for unspecified viral disease Vitamin B12 deficiency Other B-complex deficiencies Vitamin D deficiency Unspecified vitamin D deficiency [facility] Trochanteric bursitis of left hip- Primary Enthesopathy of hip region Vitamin B12 deficiency Other B-complex deficiencies documented in [facility] Diagnosis Heartburn- Primary Altered bowel habits Other symptoms involving digestive system Lower abdominal pain Abdominal pain, other specified site [facility] Diagnosis Vitamin B 12 deficiency- Primary Other B-complex deficiencies [facility] Diagnosis Vitamin B 12 deficiency- Primary Other B-complex deficiencies [facility] Diagnosis Encounter for screening mammogram for breast cancer [facility] Diagnosis Abnormal mammogram- Primary Abnormal mammogram, unspecified [facility]* Diagnosis Vitamin B 12 deficiency- Primary Other B-complex deficiencies [facility]* Diagnosis Right wrist pain- Primary Pain in joint, forearm [facility] Diagnosis Vitamin B 12 deficiency- Primary Other B-complex deficiencies [facility]* Diagnosis Headache, unspecified headache type- Primary Nausea Nausea alone Migraine with aura and without status migrainosus, not intractable Migraine with aura, without mention of intractable migraine without mention of status migrainosus [facility]* Diagnosis Carpal tunnel syndrome of right wrist- Primary Carpal tunnel syndrome [facility] Diagnosis Paresthesia of skin- Primary Disturbance of skin sensation Carpal tunnel syndrome of right wrist Carpal tunnel syndrome [facility]* Diagnosis Elbow pain, left- Primary Pain in joint, upper arm [facility]* Diagnosis Migraine with aura and without status migrainosus, not intractable- Primary Migraine with aura, without mention of intractable migraine without mention of status migrainosus Lateral epicondylitis of left elbow Lateral epicondylitis of elbow [facility]* Diagnosis Encounter for screening mammogram for breast cancer [facility] Diagnosis Abnormal mammogram Abnormal mammogram, unspecified [facility]* Diagnosis Sore throat- Primary Acute pharyngitis [facility] Diagnosis Pre-operative examination- Primary Preoperative examination, unspecified Fibromyalgia Mylagia and myositis, unspecified Migraine with aura and without status migrainosus, not intractable Migraine with aura, without mention of intractable migraine without mention of status migrainosus Tobacco abuse disorder Tobacco use disorder Mild intermittent asthma without complication Unspecified asthma Ganglion cyst Ganglion, unspecified [facility]* Diagnosis Abnormal mammogram- Primary Abnormal mammogram, unspecified Ganglion cyst Ganglion, unspecified [facility] Diagnosis Abnormal mammogram Abnormal mammogram, unspecified Ganglion cyst Ganglion, unspecified [facility] Diagnosis Abnormal mammogram Abnormal mammogram, unspecified Ganglion cyst Ganglion, unspecified [facility] Diagnosis Abnormal mammogram- Primary Abnormal mammogram, unspecified [facility] Diagnosis Vitamin B 12 deficiency- Primary Other B-complex deficiencies Ganglion cyst Ganglion, unspecified [facility] Diagnosis Vitamin B 12 deficiency- Primary Other B-complex deficiencies [facility] Diagnosis Ganglion cyst- Primary Ganglion, unspecified [facility] Diagnosis Migraine headaches- Primary [facility] Diagnosis Vitamin B 12 deficiency- Primary Other B-complex deficiencies [facility] Diagnosis Encounter for screening mammogram for breast cancer [facility] Diagnosis Vitamin B 12 deficiency- Primary Other B-complex deficiencies [facility] Diagnosis Pre-operative examination- Primary Preoperative examination, unspecified Fibromyalgia Mylagia and myositis, unspecified Migraine with aura and without status migrainosus, not intractable Migraine with aura, without mention of intractable migraine without mention of status migrainosus Tobacco abuse disorder Tobacco use disorder Mild intermittent asthma without complication Unspecified asthma Abnormal mammogram- Primary Abnormal mammogram, unspecified Breast cancer screening by mammogram [facility] Diagnosis Pre-operative examination- Primary Preoperative examination, unspecified Fibromyalgia Mylagia and myositis, unspecified Migraine with aura and without status migrainosus, not intractable Migraine with aura, without mention of intractable migraine without mention of status migrainosus Tobacco abuse disorder Tobacco use disorder Mild intermittent asthma without complication Unspecified asthma Vitamin B 12 deficiency- Primary Other B-complex deficiencies [facility]* Diagnosis Pre-operative examination- Primary Preoperative examination, unspecified Fibromyalgia Mylagia and myositis, unspecified Migraine with aura and without status migrainosus, not intractable Migraine with aura, without mention of intractable migraine without mention of status migrainosus Tobacco abuse disorder Tobacco use disorder Mild intermittent asthma without complication Unspecified asthma Trochanteric bursitis of left hip- Primary Enthesopathy of hip region Migraine with aura and without status migrainosus, not intractable Migraine with aura, without mention of intractable migraine without mention of status migrainosus [facility] Diagnosis Elbow pain, left Pain in joint, upper arm Pre-operative examination- Primary Preoperative examination, unspecified Fibromyalgia Mylagia and myositis, unspecified Migraine with aura and without status migrainosus, not intractable Migraine with aura, without mention of intractable migraine without mention of status migrainosus Tobacco abuse disorder Tobacco use disorder Mild intermittent asthma without complication Unspecified asthma [facility] Diagnosis Right wrist pain Pain in joint, forearm Pre-operative examination- Primary Preoperative examination, unspecified Fibromyalgia Mylagia and myositis, unspecified Migraine with aura and without status migrainosus, not intractable Migraine with aura, without mention of intractable migraine without mention of status migrainosus Tobacco abuse disorder Tobacco use disorder Mild intermittent asthma without complication Unspecified asthma [facility]* Diagnosis Altered bowel habits Other symptoms involving digestive system Lower abdominal pain Abdominal pain, other specified site Heartburn Pre-operative examination- Primary Preoperative examination, unspecified Fibromyalgia Mylagia and myositis, unspecified Migraine with aura and without status migrainosus, not intractable Migraine with aura, without mention of intractable migraine without mention of status migrainosus Tobacco abuse disorder Tobacco use disorder Mild intermittent asthma without complication Unspecified asthma [facility] Diagnosis Pre-operative examination- Primary Preoperative examination, unspecified Fibromyalgia Mylagia and myositis, unspecified Migraine with aura and without status migrainosus, not intractable Migraine with aura, without mention of intractable migraine without mention of status migrainosus Tobacco abuse disorder Tobacco use disorder Mild intermittent asthma without complication Unspecified asthma Procedure not carried out- Primary Procedure not carried out for other reasons [facility] Diagnosis Pre-operative examination- Primary Preoperative examination, unspecified Fibromyalgia Mylagia and myositis, unspecified Migraine with aura and without status migrainosus, not intractable Migraine with aura, without mention of intractable migraine without mention of status migrainosus Tobacco abuse disorder Tobacco use disorder Mild intermittent asthma without complication Unspecified asthma Vitamin B 12 deficiency- Primary Other B-complex deficiencies documented in this encounter [facility] for referral (narrative)* Outpatient Procedure (Routine) - Authorized Specialty Diagnoses / Procedures Referred By Jah t Referred To Contact [facility] Diagnoses Heartburn Procedures EGD DIAGNOSTIC ESOPHAGOGASTRODUODENOS COPY TRANSORAL DIAGNOSTIC Noelle Sandoval PA-C [address] [place] [address] [facility] [address] [address] Referral ID Status Reason Start Date Expiration Date Visits Requested Visits Authorized [id number] Authorized Auto-Generat ed Referral 04/02/2022 04/02/2023 1 1 * Outpatient Procedure (Routine) - Authorized Specialty Diagnoses / Procedures Referred By Jah arellano Referred To [facility] Diagnoses Altered bowel habits Lower abdominal pain Procedures COLONOSCOPY DIAGNOSTIC COLONOSCOPY FLX DX W/COLLJ SPEC WHEN PFRMD Noelle Sandoval PA-C [address] [place] [address] [address] Referral ID Status Reason Start Date Expiration Date Visits Requested Visits Authorized [id number] Authorized Auto-Generat ed Referral 04/02/2022 04/02/[address] [facility] for referral (narrative)* Diagnostic Procedure Only (Routine) - Authorized Specialty Diagnoses / Procedures Referred By [facility] t Referred To Contact [facility] Diagnoses Encounter for screening mammogram for breast cancer Procedures DAVID SCREENING SCREENING MAMMOGRAPHY BI 2-VIEW BREAST INC CAD Saúl Andrade MD [address] [place] [address] [facility] [address] [place] [address] Referral ID Status Reason Start Date Expiration Date Visits Requested Visits Authorized [id number] Authorized Auto-Generat ed Referral 06/03/2022 07/03/[address] [facility] for referral (narrative)* Diagnostic Procedure Only (Routine) - Pending Review Specialty Diagnoses / Procedures Referred By Contac t Referred To Contact [facility] Diagnoses Abnormal mammogram Procedures DAVID DIAGNOSTIC RIGHT DIAGNOSTIC MAMMOGRAPHY COMPUTER-AIDED DETCJ UNI Dona Randhawa APRN.[employer] [address] [place] [address] [facility] [address] [place] [address] Referral ID Status Reason Start Date Expiration Date Visits Requested Visits Authorized [id number] Pending Review Auto-Generat ed Referral 07/24/2022 08/23/2023 1 1 * Diagnostic Procedure Only (Routine) - Pending Review Specialty Diagnoses / Procedures Referred By Jah arellano Referred To Contact [facility] Diagnoses Abnormal mammogram Procedures US BREAST LTD RIGHT US BREAST UNI REAL TIME WITH IMAGE LIMITED Dona Randhawa APRN.[employer] [address] [place] [address] [facility] [address] [place] [address] Referral ID Status Reason Start Date Expiration Date Visits Requested Visits Authorized [id number] Pending Review Auto-Generat ed Referral 07/24/2022 08/23/[address] [facility] for referral (narrative)* Outpatient Procedure (Routine) - Authorized Specialty Diagnoses / Procedures Referred By Contact Referred [facility] Diagnoses Carpal tunnel syndrome of right wrist Procedures EMG(NEURO/NI) NERVE CONDUCTION STUDIES 9-10 STUDIES Kala Villegas DO [address] [place] [address] [facility] [place] [address] [place] [address] Referral ID Status Reason Start Date Expiration Date Visits Requested Visits Authorized [id number] Authorized Auto-Generat ed Referral 11/06/2022 11/07/[address] [facility] for referral (narrative)* Diagnostic Procedure Only (Urgent) - Closed Specialty Diagnoses / Procedures Referred By Contac t Referred To Contact X[facility] IM[facility] Diagnoses Elbow pain, left Procedures XR ELBOW SPECIAL VIEWS AP/LAT/OTHER LEFT RADEX ELBOW COMPLETE MINIMUM 3 VIEWS Loretta Harris PA-C [address] [place] [address] [place] [id number] Referral ID Status Reason Start Date Expiration Date V isits Requested Visits Authorized [id number] Closed Auto-Generate d Referral 12/01/2022 12/31/[address] [facility] for referral (narrative)* Diagnostic Procedure Only (Routine) - Closed Specialty Diagnoses / Procedures Referred By Contac t Referred To Contact [facility] Diagnoses Encounter for screening mammogram for breast cancer Procedures DAVID SCREENING SCREENING MAMMOGRAPHY BI 2-VIEW BREAST INC CAD Saúl Andrade MD [address] [place] [address] [facility] [address] [place] [address] Referral ID Status Reason Start Date Expiration Date V isits Requested Visits Authorized [id number] Closed Auto-Generate d Referral 06/03/2022 07/03/[address] [facility] for referral (narrative)* Diagnostic Procedure Only (Routine) - Pending Review Specialty Diagnoses / Procedures Referred By Contac t Referred To Contact [facility] Diagnoses Abnormal mammogram Procedures US BREAST LTD RIGHT US BREAST UNI REAL TIME WITH IMAGE LIMITED Dona Randhawa APRN.TONE [address] [place] [address] [facility] [address] [place] [address] Referral ID Status Reason Start Date Expiration Date Visits Requested Visits Authorized [id number] Pending Review Auto-Generat ed Referral 09/22/2023 04/22/2024 1 1 * Diagnostic Procedure Only (Routine) - Pending Review Specialty Diagnoses / Procedures Referred By Contac t Referred To Contact [facility] Diagnoses Abnormal mammogram Procedures DAVID DIAGNOSTIC RIGHT DIAGNOSTIC MAMMOGRAPHY COMPUTER-AIDED DETCJ [facility] Dona Randhawa APRN.[employer] [address] [place] [address] [facility] [address] [place] [address] Referral ID Status Reason Start Date Expiration Date Visits Requested Visits Authorized [id number] Pending Review Auto-Generat ed Referral 09/22/2023 04/22/[address] [facility] for referral (narrative)* Diagnostic Procedure Only (Routine) - Closed Specialty Diagnoses / Procedures Referred By Contac t Referred To Contact [facility] Diagnoses Abnormal mammogram Procedures DAVID DIAGNOSTIC RIGHT DIAGNOSTIC MAMMOGRAPHY COMPUTER-AIDED DET Dona Reese APRN.[employer] [address] [place] [address] [facility] [address] [place] [address] Referral ID Status Reason Start Date Expiration Date V isits Requested Visits Authorized [id number] Closed Auto-Generate d Referral 03/24/2023 10/21/[address] [facility] for referral (narrative)* Diagnostic Procedure Only (Routine) - Authorized Specialty Diagnoses / Procedures Referred By Contac t Referred To Contact [facility] Diagnoses Abnormal mammogram Procedures US BREAST LTD RIGHT US BREAST UNI REAL TIME WITH IMAGE LIMITED Dona Randhawa APRN.[employer] [address] [place] [address] [facility] [address] [place] [address] Referral ID Status Reason Start Date Expiration Date Visits Requested Visits Authorized [id number] Authorized Auto-Generat ed Referral 03/24/2023 10/21/2023 1 1 * Diagnostic Procedure Only (Routine) - Closed Specialty Diagnoses / Procedures Referred By [place] t Referred To Contact [facility] Diagnoses Abnormal mammogram Procedures DAVID DIAGNOSTIC RIGHT DIAGNOSTIC MAMMOGRAPHY COMPUTER-AIDED DETCJ [facility] Dona Randhawa APRN.[employer] [address] [place] [address] [facility] [address] [place] [address] Referral ID Status Reason Start Date Expiration Date V isits Requested Visits Authorized [id number] Closed Auto-Generate d Referral 03/24/2023 10/21/[address] [facility] for referral (narrative)* Diagnostic Procedure Only (Routine) - Pending Review Specialty Diagnoses / Procedures Referred By Jah t Referred To Contact [facility] Diagnoses Encounter for screening mammogram for breast cancer Procedures DAVID SCREENING W MADDY SCREENING DIGITAL BREAST TOMOSYNTHESIS BI SCREENING MAMMOGRAPHY BI 2-VIEW BREAST INC CAD Saúl Andrade MD [address] [place] [address] [facility] [address] [place] [address] Referral ID Status Reason Start Date Expiration Date Visits Requested Visits Authorized [id number] Pending Review Auto-Generat ed Referral 08/11/2023 09/09/[address] [facility] for referral (narrative)* Diagnostic Procedure Only (Routine) - New Request Specialty Diagnoses / Procedures Referred By Jah t Referred To Contact [facility] Diagnoses Abnormal mammogram Breast cancer screening by mammogram Procedures DAVID DIAGNOSTIC BILATERAL DIAGNOSTIC MAMMOGRAPHY COMPUTER-AIDED DETCJ Dona Rodrigues APRN.[employer] [address] [place] [address] [facility] [address] [place] [address] Referral ID Status Reason Start Date Expiration Date Visits Requested Visits Authorized [id number] New Request Auto-Generat ed Referral 08/25/2023 09/23/[address] [facility] for referral (narrative)* Diagnostic Procedure Only (Urgent) - Closed Specialty Diagnoses / Procedures Referred By Contac t Referred To Contact XR IMAGING Diagnoses Elbow pain, left Procedures XR ELBOW SPECIAL VIEWS AP/LAT/OTHER LEFT RADEX ELBOW COMPLETE MINIMUM 3 VIEWS Loretta Harris PA-C [address] [place] [address] [place] [address] Referral ID Status Reason Start Date Expiration Date V isits Requested Visits Authorized [id number] Closed Auto-Generate d Referral 12/01/2022 12/31/[address] [facility] for referral (narrative)* Diagnostic Procedure Only (Urgent) - Closed Specialty Diagnoses / Procedures Referred By Contac t Referred To Contact [facility] Diagnoses Right wrist pain Procedures XR WRIST INJURY 4V PA/LAT/OBL/SCAPH RIGHT RADEX WRIST COMPLETE MINIMUM 3 VIEWS Loretta Harris PA-C [address] [place] [address] [place] [address] Referral ID Status Reason Start Date Expiration Date V isits Requested Visits Authorized [id number] Closed Auto-Generate d Referral 08/17/2022 09/16/[address] [facility] for referral (narrative)* Outpatient Procedure (Routine) - Closed Specialty Diagnoses / Procedures Referred By Contac t Referred To Contact [facility] Diagnoses Heartburn Procedures EGD DIAGNOSTIC ESOPHAGOGASTRODUODENOS COPY TRANSORAL DIAGNOSTIC Noelle Sandoval PA-C [address] [place] [address] [facility] [address] [place] [address] Referral ID Status Reason Start Date Expiration Date V isits Requested Visits Authorized [id number] Closed Auto-Generate d Referral 04/02/2022 04/02/2023 1 1 * Outpatient Procedure (Routine) - Closed Specialty Diagnoses / Procedures Referred By Jah t Referred To Contact [facility] Diagnoses Altered bowel habits Lower abdominal pain Procedures COLONOSCOPY DIAGNOSTIC COLONOSCOPY FLX DX W/COLLJ SPEC WHEN PFRMD Noelle Sandoval PA-C [address] [place] [address] [facility] [address] [place] [address] Referral ID Status Reason Start Date Expiration Date V isits Requested Visits Authorized [id number] Closed Auto-Generate d Referral 04/02/2022 04/02/[address] [facility] for visit Narrative* Diagnostic Procedure Only (Routine) - Closed Specialty Diagnoses / Procedures Referred By Jah t Referred To Contact [facility] Diagnoses Encounter for screening mammogram for breast cancer Procedures DAVID SCREENING SCREENING MAMMOGRAPHY BI 2-VIEW BREAST INC Saúl Deleon MD [address] [place] [address] [facility] [address] [place] [phone] Referral ID Status Reason Start Date Expiration Date V isits Requested Visits Authorized [id number] Closed Auto-Generate d Referral 06/03/2022 07/03/[address] [facility] for visit Narrative* Diagnostic Procedure Only (Routine) - Closed Specialty Diagnoses / Procedures Referred By Jah t Referred To Contact [facility] Diagnoses Abnormal mammogram Procedures DAVID DIAGNOSTIC RIGHT DIAGNOSTIC MAMMOGRAPHY COMPUTER-AIDED DETCJ Dona Reese APRN.CNP [address] [place] [address] [facility] [address] [place] [address] Referral ID Status Reason Start Date Expiration Date V isits Requested Visits Authorized [id number] Closed Auto-Generate d Referral 07/24/2022 08/23/[address] [facility] for visit Narrative* Diagnostic Procedure Only (Routine) - Authorized Specialty Diagnoses / Procedures Referred By Jah t Referred To Contact [facility] Diagnoses Abnormal mammogram Procedures US BREAST LTD RIGHT US BREAST UNI REAL TIME WITH IMAGE LIMITED Dona Randhawa, CLARISSA.[employer] [address] [place] [address] [facility] [address] [place] [address] Referral ID Status Reason Start Date Expiration Date Visits Requested Visits Authorized [id number] Authorized Auto-Generat ed Referral 03/24/2023 10/21/[address] [facility] for visit Narrative* Diagnostic Procedure Only (Routine) - Closed Specialty Diagnoses / Procedures Referred By Jah t Referred To Contact [facility] Diagnoses Abnormal mammogram Procedures DAVID DIAGNOSTIC RIGHT DIAGNOSTIC MAMMOGRAPHY COMPUTER-AIDED DETCJ UNI Dona Randhawa APRN.[employer] [address] [place] [address] [facility] [address] [place] [address] Referral ID Status Reason Start Date Expiration Date V isits Requested Visits Authorized [id number] Closed Auto-Generate d Referral 03/24/2023 10/21/[address] [facility] for visit Narrative* Diagnostic Procedure Only (Urgent) - Closed Specialty Diagnoses / Procedures Referred By Jah t Referred To Contact XR IMAGING Diagnoses Elbow pain, left Procedures XR ELBOW SPECIAL VIEWS AP/LAT/OTHER LEFT RADEX ELBOW COMPLETE MINIMUM 3 VIEWS Loretta Harris, PA-C [address] [place] [address] [place] [id number] Referral ID Status Reason Start Date Expiration Date V isits Requested Visits Authorized [id number] Closed Auto-Generate d Referral 12/01/2022 12/31/[address] [facility] for visit Narrative* Diagnostic Procedure Only (Urgent) - Closed Specialty Diagnoses / Procedures Referred By Jah t Referred To Contact X[facility] IMAG[facility] Diagnoses Right wrist pain Procedures XR WRIST INJURY 4V PA/LAT/OBL/SCAPH RIGHT RADEX WRIST COMPLETE MINIMUM 3 VIEWS Loretta Harris, PA-C [address] [place] [address] [place] [address] Referral ID Status Reason Start Date Expiration Date V isits Requested Visits Authorized [id number] Closed Auto-Generate d Referral 08/17/2022 09/16/2023 1 1 [facility] Outpatient Procedure (Routine) - Closed Specialty Diagnoses / Procedures Referred By Jah t Referred To Contact [facility] Diagnoses Heartburn Procedures EGD DIAGNOSTIC ESOPHAGOGASTRODUODENOS COPY TRANSORAL DIAGNOSTIC Noelle Sandoval PA-C [address] [place] [address] [facility] [address] [place] [address] Referral ID Status Reason Start Date Expiration Date V isits Requested Visits Authorized [id number] Closed Auto-Generate d Referral 04/02/2022 04/02/2023 1 1 [facility] Medications Administered Section Inactive Administered Medications - up to 3 most recent administrations Medication Order MAR Action Action Date Dose Rate Site aspirin 162 mg chewable tab(s) 162 mg, ORAL, ONCE, 1 dose, On Wed11/18/21 at 2030 Given 11/18/2021 7:40 PM EDT 162 mg Active Administered Medications - up to 3 most recent administrations Medication Order MAR Action Action Date Dose Rate Site cyanocobalamin 1,000 mcg injection 1,000 mcg, INTRAMUSCULAR, EVERY 4 WEEKS, 12 doses, First dose on Wed03/09/22 at 1300, Last dose on Wed01/11/23 at 1300 Given 03/09/2022 12:55 PM EST 1,000 mcg Arm, Right Active Administered Medications - up to 3 most recent administrations Medication Order MAR Action Action Date Dose Rate Site cyanocobalamin 1,000 mcg injection 1,000 mcg, INTRAMUSCULAR, EVERY 4 WEEKS, 12 doses, First dose on Wed03/09/22 at 1300, Last dose on Wed01/11/23 at 1300 Given 04/08/2022 9:59 AM EST 1,000 mcg Deltoid, Left Given 03/09/2022 12:55 PM EST 1,000 mcg A rm, Right Active Administered Medications - up to 3 most recent administrations Medication Order MAR Action Action Date Dose Rate Site cyanocobalamin 1,000 mcg injection 1,000 mcg, INTRAMUSCULAR, EVERY 4 WEEKS, 12 doses, First dose on Wed03/09/22 at 1300, Last dose on Wed01/11/23 at 1300 Given 05/05/2022 9:10 AM EDT 1,000 mcg Deltoid, Right Given 04/08/2022 9:59 AM EST 1,000 mcg De ltoid, Left Given 03/09/2022 12:55 PM EST 1,000 mcg A rm, Right Active Administered Medications - up to 3 most recent administrations Medication Order MAR Action Action Date Dose Rate Site cyanocobalamin 1,000 mcg injection 1,000 mcg, INTRAMUSCULAR, EVERY 4 WEEKS, 12 doses, First dose on Wed03/09/22 at 1300, Last dose on Wed01/11/23 at 1300 Given 06/05/2022 9:25 AM EDT 1,000 mcg Deltoid, Left Given 05/05/2022 9:10 AM EDT 1,000 mcg De ltoid, Right Given 04/08/2022 9:59 AM EST 1,000 mcg De ltoid, Left Active Administered Medications - up to 3 most recent administrations Medication Order MAR Action Action Date Dose Rate Site cyanocobalamin 1,000 mcg injection 1,000 mcg, INTRAMUSCULAR, EVERY 4 WEEKS, 12 doses, First dose on Wed03/09/22 at 1300, Last dose on Wed01/11/23 at 1300 Given 08/13/2022 3:45 PM EDT 1,000 mcg Deltoid, Left Given 07/03/2022 3:38 PM EDT 1,000 mcg De ltoid, Right Given 06/05/2022 9:25 AM EDT 1,000 mcg De ltoid, Left Active Administered Medications - up to 3 most recent administrations Medication Order MAR Action Action Date Dose Rate Site cyanocobalamin 1,000 mcg injection 1,000 mcg, INTRAMUSCULAR, EVERY 4 WEEKS, 12 doses, First dose on Wed03/09/22 at 1300, Last dose on Wed01/11/23 at 1300 Given 10/15/2022 12:54 PM EDT 1,000 mcg Deltoid, Right Given 08/13/2022 3:45 PM EDT 1,000 mcg De ltoid, Left Given 07/03/2022 3:38 PM EDT 1,000 mcg De ltoid, Right Inactive Administered Medications - up to 3 most recent administrations Medication Order MAR Action Action Date Dose Rate Site diphenhydrAMINE 50 mg (BENADRYL) 50 mg, ORAL, ONCE, 1 dose, On Wed10/18/22 at 0900 Given 10/18/2022 8:56 AM EDT 50 mg Buttocks, Right keTORolac 60 mg injection (Toradol) 60 mg, INTRAMUSCULAR, ONCE, 1 dose, On Wed10/18/22 at 0900, Ketorolac (Toradol) is indicated for the short-term (up to 5 days) management of moderately severe acute pain. Continuation of ketorolac (Toradol) beyond 5 days increases the risk of developing serious adverse events. Please verify the duration of therapy for ketorolac (Toradol)., If ordered PRN for pain, patient/guardian may elect to receive this medication for higher pain levels INSTEAD of the opioid, if preferred: Yes Given 10/18/2022 8:58 AM EDT 60 mg Buttocks, Right ondansetron orally disintegrating 4 mg tab(s) (ZOFRAN ODT) 4 mg, ORAL, NOW, 1 dose, On Wed10/18/22 at 0900, Place tablet on tongue and allow to dissolve; do not chew. Open packaging using dry hands; do not push tablet through packaging. Given 10/18/2022 9:01 AM EDT 4 mg Inactive Administered Medications - up to 3 most recent administrations Medication Order MAR Action Action Date Dose Rate Site keTORolac 60 mg injection (Toradol) 60 mg, INTRAMUSCULAR, ONCE, 1 dose, On Wed12/09/22 at 1230, Ketorolac (Toradol) is indicated for the short-term (up to 5 days) management of moderately severe acute pain. Continuation of ketorolac (Toradol) beyond 5 days increases the risk of developing serious adverse events. Please verify the duration of therapy for ketorolac (Toradol)., If ordered PRN for pain, patient/guardian may elect to receive this medication for higher pain levels INSTEAD of the opioid, if preferred: Yes Given 12/09/2022 12:34 PM EDT 60 mg Hip, Left Reason for Referral Specialty Diagnoses / Procedures Referred By Jah arellano Referred To Contact Gastroenterology Diagnoses Change in bowel movement Bloating Procedures CONSULT TO GASTROENTEROLOGY OFFICE/OUTPATIENT [facility] 60-74 MINUTES Saúl Andrade MD [address] [place] [address] Referral ID Status Reason Start Date Expiration Date Visits Requested Visits Authorized [id number] Authorized PCP Requested Referral 02/26/2022 02/26/2023 1 1 Specialty Diagnoses / Procedures Referred By Contac t Referred To Contact Orthopedics Diagnoses Right wrist pain Procedures CONSULT TO ORTHOPAEDICS OFFICE/OUTPATIENT NEW HIGH MDM 60-74 MINUTES Loretta Harris PA-C [address] [place] [address] Referral ID Status Reason Start Date Expiration Date Visits Requested Visits Authorized [id number] Authorized PCP Requested Referral 08/17/2022 08/17/2023 1 1 Specialty Diagnoses / Procedures Referred By Contac t Referred To Contact XR IMAGING Diagnoses Right wrist pain Procedures XR WRIST INJURY 4V PA/LAT/OBL/SCAPH RIGHT RADEX WRIST COMPLETE MINIMUM 3 VIEWS Loretta Harris PA-C [address] [place] [address] Xr Imaging Referral ID Status Reason Start Date Expiration Date V isits Requested Visits Authorized [id number] Closed Auto-Generate d Referral 08/17/2022 09/16/2023 1 1 Summary Purpose Family History No Family History Records FoundNo Family History Records FoundNo Family History Records FoundNo Family History Records Found Advance Directives No Advanced Directives Records FoundNo Advanced Directives Records FoundNo Advanced Directives Records FoundNo Advanced Directives Records Found Additional Source Comments Source Comments (unrecognize d section and content) In the event this informatio n is protected by the Federal Confidentiality of Alcohol and Drug Abuse Patient Records regulations: The Federal rules restrict any use of the information to criminally investigate or prosecute any alcohol or drug abuse patient.[facility] the event this information is protected by the Federal Confidentiality of Alcohol and Drug Abuse Patient Records regulations: The Federal rules restrict any use of the information to criminally investigate or prosecute any alcohol or drug abuse patient.[facility] the event this information is protected by the Federal Confidentiality of Alcohol and Drug Abuse Patient Records regulations: The Federal rules restrict any use of the information to criminally investigate or prosecute any alcohol or drug abuse patient.[facility]In the event this information is protected by the Federal Confidentiality of Alcohol and Drug Abuse Patient Records regulations: The Federal rules restrict any use of the information to criminally investigate or prosecute any alcohol or drug abuse patient.[facility]In the event this information is protected by the Federal Confidentiality of Alcohol and Drug Abuse Patient Records regulations: The Federal rules restrict any use of the information to criminally investigate or prosecute any alcohol or drug abuse patient.[facility]In the event this information is protected by the Federal Confidentiality of Alcohol and Drug Abuse Patient Records regulations: The Federal rules restrict any use of the information to criminally investigate or prosecute any alcohol or drug abuse patient.[facility]In the event this information is protected by the Federal Confidentiality of Alcohol and Drug Abuse Patient Records regulations: The Federal rules restrict any use of the information to criminally investigate or prosecute any alcohol or drug abuse patient.[facility]In the event this information is protected by the Federal Confidentiality of Alcohol and Drug Abuse Patient Records regulations: The Federal rules restrict any use of the information to criminally investigate or prosecute any alcohol or drug abuse patient.[facility]In the event this information is protected by the Federal Confidentiality of Alcohol and Drug Abuse Patient Records regulations: The Federal rules restrict any use of the information to criminally investigate or prosecute any alcohol or drug abuse patient.[facility]In the event this information is protected by the Federal Confidentiality of Alcohol and Drug Abuse Patient Records regulations: The Federal rules restrict any use of the information to criminally investigate or prosecute any alcohol or drug abuse patient.[facility]In the event this information is protected by the Federal Confidentiality of Alcohol and Drug Abuse Patient Records regulations: The Federal rules restrict any use of the information to criminally investigate or prosecute any alcohol or drug abuse patient.[facility]In the event this information is protected by the Federal Confidentiality of Alcohol and Drug Abuse Patient Records regulations: The Federal rules restrict any use of the information to criminally investigate or prosecute any alcohol or drug abuse patient.[facility]In the event this information is protected by the Federal Confidentiality of Alcohol and Drug Abuse Patient Records regulations: The Federal rules restrict any use of the information to criminally investigate or prosecute any alcohol or drug abuse patient.[facility]In the event this information is protected by the Federal Confidentiality of Alcohol and Drug Abuse Patient Records regulations: The Federal rules restrict any use of the information to criminally investigate or prosecute any alcohol or drug abuse patient.[facility]In the event this information is protected by the Federal Confidentiality of Alcohol and Drug Abuse Patient Records regulations: The Federal rules restrict any use of the information to criminally investigate or prosecute any alcohol or drug abuse patient.[facility]In the event this information is protected by the Federal Confidentiality of Alcohol and Drug Abuse Patient Records regulations: The Federal rules restrict any use of the information to criminally investigate or prosecute any alcohol or drug abuse patient.[facility]In the event this information is protected by the Federal Confidentiality of Alcohol and Drug Abuse Patient Records regulations: The Federal rules restrict any use of the information to criminally investigate or prosecute any alcohol or drug abuse patient.[facility]In the event this information is protected by the Federal Confidentiality of Alcohol and Drug Abuse Patient Records regulations: The Federal rules restrict any use of the information to criminally investigate or prosecute any alcohol or drug abuse patient.[facility]In the event this information is protected by the Federal Confidentiality of Alcohol and Drug Abuse Patient Records regulations: The Federal rules restrict any use of the information to criminally investigate or prosecute any alcohol or drug abuse patient.[facility]In the event this information is protected by the Federal Confidentiality of Alcohol and Drug Abuse Patient Records regulations: The Federal rules restrict any use of the information to criminally investigate or prosecute any alcohol or drug abuse patient.[facility]In the event this information is protected by the Federal Confidentiality of Alcohol and Drug Abuse Patient Records regulations: The Federal rules restrict any use of the information to criminally investigate or prosecute any alcohol or drug abuse patient.[facility]In the event this information is protected by the Federal Confidentiality of Alcohol and Drug Abuse Patient Records regulations: The Federal rules restrict any use of the information to criminally investigate or prosecute any alcohol or drug abuse patient.[facility]In the event this information is protected by the Federal Confidentiality of Alcohol and Drug Abuse Patient Records regulations: The Federal rules restrict any use of the information to criminally investigate or prosecute any alcohol or drug abuse patient.[facility]In the event this information is protected by the Federal Confidentiality of Alcohol and Drug Abuse Patient Records regulations: The Federal rules restrict any use of the information to criminally investigate or prosecute any alcohol or drug abuse patient.[facility]In the event this information is protected by the Federal Confidentiality of Alcohol and Drug Abuse Patient Records regulations: The Federal rules restrict any use of the information to criminally investigate or prosecute any alcohol or drug abuse patient.[facility]In the event this information is protected by the Federal Confidentiality of Alcohol and Drug Abuse Patient Records regulations: The Federal rules restrict any use of the information to criminally investigate or prosecute any alcohol or drug abuse patient.[facility]In the event this information is protected by the Federal Confidentiality of Alcohol and Drug Abuse Patient Records regulations: The Federal rules restrict any use of the information to criminally investigate or prosecute any alcohol or drug abuse patient.[facility]In the event this information is protected by the Federal Confidentiality of Alcohol and Drug Abuse Patient Records regulations: The Federal rules restrict any use of the information to criminally investigate or prosecute any alcohol or drug abuse patient.[facility]In the event this information is protected by the Federal Confidentiality of Alcohol and Drug Abuse Patient Records regulations: The Federal rules restrict any use of the information to criminally investigate or prosecute any alcohol or drug abuse patient.[facility]In the event this information is protected by the Federal Confidentiality of Alcohol and Drug Abuse Patient Records regulations: The Federal rules restrict any use of the information to criminally investigate or prosecute any alcohol or drug abuse patient.[facility]In the event this information is protected by the Federal Confidentiality of Alcohol and Drug Abuse Patient Records regulations: The Federal rules restrict any use of the information to criminally investigate or prosecute any alcohol or drug abuse patient.[facility]In the event this information is protected by the Federal Confidentiality of Alcohol and Drug Abuse Patient Records regulations: The Federal rules restrict any use of the information to criminally investigate or prosecute any alcohol or drug abuse patient.[facility]In the event this information is protected by the Federal Confidentiality of Alcohol and Drug Abuse Patient Records regulations: The Federal rules restrict any use of the information to criminally investigate or prosecute any alcohol or drug abuse patient.[facility]In the event this information is protected by the Federal Confidentiality of Alcohol and Drug Abuse Patient Records regulations: The Federal rules restrict any use of the information to criminally investigate or prosecute any alcohol or drug abuse patient.[facility]In the event this information is protected by the Federal Confidentiality of Alcohol and Drug Abuse Patient Records regulations: The Federal rules restrict any use of the information to criminally investigate or prosecute any alcohol or drug abuse patient.[facility]In the event this information is protected by the Federal Confidentiality of Alcohol and Drug Abuse Patient Records regulations: The Federal rules restrict any use of the information to criminally investigate or prosecute any alcohol or drug abuse patient.[facility]In the event this information is protected by the Federal Confidentiality of Alcohol and Drug Abuse Patient Records regulations: The Federal rules restrict any use of the information to criminally investigate or prosecute any alcohol or drug abuse patient.[facility]In the event this information is protected by the Federal Confidentiality of Alcohol and Drug Abuse Patient Records regulations: The Federal rules restrict any use of the information to criminally investigate or prosecute any alcohol or drug abuse patient.[facility]In the event this information is protected by the Federal Confidentiality of Alcohol and Drug Abuse Patient Records regulations: The Federal rules restrict any use of the information to criminally investigate or prosecute any alcohol or drug abuse patient.[facility]In the event this information is protected by the Federal Confidentiality of Alcohol and Drug Abuse Patient Records regulations: The Federal rules restrict any use of the information to criminally investigate or prosecute any alcohol or drug abuse patient.[facility]In the event this information is protected by the Federal Confidentiality of Alcohol and Drug Abuse Patient Records regulations: The Federal rules restrict any use of the information to criminally investigate or prosecute any alcohol or drug abuse patient.[facility]In the event this information is protected by the Federal Confidentiality of Alcohol and Drug Abuse Patient Records regulations: The Federal rules restrict any use of the information to criminally investigate or prosecute any alcohol or drug abuse patient.[facility]In the event this information is protected by the Federal Confidentiality of Alcohol and Drug Abuse Patient Records regulations: The Federal rules restrict any use of the information to criminally investigate or prosecute any alcohol or drug abuse patient.[facility]In the event this information is protected by the Federal Confidentiality of Alcohol and Drug Abuse Patient Records regulations: The Federal rules restrict any use of the information to criminally investigate or prosecute any alcohol or drug abuse patient.[facility]In the event this information is protected by the Federal Confidentiality of Alcohol and Drug Abuse Patient Records regulations: The Federal rules restrict any use of the information to criminally investigate or prosecute any alcohol or drug abuse patient.[facility]In the event this information is protected by the Federal Confidentiality of Alcohol and Drug Abuse Patient Records regulations: The Federal rules restrict any use of the information to criminally investigate or prosecute any alcohol or drug abuse patient.[facility]In the event this information is protected by the Federal Confidentiality of Alcohol and Drug Abuse Patient Records regulations: The Federal rules restrict any use of the information to criminally investigate or prosecute any alcohol or drug abuse patient.[facility]In the event this information is protected by the Federal Confidentiality of Alcohol and Drug Abuse Patient Records regulations: The Federal rules restrict any use of the information to criminally investigate or prosecute any alcohol or drug abuse patient.[facility] Care Teams (unrecognized sec tion and content) Platform Inspector Relationship Specialty Start Date End Date Saúl Andrade MD [address] [facility] [place] [address] PCP - General Internal Medicine 08/05/16 Platform Inspector Relationship Specialty Start Date End Date Saúl Andrade MD [address] [facility] [place] [address] PCP - General Internal Medicine 08/05/16 Platform Inspector Relationship Specialty Start Date End Date Saúl Andrade MD [address] [facility] [place] [address] PCP - General Internal Medicine 08/05/16 Platform Inspector Relationship Specialty Start Date End Date Saúl Andrade MD [address] [facility] [place] [address] PCP - General Internal Medicine 08/05/16 Platform Inspector Relationship Specialty Start Date End Date Saúl Andrade MD [address] [facility] [place] [address] PCP - General Internal Medicine 08/05/16 Platform Inspector Relationship Specialty Start Date End Date Saúl Andrade MD [address] [facility] [place] [address] PCP - General Internal Medicine 08/05/16 Platform Inspector Relationship Specialty Start Date End Date Saúl Andrade MD [address] [facility] [place] [address] PCP - General Internal Medicine 08/05/16 Platform Inspector Relationship Specialty Start Date End Date Saúl Andrade MD [address] [place] [address] PCP - General Internal Medicine 08/05/16 Platform Inspector Relationship Specialty Start Date End Date Saúl Andrade MD [address] [place] [address] PCP - General Internal Medicine 08/05/16 Platform Inspector Relationship Specialty Start Date End Date Saúl Andrade MD [address] [place] [address] PCP - General Internal Medicine 08/05/16 Platform Inspector Relationship Specialty Start Date End Date Saúl Andrade MD [address] [place] [address] PCP - General Internal Medicine 08/05/16 Platform Inspector Relationship Specialty Start Date End Date Saúl Andrade MD [address] [place] [address] PCP - General Internal Medicine 08/05/16 Platform Inspector Relationship Specialty Start Date End Date Saúl Andrade MD [address] [place] [address] PCP - General Internal Medicine 08/05/16 Platform Inspector Relationship Specialty Start Date End Date Saúl Andrade MD [address] [place] [address] PCP - General Internal Medicine 08/05/16 Platform Inspector Relationship Specialty Start Date End Date Saúl Andrade MD [address] [place] [address] PCP - General Internal Medicine 08/05/16 Platform Inspector Relationship Specialty Start Date End Date Saúl Andrade MD [address] [place] [address] PCP - General Internal Medicine 08/05/16 Platform Inspector Relationship Specialty Start Date End Date Saúl Andrade MD [address] [place] [address] PCP - General Internal Medicine 08/05/16 Platform Inspector Relationship Specialty Start Date End Date Saúl Andrade MD [address] [place] [address] PCP - General Internal Medicine 08/05/16 Platform Inspector Relationship Specialty Start Date End Date Saúl Andrade MD [address] [place] [address] PCP - General Internal Medicine 08/05/16 Platform Inspector Relationship Specialty Start Date End Date Saúl Andrade MD [address] [place] [address] PCP - General Internal Medicine 08/05/16 Platform Inspector Relationship Specialty Start Date End Date Saúl Andrade MD [address] [place] [address] PCP - General Internal Medicine 08/05/16 Platform Inspector Relationship Specialty Start Date End Date Saúl Andrade MD [address] [place] [address] PCP - General Internal Medicine 08/05/16 Platform Inspector Relationship Specialty Start Date End Date Saúl Andrade MD [address] [place] [address] PCP - General Internal Medicine 08/05/16 Platform Inspector Relationship Specialty Start Date End Date Saúl Andrade MD [address] [facility] [address] PCP - General Internal Medicine 08/05/16 Platform Inspector Relationship Specialty Start Date End Date Saúl Andrade MD [address] [facility] [place] [address] PCP - General Internal Medicine 08/05/16 Platform Inspector Relationship Specialty Start Date End Date Saúl Andrade MD [address] [facility] [place] [address] PCP - General Internal Medicine 08/05/16 Platform Inspector Relationship Specialty Start Date End Date Saúl Andrade MD [address] [facility] [place] [id number] PCP - General Internal Medicine 08/05/16 Platform Inspector Relationship Specialty Start Date End Date Saúl Andrade MD [address] [facility] [place] [address] PCP - General Internal Medicine 08/05/16 Platform Inspector Relationship Specialty Start Date End Date Saúl Andrade MD [address] [facility] [place] [address] PCP - General Internal Medicine 08/05/16 Platform Inspector Relationship Specialty Start Date End Date Saúl Andrade MD [address] [facility] [place] [address] PCP - General Internal Medicine 08/05/16 Platform Inspector Relationship Specialty Start Date End Date Saúl Andrade MD [address] [facility] [place] [address] PCP - General Internal Medicine 08/05/16 Platform Inspector Relationship Specialty Start Date End Date Saúl Andrade MD [address] [place] [address] PCP - General Internal Medicine 08/05/16 Platform Inspector Relationship Specialty Start Date End Date Saúl Andrade MD [address] [place], [place] [id number] PCP - General Internal Medicine 08/05/16 Platform Inspector Relationship Specialty Start Date End Date Saúl Andrade MD [address] [place], [place] [id number] PCP - General Internal Medicine 08/05/16 Reason for Visit (unrecogniz ed section and content) Reason Comments Physical Annual physical Reason Comments Results Reason Comments Follow Up left hip injection a nd b12 injection Reason Comments Alternating bowel habits Labs 02/26/22 Specialty Diagnoses / Procedures Referred By Jah arellano Referred To Contact Gastroenterology Diagnoses Change in bowel movement Bloating Procedures CONSULT TO GASTROENTEROLOGY OFFICE/OUTPATIENT [facility] 60-74 MINUTES Saúl Andrade MD [address] [place] [address] Referral ID Status Reason Start Date Expiration Date V isits Requested Visits Authorized [id number] Closed PCP Requested Referral 02/26/2022 02/26/2023 1 1 Reason Comments B-12 Injection Reason Comments Results Reason Comments Mammogram Result Call Back Reason Comments Wrist Pain bump on right wrist area x 5 days, tingling into arm Reason Comments Headache x yesterday, hx of m igraines, out of imitrex Reason Comments Appointment change Reason Comments Established Patient Reason Onset Date Comments EMG 11/20/2022 Specialty Diagnoses / Procedures Referred By Contact [facility]erred To [facility] Diagnoses Carpal tunnel syndrome of right wrist Procedures EMG(NEURO/NI) NERVE CONDUCTION STUDIES 9-10 STUDIES Kala Villegas DO [address] [place] [address] [facility] [place] [address] [place] [address] Referral ID Status Reason Start Date Expiration Date V isits Requested Visits Authorized [id number] Closed Auto-Generate d Referral 11/06/2022 11/07/2023 1 1 Reason Comments Pain (Elbow Pain) left x 1 month, hard bump denies injury Reason Comments Headache and left elbow pain Reason Comments Sore Throat Clogged ears x 3 day s Reason Comments Consult Reason Comments Surgery Cancelled Reason Comments Post Op Ganglion excision Reason Comments Headache Reason Comments Orders Reason Comments bilateral hip pain Reason Comments Headache Nausea x2 days, no r elief with Sumatriptan INFORMATION SOURCE (unrecogn ized section and content) DATE CREATED AUTHOR 06/22/2022 [facility] ([place]) DATE CREATED AUTHOR AUTHOR'S ORGANIZ ATION 10/18/2022 [facility] DATE CREATED AUTHOR AUTHOR'S ORGANIZ ATION 04/22/2023 [facility] DATE CREATED AUTHOR AUTHOR'S ORGANIZ ATION 11/11/2023 [facility] Active Administered Medications - up to 3 most recent administrations Administered Medications (un recognized section and content) Medication Order MAR Action Action Date Dose Rate Site cyanocobalamin 1,000 mcg injection 1,000 mcg, INTRAMUSCULAR, EVERY 4 WEEKS, 12 doses, First dose on Wed03/02/23 at 0000, Last dose on Wed01/04/24 at 0000 Given 04/02/2023 2:40 PM EST 1,000 mcg Deltoid, Left Given 03/05/2023 1:20 PM EST 1,000 mcg De ltoid, Right Active Administered Medications - up to 3 most recent administrations Medication Order MAR Action Action Date Dose Rate Site cyanocobalamin 1,000 mcg injection 1,000 mcg, INTRAMUSCULAR, EVERY 4 WEEKS, 12 doses, First dose on Wed03/02/23 at 0000, Last dose on Wed01/04/24 at 0000 Given 04/30/2023 2:56 PM EDT 1,000 mcg Deltoid, Right Given 04/02/2023 2:40 PM EST 1,000 mcg De ltoid, Left Given 03/05/2023 1:20 PM EST 1,000 mcg De ltoid, Right FOR RECORDS PERTAINING TO PATIENTS WHO ARE OR HAVE BEEN ENROLLED IN A CHEMICAL DEPENDENCY/SUBSTANCEABUSE PROGRAM, SOME INFORMATION MAY BE OMITTED. This clinical summary was aggregated from multiple sources. Caution should be exercised in using it in the provision of clinical care. This summary normalizes information from multiple sources, and as a consequence, information in this document may materially change the coding, format and clinical context of patient data. In addition, data may be omitted in some cases. CLINICAL DECISIONS SHOULD BE BASED ON THE PRIMARY CLINICAL RECORDS. [facility] [employer] [facility]. provides no warranty or guarantee of the accuracy or completeness of information in this document.
[2023-12-04] MEDS: proCHLORPERazine 10 MG/2 ML Vial IV (15:59)
[2023-12-04] MEDS: 0.9% Normal Saline (500mL Bag) 500 ML 999 ML IV (16:00)
[2023-12-04 17:25] VITALS: BP 124/76; PULSE 89; RESP 14; TEMP 36.6; O2SAT 99
== END 2023-12-04 17:25 | disposition home or self-care (01) ==
PROVIDERS: Emergency Provider Emergency Medicine; PCP Internal Medicine; Visit Provider Emergency Medicine
DX: G43.909 Migraine, unspecified, not intractable, without status migrainosus (principal); F17.290 Nicotine dependence, other tobacco product, uncomplicated
CPT/HCPCS: 96361; 96374; 96375; 99282; J7040; A4216